=== PATIENT | male | born 1950 | race Caucasian/White ===

== ENCOUNTER 2016-03-03 00:51 | Inpatient (IN) | payer OTHER ==
[2016-03-03] VITALS (8 sets, daily range): BP systolic 95–115; BP diastolic 56–69; PULSE 67–103; TEMP 37.4–38.3; O2SAT 90–100; Ht 188 cm; Wt 87.5 kg
[~2016-03-03] VITALS: Ht 188 cm; Wt 87.5 kg
[~2016-03-03 00:51] MED LIST: ASCO1CAP3 PO; ASPI-435 PO; CALC200T PO; CYCL10TA6 PO; CYCL25CA2 PO; INSPMPNVLG; ISOS-11 PO; LPT/40 PO; LYR/50 PO; METO50TA16 PO; PRED-301 PO; WARF2.5T8 PO; WARF5TAB7 PO
[2016-03-03] MEDS ORDERED: SODIUM CHLORIDE 0.9% 1000ML 1,000 ML IV STA (01:07)
[2016-03-03] MEDS ORDERED: ONDANSETRON INJ 2 MG/ML 2 ML VIAL IV STA ×2 (01:07→02:06)
--- NOTE | 2016-03-03 01:12 | EMERGENCY ROOM VISIT NOTE ---
History Report prepared by Atif: Angel Ricardo Under the Supervision of: Dr. Axel Zaldivar M.D. First contact with patient: 01:01 Chief Complaint: VOMITING Stated Complaint: COUGH,VOMITING,ACEVEDO (DIABETIC) History of Present Illness The patient is a 65 year old male who presents to the Emergency Room with complaints of persistent nausea and vomiting starting a few minutes ago. He also complains of diaphoresis, fevers, chills, and heart palpitations occurring since this morning. He denies chest pain, shortness of breath, or any other complaints. He was started on Keflex this morning for a diabetic foot ulcer on the right. His blood sugar was 188 at home. The patient's has cold-like symptoms. The patient is on Coumadin. Source of History: patient Onset: a few minutes ago Position: other (global) Quality: other (nausea and vomiting) Timing: other (persistent) Associated Symptoms: + chills, + diaphoresis, + fevers, No SOB, No chest pain Review of Systems See HPI for pertinent positives & negatives. A total of 10 systems reviewed and were otherwise negative. Past Medical & Surgical Medical Problems: (1) Atrial fibrillation (2) Coronary artery disease (3) Diabetic retinopathy (4) History of renal cell carcinoma (5) Pneumonia (6) Type 1 diabetes Surgical Problems: (1) History of renal transplant (2) Status post nephrectomy Family History FH: diabetes mellitus Social History Smoking Status: Never Smoker Alcohol Use: none Drug Use: none Marital Status: Housing Status: lives with family Current/Historical Medications Scheduled Ascorbic Acid (Vitamin C), 1 CAP PO QAM Aspirin (Aspirin 81), 81 MG PO QAM Atorvastatin (Lipitor), 40 MG PO QPM Azelastine Hcl-Fluticasone Pro (Dymista), 2 [place] BID Calcium Carbonate-Vitamin D (Oscal 500/200 D-3), 1 TAB PO BID Cephalexin Monohydrate (Keflex), 500 MG PO TID Cyclosporine (Cyclosporine), 50 MG PO BID Insulin Aspart (novoLOG INSULIN PUMP ), 1 EA N/A UD Isosorbide Mononitrate (Isosorbide Mononitrate ER), 30 MG PO QAM Metoprolol Tartrate (Lopressor) (Lopressor), 50 MG PO BID Multivitamin (Multivitamin), 1 TAB PO DAILY Prednisone (Prednisone), 5 MG PO QAM Pregabalin (Lyrica), 50 MG PO 5XD Warfarin Sod (Jantoven), 5 MG PO DIRECTED Warfarin Sod (Jantoven), 2.5 MG PO DIRECTED Scheduled PRN Cyclobenzaprine Hcl (Flexeril), 10 MG PO TID PRN for muscle spasm Allergies Uncoded Allergies: "MOST NARCOTICS" (Adverse Reaction, Intermediate, NAUSEA, 01/24/14) Physical Exam Vital Signs Date Time Temp Pulse Resp B/P Pulse Ox O2 Delivery O2 Flow Rate FiO2 03/03/16 02:49 100 20 181/122 94 Room Air 03/03/16 02:25 160 183/122 03/03/16 02:01 134 18 188/112 92 Room Air 03/03/16 01:42 193/118 03/03/16 01:38 155 207/146 03/03/16 01:31 124 20 207/146 92 Room Air 03/03/16 01:18 152 03/03/16 00:54 37.3 120 20 145/ 100 Room Air Physical Exam GENERAL: Patient is uncomfortable appearing and in moderate distress. HEENT: No acute trauma, normocephalic atraumatic, mucous membranes dry, no nasal congestion, no scleral icterus. NECK: No stridor, no adenopathy, no meningismus, trachea is midline. LUNGS: Hacking cough with junky breath sounds throughout No wheeze, no rhonchi. HEART: Tachycardic rate with an irregular heartbeat. No murmurs, rubs, gallops appreciated. ABDOMEN: Soft, nontender, bowel sounds positive, no masses appreciated, no peritonitis. BACK: No midline tenderness, no CVA tenderness EXTREMITIES: Normal motion all extremities, no cyanosis, no edema. Emaciated bilateral lower legs, left worse than right. 2 cm superficial ulcer to the right medial MTP joint with mild surrounding erythema. NEUROLOGIC: Alert and oriented, no acute motor or sensory deficits, no focal weakness, cranial nerves grossly intact. SKIN: No rash, no jaundice, no diaphoresis. Medical Decision & Procedures ER Provider Diagnostic Interpretation: X ray results are stated below per my interpretation: CHEST X-RAY New infiltrate, right perihilar/right middle lobe. Enlarged heart compared to previous x-ray. No clear effusion. No pneumothorax. Laboratory Results 03/03/16 01:15 Red Blood Count 4.62, Mean Corpuscular Volume 94.2, Mean Corpuscular Hemoglobin 32.3, Mean Corpuscular Hemoglobin Concent 34.3, Mean Platelet Volume 11.5, Neutrophils (%) (Auto) 80.0, Lymphocytes (%) (Auto) 11.4, Monocytes (%) (Auto) 7.0, Eosinophils (%) (Auto) 1.2, Basophils (%) (Auto) 0.2, Neutrophils # (Auto) 11.06, Lymphocytes # (Auto) 1.58, Monocytes # (Auto) 0.97, Eosinophils # (Auto) 0.16, Basophils # (Auto) 0.03 03/03/16 01:15 Test 03/03/16 00:00 03/03/16 01:15 Urine Color YELLOW Urine Appearance CLEAR (CLEAR) Urine pH 5.5 (4.5-7.5) Urine Specific [place] 1.012 (1.000-1.030) Urine Protein NEG (NEG) Urine Glucose (UA) 2+ (NEG) Urine Ketones NEG (NEG) Urine Occult Blood NEG (NEG) Urine Nitrite NEG (NEG) Urine Bilirubin NEG (NEG) Urine Urobilinogen NEG (NEG) Urine Leukocyte Esterase NEG (NEG) Urine WBC (Auto) /hpf (0-5) Urine RBC (Auto) /hpf (0-4) Urine Hyaline Casts (Auto) /lpf (0-5) Urine Epithelial Cells (Auto) /lpf (0-5) Urine Bacteria (Auto) (NEG) Urine RBC 0-4 /hpf (0-4) Urine WBC 0 /hpf (0-5) Urine Epithelial Cells 0-5 /lpf (0-5) Urine Bacteria NEG (NEG) Influenza Type A Antigen Neg for Influ A (NEG) Influenza Type B Antigen Neg for Influ B (NEG) White Blood Count 13.83 K/uL (4.8-10.8) Red Blood Count 4.62 M/uL (4.7-6.1) Hemoglobin 14.9 g/dL (14.0-18.0) Hematocrit 43.5 % (42-52) Mean Corpuscular Volume 94.2 fL (80-100) Mean Corpuscular Hemoglobin 32.3 pg (25-34) Mean Corpuscular Hemoglobin Concent 34.3 g/dl (32-36) Platelet Count 304 K/uL (130-400) Mean Platelet Volume 11.5 fL (7.4-10.4) Neutrophils (%) (Auto) 80.0 % Lymphocytes (%) (Auto) 11.4 % Monocytes (%) (Auto) 7.0 % Eosinophils (%) (Auto) 1.2 % Basophils (%) (Auto) 0.2 % Neutrophils # (Auto) 11.06 K/uL (1.4-6.5) Lymphocytes # (Auto) 1.58 K/uL (1.2-3.4) Monocytes # (Auto) 0.97 K/uL (0.11-0.59) Eosinophils # (Auto) 0.16 K/uL (0-0.5) Basophils # (Auto) 0.03 K/uL (0-0.2) RDW Standard Deviation 49.5 fL (36.4-46.3) RDW Coefficient of Variation 14.5 % (11.5-14.5) Immature Granulocyte % (Auto) 0.2 % Immature Granulocyte # (Auto) 0.03 K/uL (0.00-0.02) Prothrombin Time 37.3 SECONDS (9.0-12.0) Prothromb Time International Ratio 3.3 (0.9-1.1) Activated Partial Thromboplast Time 32.2 SECONDS (21.0-31.0) Partial Thromboplastin Ratio 1.2 Anion Gap 11.0 mmol/L (3-11) Est Creatinine Clear Calc Drug Dose 65.0 ml/min Estimated GFR () 65.4 Estimated GFR (Non- 56.5 BUN/Creatinine Ratio 22.3 (10-20) Calcium Level 9.0 mg/dl (8.5-10.1) Magnesium Level 1.8 mg/dl (1.8-2.4) Total Bilirubin 0.5 mg/dl (0.2-1) Direct Bilirubin 0.2 mg/dl (0-0.2) Aspartate Amino Transf (AST/SGOT) 24 U/L (15-37) Alanine Aminotransferase (ALT/SGPT) 36 U/L (12-78) Alkaline Phosphatase 107 U/L (45-117) Troponin I < 0.015 ng/ml (0-0.045) C-Reactive Protein 0.56 mg/dl (0-0.29) Total Protein 7.3 gm/dl (6.4-8.2) Albumin 4.0 gm/dl (3.4-5.0) Lipase 82 U/L (73-393) Laboratory results as reviewed by me. Medications Administered Medications (Trade) Dose Ordered Sig/Tay Route Start Time Stop Time Status Last Admin Dose Admin Sodium Chloride (Nss 1000ml) 1,000 ml @ 999 mls/hr Q1H1M STAT IV 03/03/16 01:07 03/03/16 02:07 DC 03/03/16 01:27 999 MLS/HR Ondansetron HCl (Zofran Inj) 4 mg NOW STAT IV 03/03/16 01:07 03/03/16 01:08 DC 03/03/16 01:27 4 MG Metoprolol Tartrate (Lopressor Iv) 5 mg NOW STAT IV 03/03/16 01:24 03/03/16 01:25 DC 03/03/16 01:38 5 MG Lorazepam (Ativan Inj) 0.5 mg NOW STAT IV 03/03/16 01:44 03/03/16 01:45 DC 03/03/16 01:53 0.5 MG Levofloxacin (Levaquin / D5W) 750 mg NOW ONCE IV 03/03/16 02:00 03/03/16 02:01 DC 03/03/16 02:46 750 MG Metoprolol Tartrate (Lopressor Iv) 5 mg NOW STAT IV 03/03/16 02:04 03/03/16 02:05 DC 03/03/16 02:25 5 MG Ondansetron HCl (Zofran Inj) 4 mg NOW STAT IV 03/03/16 02:06 03/03/16 02:07 DC 03/03/16 02:22 4 MG Hydrocodone Bit/ Homatropine Methylb 5 ml 5 ml NOW STAT PO 03/03/16 02:51 03/03/16 03:00 DC 03/03/16 03:09 5 ML Diltiazem HCl/ Dextrose (Cardizem Inj/D5 100ml) 125 ml @ 0 mls/hr Q0M PRN IV 03/03/16 03:00 04/02/16 02:59 03/03/16 03:20 5 MLS/HR Diltiazem HCl 20 mg 20 mg NOW STAT IV 03/03/16 02:56 03/03/16 02:57 DC 03/03/16 03:18 20 MG Promethazine HCl/ Sodium Chloride (Phenergan Inj/ Nss 50ml) 50.5 ml @ 204 mls/hr NOW STAT IV 03/03/16 02:54 03/03/16 03:08 DC 03/03/16 03:14 204 MLS/HR ECG Indication: nausea, palpitations, vomiting Rate (beats per minute): 120 Rhythm: atrial fibrillation (with RVR) Findings: no acute ischemic change, other (QTC is 469) Change: Similar to previous EKGs. ED Course 0101: The patient was evaluated in room B04B. A complete history and physical exam was performed. 0023: I reevaluated the patient who has not received his nausea medication yet. He did not take the metoprolol this morning. He continues to feel nauseated. 0107: Zofran Inj 4 mg IV, Sodium Chloride 1000 ml @ 999 mls/hr IV 0124: Metoprolol Tartrate 5 mg IV 0144: Ativan Inj 0.5 mg IV 0200: Levofloxacin 750 mg IV. Upon reevaluation, the patient is feeling better but still feels nauseous. Discussed results and treatment plan with the patient. He verbalized understanding and agreement with the treatment plan. The patient will be evaluated for further management. 0204: Lopressor IV 5 mg IV 0206: Zofran Inj 4 mg IV 0207: [facility] the [facility] Medical Decision Differential: Viral, Pharyngitis, Cellulitis, Pneumonia, Influenza, Meningitis, Sepsis, Bacteremia, UTI/Pyelonephritis, Endocrine, Toxicologic, amongst other pathologies entertained. 65 yr old male on immunosuppressants for renal tx arrives Afib RVR, with right sided pneumonia, intractable vomiting and generalized illness. Flu negative. Will treat with Levaquin given lung coverage as well as right foot coverage. Not hypotensive nor lactic acidosis, thus I will hold off on excessive hydration at this time. Given 2 rounds of lopressor with improvement in HR though remains RVR. Suspect early sepsis as WBC elevated along with worsening of Cr from baseline and mild hypoxia. He has IDDM with mild hypoglycemia though is not acidotic and not DKA at this time. Will bring in to medical service for further work-up and treatment. Was given small dose ativan for nausea control as zofran only mildly helpful. Consults Time Called: 202 Consulting Physician: Dr. Montana, from [facility] Service Returned Call: 020 I discussed the patient's case with Dr. Montana, from [facility]. Impression Primary Impression: Pneumonia Additional Impressions: Atrial fibrillation with RVR, Intractable vomiting Critical Care I have personally spent greater than 40 minutes of critical care time in the direct management of this patient. This was a life/limb threatening event. This includes time spent evaluating patient, direct bedside care, chart review, placing orders, interpretation of diagnostic studies, discussion with consultants, patient, and family members, as well as other required patient management activities. This 40 minutes is in excess of all separately billable procedures. Scribe Attestation The scribe's documentation has been prepared under my direction and personally reviewed by me in its entirety. I confirm that the note above accurately reflects all work, treatment, procedures, and medical decision making performed by me. Departure Information Dispostion Being Evaluated By Hospitalist Referrals Tristan Bedolla D.O. (PCP) Patient Instructions A Signature Page, My [facility]
[2016-03-03] MEDS ORDERED: METOPROLOL TARTRATE 1 MG/ML VIAL IV STA ×2 (01:24→02:04)
[2016-03-03 01:28] LABS: BASO % 0.2 %; BASO ABS # 0.03 K/uL (0-0.2); COMPLETE YES; EOS % 1.2 %; HEMATOCRIT 43.5 % (42-52); IG% 0.2 %; LYMPH % 11.4 %; LYMPH ABS # 1.58 K/uL (1.2-3.4); MEAN CELL VOLUME 94.2 fL (80-100); MEAN CORPUSCULAR HEMOGLOBIN 32.3 pg (25-34); MEAN CORPUSCULAR HGB CONC 34.3 g/dl (32-36); MEAN PLATELET VOLUME 11.5 fL (7.4-10.4); PLATELET COUNT 304 K/uL (130-400); RED BLOOD COUNT 4.62 M/uL (4.7-6.1); WHITE BLOOD COUNT 13.83 K/uL (4.8-10.8)
[2016-03-03 01:39] LABS: INR 3.3 (0.9-1.1); PARTIAL THROMBOPLASTIN RATIO 1.2; PROTHROMBIN TIME (PATIENT) 37.3 SECONDS (9.0-12.0)
[2016-03-03] MEDS ORDERED: LORAZEPAM 2 MG/ML 1 ML VIAL IV STA (01:44)
[2016-03-03 01:47] LABS: ALT/SGPT 36 U/L (12-78); AST/SGOT 24 U/L (15-37); BLOOD UREA NITROGEN 29 mg/dl (7-18); BUN/CREATININE RATIO 22.3 (10-20); CARBON DIOXIDE 28 mmol/L (21-32); CHLORIDE 101 mmol/L (98-107); GLUCOSE 227 mg/dl (70-99); MAGNESIUM 1.8 mg/dl (1.8-2.4); POTASSIUM 3.9 mmol/L (3.5-5.1); SODIUM 140 mmol/L (136-145)
[2016-03-03 01:50] LABS: ALKALINE PHOSPHATASE 107 U/L (45-117); C-REACTIVE PROTEIN 0.56 mg/dl (0-0.29)
[2016-03-03] MEDS ORDERED: AZEL30SP NAE (01:50)
[2016-03-03] MEDS ORDERED: SALI0.658 NAE (01:53)
[2016-03-03] MEDS ORDERED: MULT-506 PO (01:53)
[2016-03-03] MEDS ORDERED: CEPH500C2 PO (01:55)
[2016-03-03] MEDS ORDERED: LEVAQUIN 750MG / 150ML D5W IV ONE (02:00)
[2016-03-03 02:22] LABS: URINE APPEARANCE CLEAR (CLEAR); URINE BILIRUBIN NEG (NEG); URINE COLOR YELLOW; URINE NITRITE NEG (NEG); URINE PH 5.5 (4.5-7.5); URINE SPECIFIC GRAVITY 1.012 (1.000-1.030); UROBILINOGEN NEG (NEG); ZZUR CULT IF INDIC CLEAN CATCH NO
[2016-03-03 02:24] LABS: MANUAL MICROSCOPIC REQUIRED? YES; REVIEW REQ? NO
[2016-03-03] MEDS ORDERED: DILTIAZEM BOLUS / DRIP IV STA (02:32)
[2016-03-03] MEDS ORDERED: NovoLOG INSULIN PUMP SCH (02:45)
[2016-03-03] MEDS ORDERED: MAGNESIUM HYDROXIDE SUSP 30 ML UDC PO PRN (02:45)
[2016-03-03] MEDS ORDERED: ONDANSETRON INJ 2 MG/ML 2 ML VIAL IV PRN (02:45)
[2016-03-03] MEDS ORDERED: ALUMINUM/MAGNESIUM/SIMETH (MAALOX MAX) 30 ML UDC PO PRN (02:45)
[2016-03-03] MEDS ORDERED: POLYETHYLENE (MIRALAX) 17 GM PACK PO PRN (02:45)
[2016-03-03] MEDS ORDERED: NITROGLYCERIN 0.4 MG SL PER TAB CHARGE SL PRN (02:45)
[2016-03-03] MEDS ORDERED: LEVALBUTEROL 0.63MG/3 ML NEB INH PRN (02:45)
[2016-03-03] MEDS ORDERED: HYDROCODONE/HOMATROPINE SYRUP 5MG/1.5MG 5ML UDP PO STA (02:51)
[2016-03-03 02:52] LABS: URINE BACTERIA NEG (NEG); URINE RBC 0-4 /hpf (0-4); URINE WBC 0 /hpf (0-5)
[2016-03-03] MEDS ORDERED: PROMETHAZINE HCL INJ 12.5 MG in SODIUM CHLORIDE 0.9% 50ML 50 ML IV STA (02:54)
[2016-03-03] MEDS ORDERED: DILTIAZEM HCL 5 MG/ML 5 ML VIAL IV STA (02:56)
[2016-03-03] MEDS ORDERED: DILTIAZEM HCL INJ 125 MG in DEXTROSE 5% 100ML IV PRN (03:00)
[2016-03-03] MEDS ORDERED: HYDROCODONE/HOMATROPINE SYRUP 5MG/1.5MG 5ML UDP PO PRN (03:00)
--- NOTE | 2016-03-03 03:13 | History and Physical ---
History & Physical Date & Time of Service: Mar 03, 2016 at 02:40 Chief Complaint: Cough,Vomiting,Kothari (Diabetic) Primary Care Physician: Tristan Bedolla D.O. History of Present Illness Source: patient, family, clinic records, hospital records This is a 65 year old male with PMH of renal transplant on immunosuppressive therapy, type 1 DM on an insulin pump with complications including diabetic neuropathy, hx. of paroxysmal atrial fibrillation on anticoagulation, CAD s/p stents - he presents to the ER due to coughing, nausea/vomiting that began on 03/02/16 - the coughing has made it difficult to keep anything down and he developed vomiting secondary to this. He states that there are some sick family members at home, including their grandchildren. He was given keflex 1 day prior due to a foot ulcerations noted on the right big toe. Initially, he thought the vomiting was due to the antibiotic, but states that the vomiting started after coughing began. Upon presentation here, he had an CXR done, showing a R middle lobe pneumonia. HRs were in the 120s-130s as he could not keep down his Lopressor dose for the evening. Given IV lopressor in the ER with little improvement in the heart rate. During my exam, continues to have vomiting, coughing, and elevated HRs. Past Medical/Surgical History Medical Problems: (1) Atrial fibrillation Status: Chronic (2) Coronary artery disease Status: Chronic (3) Diabetic retinopathy Status: Chronic (4) History of renal cell carcinoma Status: Chronic (5) Type 1 diabetes Status: Chronic Surgical Problems: (1) History of renal transplant Status: Chronic (2) Status post nephrectomy Permanent Comment: for renal cell Ca Status: Chronic Family History FH: diabetes mellitus Social History Smoking Status: Never Smoker Drug Use: none Marital Status: Housing status: lives with family Immunizations History of Influenza Vaccine: Yes Influenza Vaccine Date: Nov 08, 2013 History of Tetanus Vaccine?: Yes Tetanus Immunization Date: May 03, 2006 History of Pneumococcal: Yes Pneumococcal Date: Jun 06, 2013 History of Hepatitis B Vaccine: Yes Hepatitis Immunization Date: Apr 19, 1992 Allergies Uncoded Allergies: "MOST NARCOTICS" (Adverse Reaction, Intermediate, NAUSEA, 01/24/14) Home Medications Scheduled Ascorbic Acid (Vitamin C), 1 CAP PO QAM Aspirin (Aspirin 81), 81 MG PO QAM Atorvastatin (Lipitor), 40 MG PO QPM Azelastine Hcl-Fluticasone Pro (Dymista), 2 [place] BID Calcium Carbonate-Vitamin D (Oscal 500/200 D-3), 1 TAB PO BID Cephalexin Monohydrate (Keflex), 500 MG PO TID Cyclosporine (Cyclosporine), 50 MG PO BID Insulin Aspart (novoLOG INSULIN PUMP ), 1 EA N/A UD Isosorbide Mononitrate (Isosorbide Mononitrate ER), 30 MG PO QAM Metoprolol Tartrate (Lopressor) (Lopressor), 50 MG PO BID Multivitamin (Multivitamin), 1 TAB PO DAILY Prednisone (Prednisone), 5 MG PO QAM Pregabalin (Lyrica), 50 MG PO 5XD Warfarin Sod (Jantoven), 5 MG PO DIRECTED Warfarin Sod (Jantoven), 2.5 MG PO DIRECTED Scheduled PRN Cyclobenzaprine Hcl (Flexeril), 10 MG PO TID PRN for muscle spasm Review of Systems Constitutional: + weakness, No chills, No fatigue, No fever Respiratory: + cough, + sputum, No dyspnea at rest, No dyspnea on exertion, No shortness of breath, No wheezing Cardiovascular: No chest pain, No edema, No palpitations Abdomen: + nausea, + vomiting, No GI bleeding, No constipation, No diarrhea, No pain Genitourinary - Male: No dysuria, No hematuria, No urinary frequency, No urinary urgency Neurologic: No memory loss Endocrine: No fatigue Hematologic / Lymphatic: No abnormal bleeding/bruising Integumentary: No rash Allergic / Immunologic: No environmental allergies, No seasonal allergies Physical Exam Vital Signs Date Time Temp Pulse Resp B/P Pulse Ox O2 Delivery O2 Flow Rate FiO2 03/03/16 02:25 160 183/122 03/03/16 02:01 134 18 188/112 92 Room Air 03/03/16 01:42 193/118 03/03/16 01:38 155 207/146 03/03/16 01:31 124 20 207/146 92 Room Air 03/03/16 01:18 152 03/03/16 00:54 37.3 120 20 145/ 100 Room Air General Appearance: + moderate distress (secondary to vomiting/cough) Head: normocephalic, atraumatic Eyes: normal inspection ENT: hearing grossly normal Neck: supple Respiratory/Chest: + respiratory distress, + decreased breath sounds, + crackles Cardiovascular: no edema, no murmur, + tachycardia Abdomen/GI: normal bowel sounds, non tender, soft Extremities/Musculoskelatal: no calf tenderness, normal capillary refill, no pedal edema Neurologic/Psych: no motor/sensory deficits, alert, normal mood/affect Skin: normal color Lymphatic: no adenopathy Diagnostics Laboratory Results Results Past 24 Hours Test 03/03/16 00:00 03/03/16 01:15 Range/Units Urine Color YELLOW Urine Appearance CLEAR CLEAR Urine pH 5.5 4.5-7.5 Urine Specific [place] 1.012 1.000-1.030 Urine Protein NEG NEG Urine Glucose (UA) 2+ NEG Urine Ketones NEG NEG Urine Occult Blood NEG NEG Urine Nitrite NEG NEG Urine Bilirubin NEG NEG Urine Urobilinogen NEG NEG Urine Leukocyte Esterase NEG NEG Urine WBC (Auto) 0-5 /hpf Urine RBC (Auto) 0-4 /hpf Urine Hyaline Casts (Auto) 0-5 /lpf Urine Epithelial Cells (Auto) 0-5 /lpf Urine Bacteria (Auto) NEG Influenza Type A Antigen Neg for Influ A NEG Influenza Type B Antigen Neg for Influ B NEG White Blood Count 13.83 4.8-10.8 K/uL Red Blood Count 4.62 4.7-6.1 M/uL Hemoglobin 14.9 14.0-18.0 g/dL Hematocrit 43.5 42-52 % Mean Corpuscular Volume 94.2 80-100 fL Mean Corpuscular Hemoglobin 32.3 25-34 pg Mean Corpuscular Hemoglobin Concent 34.3 32-36 g/dl Platelet Count 304 130-400 K/uL Mean Platelet Volume 11.5 7.4-10.4 fL Neutrophils (%) (Auto) 80.0 % Lymphocytes (%) (Auto) 11.4 % Monocytes (%) (Auto) 7.0 % Eosinophils (%) (Auto) 1.2 % Basophils (%) (Auto) 0.2 % Neutrophils # (Auto) 11.06 1.4-6.5 K/uL Lymphocytes # (Auto) 1.58 1.2-3.4 K/uL Monocytes # (Auto) 0.97 0.11-0.59 K/uL Eosinophils # (Auto) 0.16 0-0.5 K/uL Basophils # (Auto) 0.03 0-0.2 K/uL RDW Standard Deviation 49.5 36.4-46.3 fL RDW Coefficient of Variation 14.5 11.5-14.5 % Immature Granulocyte % (Auto) 0.2 % Immature Granulocyte # (Auto) 0.03 0.00-0.02 K/uL Prothrombin Time 37.3 9.0-12.0 SECONDS Prothromb Time International Ratio 3.3 0.9-1.1 Activated Partial Thromboplast Time 32.2 21.0-31.0 SECONDS Partial Thromboplastin Ratio 1.2 Sodium Level 140 136-145 mmol/L Potassium Level 3.9 3.5-5.1 mmol/L Chloride Level 101 98-107 mmol/L Carbon Dioxide Level 28 21-32 mmol/L Anion Gap 11.0 3-11 mmol/L Blood Urea Nitrogen 29 7-18 mg/dl Creatinine 1.30 0.60-1.40 mg/dl Est Creatinine Clear Calc Drug Dose 65.0 ml/min Estimated GFR () 65.4 Estimated GFR (Non- 56.5 BUN/Creatinine Ratio 22.3 10-20 Random Glucose 227 70-99 mg/dl Calcium Level 9.0 8.5-10.1 mg/dl Magnesium Level 1.8 1.8-2.4 mg/dl Total Bilirubin 0.5 0.2-1 mg/dl Direct Bilirubin 0.2 0-0.2 mg/dl Aspartate Amino Transf (AST/SGOT) 24 15-37 U/L Alanine Aminotransferase (ALT/SGPT) 36 12-78 U/L Alkaline Phosphatase 107 45-117 U/L Troponin I < 0.015 0-0.045 ng/ml C-Reactive Protein 0.56 0-0.29 mg/dl Total Protein 7.3 6.4-8.2 gm/dl Albumin 4.0 3.4-5.0 gm/dl Lipase 82 73-393 U/L Microbiology Results 03/03/16 Blood Culture, Jessica Batch Pending 03/03/16 Blood Culture, Jessica Batch Pending Impression Assessment and Plan This is a 65 year old male with PMH of renal transplant on immunosuppressive therapy, type 1 DM on an insulin pump with complications including diabetic neuropathy, hx. of paroxysmal atrial fibrillation on anticoagulation, CAD s/p stents Mild Sepsis Right Middle Lobe Pneumonia -->CXR suggest a right middle lobe consolidation -->patient's family member states he did not aspirate on food -->+tachycardia, +leukocytosis = meets sepsis criteria -->was given one dose of Levaquin in the ER -->will start Rocephin and Doxycycline in the AM -->cough persists, slightly hypoxic requiring 2L O2 via NC -->continue supplemental oxygen as needed -->add Hycodan cough syrup -->Xopenex nebulization as needed -->blood cultures/sputum culture pending Post-Tussive Emesis -->patient with lots of sputum production with cough -->+emesis, and nausea -->Zofran PRN -->added hycodan syrup for cough suppression -->Phenergan PRN added Atrial Fibrillation with RVR -->multifactorial: infection as well as missed b-oleg dose due to vomiting -->was given 10mg of IV Lopressor in the ER with no help -->Cardizem 20mg bolus and drip started at 5mg -->monitor in tele -->patient on Coumadin; INR is 3.3 -->hold Coumadin tonight and recheck on 03/04 Acute Kidney Injury -->secondary to nausea/vomiting + dehydration -->baseline creat = 1.0 -->here with a creat of 1.3 -->given boluses in the ER -->will start maintenance IVFs and recheck creat in AM Right Foot Ulceration -->was started on Keflex as outpatient -->will continue Rocephin + doxy as above for pneumonia; should cover the ulcer as well -->wound care nurse consult placed Type 1 Diabetes Mellitus -->patient with an insulin pump; may use his own -->monitor blood sugars with the nausea/vomiting -->may need to turn off insulin pump and use subq insulin if patient has difficulty with using the pump CAD s/p stents -->no acute problems noted -->continue cardiac medications, ASA, statin, Imdur, b-oleg Uncontrolled Blood Pressure -->again, likely related to +cough, +vomiting -->started on cardizem drip, monitor BP and adjust meds accordingly DVT ppx -->Coumadin, INR = 3.3 FULL CODE VTE Prophylaxis VTE Risk Assessment Done? Y/N: Yes Risk Level: High
[2016-03-03] MEDS ORDERED: GLUCOSE 10 TABS/TUBE PO PRN ×2 (03:15→05:15)
[2016-03-03] MEDS ORDERED: GLUCOSE 40% GEL 15 GM TUBE PO PRN ×2 (03:15→05:15)
[2016-03-03] MEDS ORDERED: DEXTROSE 50% 50 ML SYR IV PRN ×2 (03:15→05:15)
[2016-03-03] MEDS ORDERED: GLUCAGON FOR INJ 1 MG VIAL SQ PRN ×2 (03:15→05:15)
[2016-03-03] MEDS ORDERED: PHARMACY GLYCEMIC MGMT CONSULT PRN (03:50)
[2016-03-03] MEDS ORDERED: PHARMACY GLYCEMIC MGMT CONSULT STA (04:29)
[2016-03-03] MEDS: CEFTRIAXONE SOD INJ 1 GM in DEXTROSE 5% ADD-VANTAGE 50ML 50 ML IV SCH (05:12)
[2016-03-03] MEDS: SODIUM CHLORIDE 0.9% 1000ML 1,000 ML IV SCH ×2 (05:12→17:02)
[2016-03-03 06:04] LABS: HEMATOCRIT 39.9 % (42-52); MEAN CELL VOLUME 93.4 fL (80-100); MEAN CORPUSCULAR HEMOGLOBIN 32.6 pg (25-34); MEAN CORPUSCULAR HGB CONC 34.8 g/dl (32-36); MEAN PLATELET VOLUME 11.5 fL (7.4-10.4); PLATELET COUNT 208 K/uL (130-400); RED BLOOD COUNT 4.27 M/uL (4.7-6.1); WHITE BLOOD COUNT 8.57 K/uL (4.8-10.8)
[2016-03-03 06:31] LABS: BUN/CREATININE RATIO 22.3 (10-20); CALCIUM 8.5 mg/dl (8.5-10.1); CREATININE 1.2 mg/dl (0.60-1.40); MAGNESIUM 1.6 mg/dl (1.8-2.4); POTASSIUM 3.6 mmol/L (3.5-5.1)
--- NOTE | 2016-03-03 07:14 | DIAGNOSTIC IMAGING REPORT ---
SINGLE VIEW CHEST CLINICAL HISTORY: Vomiting. FINDINGS: An AP, portable, upright chest radiograph is compared to study dated 05/31/2015. The examination is significantly degraded by portable technique and patient rotation. The heart is mildly enlarged and there is atherosclerotic calcification of the thoracic aorta. The pulmonary vasculature is noncongested. Emphysema and chronic interstitial thickening is similar to previous. There are bibasilar airspace opacities, likely representing atelectasis. No large pleural effusion or pneumothorax is seen. The skeletal structures are osteopenic. The bony thorax is grossly intact. Fusion hardware is noted in the lower cervical spine. IMPRESSION: 1. Cardiomegaly and emphysema. 2. Bibasilar airspace opacities likely represent atelectasis. Correlate clinically for evidence of a superimposed infectious or inflammatory pneumonitis. Electronically signed by: Minesh Taveras M.D. 03/03/2016 7:12 AM Dictated Date/Time: 03/03/2016 7:11 AM
[2016-03-03] MEDS: DOXYCYCLINE IV 100 MG in DEXTROSE 5% 100ML 100 ML IV SCH ×2 (08:29→21:17)
[2016-03-03] MEDS: MULTIVITAMIN TAB PO SCH (08:31)
[2016-03-03] MEDS: ASPIRIN 81 MG ECTAB PO SCH (08:31)
[2016-03-03] MEDS: METOPROLOL TARTRATE 50 MG TAB PO SCH ×2 (08:31→21:19)
[2016-03-03] MEDS: ASCORBIC ACID 500 MG TAB PO SCH (08:31)
[2016-03-03] MEDS: ISOSORBIDE MONONITRATE 30 MG TABCR PO SCH (08:31)
[2016-03-03] MEDS: CALCIUM 600MG + VIT D 400 IU TAB PO SCH ×2 (08:31→21:18)
[2016-03-03] MEDS: CycloSPORINE (SANDIMMUNE) 25 MG CAP PO SCH ×2 (08:32→21:21)
[2016-03-03] MEDS: INSULIN ASPART 100 UNITS/ML 3 ML PEN SC SCH ×4 (08:38→21:24)
[2016-03-03] MEDS: INSULIN GLARGINE SOLOSTAR 100 UNITS/ML 3 ML PEN SC SCH ×2 (08:39→21:23)
[2016-03-03] MEDS ORDERED: PREGABALIN 50 MG CAP PO SCH (09:00)
[2016-03-03 09:04] LABS: ESTIMATED AVERAGE GLUCOSE 194 mg/dl; HA1C FLAG Normal (Normal)
--- NOTE | 2016-03-03 16:02 | Pharmacy Progress Note ---
Glycemic Control Intl Consult Date of Service Mar 03, 2016. Scope Glycemic Pharmacist consulted by Dr Montana on 03/03/16 for glycemic control and to write orders per [facility] inpatient glycemic control protocol Objective Weight (Kilograms): 87.900 Accuchecks BSG (last 24hrs): Test 03/03/16 01:15 03/03/16 04:17 03/03/16 05:08 03/03/16 05:10 Random Glucose 227 mg/dl (70-99) 202 mg/dl (70-99) Bedside Glucose 207 mg/dl (70-99) 198 mg/dl (70-99) Test 03/03/16 11:13 Bedside Glucose 198 mg/dl (70-99) Laboratory Data (last 24hrs) Test 03/03/16 01:15 03/03/16 05:08 Anion Gap 11.0 mmol/L 12.0 mmol/L BUN/Creatinine Ratio 22.3 22.3 Blood Urea Nitrogen 29 mg/dl 27 mg/dl Creatinine 1.30 mg/dl 1.20 mg/dl Potassium Level 3.9 mmol/L 3.6 mmol/L Sodium Level 140 mmol/L 142 mmol/L White Blood Count 13.83 K/uL 8.57 K/uL Red Blood Count 4.62 M/uL Hemoglobin 14.9 g/dL Hematocrit 43.5 % Mean Corpuscular Volume 94.2 fL Mean Corpuscular Hemoglobin 32.3 pg Mean Corpuscular Hemoglobin Concent 34.3 g/dl Platelet Count 304 K/uL Mean Platelet Volume 11.5 fL Neutrophils (%) (Auto) 80.0 % Lymphocytes (%) (Auto) 11.4 % Monocytes (%) (Auto) 7.0 % Eosinophils (%) (Auto) 1.2 % Basophils (%) (Auto) 0.2 % Neutrophils # (Auto) 11.06 K/uL Lymphocytes # (Auto) 1.58 K/uL Monocytes # (Auto) 0.97 K/uL Eosinophils # (Auto) 0.16 K/uL Basophils # (Auto) 0.03 K/uL Hemoglobin A1c 8.4 % HbA1c Test 03/03/16 05:08 Hemoglobin A1c 8.4 % (4.5-5.6) H Recent Pertinent Medications Outpatient Anti-diabetic Regimen: * Novolog pump, total 16.475 units basal/day, goal 118-130, CF 42, CR 15 * A1c = 8.4 % 03/03/16 The patient is currently receiving: * Basal insulin: Lantus 15 units every 12 hours * Correctional Insulin: Novolog Correction per scale ACHS Goal Range: Low 100 mg/dL - High 140 mg/dL Correction Factor: 25 mg/dL/unit * Prandial insulin: Per carb ratio of 1 unit per 9 grams CHO consumed Risk Factors for Insulin Resistance: * Steroids: Prednisone 5 mg daily (home dose) * Infection: pneumonia, on Rocephin and doxycycline IV * Pressors: no * IVF: NS @ 80 ml/hr, Cardizem drip mixed in d5w * Recent Surgery: no * Diet: type 1 diabetic renal * Mechanical Ventilation: no Assessment & Plan ASSESSMENT: * ADA & AACE recommend a goal blood sugar range 140-180 mg/dl for the majority of critically ill & non-critically ill patients. However, more stringent targets may be selected in individual cases. * 65 yo type 1 diabetic on Novolog pump at home, unable to manage pump on admission due to confusion. Started weight-based Lantus-Novolog, Lantus not yet steady-state. Pump settings reported by environmental educator. May need to decrease insulin doses- will reassess in am. PLAN FOR INPATIENT GLYCEMIC CONTROL: * Continuing Lantus 15] units SQ BID, give 1/2 dose (7 units) if BSG is less than 100 * Continuing correction factor 25 mg/dl/unit * Continuing carb ratio 1 unit per 9 grams CHO consumed * Continuing goal range Low 100 mg/dL - High 140 mg/dL * Please note that the plan above was derived based on current level of insulin resistance and hospital stress. These recommendations are appropriate for inpatient admission only. Plan of care upon discharge will need to be reassessed to avoid potential outpatient hypo/hyperglycemia. Thank you.
--- NOTE | 2016-03-03 19:27 | Progress Note ---
Medicine Progress Note Date & Time of Visit: Mar 03, 2016 at 19:27. Subjective Patient seen with his present at the bedside; reports feeling drowsy from the meds given this AM. Nausea and vomiting improved. Has a productive cough. Still having chills/fevers. Denies any SOB/CP/palpitations. No other complaints at this time. Patient and updated on progress. Objective Last 8 Hrs Date Time Temp Pulse Resp B/P Pulse Ox O2 Delivery O2 Flow Rate FiO2 03/03/16 16:00 Room Air 03/03/16 15:06 37.7 68 18 95/57 90 Room Air 03/03/16 12:07 38.3 78 14 115/69 94 Room Air 03/03/16 12:00 Nasal Cannula 2.0 Physical Exam: GENERAL: Patient is in no acute distress. HEENT: No acute trauma, normocephalic, mucous membranes moist, no nasal congestion, no scleral icterus. NECK: No stridor, trachea is midline LUNGS: Coarse rhonchi bilaterally, no wheeze, breath sounds equal. HEART: Without murmurs gallops or rubs, irregularly irregular ABDOMEN: Soft, nontender, bowel sounds positive EXTREMITIES: No cyanosis or edema NEUROLOGIC: Oriented, drowsy, no acute motor or sensory deficits, no focal weakness. SKIN: No rash, no jaundice, no diaphoresis. Laboratory Results: Last 24 Hours Test 03/03/16 00:00 03/03/16 01:15 03/03/16 01:18 03/03/16 04:17 Urine Color YELLOW Urine Appearance CLEAR Urine pH 5.5 Urine Specific [place] 1.012 Urine Protein NEG Urine Glucose (UA) 2+ Urine Ketones NEG Urine Occult Blood NEG Urine Nitrite NEG Urine Bilirubin NEG Urine Urobilinogen NEG Urine Leukocyte Esterase NEG Urine WBC (Auto) /hpf Urine RBC (Auto) /hpf Urine Hyaline Casts (Auto) /lpf Urine Epithelial Cells (Auto) /lpf Urine Bacteria (Auto) Urine RBC 0-4 /hpf Urine WBC 0 /hpf Urine Epithelial Cells 0-5 /lpf Urine Bacteria NEG Influenza Type A Antigen Neg for Influ A Influenza Type B Antigen Neg for Influ B White Blood Count 13.83 K/uL Red Blood Count 4.62 M/uL Hemoglobin 14.9 g/dL Hematocrit 43.5 % Mean Corpuscular Volume 94.2 fL Mean Corpuscular Hemoglobin 32.3 pg Mean Corpuscular Hemoglobin Concent 34.3 g/dl Platelet Count 304 K/uL Mean Platelet Volume 11.5 fL Neutrophils (%) (Auto) 80.0 % Lymphocytes (%) (Auto) 11.4 % Monocytes (%) (Auto) 7.0 % Eosinophils (%) (Auto) 1.2 % Basophils (%) (Auto) 0.2 % Neutrophils # (Auto) 11.06 K/uL Lymphocytes # (Auto) 1.58 K/uL Monocytes # (Auto) 0.97 K/uL Eosinophils # (Auto) 0.16 K/uL Basophils # (Auto) 0.03 K/uL RDW Standard Deviation 49.5 fL RDW Coefficient of Variation 14.5 % Immature Granulocyte % (Auto) 0.2 % Immature Granulocyte # (Auto) 0.03 K/uL Prothrombin Time 37.3 SECONDS Prothromb Time International Ratio 3.3 Activated Partial Thromboplast Time 32.2 SECONDS Partial Thromboplastin Ratio 1.2 Sodium Level 140 mmol/L Potassium Level 3.9 mmol/L Chloride Level 101 mmol/L Carbon Dioxide Level 28 mmol/L Anion Gap 11.0 mmol/L Blood Urea Nitrogen 29 mg/dl Creatinine 1.30 mg/dl Est Creatinine Clear Calc Drug Dose 65.0 ml/min Estimated GFR () 65.4 Estimated GFR (Non- 56.5 BUN/Creatinine Ratio 22.3 Random Glucose 227 mg/dl Calcium Level 9.0 mg/dl Magnesium Level 1.8 mg/dl Total Bilirubin 0.5 mg/dl Direct Bilirubin 0.2 mg/dl Aspartate Amino Transf (AST/SGOT) 24 U/L Alanine Aminotransferase (ALT/SGPT) 36 U/L Alkaline Phosphatase 107 U/L Troponin I < 0.015 ng/ml C-Reactive Protein 0.56 mg/dl Total Protein 7.3 gm/dl Albumin 4.0 gm/dl Lipase 82 U/L Bedside Lactic Acid Venous 1.40 mmol/L Bedside Glucose 207 mg/dl Test 03/03/16 05:08 03/03/16 05:10 03/03/16 11:13 03/03/16 16:30 White Blood Count 8.57 K/uL Red Blood Count 4.27 M/uL Hemoglobin 13.9 g/dL Hematocrit 39.9 % Mean Corpuscular Volume 93.4 fL Mean Corpuscular Hemoglobin 32.6 pg Mean Corpuscular Hemoglobin Concent 34.8 g/dl RDW Standard Deviation 49.4 fL RDW Coefficient of Variation 14.6 % Platelet Count 208 K/uL Mean Platelet Volume 11.5 fL Sodium Level 142 mmol/L Potassium Level 3.6 mmol/L Chloride Level 103 mmol/L Carbon Dioxide Level 27 mmol/L Anion Gap 12.0 mmol/L Blood Urea Nitrogen 27 mg/dl Creatinine 1.20 mg/dl Est Creatinine Clear Calc Drug Dose 69.5 ml/min Estimated GFR () 72.1 Estimated GFR (Non- 62.2 BUN/Creatinine Ratio 22.3 Random Glucose 202 mg/dl Estimated Average Glucose 194 mg/dl Hemoglobin A1c 8.4 % Calcium Level 8.5 mg/dl Magnesium Level 1.6 mg/dl Bedside Glucose 198 mg/dl 198 mg/dl 169 mg/dl Date/Time Source Procedure Growth Status 03/03/16 02:40 Blood Blood Culture Pending Received 03/03/16 02:35 Blood Blood Culture Pending Received Assessment & Plan See H&P from this AM for more details. Current Inpatient Medications: Current Inpatient Medications Medications (Trade) Dose Ordered Sig/Tay Route Start Time Stop Time Status Last Admin Dose Admin Sodium Chloride (Nss 1000ml) 1,000 ml @ 80 mls/hr [id number] IV 03/03/16 04:30 04/02/16 04:29 03/03/16 17:02 80 MLS/HR Acetaminophen (Tylenol Tab) 650 mg Q4H PRN PO 03/03/16 02:45 04/02/16 02:44 Al Hydrox/Mg Hydrox/Simethicone (Maalox Max Susp) 15 ml Q4H PRN PO 03/03/16 02:45 04/02/16 02:44 Magnesium Hydroxide (Milk Of Magnesia Susp) 30 ml Q12H PRN PO 03/03/16 02:45 04/02/16 02:44 Ondansetron HCl (Zofran Inj) 4 mg Q6H PRN IV 03/03/16 02:45 04/02/16 02:44 Nitroglycerin (Nitrostat Tab) 0.4 mg UD PRN SL 03/03/16 02:45 04/02/16 02:44 Polyethylene 17 gm 17 gm DAILY PRN PO 03/03/16 02:45 2/9/17 02:44 Ceftriaxone Sodium 1 gm/ Dextrose 50 ml @ 100 mls/hr DAILY@0500 IV 03/03/16 05:00 03/10/16 04:59 03/03/16 05:12 100 MLS/HR Doxycycline Hyclate/Dextrose (Vibramycin IV/ D5 100ml) 110 ml @ 50 mls/hr BID IV 03/03/16 09:00 03/10/16 08:59 03/03/16 08:29 50 MLS/HR Levalbuterol (Xopenex 0.63 Mg/ 3 Ml Neb) 0.63 mg Q6R PRN INH 03/03/16 02:45 04/02/16 02:44 Aspirin (Ecotrin Tab) 81 mg QAM PO 03/03/16 09:00 04/02/16 08:59 03/03/16 08:31 81 MG Atorvastatin Calcium (Lipitor Tab) 40 mg QPM PO 03/03/16 21:00 04/02/16 20:59 Cyclosporine (Sandimmune Cap) 50 mg BID PO 03/03/16 09:00 04/02/16 08:59 03/03/16 08:32 50 MG Insulin Aspart (novoLOG INSULIN PUMP) 1 ea UD N/A 03/03/16 02:45 04/02/16 02:44 Future Hold Isosorbide Mononitrate (Imdur Ext Rel Tab) 30 mg QAM PO 03/03/16 09:00 04/02/16 08:59 03/03/16 08:31 30 MG Metoprolol Tartrate (Lopressor Tab) 50 mg BID PO 03/03/16 09:00 04/02/16 08:59 03/03/16 08:31 50 MG Multivitamins (Multivitamin Tab) 1 tab DAILY PO 03/03/16 09:00 04/02/16 08:59 03/03/16 08:31 1 TAB Prednisone (PredniSONE TAB) 5 mg QAM PO 03/03/16 09:00 04/02/16 08:59 03/03/16 08:31 5 MG Pregabalin (Lyrica Cap) 50 mg DAILY PO 03/03/16 09:00 04/02/16 08:59 03/03/16 08:28 50 MG Ascorbic Acid (Vitamin C Tab) 500 mg DAILY PO 03/03/16 09:00 04/02/16 08:59 03/03/16 08:31 500 MG Calcium/Vitamin D (Caltrate Plus Tab) 1 tab BID PO 03/03/16 09:00 04/02/16 08:59 03/03/16 08:31 1 TAB Hydrocodone Bit/ Homatropine Methylb 5 ml 5 ml Q6 PRN PO 03/03/16 03:00 03/17/16 02:59 Diltiazem HCl/ Dextrose (Cardizem Inj/D5 100ml) 125 ml @ 0 mls/hr Q0M PRN IV 03/03/16 03:00 04/02/16 02:59 03/03/16 03:20 5 MLS/HR Miscellaneous Information (Consult Glycemic Management Pharmacy) 1 ea DAILY PRN N/A 03/03/16 03:50 04/02/16 03:49 Insulin Aspart (novoLOG ASPART) SLIDING SCALE ACHS SC 03/03/16 07:00 04/02/16 06:59 03/03/16 17:02 2 UNITS Glucose (Glucose 40% Gel) 15-30 GRAMS 15 GRAMS... UD PRN PO 03/03/16 05:15 04/02/16 05:14 Glucose (Glucose Chew Tab) 4-8 Tablets 4 Tabl... UD PRN PO 03/03/16 05:15 04/02/16 05:14 Dextrose (Dextrose 50% 50ML Syringe) 25-50ML OF 50% DW IV FOR... UD PRN IV 03/03/16 05:15 04/02/16 05:14 Glucagon (Glucagon Inj) 1 mg UD PRN SQ 03/03/16 05:15 04/02/16 05:14 Insulin Glargine (Lantus Solostar Pen) 15 unit BID SC 03/03/16 09:00 04/02/16 08:59 03/03/16 08:39 15 UNIT
[2016-03-03] MEDS: ATORVASTATIN 20 MG TAB PO SCH (21:17)
[2016-03-03] MEDS ORDERED: NURSING VERBAL MED ORDER ONE (23:30)
[2016-03-04] VITALS (9 sets, daily range): BP systolic 102–126; BP diastolic 53–70; PULSE 70–89; TEMP 36.4–37.7; O2SAT 90–98
[2016-03-04] MEDS: SODIUM CHLORIDE 0.9% 1000ML 1,000 ML IV SCH ×2 (04:41→18:05)
[2016-03-04] MEDS: CEFTRIAXONE SOD INJ 1 GM in DEXTROSE 5% ADD-VANTAGE 50ML 50 ML IV SCH (04:41)
[2016-03-04] MEDS: PREGABALIN 50 MG CAP PO SCH ×5 (06:35→21:30)
[2016-03-04] MEDS: ASPIRIN 81 MG ECTAB PO SCH (08:08)
[2016-03-04] MEDS: DOXYCYCLINE IV 100 MG in DEXTROSE 5% 100ML 100 ML IV SCH ×2 (08:08→21:30)
[2016-03-04] MEDS: CycloSPORINE (SANDIMMUNE) 25 MG CAP PO SCH ×2 (08:08→21:30)
[2016-03-04] MEDS: ASCORBIC ACID 500 MG TAB PO SCH (08:08)
[2016-03-04] MEDS: CALCIUM 600MG + VIT D 400 IU TAB PO SCH ×2 (08:09→21:29)
[2016-03-04] MEDS: METOPROLOL TARTRATE 50 MG TAB PO SCH ×2 (08:09→21:30)
[2016-03-04] MEDS: MULTIVITAMIN TAB PO SCH (08:09)
[2016-03-04] MEDS: ISOSORBIDE MONONITRATE 30 MG TABCR PO SCH (08:09)
[2016-03-04] MEDS: INSULIN ASPART 100 UNITS/ML 3 ML PEN SC SCH ×4 (08:11→21:31)
[2016-03-04] MEDS: INSULIN GLARGINE SOLOSTAR 100 UNITS/ML 3 ML PEN SC SCH ×3 (08:12→21:32)
[2016-03-04 11:27] LABS: HEMATOCRIT 35.9 % (42-52); MEAN CELL VOLUME 93.5 fL (80-100); MEAN CORPUSCULAR HEMOGLOBIN 33.1 pg (25-34); MEAN CORPUSCULAR HGB CONC 35.4 g/dl (32-36); MEAN PLATELET VOLUME 11.5 fL (7.4-10.4); PLATELET COUNT 169 K/uL (130-400); RED BLOOD COUNT 3.84 M/uL (4.7-6.1); WHITE BLOOD COUNT 16.44 K/uL (4.8-10.8)
[2016-03-04 11:42] LABS: PROTHROMBIN TIME (PATIENT) 58.6 SECONDS (9.0-12.0)
[2016-03-04 11:45] LABS: INR 5.1 (0.9-1.1)
[2016-03-04 11:58] LABS: BUN/CREATININE RATIO 19.3 (10-20); CALCIUM 8.5 mg/dl (8.5-10.1); POTASSIUM 3.8 mmol/L (3.5-5.1)
[2016-03-04 12:41] LABS: CREATININE 2.1 mg/dl (0.60-1.40)
[2016-03-04] MEDS ORDERED: SODIUM CHLORIDE 0.65% NA SOLN 45 ML (OCEAN) PRN (15:30)
--- NOTE | 2016-03-04 16:27 | Pharmacy Progress Note ---
Glycemic: Assessment & Plan Date of Service Mar 04, 2016. Assessment & Plan The patient received 43 units of insulin on 03/03. BSGs ranging 169-211 mg/dl over the past 24hrs. Cardizem drip (mixed in D5W) dc'd. PO intake much better. FBS high, so will increase Lantus, and reassess in am. * Basal insulin: Lantus 18 units every 12 hours * Correctional Insulin: Novolog Correction per scale ACHS Goal Range: Low 100 mg/dL - High 140 mg/dL Correction Factor: 25 mg/dL/unit * Prandial insulin: Per carb ratio of 1 unit per 9 grams CHO consumed BSGs continue to improve, no other changes needed to inpatient regimen at this time. Pharmacy will continue to monitor patient daily and write orders per [facility] inpatient glycemic control protocol. Thanks. * Please note that the plan above was derived based on current level of insulin resistance and hospital stress. These recommendations are appropriate for inpatient admission only. Plan of care upon discharge will need to be reassessed to avoid potential outpatient hypo/hyperglycemia.
[2016-03-04] MEDS: BOOST BREEZE NUTRITION DRINK 1 BOX PO SCH (17:05)
--- NOTE | 2016-03-04 19:03 | Progress Note ---
Medicine Progress Note Date & Time of Visit: Mar 04, 2016 at 19:03. Subjective Patient reports feeling weak but otherwise better overall. No overnight events noted. Appetite improving. Less coughing. No N/V. Denies any new symptoms. Objective Last 8 Hrs Date Time Temp Pulse Resp B/P Pulse Ox O2 Delivery O2 Flow Rate FiO2 03/04/16 16:00 89 03/04/16 16:00 Nasal Cannula 2.0 03/04/16 14:59 37.7 88 18 102/53 91 Room Air 03/04/16 12:00 Nasal Cannula 2.0 03/04/16 11:47 36.4 86 16 116/56 94 Physical Exam: GENERAL: Patient is in no acute distress. HEENT: No acute trauma, normocephalic, mucous membranes moist, no nasal congestion, no scleral icterus. NECK: No stridor, trachea is midline LUNGS: Coarse rhonchi bilaterally, no wheeze, breath sounds equal. HEART: Without murmurs gallops or rubs, irregularly irregular ABDOMEN: Soft, nontender, bowel sounds positive EXTREMITIES: No cyanosis or edema NEUROLOGIC: Oriented, drowsy, no acute motor or sensory deficits, no focal weakness. SKIN: No rash, no jaundice, no diaphoresis. Laboratory Results: Last 24 Hours Test 03/03/16 21:15 03/04/16 06:32 03/04/16 11:05 03/04/16 11:15 Bedside Glucose 211 mg/dl 186 mg/dl 177 mg/dl White Blood Count 16.44 K/uL Red Blood Count 3.84 M/uL Hemoglobin 12.7 g/dL Hematocrit 35.9 % Mean Corpuscular Volume 93.5 fL Mean Corpuscular Hemoglobin 33.1 pg Mean Corpuscular Hemoglobin Concent 35.4 g/dl RDW Standard Deviation 52.1 fL RDW Coefficient of Variation 15.2 % Platelet Count 169 K/uL Mean Platelet Volume 11.5 fL Prothrombin Time 58.6 SECONDS Prothromb Time International Ratio 5.1 Sodium Level 138 mmol/L Potassium Level 3.8 mmol/L Chloride Level 103 mmol/L Carbon Dioxide Level 25 mmol/L Anion Gap 10.0 mmol/L Blood Urea Nitrogen 40 mg/dl Creatinine 2.10 mg/dl Est Creatinine Clear Calc Drug Dose 39.7 ml/min Estimated GFR () 36.6 Estimated GFR (Non- 31.6 BUN/Creatinine Ratio 19.3 Random Glucose 195 mg/dl Calcium Level 8.5 mg/dl Test 03/04/16 16:18 Bedside Glucose 157 mg/dl Date/Time Source Procedure Growth Status 03/04/16 10:35 Sputum Expectorated Sputum Gram Stain - Final Complete 03/04/16 10:35 Sputum Expectorated Sputum Sputum Culture - Final Complete Assessment & Plan PROBABLE SEPSIS: from RML pneumonia -CXR suggestive of possible right middle lobe consolidation -no aspiration events noted prior to admission -presented with tachycardia, leukocytosis, and fever -was given one dose of Levaquin in the ER -continue Rocephin and Doxycycline for CAP -has productive cough -was also slightly hypoxic and initially required 2L O2 via NC -supplemental oxygen as needed -PRN Hycodan cough syrup, PRN tessalon perles -nebs as needed -blood and sputum cultures pending POST-TUSSIVE EMESIS: resolved -had severe cough. sputum; now improving -antiemetics PRN -hycodan PRN ATRIAL FIB with RVR: -multifactorial: infection as well as missed b-oleg dose due to vomiting -was given 10mg of IV Lopressor in ER without any change -was on Cardizem drip; stopped today -remains in A fib but rates controlled -Coumadin held for supratherapeutic INR -continue home metoprolol DE: -likely secondary to nausea/vomiting + dehydration -baseline creat = 1.0 -Cr of 1.3 increased to 2.1 -on maintenance IV fluids; -monitor -avoid nephrotoxins Right Foot Ulceration: -was started on Keflex as outpatient -on Rocephin + doxy as above for pneumonia; should cover the ulcer as well -wound care nurse consult placed Diabetes Mellitus Type I: -patient with insulin pump; held for now due to acute illness -monitor blood sugars with the nausea/vomiting -Glycemic pharmacy consult CAD: s/p stents -no related symptoms -continue cardiac medications, ASA, statin, Imdur, b-oleg HTN: with elevated BP initially -likely related to +cough, +vomiting; now improved -continue on home meds Current Inpatient Medications: Current Inpatient Medications Medications (Trade) Dose Ordered Sig/Tay Route Start Time Stop Time Status Last Admin Dose Admin Sodium Chloride (Nss 1000ml) 1,000 ml @ 80 mls/hr [id number] IV 03/03/16 04:30 04/02/16 04:29 03/04/16 18:05 80 MLS/HR Acetaminophen (Tylenol Tab) 650 mg Q4H PRN PO 03/03/16 02:45 04/02/16 02:44 Al Hydrox/Mg Hydrox/Simethicone (Maalox Max Susp) 15 ml Q4H PRN PO 03/03/16 02:45 04/02/16 02:44 Magnesium Hydroxide (Milk Of Magnesia Susp) 30 ml Q12H PRN PO 03/03/16 02:45 04/02/16 02:44 Ondansetron HCl (Zofran Inj) 4 mg Q6H PRN IV 03/03/16 02:45 04/02/16 02:44 Nitroglycerin (Nitrostat Tab) 0.4 mg UD PRN SL 03/03/16 02:45 04/02/16 02:44 Polyethylene 17 gm 17 gm DAILY PRN PO 03/03/16 02:45 04/02/16 02:44 Ceftriaxone Sodium 1 gm/ Dextrose 50 ml @ 100 mls/hr DAILY@0500 IV 03/03/16 05:00 03/10/16 04:59 03/04/16 04:41 100 MLS/HR Doxycycline Hyclate/Dextrose (Vibramycin IV/ D5 100ml) 110 ml @ 50 mls/hr BID IV 03/03/16 09:00 03/10/16 08:59 03/04/16 08:08 50 MLS/HR Levalbuterol (Xopenex 0.63 Mg/ 3 Ml Neb) 0.63 mg Q6R PRN INH 03/03/16 02:45 04/02/16 02:44 Aspirin (Ecotrin Tab) 81 mg QAM PO 03/03/16 09:00 04/02/16 08:59 03/04/16 08:08 81 MG Atorvastatin Calcium (Lipitor Tab) 40 mg QPM PO 03/03/16 21:00 04/02/16 20:59 03/03/16 21:17 40 MG Cyclosporine (Sandimmune Cap) 50 mg BID PO 03/03/16 09:00 04/02/16 08:59 03/04/16 08:08 50 MG Insulin Aspart (novoLOG INSULIN PUMP) 1 ea UD N/A 03/03/16 02:45 04/02/16 02:44 Future Hold Isosorbide Mononitrate (Imdur Ext Rel Tab) 30 mg QAM PO 03/03/16 09:00 04/02/16 08:59 03/04/16 08:09 30 MG Metoprolol Tartrate (Lopressor Tab) 50 mg BID PO 03/03/16 09:00 04/02/16 08:59 03/04/16 08:09 50 MG Multivitamins (Multivitamin Tab) 1 tab DAILY PO 03/03/16 09:00 04/02/16 08:59 03/04/16 08:09 1 TAB Prednisone (PredniSONE TAB) 5 mg QAM PO 03/03/16 09:00 04/02/16 08:59 03/04/16 08:09 5 MG Ascorbic Acid (Vitamin C Tab) 500 mg DAILY PO 03/03/16 09:00 04/02/16 08:59 03/04/16 08:08 500 MG Calcium/Vitamin D (Caltrate Plus Tab) 1 tab BID PO 03/03/16 09:00 04/02/16 08:59 03/04/16 08:09 1 TAB Hydrocodone Bit/ Homatropine Methylb (Hycodan Syrup) 5 ml Q6 PRN PO 03/03/16 03:00 03/17/16 02:59 Miscellaneous Information (Consult Glycemic Management Pharmacy) 1 ea DAILY PRN N/A 03/03/16 03:50 04/02/16 03:49 Insulin Aspart (novoLOG ASPART) SLIDING SCALE ACHS SC 03/03/16 07:00 04/02/16 06:59 03/04/16 17:05 7 UNITS Glucose (Glucose 40% Gel) 15-30 GRAMS 15 GRAMS... UD PRN PO 03/03/16 05:15 04/02/16 05:14 Glucose (Glucose Chew Tab) 4-8 Tablets 4 Tabl... UD PRN PO 03/03/16 05:15 04/02/16 05:14 Dextrose (Dextrose 50% 50ML Syringe) 25-50ML OF 50% DW IV FOR... UD PRN IV 03/03/16 05:15 04/02/16 05:14 Glucagon (Glucagon Inj) 1 mg UD PRN SQ 03/03/16 05:15 04/02/16 05:14 Pregabalin (Lyrica Cap) 50 mg [id number] PO 03/04/16 07:00 04/03/16 06:59 03/04/16 16:11 50 MG Insulin Glargine (Lantus Solostar Pen) 18 unit BID SC 03/04/16 09:00 04/03/16 08:59 03/04/16 09:02 18 UNIT Enteral Nutritional Formula (Boost Breeze Nutritional Drink) 1 box BIDM PO 03/04/16 16:45 04/03/16 16:44 03/04/16 17:05 1 BOX Benzonatate (Tessalon Perles Cap) 100 mg TID PO 03/04/16 21:00 04/03/16 20:59 Sodium Chloride (Deal Nasal [place]) 2 sprays Q4 PRN NA 03/04/16 15:30 04/03/16 15:29 Insulin Aspart (novoLOG ASPART) SLIDING SCALE 0000,0400 SC 03/05/16 00:00 04/04/16 00:00
[2016-03-04] MEDS: ATORVASTATIN 20 MG TAB PO SCH (21:29)
[2016-03-04] MEDS: BENZONATATE 100MG CAP PO SCH (21:30)
[2016-03-05] VITALS (10 sets, daily range): BP systolic 126–172; BP diastolic 74–105; PULSE 74–100; TEMP 37.1–38.4; O2SAT 92–96
[2016-03-05] MEDS: ACETAMINOPHEN 325 MG TAB PO PRN ×2 (02:59→22:22)
[2016-03-05] MEDS: INSULIN ASPART 100 UNITS/ML 3 ML PEN SC SCH ×6 (04:00→19:57)
[2016-03-05] MEDS: SODIUM CHLORIDE 0.9% 1000ML 1,000 ML IV SCH ×2 (05:25→20:22)
[2016-03-05] MEDS: CEFTRIAXONE SOD INJ 1 GM in DEXTROSE 5% ADD-VANTAGE 50ML 50 ML IV SCH (05:25)
[2016-03-05 05:49] LABS: HEMATOCRIT 35.4 % (42-52); MEAN CELL VOLUME 93.4 fL (80-100); MEAN CORPUSCULAR HEMOGLOBIN 32.7 pg (25-34); PLATELET COUNT 181 K/uL (130-400); RED BLOOD COUNT 3.79 M/uL (4.7-6.1); WHITE BLOOD COUNT 15.39 K/uL (4.8-10.8)
[2016-03-05 06:05] LABS: INR 3.3 (0.9-1.1); PROTHROMBIN TIME (PATIENT) 37.5 SECONDS (9.0-12.0)
[2016-03-05 06:27] LABS: CALCIUM 8.6 mg/dl (8.5-10.1); CREATININE 1.4 mg/dl (0.60-1.40); POTASSIUM 3.7 mmol/L (3.5-5.1)
[2016-03-05] MEDS: PREGABALIN 50 MG CAP PO SCH ×5 (06:32→19:15)
[2016-03-05] MEDS: INSULIN GLARGINE SOLOSTAR 100 UNITS/ML 3 ML PEN SC SCH ×2 (08:08→19:58)
[2016-03-05] MEDS: DOXYCYCLINE IV 100 MG in DEXTROSE 5% 100ML 100 ML IV SCH ×2 (08:09→19:53)
[2016-03-05] MEDS: BOOST BREEZE NUTRITION DRINK 1 BOX PO SCH ×2 (08:09→16:55)
[2016-03-05] MEDS: ASCORBIC ACID 500 MG TAB PO SCH (08:10)
[2016-03-05] MEDS: CycloSPORINE (SANDIMMUNE) 25 MG CAP PO SCH ×2 (08:10→19:17)
[2016-03-05] MEDS: ASPIRIN 81 MG ECTAB PO SCH (08:11)
[2016-03-05] MEDS: METOPROLOL TARTRATE 50 MG TAB PO SCH ×2 (08:11→19:17)
[2016-03-05] MEDS: MULTIVITAMIN TAB PO SCH (08:11)
[2016-03-05] MEDS: CALCIUM 600MG + VIT D 400 IU TAB PO SCH ×2 (09:06→19:16)
[2016-03-05] MEDS: BENZONATATE 100MG CAP PO SCH ×3 (09:06→19:10)
[2016-03-05] MEDS: ISOSORBIDE MONONITRATE 30 MG TABCR PO SCH (09:06)
[2016-03-05] MEDS: ATORVASTATIN 20 MG TAB PO SCH (19:16)
--- NOTE | 2016-03-05 19:47 | Progress Note ---
Medicine Progress Note Date & Time of Visit: Mar 05, 2016 at 19:47. Subjective Patient reports feeling improvement overall, does still have a significant productive cough. No overnight events noted. Tolerating PO. Denies any SOB. Denies any other complaints at this time. Objective Last 8 Hrs Date Time Temp Pulse Resp B/P Pulse Ox O2 Delivery O2 Flow Rate FiO2 03/05/16 18:49 37.8 93 18 172/105 94 Room Air 03/05/16 16:00 Nasal Cannula 2.0 03/05/16 15:02 37.5 84 18 163/93 95 Room Air 03/05/16 12:03 37.1 74 20 157/87 96 Room Air 03/05/16 12:00 Nasal Cannula 2.0 Physical Exam: GENERAL: Patient is in no acute distress. HEENT: No acute trauma, normocephalic, mucous membranes moist, no nasal congestion, no scleral icterus. NECK: No stridor, trachea is midline LUNGS: Coarse rhonchi bilaterally, no wheeze, breath sounds equal. HEART: Without murmurs gallops or rubs, irregularly irregular ABDOMEN: Soft, nontender, bowel sounds positive EXTREMITIES: No cyanosis or edema NEUROLOGIC: Oriented, no acute motor or sensory deficits, no focal weakness. SKIN: No rash, no jaundice, no diaphoresis. Laboratory Results: Last 24 Hours Test 03/04/16 19:49 03/05/16 00:09 03/05/16 04:46 03/05/16 05:15 Bedside Glucose 187 mg/dl 164 mg/dl 120 mg/dl White Blood Count 15.39 K/uL Red Blood Count 3.79 M/uL Hemoglobin 12.4 g/dL Hematocrit 35.4 % Mean Corpuscular Volume 93.4 fL Mean Corpuscular Hemoglobin 32.7 pg Mean Corpuscular Hemoglobin Concent 35.0 g/dl RDW Standard Deviation 51.1 fL RDW Coefficient of Variation 15.0 % Platelet Count 181 K/uL Mean Platelet Volume 12.0 fL Prothrombin Time 37.5 SECONDS Prothromb Time International Ratio 3.3 Sodium Level 140 mmol/L Potassium Level 3.7 mmol/L Chloride Level 106 mmol/L Carbon Dioxide Level 24 mmol/L Anion Gap 10.0 mmol/L Blood Urea Nitrogen 36 mg/dl Creatinine 1.40 mg/dl Est Creatinine Clear Calc Drug Dose 59.5 ml/min Estimated GFR () 59.8 Estimated GFR (Non- 51.6 BUN/Creatinine Ratio 26.0 Random Glucose 113 mg/dl Calcium Level 8.6 mg/dl Test 03/05/16 06:29 03/05/16 10:55 03/05/16 16:00 Bedside Glucose 111 mg/dl 287 mg/dl 170 mg/dl Date/Time Source Procedure Growth Status 03/05/16 00:00 Sputum Expectorated Sputum Gram Stain - Final Resulted 03/05/16 00:00 Sputum Expectorated Sputum Sputum Culture Pending Resulted Assessment & Plan PROBABLE SEPSIS: from RML pneumonia -CXR suggestive of possible right middle lobe consolidation -no aspiration events noted prior to admission -presented with tachycardia, leukocytosis, and fever -was given one dose of Levaquin in the ER -continue Rocephin and Doxycycline for CAP -has productive cough -was also slightly hypoxic and initially required 2L O2 via NC -supplemental oxygen as needed -PRN Hycodan cough syrup, PRN tessalon perles -nebs as needed -blood and sputum cultures pending, no growth thus far -repeat CXR in AM -still with low grade fever and leukocytosis POST-TUSSIVE EMESIS: resolved -had severe cough. sputum; now improving -antiemetics PRN -hycodan PRN CHRONIC ATRIAL FIB with acute episode of A fib with RVR: -multifactorial: from infection/hypoxia, as well as missed b-oleg dose due to vomiting -was given 10mg of IV Lopressor in ER without any change -was on Cardizem drip; stopped as HR better controlled -remains in A fib but rates controlled -Coumadin held for supratherapeutic INR -continue home metoprolol DE: -likely secondary to nausea/vomiting + dehydration -baseline creat = 1.0 -Cr of 1.3 increased to 2.1, today 1.4 -on maintenance IV fluids, will decrease -monitor -avoid nephrotoxins Right Foot Ulceration: -was recently started on Keflex as outpatient -on Rocephin + doxy as above for pneumonia; should cover the ulcer as well -wound care nurse consult placed Diabetes Mellitus Type I: -patient with insulin pump; held for now due to acute illness -monitor blood sugars with the nausea/vomiting -Glycemic pharmacy consult CAD: s/p stents -no related symptoms -continue cardiac medications, ASA, statin, Imdur, b-oleg HTN: with elevated BP initially -likely related to cough/vomiting; now improved -continue on home meds Current Inpatient Medications: Current Inpatient Medications Medications (Trade) Dose Ordered Sig/Tay Route Start Time Stop Time Status Last Admin Dose Admin Sodium Chloride (Nss 1000ml) 1,000 ml @ 50 mls/hr Q20H IV 03/03/16 04:30 04/02/16 04:29 03/05/16 05:25 80 MLS/HR Acetaminophen (Tylenol Tab) 650 mg Q4H PRN PO 03/03/16 02:45 04/02/16 02:44 03/05/16 02:59 650 MG Al Hydrox/Mg Hydrox/Simethicone (Maalox Max Susp) 15 ml Q4H PRN PO 03/03/16 02:45 04/02/16 02:44 Magnesium Hydroxide (Milk Of Magnesia Susp) 30 ml Q12H PRN PO 03/03/16 02:45 04/02/16 02:44 Ondansetron HCl (Zofran Inj) 4 mg Q6H PRN IV 03/03/16 02:45 04/02/16 02:44 Nitroglycerin (Nitrostat Tab) 0.4 mg UD PRN SL 03/03/16 02:45 04/02/16 02:44 Polyethylene 17 gm 17 gm DAILY PRN PO 03/03/16 02:45 04/02/16 02:44 Ceftriaxone Sodium 1 gm/ Dextrose 50 ml @ 100 mls/hr DAILY@0500 IV 03/03/16 05:00 03/10/16 04:59 03/05/16 05:25 100 MLS/HR Doxycycline Hyclate/Dextrose (Vibramycin IV/ D5 100ml) 110 ml @ 50 mls/hr BID IV 03/03/16 09:00 03/10/16 08:59 03/05/16 08:09 50 MLS/HR Levalbuterol (Xopenex 0.63 Mg/ 3 Ml Neb) 0.63 mg Q6R PRN INH 03/03/16 02:45 04/02/16 02:44 Aspirin (Ecotrin Tab) 81 mg QAM PO 03/03/16 09:00 04/02/16 08:59 03/05/16 08:11 81 MG Atorvastatin Calcium (Lipitor Tab) 40 mg QPM PO 03/03/16 21:00 04/02/16 20:59 03/05/16 19:16 40 MG Cyclosporine (Sandimmune Cap) 50 mg BID PO 03/03/16 09:00 04/02/16 08:59 03/05/16 19:17 50 MG Insulin Aspart (novoLOG INSULIN PUMP) 1 ea UD N/A 03/03/16 02:45 04/02/16 02:44 Future Hold Isosorbide Mononitrate (Imdur Ext Rel Tab) 30 mg QAM PO 03/03/16 09:00 04/02/16 08:59 03/05/16 09:06 30 MG Metoprolol Tartrate (Lopressor Tab) 50 mg BID PO 03/03/16 09:00 04/02/16 08:59 03/05/16 19:17 50 MG Multivitamins (Multivitamin Tab) 1 tab DAILY PO 03/03/16 09:00 04/02/16 08:59 03/05/16 08:11 1 TAB Prednisone (PredniSONE TAB) 5 mg QAM PO 03/03/16 09:00 04/02/16 08:59 03/05/16 08:11 5 MG Ascorbic Acid (Vitamin C Tab) 500 mg DAILY PO 03/03/16 09:00 04/02/16 08:59 03/05/16 08:10 500 MG Calcium/Vitamin D (Caltrate Plus Tab) 1 tab BID PO 03/03/16 09:00 04/02/16 08:59 03/05/16 19:16 1 TAB Hydrocodone Bit/ Homatropine Methylb (Hycodan Syrup) 5 ml Q6 PRN PO 03/03/16 03:00 03/17/16 02:59 Miscellaneous Information (Consult Glycemic Management Pharmacy) 1 ea DAILY PRN N/A 03/03/16 03:50 04/02/16 03:49 Insulin Aspart (novoLOG ASPART) SLIDING SCALE ACHS SC 03/03/16 07:00 04/02/16 06:59 03/05/16 16:54 8 UNITS Glucose (Glucose 40% Gel) 15-30 GRAMS 15 GRAMS... UD PRN PO 03/03/16 05:15 04/02/16 05:14 Glucose (Glucose Chew Tab) 4-8 Tablets 4 Tabl... UD PRN PO 03/03/16 05:15 04/02/16 05:14 Dextrose (Dextrose 50% 50ML Syringe) 25-50ML OF 50% DW IV FOR... UD PRN IV 03/03/16 05:15 04/02/16 05:14 Glucagon (Glucagon Inj) 1 mg UD PRN SQ 03/03/16 05:15 04/02/16 05:14 Pregabalin (Lyrica Cap) 50 mg 5XDQ3H PO 03/04/16 07:00 04/03/16 06:59 03/05/16 19:15 50 MG Insulin Glargine (Lantus Solostar Pen) 18 unit BID SC 03/04/16 09:00 04/03/16 08:59 03/05/16 08:08 18 UNIT Enteral Nutritional Formula (Boost Breeze Nutritional Drink) 1 box BIDM PO 03/04/16 16:45 04/03/16 16:44 03/05/16 16:55 1 BOX Benzonatate (Tessalon Perles Cap) 100 mg TID PO 03/04/16 21:00 04/03/16 20:59 03/05/16 13:29 100 MG Sodium Chloride ([place] Nasal [place]) 2 sprays Q4 PRN NA 03/04/16 15:30 04/03/16 15:29
[2016-03-06] VITALS (10 sets, daily range): BP systolic 108–179; BP diastolic 72–98; PULSE 78–93; TEMP 36.8–37.7; O2SAT 92–96
[2016-03-06] MEDS: CEFTRIAXONE SOD INJ 1 GM in DEXTROSE 5% ADD-VANTAGE 50ML 50 ML IV SCH (05:11)
[2016-03-06 05:44] LABS: INR 2.5 (0.9-1.1); PROTHROMBIN TIME (PATIENT) 28.3 SECONDS (9.0-12.0)
[2016-03-06] MEDS: INSULIN ASPART 100 UNITS/ML 3 ML PEN SC SCH ×4 (07:00→20:17)
[2016-03-06] MEDS: BOOST BREEZE NUTRITION DRINK 1 BOX PO SCH ×2 (07:30→16:23)
[2016-03-06] MEDS: PREGABALIN 50 MG CAP PO SCH ×5 (08:08→19:08)
[2016-03-06] MEDS: ASPIRIN 81 MG ECTAB PO SCH (08:15)
[2016-03-06] MEDS: CycloSPORINE (SANDIMMUNE) 25 MG CAP PO SCH ×2 (08:16→20:30)
[2016-03-06] MEDS: BENZONATATE 100MG CAP PO SCH (08:16)
[2016-03-06] MEDS: MULTIVITAMIN TAB PO SCH (08:16)
[2016-03-06] MEDS: ASCORBIC ACID 500 MG TAB PO SCH (08:16)
[2016-03-06] MEDS: ISOSORBIDE MONONITRATE 30 MG TABCR PO SCH (08:17)
[2016-03-06] MEDS: CALCIUM 600MG + VIT D 400 IU TAB PO SCH ×2 (08:17→20:12)
[2016-03-06] MEDS: METOPROLOL TARTRATE 50 MG TAB PO SCH (08:17)
[2016-03-06] MEDS: INSULIN GLARGINE SOLOSTAR 100 UNITS/ML 3 ML PEN SC SCH (08:20)
[2016-03-06] MEDS: DOXYCYCLINE IV 100 MG in DEXTROSE 5% 100ML 100 ML IV SCH ×2 (08:33→20:11)
[2016-03-06] MEDS ORDERED: AMLODIPINE BESYLATE 5 MG TAB PO SCH (09:00)
[2016-03-06 09:20] LABS: HEMATOCRIT 37.2 % (42-52); MEAN CELL VOLUME 93.7 fL (80-100); MEAN CORPUSCULAR HGB CONC 35.2 g/dl (32-36); PLATELET COUNT 201 K/uL (130-400); RED BLOOD COUNT 3.97 M/uL (4.7-6.1); WHITE BLOOD COUNT 11.58 K/uL (4.8-10.8)
[2016-03-06 09:39] LABS: BUN/CREATININE RATIO 19.8 (10-20); CALCIUM 8.9 mg/dl (8.5-10.1); CREATININE 0.93 mg/dl (0.60-1.40); POTASSIUM 3.7 mmol/L (3.5-5.1)
--- NOTE | 2016-03-06 09:53 | DIAGNOSTIC IMAGING REPORT ---
CHEST 2 VIEWS ROUTINE CLINICAL HISTORY: Follow-up pneumonia. COMPARISON STUDY: Chest radiograph March 03, 2016. FINDINGS: Lung volumes are normal. Cervical spine fusion is partially imaged. There is no pneumothorax. Left basilar opacity has increased. There is mild right basilar opacity. There is a suspected small left pleural effusion. There may be a trace right pleural effusion. There is no evidence of pulmonary edema. IMPRESSION: 1. Increase in left basilar opacity. The appearance favors pneumonia. Radiographic follow up to ensure resolution is recommended. 2. Suspected small left and trace right pleural effusions. Electronically signed by: Gaetano Daley M.D. 03/06/2016 9:51 AM Dictated Date/Time: 03/06/2016 9:50 AM
[2016-03-06] MEDS: ACETAMINOPHEN 325 MG TAB PO PRN (11:02)
[2016-03-06] MEDS ORDERED: GUAIFENESIN SUGAR FREE 200 MG/10 ML UDC PO PRN (11:30)
[2016-03-06] MEDS ORDERED: PIPERACILL/TAZOBAC IV 3.375 GM in DEXTROSE 5% 100ML 100 ML IV ONE (12:00)
[2016-03-06] MEDS ORDERED: PIPERACILL/TAZOBAC CONSULT ACTIVE PRN (12:00)
[2016-03-06] MEDS ORDERED: PIPERACILL/TAZOBAC IV 3.375 GM in DEXTROSE 5% 100ML 100 ML IV SCH (14:00)
[2016-03-06] MEDS: LEVALBUTEROL 1.25MG/0.5ML NEB INH SCH ×2 (14:22→19:08)
[2016-03-06] MEDS: IPRATROPIUM BROMIDE NEB SOLN 0.02% 2.5 ML VIAL INH SCH ×2 (14:22→19:08)
[2016-03-06] MEDS: GUAIFENESIN 200 MG TAB PO PRN ×2 (14:26→21:09)
[2016-03-06] MEDS ORDERED: LEVALBUTEROL/IPRATROPIUM NEB INH SCH (15:00)
--- NOTE | 2016-03-06 15:13 | Pharmacy Progress Note ---
Glycemic: Assessment & Plan Date of Service Mar 06, 2016. Assessment & Plan The patient received 63 units of insulin on 03/04, 65 units on 03/05. BSGs ranging 68 -170 mg/dl over the past 24hrs. Rocephin dc'd and Zosyn (mixed in D5W ) started. BSG's have been trending down, and patient has refused some Novolog doses. Will decrease Lantus, with dose parameters, raise goal range, and reassess in am. * Basal insulin: Lantus 16 units every 12 hours, give 8 units if BSG is less than 100 * Correctional Insulin: Novolog Correction per scale ACHS Goal Range: Low 110 mg/dL - High 140 mg/dL Correction Factor: 25 mg/dL/unit * Prandial insulin: Per carb ratio of 1 unit per 8 grams CHO consumed BSGs continue to improve, no other changes needed to inpatient regimen at this time. Pharmacy will continue to monitor patient daily and write orders per [facility] inpatient glycemic control protocol. Thanks. * Please note that the plan above was derived based on current level of insulin resistance and hospital stress. These recommendations are appropriate for inpatient admission only. Plan of care upon discharge will need to be reassessed to avoid potential outpatient hypo/hyperglycemia.
[2016-03-06] MEDS: WARFARIN SOD 5 MG TAB PO SCH (16:22)
[2016-03-06] MEDS: PIPERACILL/TAZOBAC IV 3.375 GM in DEXTROSE 5% 100ML IV SCH (17:15)
[2016-03-06] MEDS: SODIUM CHLORIDE 0.9% 1000ML 1,000 ML IV SCH (18:04)
--- NOTE | 2016-03-06 19:25 | Progress Note ---
Medicine Progress Note Date & Time of Visit: Mar 06, 2016 at 19:24. Subjective Patient reports not feeling any better today; states the coughing and sputum production has not changed, no overnight events noted. Appetite remains poor. at the bedside and was updated. Patient reports not able to take any cough syrups/cough drops as they make him nauseated. Objective Last 8 Hrs Date Time Temp Pulse Resp B/P Pulse Ox O2 Delivery O2 Flow Rate FiO2 03/06/16 19:08 79 20 94 Room Air 03/06/16 16:00 37.2 80 16 108/73 94 Room Air 03/06/16 16:00 Room Air 03/06/16 14:22 86 20 94 Room Air 03/06/16 12:06 Room Air 03/06/16 11:55 37.7 90 20 174/97 92 Room Air Physical Exam: GENERAL: Patient is in no acute distress. HEENT: No acute trauma, normocephalic, mucous membranes moist, no nasal congestion, no scleral icterus. NECK: No stridor, trachea is midline LUNGS: Coarse rhonchi bilaterally, no wheeze, breath sounds equal. HEART: Without murmurs gallops or rubs, irregularly irregular ABDOMEN: Soft, nontender, bowel sounds positive EXTREMITIES: No cyanosis or edema NEUROLOGIC: Oriented, no acute motor or sensory deficits, no focal weakness. SKIN: No rash, no jaundice, no diaphoresis. Laboratory Results: Last 24 Hours Test 03/05/16 19:54 03/06/16 01:19 03/06/16 01:49 03/06/16 02:38 Bedside Glucose 167 mg/dl 68 mg/dl 92 mg/dl 104 mg/dl Test 03/06/16 05:00 03/06/16 07:08 03/06/16 11:04 03/06/16 16:27 White Blood Count 11.58 K/uL Red Blood Count 3.97 M/uL Hemoglobin 13.1 g/dL Hematocrit 37.2 % Mean Corpuscular Volume 93.7 fL Mean Corpuscular Hemoglobin 33.0 pg Mean Corpuscular Hemoglobin Concent 35.2 g/dl RDW Standard Deviation 49.7 fL RDW Coefficient of Variation 14.5 % Platelet Count 201 K/uL Mean Platelet Volume 12.0 fL Prothrombin Time 28.3 SECONDS Prothromb Time International Ratio 2.5 Sodium Level 142 mmol/L Potassium Level 3.7 mmol/L Chloride Level 107 mmol/L Carbon Dioxide Level 26 mmol/L Anion Gap 9.0 mmol/L Blood Urea Nitrogen 18 mg/dl Creatinine 0.93 mg/dl Est Creatinine Clear Calc Drug Dose 89.6 ml/min Estimated GFR () 98.1 Estimated GFR (Non- 84.6 BUN/Creatinine Ratio 19.8 Random Glucose 98 mg/dl Calcium Level 8.9 mg/dl Bedside Glucose 102 mg/dl 169 mg/dl 240 mg/dl Date/Time Source Procedure Growth Status 03/06/16 00:00 Nasal MRSA DNA Surveillance Screen - Final Specimen Negative for MRSA by DNA Probe Complete Assessment & Plan PROBABLE SEPSIS: from RML pneumonia -CXR suggestive of possible right middle lobe consolidation -no aspiration events noted prior to admission -presented with tachycardia, leukocytosis, and fever -was given one dose of Levaquin in the ER -continue Rocephin and Doxycycline for CAP; expanded coverage by adding zosyn and stopping ceftriaxone due to immunosuppression/transplant patient -has productive cough -was also slightly hypoxic and initially required 2L O2 via NC but has since been on room air -supplemental oxygen as needed -PRN Hycodan cough syrup, PRN tessalon perles; patient refused these and thus will discontinue -nebs scheduled -blood and sputum cultures pending, no growth thus far -repeat CXR shows worsening left base opacity, and a mild right base opacity -still with low grade fevers and leukocytosis trending down POST-TUSSIVE EMESIS: resolved -had severe cough. sputum; now improving -antiemetics PRN CHRONIC ATRIAL FIB with acute episode of A fib with RVR: -multifactorial: from infection/hypoxia, as well as missed b-oleg dose due to vomiting -was given 10mg of IV Lopressor in ER without any change -was on Cardizem drip; stopped as HR better controlled -remains in A fib but rates controlled -Coumadin held for supratherapeutic INR, now resumed -continue home metoprolol DE: -likely secondary to nausea/vomiting + dehydration -baseline creat = 1.0 -Cr of 1.3 increased to 2.1, today down to 0.9 -on maintenance IV fluids, will decrease but not discontinue as patient not taking much PO -monitor -avoid nephrotoxins Right Foot Ulceration: -was recently started on Keflex as outpatient -on Rocephin + doxy as above for pneumonia; should cover the ulcer as well -wound care nurse consult placed Diabetes Mellitus Type I: -patient with insulin pump; held for now due to acute illness -monitor blood sugars with the nausea/vomiting -Glycemic pharmacy consult CAD: s/p stents -no related symptoms -continue cardiac medications, ASA, statin, Imdur, b-oleg HTN: with elevated BP initially -likely related to cough/vomiting; now improved -continue on home meds Current Inpatient Medications: Current Inpatient Medications Medications (Trade) Dose Ordered Sig/Tay Route Start Time Stop Time Status Last Admin Dose Admin Sodium Chloride (Nss 1000ml) 1,000 ml @ 50 mls/hr Q20H IV 03/03/16 04:30 04/02/16 04:29 03/05/16 20:22 50 MLS/HR Acetaminophen (Tylenol Tab) 650 mg Q4H PRN PO 03/03/16 02:45 04/02/16 02:44 03/06/16 11:02 650 MG Al Hydrox/Mg Hydrox/Simethicone (Maalox Max Susp) 15 ml Q4H PRN PO 03/03/16 02:45 04/02/16 02:44 Magnesium Hydroxide (Milk Of Magnesia Susp) 30 ml Q12H PRN PO 03/03/16 02:45 04/02/16 02:44 Ondansetron HCl (Zofran Inj) 4 mg Q6H PRN IV 03/03/16 02:45 04/02/16 02:44 Nitroglycerin (Nitrostat Tab) 0.4 mg UD PRN SL 03/03/16 02:45 04/02/16 02:44 Polyethylene 17 gm 17 gm DAILY PRN PO 03/03/16 02:45 04/02/16 02:44 Doxycycline Hyclate/Dextrose (Vibramycin IV/ D5 100ml) 110 ml @ 50 mls/hr BID IV 03/03/16 09:00 03/10/16 08:59 03/06/16 08:33 50 MLS/HR Aspirin (Ecotrin Tab) 81 mg QAM PO 03/03/16 09:00 04/02/16 08:59 03/06/16 08:15 81 MG Atorvastatin Calcium (Lipitor Tab) 40 mg QPM PO 03/03/16 21:00 04/02/16 20:59 03/05/16 19:16 40 MG Cyclosporine (Sandimmune Cap) 50 mg BID PO 03/03/16 09:00 04/02/16 08:59 03/06/16 08:16 50 MG Insulin Aspart (novoLOG INSULIN PUMP) 1 ea UD N/A 03/03/16 02:45 04/02/16 02:44 Future Hold Isosorbide Mononitrate (Imdur Ext Rel Tab) 30 mg QAM PO 03/03/16 09:00 04/02/16 08:59 03/06/16 08:17 30 MG Multivitamins (Multivitamin Tab) 1 tab DAILY PO 03/03/16 09:00 04/02/16 08:59 03/06/16 08:16 1 TAB Prednisone (PredniSONE TAB) 5 mg QAM PO 03/03/16 09:00 04/02/16 08:59 03/06/16 08:17 5 MG Ascorbic Acid (Vitamin C Tab) 500 mg DAILY PO 03/03/16 09:00 04/02/16 08:59 03/06/16 08:16 500 MG Calcium/Vitamin D (Caltrate Plus Tab) 1 tab BID PO 03/03/16 09:00 04/02/16 08:59 03/06/16 08:17 1 TAB Miscellaneous Information (Consult Glycemic Management Pharmacy) 1 ea DAILY PRN N/A 03/03/16 03:50 04/02/16 03:49 Insulin Aspart (novoLOG ASPART) SLIDING SCALE ACHS SC 03/03/16 07:00 04/02/16 06:59 03/06/16 16:15 7 UNITS Glucose (Glucose 40% Gel) 15-30 GRAMS 15 GRAMS... UD PRN PO 03/03/16 05:15 04/02/16 05:14 Glucose (Glucose Chew Tab) 4-8 Tablets 4 Tabl... UD PRN PO 03/03/16 05:15 04/02/16 05:14 Dextrose (Dextrose 50% 50ML Syringe) 25-50ML OF 50% DW IV FOR... UD PRN IV 03/03/16 05:15 04/02/16 05:14 Glucagon (Glucagon Inj) 1 mg UD PRN SQ 03/03/16 05:15 04/02/16 05:14 Pregabalin (Lyrica Cap) 50 mg 5XDQ3H PO 03/04/16 07:00 04/03/16 06:59 03/06/16 19:08 50 MG Enteral Nutritional Formula (Boost Breeze Nutritional Drink) 1 box BIDM PO 03/04/16 16:45 04/03/16 16:44 03/05/16 16:55 1 BOX Sodium Chloride ([place] Nasal [place]) 2 sprays Q4 PRN NA 03/04/16 15:30 04/03/16 15:29 Amlodipine Besylate (Norvasc Tab) 5 mg QAM PO 03/06/16 09:00 04/05/16 08:59 03/06/16 10:28 5 MG Insulin Glargine (Lantus Solostar Pen) BID SC 03/06/16 21:00 04/05/16 20:59 Warfarin Sodium (Coumadin Tab) 2.5 mg TuSa@1600 PO 03/07/16 16:00 04/06/16 15:59 Warfarin Sodium (Coumadin Tab) 5 mg SuMoWeThFr@1600 PO 03/06/16 16:00 04/05/16 15:59 03/06/16 16:22 5 MG Piperacillin Sod/ Tazobactam Sod (Consult) 1 ea UD PRN N/A 03/06/16 12:00 04/05/16 11:59 Ipratropium [place] (Atrovent 0.02% 0.5MG/2.5ML Neb) 0.5 mg Q6R INH 03/06/16 15:00 04/05/16 14:59 03/06/16 19:08 0.5 MG Levalbuterol 1.25 mg 1.25 mg Q6R INH 03/06/16 15:00 04/05/16 14:59 03/06/16 19:08 1.25 MG Piperacillin Sod/ Tazobactam Sod/ Dextrose (Zosyn Iv/D5 100ml) 115 ml @ 28.75 mls/ hr Q8H IV 03/06/16 18:00 03/13/16 17:59 03/06/16 17:15 28.75 MLS/HR Guaifenesin (Organidin Nr Tab) 200 mg Q4H PRN PO 03/06/16 12:45 04/05/16 12:44 03/06/16 14:26 200 MG Metoprolol Tartrate (Lopressor Tab) 75 mg BID PO 03/06/16 21:00 04/05/16 20:59
[2016-03-06] MEDS: METOPROLOL TARTRATE 25 MG TAB PO SCH (20:13)
[2016-03-06] MEDS: ATORVASTATIN 20 MG TAB PO SCH (20:14)
[2016-03-06] MEDS ORDERED: INSULIN GLARGINE SOLOSTAR 100 UNITS/ML 3 ML PEN SC SCH (21:00)
[2016-03-06] MEDS ORDERED: COUGH DROP (SUGAR FREE) LOZ 24 LOZ/1 BOX ONE (23:34)
[2016-03-06] MEDS ORDERED: NURSING DECISION MEDICATION ORDER SCH (23:45)
[2016-03-06] MEDS ORDERED: COUGH DROP (SUGAR FREE) LOZ 24 LOZ/1 BOX PO PRN (23:45)
[2016-03-07] VITALS (10 sets, daily range): BP systolic 135–166; BP diastolic 80–88; PULSE 77–107; TEMP 37.1–37.8; O2SAT 92–97
[2016-03-07] MEDS: PIPERACILL/TAZOBAC IV 3.375 GM in DEXTROSE 5% 100ML IV SCH ×3 (02:10→17:25)
[2016-03-07] MEDS: LEVALBUTEROL 1.25MG/0.5ML NEB INH SCH ×4 (02:22→20:02)
[2016-03-07] MEDS: IPRATROPIUM BROMIDE NEB SOLN 0.02% 2.5 ML VIAL INH SCH ×4 (02:22→20:02)
[2016-03-07] MEDS: ACETAMINOPHEN 325 MG TAB PO PRN ×2 (03:17→22:33)
[2016-03-07 06:43] LABS: INR 2.6 (0.9-1.1); PROTHROMBIN TIME (PATIENT) 29.1 SECONDS (9.0-12.0)
[2016-03-07] MEDS: BOOST BREEZE NUTRITION DRINK 1 BOX PO SCH ×2 (07:30→16:45)
[2016-03-07] MEDS: PREGABALIN 50 MG CAP PO SCH ×4 (07:59→21:16)
[2016-03-07] MEDS: ASPIRIN 81 MG ECTAB PO SCH (08:00)
[2016-03-07] MEDS: CALCIUM 600MG + VIT D 400 IU TAB PO SCH ×2 (08:00→21:12)
[2016-03-07] MEDS: ISOSORBIDE MONONITRATE 30 MG TABCR PO SCH (08:01)
[2016-03-07] MEDS: METOPROLOL TARTRATE 25 MG TAB PO SCH ×2 (08:01→21:11)
[2016-03-07] MEDS: MULTIVITAMIN TAB PO SCH (08:01)
[2016-03-07] MEDS: ASCORBIC ACID 500 MG TAB PO SCH (08:02)
[2016-03-07] MEDS: CycloSPORINE (SANDIMMUNE) 25 MG CAP PO SCH ×2 (08:02→21:20)
[2016-03-07] MEDS: INSULIN ASPART 100 UNITS/ML 3 ML PEN SC SCH ×4 (08:08→20:44)
[2016-03-07] MEDS: INSULIN GLARGINE SOLOSTAR 100 UNITS/ML 3 ML PEN SC SCH ×3 (08:09→20:44)
[2016-03-07] MEDS: DOXYCYCLINE IV 100 MG in DEXTROSE 5% 100ML 100 ML IV SCH ×2 (08:10→22:24)
--- NOTE | 2016-03-07 10:54 | Pharmacy Progress Note ---
Glycemic Control: Progress Nt Date of Service Mar 07, 2016. Scope Glycemic Pharmacist consulted by Dr Montana on 03/03/16 for glycemic control and to write orders per [facility] inpatient glycemic control protocol. Objective Accuchecks BSG (last 24hrs): Test 03/06/16 11:04 03/06/16 16:27 03/06/16 19:55 03/07/16 06:30 Bedside Glucose 169 mg/dl (70-99) 240 mg/dl (70-99) 228 mg/dl (70-99) 85 mg/dl (70-99) HbA1c: Test 03/03/16 05:08 Hemoglobin A1c 8.4 %(4.5-5.6) H Recent Pertinent Medications Outpatient Anti-diabetic Regimen: * NovoLog pump * 16.475 units basal/day * goal range 118-130mg/dL * Correction factor: 42mg/dL/unit * Carb ratio: 1 unit per 15g of CHO consumed * A1c = 8.4 % 03/03/16 The patient is currently receiving: * Basal insulin: Lantus 16 units every 12 hours * Correctional Insulin: NovoLog Correction per scale AC/HS Goal Range: Low 110 mg/dL - High 140 mg/dL Correction Factor: 25 mg/dL/unit * Prandial insulin: Per carb ratio of 1 unit per 8 grams CHO consumed Risk Factors for Insulin Resistance: * Steroids: Prednisone 5 mg daily (home dose) * Infection: pneumonia, on piperacillin/tazobactam and doxycycline IV * IVF: NS @ 80 ml/hr * Diet: type 1 diabetic/renal Assessment & Plan ASSESSMENT: * ADA & AACE recommend a goal blood sugar range 140-180 mg/dl for the majority of critically ill & non-critically ill patients. However, more stringent targets may be selected in individual cases. 03/03/16 * 65 yo type 1 diabetic on NovoLog pump at home, unable to manage pump on admission due to confusion. * Started weight-based Lantus-NovoLog, Lantus not yet steady-state. * Pump settings reported by para educator. * May need to decrease insulin doses- will reassess in am. 03/07/16 * Currently, the patient has been receiving much higher basal doses compared to home insulin pump basal rate. * this is concerning as type 1 diabetics usually do not vary to this degree with their insulin needs. * Fasting BSG below goal this AM at 85mg/dL * Reduce daily dose and given partial Lantus doses this morning (5 units with breakfast, 5 units with lunch, and then 12 units SQ BID) * NovoLog parameters adequate at this time * BSGs are trending upwards throughout the day (secondary to prednisone kinetics?) - may benefit from a slightly tighter carb ratio * Ceftriaxone change to piperacillin/tazobactam (increased IV dextrose daily) * follow BSG trends PLAN FOR INPATIENT GLYCEMIC CONTROL: * Continuing Lantus, but at a reduced dose * Lantus 5 units SQ today with breakfast and 5 units SQ today with lunch, then 12 units SQ BID * Continue NovoLog AC and HS * Correction factor: 25 mg/dl/unit * Carb ratio: 1 unit per 8 grams CHO consumed * Goal range: Low 110 mg/dL - High 140 mg/dL * A1c 8.4* is current and will be added to discharge instructions RECOMMENDATIONS FOR DISCHARGE: * This will be dependant on the patient's ability to manage NovoLog pump at discharge * Please note that the plan above was derived based on current level of insulin resistance and hospital stress. These recommendations are appropriate for inpatient admission only. Plan of care upon discharge will need to be reassessed to avoid potential outpatient hypo/hyperglycemia. Thank you.
[2016-03-07 13:02] LABS: HEMATOCRIT 39.1 % (42-52); MEAN CELL VOLUME 91.6 fL (80-100); MEAN CORPUSCULAR HEMOGLOBIN 31.9 pg (25-34); MEAN CORPUSCULAR HGB CONC 34.8 g/dl (32-36); MEAN PLATELET VOLUME 11.5 fL (7.4-10.4); PLATELET COUNT 220 K/uL (130-400); RED BLOOD COUNT 4.27 M/uL (4.7-6.1); WHITE BLOOD COUNT 11.43 K/uL (4.8-10.8)
[2016-03-07 13:26] LABS: BUN/CREATININE RATIO 14.3 (10-20); CALCIUM 8.6 mg/dl (8.5-10.1); POTASSIUM 3.9 mmol/L (3.5-5.1)
[2016-03-07] MEDS ORDERED: WARFARIN SOD 2.5 MG TAB PO SCH (16:00)
--- NOTE | 2016-03-07 19:18 | Progress Note ---
Medicine Progress Note Date & Time of Visit: Mar 07, 2016 at 19:17. Subjective Patient reports he does not notice much improvement in his cough and chest congestion. No overnight events noted but patient does report that he did not sleep well due to persistent productive cough. He otherwise has no complaints. Tolerating PO better. No N/V. Had a BM. Objective Last 8 Hrs Date Time Temp Pulse Resp B/P Pulse Ox O2 Delivery O2 Flow Rate FiO2 03/07/16 16:16 37.4 92 16 135/87 94 Room Air 03/07/16 16:00 Room Air 03/07/16 14:48 88 18 97 Room Air 03/07/16 12:40 37.1 77 18 142/82 94 Room Air 03/07/16 12:00 Room Air Physical Exam: GENERAL: Patient is in no acute distress. HEENT: No acute trauma, normocephalic, mucous membranes moist, no nasal congestion, no scleral icterus. NECK: No stridor, trachea is midline LUNGS: Coarse rhonchi bilaterally, no wheeze, breath sounds equal. HEART: Without murmurs gallops or rubs, irregularly irregular ABDOMEN: Soft, nontender, bowel sounds positive EXTREMITIES: No cyanosis or edema NEUROLOGIC: Oriented, no acute motor or sensory deficits, no focal weakness. SKIN: No rash, no jaundice, no diaphoresis. Laboratory Results: Last 24 Hours Test 03/06/16 19:55 03/07/16 05:54 03/07/16 06:30 03/07/16 11:00 Bedside Glucose 228 mg/dl 85 mg/dl Prothrombin Time 29.1 SECONDS Prothromb Time International Ratio 2.6 Test 03/07/16 11:53 03/07/16 12:33 03/07/16 16:03 Bedside Glucose 169 mg/dl 180 mg/dl White Blood Count 11.43 K/uL Red Blood Count 4.27 M/uL Hemoglobin 13.6 g/dL Hematocrit 39.1 % Mean Corpuscular Volume 91.6 fL Mean Corpuscular Hemoglobin 31.9 pg Mean Corpuscular Hemoglobin Concent 34.8 g/dl RDW Standard Deviation 48.0 fL RDW Coefficient of Variation 14.3 % Platelet Count 220 K/uL Mean Platelet Volume 11.5 fL Sodium Level 139 mmol/L Potassium Level 3.9 mmol/L Chloride Level 102 mmol/L Carbon Dioxide Level 28 mmol/L Anion Gap 9.0 mmol/L Blood Urea Nitrogen 14 mg/dl Creatinine 1.00 mg/dl Est Creatinine Clear Calc Drug Dose 83.3 ml/min Estimated GFR () 89.9 Estimated GFR (Non- 77.5 BUN/Creatinine Ratio 14.3 Random Glucose 174 mg/dl Calcium Level 8.6 mg/dl Assessment & Plan PROBABLE SEPSIS: from pneumonia -no aspiration events noted prior to admission -presented with tachycardia, leukocytosis, and fever -was given one dose of Levaquin in the ER -continue Rocephin and Doxycycline for CAP; expanded coverage by adding zosyn and stopping ceftriaxone due to immunosuppression/transplant patient -has productive cough -was also slightly hypoxic and initially required 2L O2 via NC but has since been on room air -supplemental oxygen as needed -PRN Hycodan cough syrup, PRN tessalon perles; patient refused these and thus will discontinue -nebs scheduled -blood and sputum cultures pending, no growth thus far -repeat CXR shows worsening left base opacity, and a mild right base opacity -still with low grade fevers and leukocytosis trending down -Pulmonary consult as patient reporting no improvement in symptoms and per request POST-TUSSIVE EMESIS: resolved -had severe cough. sputum; now improving -antiemetics PRN CHRONIC ATRIAL FIB with acute episode of A fib with RVR: -multifactorial: from infection/hypoxia, as well as missed b-oleg dose due to vomiting -was given 10mg of IV Lopressor in ER without any change -was on Cardizem drip; stopped as HR better controlled -remains in A fib but rates controlled -Coumadin held for supratherapeutic INR, now resumed -continue home metoprolol DE: -likely secondary to nausea/vomiting + dehydration -baseline creat = 1.0 -Cr of 1.3 increased to 2.1, today down to 1.0 -now off IV fluids -monitor -avoid nephrotoxins Right Foot Ulceration: -was recently started on Keflex as outpatient -on Rocephin + doxy as above for pneumonia; should cover the ulcer as well -wound care nurse consult placed Diabetes Mellitus Type I: -patient with insulin pump; held for now due to acute illness -monitor blood sugars with the nausea/vomiting -Glycemic pharmacy consult CAD: s/p stents -no related symptoms -continue cardiac medications, ASA, statin, Imdur, b-oleg HTN: with elevated BP initially -likely related to cough/vomiting; now improved -continue on home meds -increased BB dose as HR and BP elevated Current Inpatient Medications: Current Inpatient Medications Medications (Trade) Dose Ordered Sig/Tay Route Start Time Stop Time Status Last Admin Dose Admin Acetaminophen (Tylenol Tab) 650 mg Q4H PRN PO 03/03/16 02:45 04/02/16 02:44 03/07/16 03:17 650 MG Al Hydrox/Mg Hydrox/Simethicone (Maalox Max Susp) 15 ml Q4H PRN PO 03/03/16 02:45 04/02/16 02:44 Magnesium Hydroxide (Milk Of Magnesia Susp) 30 ml Q12H PRN PO 03/03/16 02:45 04/02/16 02:44 Ondansetron HCl (Zofran Inj) 4 mg Q6H PRN IV 03/03/16 02:45 04/02/16 02:44 Nitroglycerin (Nitrostat Tab) 0.4 mg UD PRN SL 03/03/16 02:45 04/02/16 02:44 Polyethylene 17 gm 17 gm DAILY PRN PO 03/03/16 02:45 04/02/16 02:44 03/06/16 20:11 17 GM Doxycycline Hyclate/Dextrose (Vibramycin IV/ D5 100ml) 110 ml @ 50 mls/hr BID IV 03/03/16 09:00 03/10/16 08:59 03/07/16 08:10 50 MLS/HR Aspirin (Ecotrin Tab) 81 mg QAM PO 03/03/16 09:00 04/02/16 08:59 03/07/16 08:00 81 MG Atorvastatin Calcium (Lipitor Tab) 40 mg QPM PO 03/03/16 21:00 04/02/16 20:59 03/06/16 20:14 40 MG Cyclosporine (Sandimmune Cap) 50 mg BID PO 03/03/16 09:00 04/02/16 08:59 03/07/16 08:02 50 MG Insulin Aspart (novoLOG INSULIN PUMP) 1 ea UD N/A 03/03/16 02:45 04/02/16 02:44 Future Hold Isosorbide Mononitrate (Imdur Ext Rel Tab) 30 mg QAM PO 03/03/16 09:00 04/02/16 08:59 03/07/16 08:01 30 MG Multivitamins (Multivitamin Tab) 1 tab DAILY PO 03/03/16 09:00 04/02/16 08:59 03/07/16 08:01 1 TAB Prednisone (PredniSONE TAB) 5 mg QAM PO 03/03/16 09:00 04/02/16 08:59 03/07/16 08:02 5 MG Ascorbic Acid (Vitamin C Tab) 500 mg DAILY PO 03/03/16 09:00 04/02/16 08:59 03/07/16 08:02 500 MG Calcium/Vitamin D (Caltrate Plus Tab) 1 tab BID PO 03/03/16 09:00 04/02/16 08:59 03/07/16 08:00 1 TAB Miscellaneous Information (Consult Glycemic Management Pharmacy) 1 ea DAILY PRN N/A 03/03/16 03:50 04/02/16 03:49 Insulin Aspart (novoLOG ASPART) SLIDING SCALE ACHS SC 03/03/16 07:00 04/02/16 06:59 03/07/16 17:24 5 UNITS Glucose (Glucose 40% Gel) 15-30 GRAMS 15 GRAMS... UD PRN PO 03/03/16 05:15 04/02/16 05:14 Glucose (Glucose Chew Tab) 4-8 Tablets 4 Tabl... UD PRN PO 03/03/16 05:15 04/02/16 05:14 Dextrose (Dextrose 50% 50ML Syringe) 25-50ML OF 50% DW IV FOR... UD PRN IV 03/03/16 05:15 04/02/16 05:14 Glucagon (Glucagon Inj) 1 mg UD PRN SQ 03/03/16 05:15 04/02/16 05:14 Enteral Nutritional Formula (Boost Breeze Nutritional Drink) 1 box BIDM PO 03/04/16 16:45 04/03/16 16:44 03/05/16 16:55 1 BOX Sodium Chloride ([place] Nasal [place]) 2 sprays Q4 PRN NA 03/04/16 15:30 04/03/16 15:29 Warfarin Sodium (Coumadin Tab) 2.5 mg TuSa@1600 PO 03/07/16 16:00 04/06/16 15:59 03/07/16 17:20 2.5 MG Warfarin Sodium (Coumadin Tab) 5 mg SuMoWeThFr@1600 PO 03/06/16 16:00 04/05/16 15:59 03/06/16 16:22 5 MG Piperacillin Sod/ Tazobactam Sod (Consult) 1 ea UD PRN N/A 03/06/16 12:00 04/05/16 11:59 Ipratropium [place] (Atrovent 0.02% 0.5MG/2.5ML Neb) 0.5 mg Q6R INH 03/06/16 15:00 04/05/16 14:59 03/07/16 14:47 0.5 MG Levalbuterol 1.25 mg 1.25 mg Q6R INH 03/06/16 15:00 04/05/16 14:59 03/07/16 14:47 1.25 MG Piperacillin Sod/ Tazobactam Sod/ Dextrose (Zosyn Iv/D5 100ml) 115 ml @ 28.75 mls/ hr Q8H IV 03/06/16 18:00 03/13/16 17:59 03/07/16 17:25 28.75 MLS/HR Guaifenesin (Organidin Nr Tab) 200 mg Q4H PRN PO 03/06/16 12:45 04/05/16 12:44 03/06/16 21:09 200 MG Metoprolol Tartrate (Lopressor Tab) 75 mg BID PO 03/06/16 21:00 04/05/16 20:59 03/07/16 08:01 75 MG Menthol (Nice Shellie) 1 shellie PRN PRN PO 03/06/16 23:45 04/05/16 23:44 Insulin Glargine (Lantus Solostar Pen) 12 unit BID SC 03/07/16 21:00 04/06/16 20:59 Pregabalin (Lyrica Cap) 50 mg 0000,0900,1300,1700,2100 PO 03/07/16 13:00 04/06/16 12:59 03/07/16 17:19 50 MG Miscellaneous Information (Pending Order) 1 ea TODAY@2000 ONCE N/A 03/07/16 20:00 03/07/16 20:01
--- NOTE | 2016-03-07 20:25 | Pulmonary Consultation ---
History General Date of Service: Mar 07, 2016. Stated Complaint: Hx Of Renal Transplant, Pneumonia HPI The patient is a 65 year old male who presents to with complaints of Hx Of Renal Transplant, Pneumonia. The patient's primary care provider is Tristan Bedolla D.O.. 65y/o male presented to [facility] with intractable rapid onset of sever weakness with progressive coughing and minimal mucus production. . Patient has a PMH: renal transplant on immunosuppressive therapy (since ) , type 1 DM on an insulin pump with complications including diabetic neuropathy, paroxysmal atrial fibrillation on anticoagulation, CAD s/p stents. His symptoms presented on 03/02/16 and during that time he noted sever fatigue with minimally productive cough. He did note multiple members of his home are sick contacts. In the emergency room the patient was noted to be tachycardic up to 160, tachypnea with stable SaO2 at 92-100% on room air. The patient notes feeling well the day of his admission but his signs and symptoms progressed rapidly during the national [employer] game until early the next morning 0100 he asked his to bring him to the ED. Since his admission he notes increased strength but now episodes of coughing. Over this time his serum studies have trended in the right directions but his CXRs have progressed to show a LLL with diffuse infiltrates. Workup: #1: WBCs 03/03/16: 9000 --03/05/16 15,000,--- 03/07/16 11,000 #2: INR 2.6 03/07/16 #3: UA within normal limits #4: B1/creatinine: 03/07/16 stable 14/1.0 #5: Influenza A and B: Negative #6: MRSA nasal swab: Negative Treatment since admission: #1: Zosyn 3.375 g/every 8 hours #2: Xopenex nebulized #3: Guaifenesin #4: Doxycycline 100 mg IV twice a day #5: Cyclosporine 50 mg twice a day #6: Prednisone 5 mg daily Microbiology history: #1 right lower arm wound culture (01/24/14) MSSA Radiology: #1: Chest x-ray: (03/06/16) Left lower lobe hemithorax opacification with increased opacification in the lingula/appears subsegment left lower lobe mild bronchiectatic changes and posterior subsegment right lower lobe possibly #2: Chest x-ray (03/03/16) mild blunting of the costophrenic angle but patient is shifted to the left mild hilar fullness with parabronchial cuffing #3 chest x-ray (05/31/2015) hyperinflation otherwise no acute signs of cardiopulmonary dysfunction/disease Historian: patient, EMS Review of Systems Constitutional: reports: malaise, weakness Eyes: reports: no symptoms ENT: reports: other (anila-aricular pain), sore throat Cardiovascular: reports: no symptoms Respiratory: reports: cough Gastrointestinal: reports: no symptoms Genitourinary - Male: reports: no symptoms Musculoskeletal: reports: no symptoms Integumentary: reports: no symptoms Neurologic: reports: no symptoms Psychiatric: reports: no symptoms Endocrine: no symptoms Hematologic / Lymphatic: no symptoms Allergic / Immunologic: no symptoms Past Medical History Past Medical History: (1) Atrial fibrillation (2) Coronary artery disease (3) Diabetic retinopathy (4) Renal cell carcinoma (5) Type 1 diabetes Past Surgical History: (1) History of renal transplant 1992 (2) Status post nephrectomy (3) multiple back surgeries (4) multiple neck surgeries (5) bilateral foot surgeries / arch-manipulations (6) 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 Family History FH: diabetes mellitus Social History Hx Tobacco Use In Past Year?: No Smoking Status: Never Smoker Marital status: Housing status: lives with family Immunizations History of Influenza Vaccine: Yes Influenza Vaccine Date: Nov 08, 2013 History of Tetanus Vaccine?: Yes Tetanus Immunization Date: May 03, 2006 History of Pneumococcal: Yes Pneumococcal Date: Jun 06, 2013 History of Hepatitis B Vaccine: Yes Hepatitis Immunization Date: Apr 19, 1992 Allergies Uncoded Allergies: "MOST NARCOTICS" (Adverse Reaction, Intermediate, NAUSEA, 01/24/14) Current Medications Reported Home Medications Medications Dose Route/Sig Max Daily Dose Days Date Category Dose Instructions Keflex (Cephalexin Monohydrate) 500 Mg Cap 500 Mg PO TID 03/03/16 Reported states just picked up script yesterday Multivitamin (Multivitamins) Tab 1 Tab PO DAILY 03/03/16 Reported Dymista (Azelastine Hcl-Fluticasone Pro) 1 Spr Spr 2 [place] JOHN BID 30 03/03/16 Reported Lopressor (Metoprolol Tartrate) 50 Mg Tab 50 Mg PO BID 07/24/15 Reported Jantoven (Warfarin Sodium) 2.5 Mg Tab 2.5 Mg PO DIRECTED 05/31/15 Reported TAKE 2.5 MG WEDNESDAY AND WEDNESDAY Jantoven (Warfarin Sodium) 5 Mg Tab 5 Mg PO DIRECTED 05/31/15 Reported TAKE 5 MG EVERYDAY EXCEPT WEDNESDAY AND WEDNESDAY. Cyclosporine 25 Mg Cap 50 Mg PO BID 01/24/14 Reported Oscal 500/200 D-3 (Calcium Carbonate-Vitamin D) 1 Tab Tab 1 Tab PO BID 01/24/14 Reported Aspirin 81 (Aspirin) 81 Mg Tab 81 Mg PO QAM 01/24/14 Reported Vitamin C (Ascorbic Acid) 500 Mg Cap 1 Cap PO QAM 01/24/14 Reported Lyrica (Pregabalin) 50 Mg Cap 50 Mg PO 5XD 01/24/14 Reported Isosorbide Mononitrate ER (Isosorbide Mononitrate) 30 Mg Tabcr 30 Mg PO QAM 01/24/14 Reported Lipitor (Atorvastatin) 40 Mg Tab 40 Mg PO QPM 01/24/14 Reported novoLOG INSULIN PUMP (Insulin Aspart) 1 Ea Inj 1 Ea N/A UD 01/24/14 Reported Prednisone 5 Mg Tab 5 Mg PO QAM 01/24/14 Reported Flexeril (Cyclobenzaprine Hcl) 10 Mg Tab 10 Mg PO TID PRN 01/24/14 Reported Physical Physical Exam Vital Signs: Date Time Temp Pulse Resp B/P Pulse Ox O2 Delivery O2 Flow Rate FiO2 03/07/16 18:50 37.2 101 18 137/84 93 Room Air 03/07/16 16:16 37.4 92 16 135/87 94 Room Air 03/07/16 16:00 Room Air 03/07/16 14:48 88 18 97 Room Air 03/07/16 12:40 37.1 77 18 142/82 94 Room Air 03/07/16 12:00 Room Air 03/07/16 08:00 Room Air 03/07/16 07:19 37.2 89 18 151/80 92 Room Air 03/07/16 07:12 80 18 93 Room Air 03/07/16 04:02 Room Air 03/07/16 03:16 37.8 99 19 162/88 92 Room Air 03/07/16 00:02 Room Air 03/06/16 23:28 37.3 93 18 142/80 93 Room Air General Appearance: WELL-APPEARING, NO APPARENT DISTRESS Head: NORMOCEPHALIC, ATRAUMATIC Eyes: PERRLA, NO DISCHARGE, EOMI, SCLERAE NORMAL ENT: NORMAL NASAL EXAM, NORMAL MOUTH EXAM, NORMAL THROAT EXAM, NORMAL DENTAL EXAM, other (right anila-aricular lympnode palpated) Neck: NORMAL RANGE OF MOTION, NO TENDERNESS Respiratory: rhonchi, wheezing Cardiovasular: NORMAL S1S2, NO M/G/R, NO MURMUR, NO GALLOP, irregular rate Abdomen: NON TENDER, NORMAL BOWEL SOUNDS, NO REBOUND, NO MASSES, NO GUARDING, NO ORGANOMEGALY Genitourinary - Male: EXTERNAL GENITALIA NORMAL Back: NORMAL INSPECTION, NO MIDLINE TENDERNESS, NO CVA TENDERNESS Upper Extremities: NO EDEMA Lower Extremities: NO EDEMA, other (medial right foot with healed skin graft) Pulses: carotid (R) (2+), carotid (L) (2+), dorsalis pedis (R) (1+), dorsalis pedis (L) (1+) Neuro: ALERT, ORIENTED x 3 Reflexes: biceps (R) (2+), bicpes (L) (2+) Babinski Testing: right (downgoing), left (downgoing) Psychiatric: NORMAL AFFECT, NO SUICIDAL IDEATION Diagnostics Labs Results Past 24 Hours Test 03/07/16 05:54 03/07/16 06:30 03/07/16 11:00 03/07/16 11:53 Range/Units Prothrombin Time 29.1 9.0-12.0 SECONDS Prothromb Time International Ratio 2.6 0.9-1.1 Bedside Glucose 85 169 70-99 mg/dl Test 03/07/16 12:33 03/07/16 16:03 Range/Units White Blood Count 11.43 4.8-10.8 K/uL Red Blood Count 4.27 4.7-6.1 M/uL Hemoglobin 13.6 14.0-18.0 g/dL Hematocrit 39.1 42-52 % Mean Corpuscular Volume 91.6 80-100 fL Mean Corpuscular Hemoglobin 31.9 25-34 pg Mean Corpuscular Hemoglobin Concent 34.8 32-36 g/dl RDW Standard Deviation 48.0 36.4-46.3 fL RDW Coefficient of Variation 14.3 11.5-14.5 % Platelet Count 220 130-400 K/uL Mean Platelet Volume 11.5 7.4-10.4 fL Sodium Level 139 136-145 mmol/L Potassium Level 3.9 3.5-5.1 mmol/L Chloride Level 102 98-107 mmol/L Carbon Dioxide Level 28 21-32 mmol/L Anion Gap 9.0 3-11 mmol/L Blood Urea Nitrogen 14 7-18 mg/dl Creatinine 1.00 0.60-1.40 mg/dl Est Creatinine Clear Calc Drug Dose 83.3 ml/min Estimated GFR () 89.9 Estimated GFR (Non- 77.5 BUN/Creatinine Ratio 14.3 10-20 Random Glucose 174 70-99 mg/dl Calcium Level 8.6 8.5-10.1 mg/dl Bedside Glucose 180 70-99 mg/dl Diagnostic Radiology #1: Chest x-ray: (03/06/16) Left lower lobe hemithorax opacification with increased opacification in the lingula/appears subsegment left lower lobe mild bronchiectatic changes and posterior subsegment right lower lobe possibly #2: Chest x-ray (03/03/16) mild blunting of the costophrenic angle but patient is shifted to the left mild hilar fullness with parabronchial cuffing #3 chest x-ray (05/31/2015) hyperinflation otherwise no acute signs of cardiopulmonary dysfunction/disease EKG rate 90 with A-flutter Impression Assessment and Plan 65y/o immunosuppressed male admitted with progressive lethargy and now with LLL pneumonia: 1) PNA: Patient currently treated with Zosyn and Doxycycline for broad spectrum coverage including atypical. I agree with this regimen as well as not starting vancomycin as the patient MRSA nasal swab was negative and he did not require ICU admission. His current PSI and CURB score are 77 and 1 which predicate a <3% mortality rate during this admission but I don't like the increased LLL opacification (which could just be a delayed response to the patient's pneumonia. I will order a non-contrast CT of the thorax for further evaluation tomorrow. We will also start Dornase and IS while continuing his flutter valve. If our patient continues to clinically improve we will continue to monitor him and he can be f/u as an outpatient with a repeat CXR in 6 weeks. If he deteriorates I suggest we perform bronchoscopy for further evaluation.
[2016-03-07] MEDS: ATORVASTATIN 20 MG TAB PO SCH (21:11)
[2016-03-08] VITALS (10 sets, daily range): BP systolic 112–164; BP diastolic 65–96; PULSE 71–100; TEMP 37–37.5; O2SAT 90–95
[2016-03-08] MEDS: PREGABALIN 50 MG CAP PO SCH ×5 (00:30→20:29)
[2016-03-08] MEDS: IPRATROPIUM BROMIDE NEB SOLN 0.02% 2.5 ML VIAL INH SCH ×3 (01:52→19:10)
[2016-03-08] MEDS: LEVALBUTEROL 1.25MG/0.5ML NEB INH SCH ×3 (01:52→19:10)
[2016-03-08] MEDS: PIPERACILL/TAZOBAC IV 3.375 GM in DEXTROSE 5% 100ML IV SCH ×3 (02:14→17:54)
[2016-03-08] MEDS: DORNASE ALFA (2500U) 2.5MG/2.5ML INH SCH ×2 (07:13→19:10)
[2016-03-08 07:21] LABS: INR 3.3 (0.9-1.1); PROTHROMBIN TIME (PATIENT) 37.3 SECONDS (9.0-12.0)
[2016-03-08] MEDS: BOOST BREEZE NUTRITION DRINK 1 BOX PO SCH (08:33)
[2016-03-08] MEDS: METOPROLOL TARTRATE 25 MG TAB PO SCH ×2 (08:34→20:30)
[2016-03-08] MEDS: MULTIVITAMIN TAB PO SCH (08:34)
[2016-03-08] MEDS: ASCORBIC ACID 500 MG TAB PO SCH (08:34)
[2016-03-08] MEDS: CALCIUM 600MG + VIT D 400 IU TAB PO SCH ×2 (08:34→20:31)
[2016-03-08] MEDS: CycloSPORINE (SANDIMMUNE) 25 MG CAP PO SCH ×2 (08:35→20:32)
[2016-03-08] MEDS: ISOSORBIDE MONONITRATE 30 MG TABCR PO SCH (08:36)
[2016-03-08] MEDS: INSULIN GLARGINE SOLOSTAR 100 UNITS/ML 3 ML PEN SC SCH ×2 (08:41→20:38)
[2016-03-08] MEDS: INSULIN ASPART 100 UNITS/ML 3 ML PEN SC SCH ×4 (08:41→20:37)
[2016-03-08] MEDS: DOXYCYCLINE IV 100 MG in DEXTROSE 5% 100ML 100 ML IV SCH ×2 (08:53→22:22)
--- NOTE | 2016-03-08 10:31 | DIAGNOSTIC IMAGING REPORT ---
CT SCAN OF THE CHEST WITHOUT IV CONTRAST CLINICAL HISTORY: Left lower lobe pneumonia. COMPARISON STUDY: Chest radiograph dated 03/06/2016. TECHNIQUE: CT scan of the thorax was performed from the thoracic inlet to the upper abdomen. Images are reviewed in the axial, sagittal, and coronal planes. IV contrast was not administered for this examination as per the front clinician. CT DOSE: 345.09 mGy.cm FINDINGS: Thyroid: Imaged portions of the thyroid gland are normal in size and attenuation. Thoracic aorta: There is atherosclerotic calcification of the thoracic aorta, which is normal in caliber and demonstrates standard 3-vessel arch anatomy. Heart: The heart is enlarged and there is a trace pericardial effusion. The coronary arteries are densely calcified. The pulmonary trunk is normal in caliber. Lungs and pleural spaces: There are small pleural effusions, left larger than right with associated bibasilar consolidation. Patchy airspace consolidation is seen throughout the left upper and left lower lobes. This is most confluent at the left lung base There is elevation of the left hemidiaphragm with left basilar atelectasis. The trachea and central airways are clear.. There are scattered calcified granulomas. Mediastinum: There are scattered subcentimeter mediastinal lymph nodes. These are not pathologically enlarged by size criteria. Pao: Not well assessed without IV contrast. Axillae: There is no axillary lymphadenopathy. Upper abdomen: There is a tiny hiatal hernia. The partially imaged left kidney is markedly atrophic. The right kidney appears surgically absent the renal arteries are densely calcified. Skeletal structures: The skeletal structures are osteopenic. No lytic or blastic bony lesions are seen. Fusion hardware is noted in the lower cervical spine. Postoperative changes from spinal fusion with hardware removal is noted in the upper lumbar spine. Degenerative change and mild scoliosis is seen in the thoracic spine. Arthritic change is noted in the shoulders. IMPRESSION: 1. There is patchy airspace consolidation seen throughout the left lung, most confluent at the left lung base. The appearance is most consistent with pneumonia. Radiographic follow-up to resolution is recommended. 2. There are small pleural effusions, left larger than right with dependent airspace consolidation. 3. Cardiomegaly. 4. Additional findings as above. Electronically signed by: Minesh Taveras M.D. 03/08/2016 10:29 AM Dictated Date/Time: 03/08/2016 10:22 AM
[2016-03-08] MEDS: ASPIRIN 81 MG ECTAB PO SCH (10:51)
[2016-03-08 10:59] LABS: HEMATOCRIT 35.8 % (42-52); MEAN CELL VOLUME 93.7 fL (80-100); MEAN CORPUSCULAR HGB CONC 35.2 g/dl (32-36); MEAN PLATELET VOLUME 11.1 fL (7.4-10.4); PLATELET COUNT 209 K/uL (130-400); RED BLOOD COUNT 3.82 M/uL (4.7-6.1)
[2016-03-08 11:36] LABS: BUN/CREATININE RATIO 12.7 (10-20); CALCIUM 8.2 mg/dl (8.5-10.1); CREATININE 1.1 mg/dl (0.60-1.40); POTASSIUM 3.3 mmol/L (3.5-5.1)
--- NOTE | 2016-03-08 11:53 | Pulmonology Progress Note ---
Pulmonary Progress Note Date of Service Mar 08, 2016. Attending Marvel Bee M.D. Subjective Patient feels subjectively improved but continues severe weakness with dyspnea on exertion. Patient does note increasing mucous production with green sputum over the last 24 hours. Objective Patient lying in bed with flat affect showing no signs of increased work of breathing during our conversation Vital signs MAXIMUM TEMPERATURE 37.1 SaO2: 90-94% on room air Respiratory: Minimal rhonchi with dullness to percussion left-sided Cardiac: S1-S2 regular rate and rhythm no murmurs rubs or gallops Noncontrast chest CAT scan Diffuse patchy infiltrative disease of the left upper/lingula/left lower lobe with notable consolidation of the left lower lobe with associated small pleural effusion Medications #1 dornase #2 warfarin #3 Zosyn #4 Atrovent nebulizer #5 Xopenex nebulizer #6 guaifenesin #7 doxycycline Assessment & Plan 65-year-old immunocompetent patient with multilobar pneumonia: #1: Pneumonia: Patient is a multilobar pneumonia with consolidation versus atelectasis of the left lower lobe. He is currently being treated with Zosyn and doxycycline for broad spectrum coverage. Noncontrast CT demonstrates multilobar pneumonia with right lower lobe consolidation/pleural effusion (I personally reviewed the images). I suggest we continue with chest physiotherapy adding vest therapy and continuing flutter valve and incentive spirometry as well as up to chair and ambulation as patient tolerates. The patient does note deterioration on current antibiotics suggest bronchoscopy at that time. #2: Abnormal CAT scan: Patient will require follow-up in [address] to demonstrate resolution. #3: Signoff: As this patient's severe weakness and multilobar pneumonia have been defined I do not believe the pulmonary team can add any benefit. Please reconsult if necessary. Dr. Mccullough will be in the hospital as of Wednesday. Data Medications: Current Inpatient Medications Medications (Trade) Dose Ordered Sig/Tay Route Start Time Stop Time Status Last Admin Dose Admin Acetaminophen (Tylenol Tab) 650 mg Q4H PRN PO 03/03/16 02:45 04/02/16 02:44 03/07/16 22:33 650 MG Al Hydrox/Mg Hydrox/Simethicone (Maalox Max Susp) 15 ml Q4H PRN PO 03/03/16 02:45 04/02/16 02:44 Magnesium Hydroxide (Milk Of Magnesia Susp) 30 ml Q12H PRN PO 03/03/16 02:45 04/02/16 02:44 Ondansetron HCl (Zofran Inj) 4 mg Q6H PRN IV 03/03/16 02:45 04/02/16 02:44 Nitroglycerin (Nitrostat Tab) 0.4 mg UD PRN SL 03/03/16 02:45 04/02/16 02:44 Polyethylene 17 gm 17 gm DAILY PRN PO 03/03/16 02:45 04/02/16 02:44 03/06/16 20:11 17 GM Doxycycline Hyclate/Dextrose (Vibramycin IV/ D5 100ml) 110 ml @ 50 mls/hr BID IV 03/03/16 09:00 03/10/16 08:59 03/08/16 08:53 50 MLS/HR Aspirin (Ecotrin Tab) 81 mg QAM PO 03/03/16 09:00 04/02/16 08:59 03/08/16 10:51 81 MG Atorvastatin Calcium (Lipitor Tab) 40 mg QPM PO 03/03/16 21:00 04/02/16 20:59 03/07/16 21:11 40 MG Cyclosporine (Sandimmune Cap) 50 mg BID PO 03/03/16 09:00 04/02/16 08:59 03/08/16 08:35 50 MG Insulin Aspart (novoLOG INSULIN PUMP) 1 ea UD N/A 03/03/16 02:45 04/02/16 02:44 Future Hold Isosorbide Mononitrate (Imdur Ext Rel Tab) 30 mg QAM PO 03/03/16 09:00 04/02/16 08:59 03/08/16 08:36 30 MG Multivitamins (Multivitamin Tab) 1 tab DAILY PO 03/03/16 09:00 04/02/16 08:59 03/08/16 08:34 1 TAB Prednisone (PredniSONE TAB) 5 mg QAM PO 03/03/16 09:00 04/02/16 08:59 03/08/16 08:35 5 MG Ascorbic Acid (Vitamin C Tab) 500 mg DAILY PO 03/03/16 09:00 04/02/16 08:59 03/08/16 08:34 500 MG Calcium/Vitamin D (Caltrate Plus Tab) 1 tab BID PO 03/03/16 09:00 04/02/16 08:59 03/08/16 08:34 1 TAB Miscellaneous Information (Consult Glycemic Management Pharmacy) 1 ea DAILY PRN N/A 03/03/16 03:50 04/02/16 03:49 Insulin Aspart (novoLOG ASPART) SLIDING SCALE ACHS SC 03/03/16 07:00 04/02/16 06:59 03/08/16 08:41 14 UNITS Glucose (Glucose 40% Gel) 15-30 GRAMS 15 GRAMS... UD PRN PO 03/03/16 05:15 04/02/16 05:14 Glucose (Glucose Chew Tab) 4-8 Tablets 4 Tabl... UD PRN PO 03/03/16 05:15 04/02/16 05:14 Dextrose (Dextrose 50% 50ML Syringe) 25-50ML OF 50% DW IV FOR... UD PRN IV 03/03/16 05:15 04/02/16 05:14 Glucagon (Glucagon Inj) 1 mg UD PRN SQ 03/03/16 05:15 04/02/16 05:14 Enteral Nutritional Formula (Boost Breeze Nutritional Drink) 1 box BIDM PO 03/04/16 16:45 04/03/16 16:44 03/08/16 08:33 1 BOX Sodium Chloride ([place] Nasal [place]) 2 sprays Q4 PRN NA 03/04/16 15:30 04/03/16 15:29 Warfarin Sodium (Coumadin Tab) 2.5 mg TuSa@1600 PO 03/07/16 16:00 04/06/16 15:59 03/07/16 17:20 2.5 MG Warfarin Sodium (Coumadin Tab) 5 mg SuMoWeThFr@1600 PO 03/06/16 16:00 04/05/16 15:59 03/06/16 16:22 5 MG Piperacillin Sod/ Tazobactam Sod (Consult) 1 ea UD PRN N/A 03/06/16 12:00 04/05/16 11:59 Ipratropium [place] (Atrovent 0.02% 0.5MG/2.5ML Neb) 0.5 mg Q6R INH 03/06/16 15:00 04/05/16 14:59 03/07/16 20:02 0.5 MG Levalbuterol 1.25 mg 1.25 mg Q6R INH 03/06/16 15:00 04/05/16 14:59 03/07/16 20:02 1.25 MG Piperacillin Sod/ Tazobactam Sod/ Dextrose (Zosyn Iv/D5 100ml) 115 ml @ 28.75 mls/ hr Q8H IV 03/06/16 18:00 03/13/16 17:59 03/08/16 10:50 28.75 MLS/HR Guaifenesin (Organidin Nr Tab) 200 mg Q4H PRN PO 03/06/16 12:45 04/05/16 12:44 03/06/16 21:09 200 MG Metoprolol Tartrate (Lopressor Tab) 75 mg BID PO 03/06/16 21:00 04/05/16 20:59 03/08/16 08:34 75 MG Menthol (Nice Shellie) 1 shellie PRN PRN PO 03/06/16 23:45 04/05/16 23:44 Insulin Glargine (Lantus Solostar Pen) 12 unit BID SC 03/07/16 21:00 04/06/16 20:59 03/08/16 08:41 12 UNIT Pregabalin (Lyrica Cap) 50 mg 0000,0900,1300,1700,2100 PO 03/07/16 13:00 04/06/16 12:59 03/08/16 08:51 50 MG Dornase Tho (Pulmozyme Inhalation Soln 2.5ml Amp) 2.5 ml BID INH 03/07/16 21:00 03/09/16 20:00 I & O: 24-Hour Column 03/08/16 07:59 Intake Total 1652 ml Output Total 3800 ml Balance -2148 ml Vital Signs: Date Time Temp Pulse Resp B/P Pulse Ox O2 Delivery O2 Flow Rate FiO2 03/08/16 09:59 97 20 112/65 91 03/08/16 09:27 Room Air 03/08/16 08:04 37.0 96 20 162/95 92 03/08/16 05:13 37.0 100 20 164/89 90 Room Air 03/08/16 00:38 94 Room Air 03/08/16 00:31 37.1 03/07/16 22:47 37.7 107 18 166/88 94 Room Air 03/07/16 20:15 94 Room Air 03/07/16 20:06 95 18 94 Room Air 03/07/16 18:50 37.2 101 18 137/84 93 Room Air 03/07/16 16:16 37.4 92 16 135/87 94 Room Air 03/07/16 16:00 Room Air 03/07/16 14:48 88 18 97 Room Air 03/07/16 12:40 37.1 77 18 142/82 94 Room Air 03/07/16 12:00 Room Air Laboratory Results: Last 24 Hours Test 03/07/16 11:53 03/07/16 12:33 03/07/16 16:03 03/07/16 20:07 Bedside Glucose 169 mg/dl 180 mg/dl 178 mg/dl White Blood Count 11.43 K/uL Red Blood Count 4.27 M/uL Hemoglobin 13.6 g/dL Hematocrit 39.1 % Mean Corpuscular Volume 91.6 fL Mean Corpuscular Hemoglobin 31.9 pg Mean Corpuscular Hemoglobin Concent 34.8 g/dl RDW Standard Deviation 48.0 fL RDW Coefficient of Variation 14.3 % Platelet Count 220 K/uL Mean Platelet Volume 11.5 fL Sodium Level 139 mmol/L Potassium Level 3.9 mmol/L Chloride Level 102 mmol/L Carbon Dioxide Level 28 mmol/L Anion Gap 9.0 mmol/L Blood Urea Nitrogen 14 mg/dl Creatinine 1.00 mg/dl Est Creatinine Clear Calc Drug Dose 83.3 ml/min Estimated GFR () 89.9 Estimated GFR (Non- 77.5 BUN/Creatinine Ratio 14.3 Random Glucose 174 mg/dl Calcium Level 8.6 mg/dl Test 03/07/16 20:08 03/08/16 07:03 03/08/16 08:11 03/08/16 10:42 Prothrombin Time 37.3 SECONDS Prothromb Time International Ratio 3.3 Bedside Glucose 218 mg/dl White Blood Count 9.60 K/uL Red Blood Count 3.82 M/uL Hemoglobin 12.6 g/dL Hematocrit 35.8 % Mean Corpuscular Volume 93.7 fL Mean Corpuscular Hemoglobin 33.0 pg Mean Corpuscular Hemoglobin Concent 35.2 g/dl RDW Standard Deviation 49.0 fL RDW Coefficient of Variation 14.4 % Platelet Count 209 K/uL Mean Platelet Volume 11.1 fL Sodium Level 140 mmol/L Potassium Level 3.3 mmol/L Chloride Level 101 mmol/L Carbon Dioxide Level 30 mmol/L Anion Gap 9.0 mmol/L Blood Urea Nitrogen 14 mg/dl Creatinine 1.10 mg/dl Est Creatinine Clear Calc Drug Dose 75.8 ml/min Estimated GFR () 80.1 Estimated GFR (Non- 69.1 BUN/Creatinine Ratio 12.7 Random Glucose 204 mg/dl Calcium Level 8.2 mg/dl
--- NOTE | 2016-03-08 12:36 | Pharmacy Progress Note ---
Glycemic Control: Progress Nt Date of Service Mar 08, 2016. Scope Glycemic Pharmacist consulted by Dr Montana on 03/03/16 for glycemic control and to write orders per [facility] inpatient glycemic control protocol. Objective Accuchecks BSG (last 24hrs): Test 03/07/16 12:33 03/07/16 16:03 03/07/16 20:07 03/08/16 08:11 Random Glucose 174 mg/dl (70-99) Bedside Glucose 180 mg/dl (70-99) 178 mg/dl (70-99) 218 mg/dl (70-99) Test 03/08/16 10:42 03/08/16 11:56 Random Glucose 204 mg/dl (70-99) Bedside Glucose 166 mg/dl (70-99) Laboratory Data (last 24hrs) Test 03/07/16 12:33 03/08/16 10:42 Anion Gap 9.0 mmol/L 9.0 mmol/L BUN/Creatinine Ratio 14.3 12.7 Blood Urea Nitrogen 14 mg/dl 14 mg/dl Creatinine 1.00 mg/dl 1.10 mg/dl Potassium Level 3.9 mmol/L 3.3 mmol/L Sodium Level 139 mmol/L 140 mmol/L White Blood Count 11.43 K/uL 9.60 K/uL HbA1c: Test 03/03/16 05:08 Hemoglobin A1c 8.4 %(4.5-5.6) H Recent Pertinent Medications Outpatient Anti-diabetic Regimen: * NovoLog pump * 16.475 units basal/day * goal range 118-130mg/dL * Correction factor: 42mg/dL/unit * Carb ratio: 1 unit per 15g of CHO consumed * A1c = 8.4 % 03/03/16 The patient is currently receiving: * Basal insulin: Lantus 12 units every 12 hours * Correctional Insulin: NovoLog Correction per scale AC/HS Goal Range: Low 110 mg/dL - High 140 mg/dL Correction Factor: 25 mg/dL/unit * Prandial insulin: Per carb ratio of 1 unit per 8 grams CHO consumed Risk Factors for Insulin Resistance: * Steroids: Prednisone 5 mg daily (home dose) * Infection: pneumonia, on piperacillin/tazobactam and doxycycline IV * Diet: type 1 diabetic/renal Assessment & Plan ASSESSMENT: 03/03/16 * 65 yo type 1 diabetic on NovoLog pump at home, unable to manage pump on admission due to confusion. * Started weight-based Lantus-NovoLog, Lantus not yet steady-state. * Pump settings reported by special educator. * May need to decrease insulin doses- will reassess in am. 03/07/16 * Currently, the patient has been receiving much higher basal doses compared to home insulin pump basal rate. * this is concerning as type 1 diabetics usually do not vary to this degree with their insulin needs. * Fasting BSG below goal this AM at 85mg/dL * Reduce daily dose and given partial Lantus doses this morning (5 units with breakfast, 5 units with lunch, and then 12 units SQ BID) * NovoLog parameters adequate at this time * BSGs are trending upwards throughout the day (secondary to prednisone kinetics?) - may benefit from a slightly tighter carb ratio * Ceftriaxone change to piperacillin/tazobactam (increased IV dextrose daily) * follow BSG trends 03/08/16 * Mr Henderson has received 42 units of insulin over the past 24 hours with BSGs ranging from 85-180mg/dL * likely the lower BSGs in the AM of 03/07 were secondary to larger Lantus doses on 03/05. * Today, fasting BSG is elevated, but can likely be explained by the lower doses of Lantus given in the morning of 03/07 * Now, Lantus is back to a steady dose of 12 units BID - continue same until steady state is reached. * Hopeful for transition back to NovoLog pump tomorrow morning * may consider holding AM Lantus unit this is discussed with the patient to determine his mental acuity. Will call to ensure that his pump supplies are available. * BSGs did rise throughout the day yesterday - will slightly tighten carb ratio this AM to help combat this. PLAN FOR INPATIENT GLYCEMIC CONTROL: * Continuing Lantus 12 units SQ BID * Continue NovoLog AC and HS * Correction factor: 25 mg/dl/unit * Carb ratio: 1 unit per 7 grams CHO consumed * Goal range: Low 110 mg/dL - High 140 mg/dL * A1c 8.4% is current and will be added to discharge instructions RECOMMENDATIONS FOR DISCHARGE: * Likely the patient will be transitioned back to his NovoLog pump * Please note that the plan above was derived based on current level of insulin resistance and hospital stress. These recommendations are appropriate for inpatient admission only. Plan of care upon discharge will need to be reassessed to avoid potential outpatient hypo/hyperglycemia. Thank you.
[2016-03-08] MEDS ORDERED: POTASSIUM CHLORIDE 10 MEQ TABCR PO ONE (15:00)
[2016-03-08] MEDS ORDERED: NURSING VERBAL MED ORDER ONE (16:30)
[2016-03-08] MEDS: WARFARIN SOD 5 MG TAB PO SCH (16:39)
[2016-03-08] MEDS: BOOST GLUCOSE CONTROL PO SCH (17:54)
--- NOTE | 2016-03-08 19:08 | Progress Note ---
Medicine Progress Note Date & Time of Visit: Mar 08, 2016 at 19:07. Subjective Patient reports no improvement in his cough or mucus production; states he has not been given the vest treatment yet. No overnight events noted. Was updated on the results of the CT. Tolerating PO but appetite remains below baseline. Objective Last 8 Hrs Date Time Temp Pulse Resp B/P Pulse Ox O2 Delivery O2 Flow Rate FiO2 03/08/16 16:00 92 Room Air 03/08/16 15:05 37.2 86 18 137/77 92 Room Air Physical Exam: GENERAL: Patient is in no acute distress. HEENT: No acute trauma, normocephalic, mucous membranes moist, no nasal congestion, no scleral icterus. NECK: No stridor, trachea is midline LUNGS: Coarse rhonchi bilaterally, no wheeze, breath sounds equal. HEART: Without murmurs gallops or rubs, irregularly irregular ABDOMEN: Soft, nontender, bowel sounds positive EXTREMITIES: No cyanosis or edema NEUROLOGIC: Oriented, no acute motor or sensory deficits, no focal weakness. SKIN: No rash, no jaundice, no diaphoresis. Laboratory Results: Last 24 Hours Test 03/07/16 20:07 03/07/16 20:08 03/08/16 07:03 03/08/16 08:11 Bedside Glucose 178 mg/dl 218 mg/dl Prothrombin Time 37.3 SECONDS Prothromb Time International Ratio 3.3 Test 03/08/16 10:42 03/08/16 11:56 03/08/16 16:44 White Blood Count 9.60 K/uL Red Blood Count 3.82 M/uL Hemoglobin 12.6 g/dL Hematocrit 35.8 % Mean Corpuscular Volume 93.7 fL Mean Corpuscular Hemoglobin 33.0 pg Mean Corpuscular Hemoglobin Concent 35.2 g/dl RDW Standard Deviation 49.0 fL RDW Coefficient of Variation 14.4 % Platelet Count 209 K/uL Mean Platelet Volume 11.1 fL Sodium Level 140 mmol/L Potassium Level 3.3 mmol/L Chloride Level 101 mmol/L Carbon Dioxide Level 30 mmol/L Anion Gap 9.0 mmol/L Blood Urea Nitrogen 14 mg/dl Creatinine 1.10 mg/dl Est Creatinine Clear Calc Drug Dose 75.8 ml/min Estimated GFR () 80.1 Estimated GFR (Non- 69.1 BUN/Creatinine Ratio 12.7 Random Glucose 204 mg/dl Calcium Level 8.2 mg/dl Bedside Glucose 166 mg/dl 174 mg/dl Assessment & Plan PROBABLE SEPSIS: from pneumonia -no aspiration events noted prior to admission -presented with tachycardia, leukocytosis, and fever -was given one dose of Levaquin in the ER -continue Rocephin and Doxycycline for CAP; expanded coverage by adding zosyn and stopping ceftriaxone due to immunosuppression/transplant patient -has productive cough -was also slightly hypoxic and initially required 2L O2 via NC but has since been on room air -supplemental oxygen as needed -PRN Hycodan cough syrup, PRN tessalon perles; patient refused these and thus will discontinue -nebs scheduled -blood and sputum cultures pending, no growth thus far -repeat CXR shows worsening left base opacity, and a mild right base opacity -still with low grade fevers and leukocytosis trending down -Pulmonary consulted, appreciate recs, patient started on dornase and vibration vest and CT chest ordered -CT chest report: "1. There is patchy airspace consolidation seen throughout the left lung, most confluent at the left lung base. The appearance is most consistent with pneumonia. Radiographic follow-up to resolution is recommended. 2. There are small pleural effusions, left larger than right with dependent airspace consolidation." POST-TUSSIVE EMESIS: resolved -with harsh productive cough -antiemetics PRN CHRONIC ATRIAL FIB with acute episode of A fib with RVR: -multifactorial: from infection/hypoxia, as well as missed b-oleg dose due to vomiting -was given 10mg of IV Lopressor in ER without any change -was on Cardizem drip; stopped as HR better controlled -remains in A fib but rates controlled -Coumadin held for supratherapeutic INR, now resumed -continue home metoprolol DE: -likely secondary to nausea/vomiting + dehydration -baseline creat = 1.0 -Cr of 1.3 increased to 2.1 this admission, now at baseline -off IV fluids now -monitor -avoid nephrotoxins Right Foot Ulceration: -was recently started on Keflex as outpatient -on Rocephin + doxy as above for pneumonia; should cover the ulcer as well -wound care nurse consult placed Diabetes Mellitus Type I: -patient with insulin pump; held for now due to acute illness -monitor blood sugars with the nausea/vomiting -Glycemic pharmacy consult CAD: s/p stents -no related symptoms -continue cardiac medications, ASA, statin, Imdur, b-oleg -obtain TTE as patient with mention of cardiomegaly on CT scan and reports a past history of pericardial effusion HTN: with elevated BP initially -likely related to cough/vomiting; now improved -continue on home meds -increased BB dose as HR and BP elevated Current Inpatient Medications: Current Inpatient Medications Medications (Trade) Dose Ordered Sig/Tay Route Start Time Stop Time Status Last Admin Dose Admin Acetaminophen (Tylenol Tab) 650 mg Q4H PRN PO 03/03/16 02:45 04/02/16 02:44 03/07/16 22:33 650 MG Al Hydrox/Mg Hydrox/Simethicone (Maalox Max Susp) 15 ml Q4H PRN PO 03/03/16 02:45 04/02/16 02:44 Magnesium Hydroxide (Milk Of Magnesia Susp) 30 ml Q12H PRN PO 03/03/16 02:45 04/02/16 02:44 Ondansetron HCl (Zofran Inj) 4 mg Q6H PRN IV 03/03/16 02:45 04/02/16 02:44 Nitroglycerin (Nitrostat Tab) 0.4 mg UD PRN SL 03/03/16 02:45 04/02/16 02:44 Polyethylene 17 gm 17 gm DAILY PRN PO 03/03/16 02:45 04/02/16 02:44 03/06/16 20:11 17 GM Doxycycline Hyclate/Dextrose (Vibramycin IV/ D5 100ml) 110 ml @ 50 mls/hr BID IV 03/03/16 09:00 03/10/16 08:59 03/08/16 08:53 50 MLS/HR Aspirin (Ecotrin Tab) 81 mg QAM PO 03/03/16 09:00 04/02/16 08:59 03/08/16 10:51 81 MG Atorvastatin Calcium (Lipitor Tab) 40 mg QPM PO 03/03/16 21:00 04/02/16 20:59 03/07/16 21:11 40 MG Cyclosporine (Sandimmune Cap) 50 mg BID PO 03/03/16 09:00 04/02/16 08:59 03/08/16 08:35 50 MG Insulin Aspart (novoLOG INSULIN PUMP) 1 ea UD N/A 03/03/16 02:45 04/02/16 02:44 Future Hold Isosorbide Mononitrate (Imdur Ext Rel Tab) 30 mg QAM PO 03/03/16 09:00 04/02/16 08:59 03/08/16 08:36 30 MG Multivitamins (Multivitamin Tab) 1 tab DAILY PO 03/03/16 09:00 04/02/16 08:59 03/08/16 08:34 1 TAB Prednisone (PredniSONE TAB) 5 mg QAM PO 03/03/16 09:00 04/02/16 08:59 03/08/16 08:35 5 MG Ascorbic Acid (Vitamin C Tab) 500 mg DAILY PO 03/03/16 09:00 04/02/16 08:59 03/08/16 08:34 500 MG Calcium/Vitamin D (Caltrate Plus Tab) 1 tab BID PO 03/03/16 09:00 04/02/16 08:59 03/08/16 08:34 1 TAB Miscellaneous Information (Consult Glycemic Management Pharmacy) 1 ea DAILY PRN N/A 03/03/16 03:50 04/02/16 03:49 Insulin Aspart (novoLOG ASPART) SLIDING SCALE ACHS SC 03/03/16 07:00 04/02/16 06:59 03/08/16 17:54 8 UNITS Glucose (Glucose 40% Gel) 15-30 GRAMS 15 GRAMS... UD PRN PO 03/03/16 05:15 04/02/16 05:14 Glucose (Glucose Chew Tab) 4-8 Tablets 4 Tabl... UD PRN PO 03/03/16 05:15 04/02/16 05:14 Dextrose (Dextrose 50% 50ML Syringe) 25-50ML OF 50% DW IV FOR... UD PRN IV 03/03/16 05:15 04/02/16 05:14 Glucagon (Glucagon Inj) 1 mg UD PRN SQ 03/03/16 05:15 04/02/16 05:14 Sodium Chloride ([place] Nasal [place]) 2 sprays Q4 PRN NA 03/04/16 15:30 04/03/16 15:29 Warfarin Sodium (Coumadin Tab) 2.5 mg TuSa@1600 PO 03/07/16 16:00 04/06/16 15:59 03/07/16 17:20 2.5 MG Warfarin Sodium (Coumadin Tab) 5 mg SuMoWeThFr@1600 PO 03/06/16 16:00 04/05/16 15:59 03/08/16 16:39 5 MG Piperacillin Sod/ Tazobactam Sod (Consult) 1 ea UD PRN N/A 03/06/16 12:00 04/05/16 11:59 Ipratropium [place] (Atrovent 0.02% 0.5MG/2.5ML Neb) 0.5 mg Q6R INH 03/06/16 15:00 04/05/16 14:59 03/07/16 20:02 0.5 MG Levalbuterol 1.25 mg 1.25 mg Q6R INH 03/06/16 15:00 04/05/16 14:59 03/07/16 20:02 1.25 MG Piperacillin Sod/ Tazobactam Sod/ Dextrose (Zosyn Iv/D5 100ml) 115 ml @ 28.75 mls/ hr Q8H IV 03/06/16 18:00 03/13/16 17:59 03/08/16 17:54 28.75 MLS/HR Guaifenesin (Organidin Nr Tab) 200 mg Q4H PRN PO 03/06/16 12:45 04/05/16 12:44 03/06/16 21:09 200 MG Metoprolol Tartrate (Lopressor Tab) 75 mg BID PO 03/06/16 21:00 04/05/16 20:59 03/08/16 08:34 75 MG Menthol (Nice Shellie) 1 shellie PRN PRN PO 03/06/16 23:45 04/05/16 23:44 Insulin Glargine (Lantus Solostar Pen) 12 unit BID SC 03/07/16 21:00 04/06/16 20:59 03/08/16 08:41 12 UNIT Pregabalin (Lyrica Cap) 50 mg 0000,0900,1300,1700,2100 PO 03/07/16 13:00 04/06/16 12:59 03/08/16 16:39 50 MG Dornase Tho (Pulmozyme Inhalation Soln 2.5ml Amp) 2.5 ml BID INH 03/07/16 21:00 03/09/16 20:00 Enteral Nutritional Formula (Boost Glucose Control) 1 can BIDM PO 03/08/16 17:00 04/07/16 16:59 03/08/16 17:54 1 CAN
[2016-03-08] MEDS: ATORVASTATIN 20 MG TAB PO SCH (20:31)
[2016-03-08] MEDS: ACETAMINOPHEN 325 MG TAB PO PRN (20:38)
[2016-03-09] VITALS (7 sets, daily range): BP systolic 125–175; BP diastolic 82–93; PULSE 81–102; TEMP 36.4–37; O2SAT 91–95
[2016-03-09] MEDS: PREGABALIN 50 MG CAP PO SCH ×5 (00:01→20:56)
[2016-03-09] MEDS: PIPERACILL/TAZOBAC IV 3.375 GM in DEXTROSE 5% 100ML IV SCH ×3 (01:44→18:41)
[2016-03-09] MEDS: LEVALBUTEROL 1.25MG/0.5ML NEB INH SCH ×4 (02:39→20:00)
[2016-03-09] MEDS: IPRATROPIUM BROMIDE NEB SOLN 0.02% 2.5 ML VIAL INH SCH ×4 (02:39→20:00)
[2016-03-09 06:47] LABS: HEMATOCRIT 34.9 % (42-52); MEAN CELL VOLUME 90.9 fL (80-100); MEAN CORPUSCULAR HEMOGLOBIN 31.8 pg (25-34); MEAN PLATELET VOLUME 11.2 fL (7.4-10.4); PLATELET COUNT 229 K/uL (130-400); RED BLOOD COUNT 3.84 M/uL (4.7-6.1)
[2016-03-09 06:59] LABS: PROTHROMBIN TIME (PATIENT) 47.8 SECONDS (9.0-12.0)
[2016-03-09 07:04] LABS: INR 4.2 (0.9-1.1)
[2016-03-09 07:13] LABS: BUN/CREATININE RATIO 13.8 (10-20); CALCIUM 8.4 mg/dl (8.5-10.1); POTASSIUM 3.5 mmol/L (3.5-5.1)
[2016-03-09] MEDS: DORNASE ALFA (2500U) 2.5MG/2.5ML INH SCH ×2 (07:35→20:00)
[2016-03-09] MEDS: BOOST GLUCOSE CONTROL PO SCH ×2 (09:01→17:00)
[2016-03-09] MEDS: ASPIRIN 81 MG ECTAB PO SCH (09:01)
[2016-03-09] MEDS: CALCIUM 600MG + VIT D 400 IU TAB PO SCH ×2 (09:02→20:47)
[2016-03-09] MEDS: MULTIVITAMIN TAB PO SCH (09:02)
[2016-03-09] MEDS: ASCORBIC ACID 500 MG TAB PO SCH (09:02)
[2016-03-09] MEDS: METOPROLOL TARTRATE 25 MG TAB PO SCH ×2 (09:03→20:51)
[2016-03-09] MEDS: ISOSORBIDE MONONITRATE 30 MG TABCR PO SCH (09:03)
[2016-03-09] MEDS: CycloSPORINE (SANDIMMUNE) 25 MG CAP PO SCH ×2 (09:04→20:47)
[2016-03-09] MEDS: INSULIN ASPART 100 UNITS/ML 3 ML PEN SC SCH ×4 (09:12→20:32)
[2016-03-09] MEDS: INSULIN GLARGINE SOLOSTAR 100 UNITS/ML 3 ML PEN SC SCH ×2 (09:13→20:56)
[2016-03-09] MEDS: DOXYCYCLINE IV 100 MG in DEXTROSE 5% 100ML 100 ML IV SCH ×2 (09:18→22:59)
--- NOTE | 2016-03-09 10:46 | Progress Note ---
Medicine Progress Note Date & Time of Visit: Mar 09, 2016 at 10:45. Subjective Patient reports respiratory has not yet put the vibration vest on him. He states he is still coughing and the sputum has been thicker and harder to bring up. No overnight events other than not sleeping well. No other complaints at this time. Appetite is fair. Objective Last 8 Hrs Date Time Temp Pulse Resp B/P Pulse Ox O2 Delivery O2 Flow Rate FiO2 03/09/16 08:00 Room Air 03/09/16 07:35 88 18 93 Room Air 03/09/16 07:33 36.4 102 20 147/82 91 Physical Exam: GENERAL: Patient is in no acute distress. HEENT: No acute trauma, normocephalic, mucous membranes moist, no nasal congestion, no scleral icterus. NECK: No stridor, trachea is midline LUNGS: Coarse rhonchi bilaterally, no wheeze, breath sounds equal. + coughing with deep breathing HEART: Without murmurs gallops or rubs, irregularly irregular ABDOMEN: Soft, nontender, bowel sounds positive EXTREMITIES: No cyanosis or edema NEUROLOGIC: Oriented, no acute motor or sensory deficits, no focal weakness. SKIN: No rash, no jaundice, no diaphoresis. Laboratory Results: Last 24 Hours Test 03/08/16 11:56 03/08/16 16:44 03/08/16 20:01 03/09/16 06:29 Bedside Glucose 166 mg/dl 174 mg/dl 226 mg/dl White Blood Count 7.50 K/uL Red Blood Count 3.84 M/uL Hemoglobin 12.2 g/dL Hematocrit 34.9 % Mean Corpuscular Volume 90.9 fL Mean Corpuscular Hemoglobin 31.8 pg Mean Corpuscular Hemoglobin Concent 35.0 g/dl RDW Standard Deviation 46.8 fL RDW Coefficient of Variation 14.2 % Platelet Count 229 K/uL Mean Platelet Volume 11.2 fL Prothrombin Time 47.8 SECONDS Prothromb Time International Ratio 4.2 Sodium Level 140 mmol/L Potassium Level 3.5 mmol/L Chloride Level 102 mmol/L Carbon Dioxide Level 29 mmol/L Anion Gap 9.0 mmol/L Blood Urea Nitrogen 14 mg/dl Creatinine 1.00 mg/dl Est Creatinine Clear Calc Drug Dose 83.3 ml/min Estimated GFR () 89.9 Estimated GFR (Non- 77.5 BUN/Creatinine Ratio 13.8 Random Glucose 208 mg/dl Calcium Level 8.4 mg/dl Test 03/09/16 07:16 Bedside Glucose 218 mg/dl Assessment & Plan PROBABLE SEPSIS: from pneumonia -no aspiration events noted prior to admission -presented with tachycardia, leukocytosis, and fever -was given one dose of Levaquin in the ER -continue Rocephin and Doxycycline for CAP; expanded coverage by adding zosyn and stopping ceftriaxone due to immunosuppression/transplant patient -continues to have productive cough -was also slightly hypoxic and initially required 2L O2 via NC but has since been on room air -supplemental oxygen as needed -PRN Hycodan cough syrup, PRN tessalon perles; patient refused these and thus will discontinue -nebs scheduled -blood and sputum cultures pending, no growth thus far -repeat CXR shows worsening left base opacity, and a mild right base opacity -still with low grade fevers and leukocytosis trending down -Pulmonary consulted, appreciate recs, patient started on dornase and vibration vest and CT chest ordered -CT chest report: "1. There is patchy airspace consolidation seen throughout the left lung, most confluent at the left lung base. The appearance is most consistent with pneumonia. Radiographic follow-up to resolution is recommended. 2. There are small pleural effusions, left larger than right with dependent airspace consolidation." POST-TUSSIVE EMESIS: resolved -with harsh productive cough -antiemetics PRN CHRONIC ATRIAL FIB: with acute episode of A fib with RVR: -multifactorial: from infection/hypoxia, as well as missed b-oleg dose due to vomiting -was given 10mg of IV Lopressor in ER without any change -was on Cardizem drip; stopped as HR better controlled -remains in A fib but rates controlled -Coumadin held for supratherapeutic INR, now resumed -continue home metoprolol DE: -likely secondary to nausea/vomiting + dehydration -baseline creat = 1.0 -Cr of 1.3 increased to 2.1 this admission, now at baseline -off IV fluids now -monitor -avoid nephrotoxins Right Foot Ulceration: -was recently started on Keflex as outpatient -on Rocephin + doxy as above for pneumonia; should cover the ulcer as well -wound care nurse consult placed Diabetes Mellitus Type I: -patient with insulin pump; held for now due to acute illness -monitor blood sugars with the nausea/vomiting -Glycemic pharmacy consult CAD: s/p stents -no related symptoms -continue cardiac medications, ASA, statin, Imdur, b-oleg -obtain TTE as patient with mention of cardiomegaly on CT scan and reports a past history of pericardial effusion -TTE Report: * -- Conclusions -- * There is moderate concentric left ventricular hypertrophy. * The left ventricular wall motion is normal. * The LV Ejection Fraction = 65-70%. * The left atrium is mildly dilated. * Aortic valve sclerosis moderate, without significant aortic valvular stenosis. * There is mild mitral regurgitation. * There is mild tricuspid regurgitation. * Doppler findings do not suggest pulmonary hypertension. * There is trace circumferential pericardial effusion. * There are no echocardiographic indications of cardiac tamponade. HTN: with elevated BP initially -likely related to cough/vomiting; now improved -continue on home meds -increased BB dose as HR and BP elevated Current Inpatient Medications: Current Inpatient Medications Medications (Trade) Dose Ordered Sig/Tay Route Start Time Stop Time Status Last Admin Dose Admin Acetaminophen (Tylenol Tab) 650 mg Q4H PRN PO 03/03/16 02:45 04/02/16 02:44 03/08/16 20:38 650 MG Al Hydrox/Mg Hydrox/Simethicone (Maalox Max Susp) 15 ml Q4H PRN PO 03/03/16 02:45 04/02/16 02:44 Magnesium Hydroxide (Milk Of Magnesia Susp) 30 ml Q12H PRN PO 03/03/16 02:45 04/02/16 02:44 Ondansetron HCl (Zofran Inj) 4 mg Q6H PRN IV 03/03/16 02:45 04/02/16 02:44 Nitroglycerin (Nitrostat Tab) 0.4 mg UD PRN SL 03/03/16 02:45 04/02/16 02:44 Polyethylene 17 gm 17 gm DAILY PRN PO 03/03/16 02:45 04/02/16 02:44 03/06/16 20:11 17 GM Doxycycline Hyclate/Dextrose (Vibramycin IV/ D5 100ml) 110 ml @ 50 mls/hr BID IV 03/03/16 09:00 03/10/16 08:59 03/09/16 09:18 50 MLS/HR Aspirin (Ecotrin Tab) 81 mg QAM PO 03/03/16 09:00 04/02/16 08:59 03/09/16 09:01 81 MG Atorvastatin Calcium (Lipitor Tab) 40 mg QPM PO 03/03/16 21:00 04/02/16 20:59 03/08/16 20:31 40 MG Cyclosporine (Sandimmune Cap) 50 mg BID PO 03/03/16 09:00 04/02/16 08:59 03/09/16 09:04 50 MG Insulin Aspart (novoLOG INSULIN PUMP) 1 ea UD N/A 03/03/16 02:45 04/02/16 02:44 Future Hold Isosorbide Mononitrate (Imdur Ext Rel Tab) 30 mg QAM PO 03/03/16 09:00 04/02/16 08:59 03/09/16 09:03 30 MG Multivitamins (Multivitamin Tab) 1 tab DAILY PO 03/03/16 09:00 04/02/16 08:59 03/09/16 09:02 1 TAB Prednisone (PredniSONE TAB) 5 mg QAM PO 03/03/16 09:00 04/02/16 08:59 03/09/16 09:04 5 MG Ascorbic Acid (Vitamin C Tab) 500 mg DAILY PO 03/03/16 09:00 04/02/16 08:59 03/09/16 09:02 500 MG Calcium/Vitamin D (Caltrate Plus Tab) 1 tab BID PO 03/03/16 09:00 04/02/16 08:59 03/09/16 09:02 1 TAB Miscellaneous Information (Consult Glycemic Management Pharmacy) 1 ea DAILY PRN N/A 03/03/16 03:50 04/02/16 03:49 Insulin Aspart (novoLOG ASPART) SLIDING SCALE ACHS SC 03/03/16 07:00 04/02/16 06:59 03/09/16 09:12 8 UNITS Glucose (Glucose 40% Gel) 15-30 GRAMS 15 GRAMS... UD PRN PO 03/03/16 05:15 04/02/16 05:14 Glucose (Glucose Chew Tab) 4-8 Tablets 4 Tabl... UD PRN PO 03/03/16 05:15 04/02/16 05:14 Dextrose (Dextrose 50% 50ML Syringe) 25-50ML OF 50% DW IV FOR... UD PRN IV 03/03/16 05:15 04/02/16 05:14 Glucagon (Glucagon Inj) 1 mg UD PRN SQ 03/03/16 05:15 04/02/16 05:14 Sodium Chloride ([place] Nasal [place]) 2 sprays Q4 PRN NA 03/04/16 15:30 04/03/16 15:29 Warfarin Sodium (Coumadin Tab) 2.5 mg TuSa@1600 PO 03/07/16 16:00 04/06/16 15:59 03/07/16 17:20 2.5 MG Warfarin Sodium (Coumadin Tab) 5 mg SuMoWeThFr@1600 PO 03/06/16 16:00 04/05/16 15:59 03/08/16 16:39 5 MG Piperacillin Sod/ Tazobactam Sod (Consult) 1 ea UD PRN N/A 03/06/16 12:00 04/05/16 11:59 Ipratropium [place] (Atrovent 0.02% 0.5MG/2.5ML Neb) 0.5 mg Q6R INH 03/06/16 15:00 04/05/16 14:59 03/09/16 07:35 0.5 MG Levalbuterol 1.25 mg 1.25 mg Q6R INH 03/06/16 15:00 04/05/16 14:59 03/09/16 07:35 1.25 MG Piperacillin Sod/ Tazobactam Sod/ Dextrose (Zosyn Iv/D5 100ml) 115 ml @ 28.75 mls/ hr Q8H IV 03/06/16 18:00 03/13/16 17:59 03/09/16 01:44 28.75 MLS/HR Guaifenesin (Organidin Nr Tab) 200 mg Q4H PRN PO 03/06/16 12:45 04/05/16 12:44 03/06/16 21:09 200 MG Metoprolol Tartrate (Lopressor Tab) 75 mg BID PO 03/06/16 21:00 04/05/16 20:59 03/09/16 09:03 75 MG Menthol (Nice Shellie) 1 shellie PRN PRN PO 03/06/16 23:45 04/05/16 23:44 Insulin Glargine (Lantus Solostar Pen) 12 unit BID SC 03/07/16 21:00 04/06/16 20:59 03/09/16 09:13 12 UNIT Pregabalin (Lyrica Cap) 50 mg 0000,0900,1300,1700,2100 PO 03/07/16 13:00 04/06/16 12:59 03/09/16 09:08 50 MG Dornase Tho (Pulmozyme Inhalation Soln 2.5ml Amp) 2.5 ml BID INH 03/07/16 21:00 03/09/16 20:00 03/09/16 07:35 2.5 ML Enteral Nutritional Formula (Boost Glucose Control) 1 can BIDM PO 03/08/16 17:00 04/07/16 16:59 03/08/16 17:54 1 CAN
[2016-03-09] MEDS ORDERED: INSULIN REGULAR 5 UNITS in SYRINGE 4.95 ML IV SCH (12:00)
--- NOTE | 2016-03-09 12:03 | Pharmacy Progress Note ---
Glycemic Control: Progress Nt Date of Service Mar 09, 2016. Scope Glycemic Pharmacist consulted by Dr Montana on 03/03/16 for glycemic control and to write orders per [facility] inpatient glycemic control protocol. Objective Accuchecks BSG (last 24hrs): Test 03/08/16 11:56 03/08/16 16:44 03/08/16 20:01 03/09/16 06:29 Bedside Glucose 166 mg/dl (70-99) 174 mg/dl (70-99) 226 mg/dl (70-99) Random Glucose 208 mg/dl (70-99) Test 03/09/16 07:16 03/09/16 11:32 Bedside Glucose 218 mg/dl (70-99) 284 mg/dl (70-99) Laboratory Data (last 24hrs) Test 03/09/16 06:29 Anion Gap 9.0 mmol/L BUN/Creatinine Ratio 13.8 Blood Urea Nitrogen 14 mg/dl Creatinine 1.00 mg/dl Potassium Level 3.5 mmol/L Sodium Level 140 mmol/L White Blood Count 7.50 K/uL HbA1c: Test 03/03/16 05:08 Hemoglobin A1c 8.4 % (4.5-5.6) H Recent Pertinent Medications Outpatient Anti-diabetic Regimen: * NovoLog pump * 16.475 units basal/day * goal range 118-130mg/dL * Correction factor: 42mg/dL/unit * Carb ratio: 1 unit per 15g of CHO consumed * A1c = 8.4 % 03/03/16 The patient is currently receiving: * Basal insulin: Lantus 12 units every 12 hours * Correctional Insulin: NovoLog Correction per scale AC/HS Goal Range: Low 110 mg/dL - High 140 mg/dL Correction Factor: 25 mg/dL/unit * Prandial insulin: Per carb ratio of 1 unit per 7 grams CHO consumed Risk Factors for Insulin Resistance: * Steroids: Prednisone 5 mg daily (home dose) * Infection: pneumonia, on piperacillin/tazobactam and doxycycline IV * Diet: type 1 diabetic/renal + Boost Assessment & Plan ASSESSMENT: 03/03/16 * 65 yo type 1 diabetic on NovoLog pump at home, unable to manage pump on admission due to confusion. * Started weight-based Lantus-NovoLog, Lantus not yet steady-state. * Pump settings reported by [employer]. * May need to decrease insulin doses- will reassess in am. 03/07/16 * Currently, the patient has been receiving much higher basal doses compared to home insulin pump basal rate. * this is concerning as type 1 diabetics usually do not vary to this degree with their insulin needs. * Fasting BSG below goal this AM at 85mg/dL * Reduce daily dose and given partial Lantus doses this morning (5 units with breakfast, 5 units with lunch, and then 12 units SQ BID) * NovoLog parameters adequate at this time * BSGs are trending upwards throughout the day (secondary to prednisone kinetics?) - may benefit from a slightly tighter carb ratio * Ceftriaxone change to piperacillin/tazobactam (increased IV dextrose daily) * follow BSG trends 03/08/16 * Mr Henderson has received 42 units of insulin over the past 24 hours with BSGs ranging from 85-180mg/dL * likely the lower BSGs in the AM of 03/07 were secondary to larger Lantus doses on 03/05. * Today, fasting BSG is elevated, but can likely be explained by the lower doses of Lantus given in the morning of 03/07 * Now, Lantus is back to a steady dose of 12 units BID - continue same until steady state is reached. * Hopeful for transition back to NovoLog pump tomorrow morning * may consider holding AM Lantus unit this is discussed with the patient to determine his mental acuity. Will call to ensure that his pump supplies are available. * BSGs did rise throughout the day yesterday - will slightly tighten carb ratio this AM to help combat this. 03/09/16 * Total of 57 units of insulin on 03/08 with BSGs 166-226mg/dL (higher than prior day) * Fasting BSG again elevated today * increase basal insulin by ~20% * Again, BSGs earl throughout the day on 03/08 and are trending that way today * Further tighten correction factor * Acute hyperglycemia pre-lunch * one time dose of IV insulin to augment NovoLog SQ PLAN FOR INPATIENT GLYCEMIC CONTROL: * Continuing Lantus 14 units SQ BID * Continue NovoLog AC and HS * Correction factor: 20 mg/dl/unit * Carb ratio: 1 unit per 7 grams CHO consumed * Goal range: Low 110 mg/dL - High 140 mg/dL * Regular insulin 5 units IV with NovoLog at lunchtime * A1c 8.4% is current and will be added to discharge instructions RECOMMENDATIONS FOR DISCHARGE: * Likely the patient will be transitioned back to his NovoLog pump at discharge * will be mindful of previous Lantus dose as to not cause hypoglycemia at discharge * Please note that the plan above was derived based on current level of insulin resistance and hospital stress. These recommendations are appropriate for inpatient admission only. Plan of care upon discharge will need to be reassessed to avoid potential outpatient hypo/hyperglycemia. Thank you.
--- NOTE | 2016-03-09 13:36 | ECHOCARDIOGRAM REPORT ---
*NOTICE TO RECEIVING [employer]PUBL[employer] AG[employer]Y This information is strictly Confidential and protected under [place] law. [place] law prohibits you from making any further disclosure of this information unless further disclosure is expressly permitted by the written consent of the person to whom it pertains or is authorized by law. A general authorization for the release of medical or other information is not sufficient for this purpose. Hospital accepts no responsibility if the information is made available to any other person, INCLUDING THE PATIENT. Interpretation Summary * Name: ROSALVA CHAUDHARI Study Date: 03/09/2016 07:39 AM BP: 147/82 mmHg * Patient Location: [facility]\S\N275\S\2 HR: 88 * : 1950 (M/d/yyyy) Gender: Male Height: 74 in * Age: 65 yrs Ethnicity: [place] Weight: 197 lb * Ordering Physician: Vandana Gottlieb * Performed By: Lara Ocasio * * Reason For Study: PERICARDIAL DISEASE * BSA: 2.2 m2 * -- Conclusions -- * There is moderate concentric left ventricular hypertrophy. * The left ventricular wall motion is normal. * The LV Ejection Fraction = 65-70%. * The left atrium is mildly dilated. * Aortic valve sclerosis moderate, without significant aortic valvular stenosis. * There is mild mitral regurgitation. * There is mild tricuspid regurgitation. * Doppler findings do not suggest pulmonary hypertension. * There is trace circumferential pericardial effusion. * There are no echocardiographic indications of cardiac tamponade. Procedure Details * A complete two-dimensional transthoracic echocardiogram was performed (2D, M-mode, Doppler and color flow Doppler). Left Ventricle * The left ventricle is normal in size. * There is moderate concentric left ventricular hypertrophy. * Left ventricular systolic function is normal. * Ejection Fraction = 65-70%. * The left ventricular wall motion is normal. Right Ventricle * The right ventricle is normal size. * The right ventricular systolic function is normal as assessed by tricuspid annular plane systolic excursion (TAPSE) (normal >1.5 cm). Atria * The left atrium is mildly dilated. * Right atrial size is normal. * There is no evidence of atrial septal defect, but resolution does not allow assessment for a patent foramen ovale. Mitral Valve * There is mild mitral annular calcification. * There is no mitral valve stenosis. * There is mild mitral regurgitation. Tricuspid Valve * The tricuspid valve is normal. * There is no tricuspid stenosis. * There is mild tricuspid regurgitation. * Doppler findings do not suggest pulmonary hypertension. Aortic Valve * The aortic valve is trileaflet. * Aortic valve sclerosis moderate, without significant aortic valvular stenosis. * Aortic stenosis is absent. * There is no significant aortic regurgitation. Pulmonic Valve * The pulmonary valve is not well seen, but the Doppler examination is normal without significant regurgitation or stenosis. Great Vessels * The aortic root and proximal ascending aorta are normal sized. Pericardium/Pleural * There is trace circumferential pericardial effusion. * There are no echocardiographic indications of cardiac tamponade. Great Vessels * Normal inferior vena cava diameter and respiratory variation suggests normal central venous pressure. Left Ventricular Diastolic Function * Left ventricualar diastolic dysfunction is present based on left atrial enlargement and LVH, however, it is not graded due to the presence of underlying atrail fibrillation. MMode 2D Measurements and Calculations IVSd 1.3 cm IVSs 1.6 cm LVIDd 4.2 cm LVIDs 2.9 cm LVPWd 1.7 cm LVPWs 2.1 cm IVS/LVPW 0.77 FS 32.6 % EDV(Teich) 80.2 ml ESV(Teich) 31.1 ml EF(Teich) 61.3 % EDV(cubed) 76.1 ml ESV(cubed) 23.3 ml EF(cubed) 69.3 % % IVS thick 24.1 % % LVPW thick 19.2 % LV mass(C)d 259.0 grams LV mass(C)dI 120.0 grams/m\S\2 LV mass(C)s 215.7 grams LV mass(C)sI 99.9 grams/m\S\2 CO(Teich) 3.8 l/min CI(Teich) 1.8 l/min/m\S\2 SV(Teich) 49.2 ml SI(Teich) 22.8 ml/m\S\2 CO(cubed) 4.1 l/min CI(cubed) 1.9 l/min/m\S\2 SV(cubed) 52.8 ml SI(cubed) 24.4 ml/m\S\2 ACS 1.7 cm LA dimension 4.8 cm asc Aorta Diam 3.5 cm LVOT diam 2.0 cm LVOT area 3.1 cm\S\2 LVAd ap4 20.7 cm\S\2 LVLd ap4 6.5 cm EDV(MOD-sp4) 54.0 ml LVAs ap4 11.5 cm\S\2 LVLs ap4 5.2 cm ESV(MOD-sp4) 23.0 ml EF(MOD-sp4) 57.4 % LVAd ap2 20.1 cm\S\2 LVLd ap2 6.3 cm EDV(MOD-sp2) 55.0 ml LVAs ap2 12.2 cm\S\2 LVLs ap2 5.4 cm ESV(MOD-sp2) 23.0 ml EF(MOD-sp2) 58.2 % CO(MOD-sp4) 2.4 l/min CI(MOD-sp4) 1.1 l/min/m\S\2 SV(MOD-sp4) 31.0 ml SI(MOD-sp4) 14.4 ml/m\S\2 CO(MOD-sp2) 2.5 l/min CI(MOD-sp2) 1.2 l/min/m\S\2 SV(MOD-sp2) 32.0 ml SI(MOD-sp2) 14.8 ml/m\S\2 Doppler Measurements and Calculations MV E max darryl 102.2 cm/sec MV dec time 0.24 sec Ao V2 max 154.2 cm/sec Ao max PG 9.5 mmHg Ao max PG (full) 6.5 mmHg DES(V,A) 1.8 cm\S\2 DES(V,D) 1.8 cm\S\2 AI max darryl 366.8 cm/sec AI max PG 53.8 mmHg AI dec slope 187.5 cm/sec\S\2 AI P1/2t 573.0 msec LV V1 max PG 3.0 mmHg LV V1 mean PG 1.5 mmHg LV V1 max 87.1 cm/sec LV V1 mean 55.6 cm/sec LV V1 VTI 16.8 cm MR max darryl 406.8 cm/sec MR max PG 66.4 mmHg SV(LVOT) 52.4 ml SI(LVOT) 24.3 ml/m\S\2 PA V2 max 59.6 cm/sec PA max PG 1.4 mmHg PI end-d darryl 74.7 cm/sec TR max darryl 239.9 cm/sec
[2016-03-09] MEDS: ATORVASTATIN 20 MG TAB PO SCH (20:47)
[2016-03-10] VITALS (7 sets, daily range): BP systolic 119–156; BP diastolic 77–88; PULSE 74–106; TEMP 36.3–37.1; O2SAT 91–96
[2016-03-10] MEDS: PIPERACILL/TAZOBAC IV 3.375 GM in DEXTROSE 5% 100ML IV SCH ×3 (01:27→17:32)
[2016-03-10] MEDS: IPRATROPIUM BROMIDE NEB SOLN 0.02% 2.5 ML VIAL INH SCH ×4 (01:57→19:39)
[2016-03-10] MEDS: LEVALBUTEROL 1.25MG/0.5ML NEB INH SCH ×4 (01:57→19:39)
[2016-03-10] MEDS ORDERED: INSULIN ASPART 100 UNITS/ML 3 ML PEN SC SCH ×2 (02:00→16:30)
[2016-03-10 06:34] LABS: HEMATOCRIT 36.7 % (42-52); MEAN CORPUSCULAR HEMOGLOBIN 32.1 pg (25-34); MEAN CORPUSCULAR HGB CONC 34.9 g/dl (32-36); PLATELET COUNT 255 K/uL (130-400); RED BLOOD COUNT 3.99 M/uL (4.7-6.1); WHITE BLOOD COUNT 6.74 K/uL (4.8-10.8)
[2016-03-10 07:09] LABS: BUN/CREATININE RATIO 12.2 (10-20); CALCIUM 8.6 mg/dl (8.5-10.1); CREATININE 1.1 mg/dl (0.60-1.40); POTASSIUM 3.8 mmol/L (3.5-5.1)
[2016-03-10] MEDS: BOOST GLUCOSE CONTROL PO SCH ×2 (08:00→17:28)
[2016-03-10] MEDS: PREGABALIN 50 MG CAP PO SCH ×6 (08:08→23:57)
[2016-03-10] MEDS: CycloSPORINE (SANDIMMUNE) 25 MG CAP PO SCH ×2 (08:08→20:37)
[2016-03-10] MEDS: CALCIUM 600MG + VIT D 400 IU TAB PO SCH ×2 (08:08→20:36)
[2016-03-10] MEDS: ASPIRIN 81 MG ECTAB PO SCH (08:09)
[2016-03-10] MEDS: MULTIVITAMIN TAB PO SCH (08:09)
[2016-03-10] MEDS: ISOSORBIDE MONONITRATE 30 MG TABCR PO SCH (08:10)
[2016-03-10] MEDS: ASCORBIC ACID 500 MG TAB PO SCH (08:10)
[2016-03-10] MEDS: METOPROLOL TARTRATE 25 MG TAB PO SCH ×2 (08:10→20:36)
[2016-03-10] MEDS: INSULIN ASPART 100 UNITS/ML 3 ML PEN SC SCH ×4 (08:16→21:09)
[2016-03-10] MEDS: INSULIN GLARGINE SOLOSTAR 100 UNITS/ML 3 ML PEN SC SCH (08:17)
[2016-03-10] MEDS ORDERED: INSULIN GLARGINE SOLOSTAR 100 UNITS/ML 3 ML PEN SC SCH ×2 (09:00→21:00)
[2016-03-10] MEDS ORDERED: INSULIN HUMAN REGULAR PER UNIT 4 UNITS in SYRINGE 3.96 ML IV ONE (14:30)
--- NOTE | 2016-03-10 14:37 | Pharmacy Progress Note ---
Glycemic: Assessment & Plan Date of Service Mar 10, 2016. Assessment & Plan * The patient is currently receiving 50-60 units of insulin per day. BSGs ranging 84 - 359 mg/dl over the past 24hrs. * BSG control diminishes during the day d/t Prednisone administration in the AM. Will tighten Novolog CF/CR AC and loosen parameters qHS. * Start new Novolog parameters tomorrow to avoid stacking with IV regular insulin bolus. * Will preserve larger Lantus dose in the AM to counter the spike in BSG during the daytime d/t steroids. Will reduce Lantus dose at bedtime to prevent overcorrecting of BSGs overnight when Prednisone effect on BSGs has diminished. * Will order an IV bolus of regular insulin this afternoon per persistent BSG > 300 mg/dl x 2. * No overnight check necessary since steroid effect absent at this time. * Pt is a type 1 diabetic so small change in insulin dosing will significantly influence BSG control. Can likely loosen Novolog AC parameters when prednisone stopped. PLAN FOR INPATIENT GLYCEMIC CONTROL: * Basal insulin: Lantus 14 units qAM, 10 units qHS; give 1/2 dose for BSG below 110 mg/dl * Correctional Insulin: Novolog Correction per scale ACHS Goal Range: Low 110 mg/dL - High 140 mg/dL AC: Correction Factor: 18 mg/dL/unit; HS: Correction Factor: 20 mg/dL/unit * Prandial insulin: AC: Per carb ratio of 1 unit per 6 grams CHO consumed; HS: Per carb ratio of 1 unit per 8 grams CHO consumed Pharmacy will continue to monitor patient daily and write orders per [facility] inpatient glycemic control protocol. Thanks. * Please note that the plan above was derived based on current level of insulin resistance and hospital stress. These recommendations are appropriate for inpatient admission only. Plan of care upon discharge will need to be reassessed to avoid potential outpatient hypo/hyperglycemia.
--- NOTE | 2016-03-10 16:44 | Progress Note ---
Medicine Progress Note Date & Time of Visit: Mar 10, 2016 at 16:32. Subjective patient seen resting in bed, comfortable states he had walked 3 laps in the halls today, tolerated well, no dyspnea still has productive cough, greenish sputum, no hemoptysis weakness improving gradually denies chest pain no abdominal pain, nausea/vomiting denies other symptoms Objective Last 8 Hrs Date Time Temp Pulse Resp B/P Pulse Ox O2 Delivery O2 Flow Rate FiO2 03/10/16 15:34 Room Air 03/10/16 15:30 36.3 106 16 119/77 94 Room Air 03/10/16 14:39 74 18 94 Room Air Physical Exam: General- oriented x 3, not in distress, speaks in sentences with no effort Eyes- EOMI, anicteric Neck- supple, no JVD Lungs-(+) rales on the bilateral bases, left>right Heart- normal rate, irregular rhythm; no murmurs Abdomen- normal bowel sounds, soft, nontender Extremities- no pretibial edema, no calf tenderness Neuro- alert, oriented x 3; no gross focal deficits Skin- warm & dry Laboratory Results: Last 24 Hours Test 03/09/16 20:17 03/10/16 01:31 03/10/16 05:51 03/10/16 07:34 Bedside Glucose 92 mg/dl 130 mg/dl 147 mg/dl White Blood Count 6.74 K/uL Red Blood Count 3.99 M/uL Hemoglobin 12.8 g/dL Hematocrit 36.7 % Mean Corpuscular Volume 92.0 fL Mean Corpuscular Hemoglobin 32.1 pg Mean Corpuscular Hemoglobin Concent 34.9 g/dl RDW Standard Deviation 48.8 fL RDW Coefficient of Variation 14.4 % Platelet Count 255 K/uL Mean Platelet Volume 11.0 fL Sodium Level 141 mmol/L Potassium Level 3.8 mmol/L Chloride Level 103 mmol/L Carbon Dioxide Level 29 mmol/L Anion Gap 9.0 mmol/L Blood Urea Nitrogen 13 mg/dl Creatinine 1.10 mg/dl Est Creatinine Clear Calc Drug Dose 75.8 ml/min Estimated GFR () 80.1 Estimated GFR (Non- 69.1 BUN/Creatinine Ratio 12.2 Random Glucose 150 mg/dl Calcium Level 8.6 mg/dl Test 03/10/16 11:35 1/17/17 14:07 Bedside Glucose 301 mg/dl 359 mg/dl Assessment & Plan POSSIBLE SEPSIS SECONDARY TO LEFT MULTILOBAR PNEUMONIA IMMUNOSUPPRESSED STATE - Renal Transplant patient, on chronic Prednisone and Cyclosporine -blood and sputum cultures no growth thus far repeat CXR shows worsening left base opacity, and a mild right base opacity -CT chest report: "1. There is patchy airspace consolidation seen throughout the left lung, most confluent at the left lung base. The appearance is most consistent with pneumonia. Radiographic follow-up to resolution is recommended. 2. There are small pleural effusions, left larger than right with dependent airspace consolidation." -Pulmonary consulted, patient started on dornase and vibration vest -- currently on Zosyn and Doxy IV clinically improved gradually, afebrile, no leukocytosis still has productive cough -- will re-consult Pulmonary also place consult for ID re: antibiotic recommendations -- continue Zosyn, Doxy IV Nebs POST-TUSSIVE EMESIS: resolved -with harsh productive cough -antiemetics PRN CHRONIC ATRIAL FIBRILLATION -multifactorial: from infection/hypoxia, as well as missed b-oleg dose due to vomiting -was placed on Cardizem drip for AVR - continue Metoprolol coumadin on hold repeat INR today DE: -likely secondary to nausea/vomiting + dehydration -Cr of 1.3 increased to 2.1 this admission, now at baseline - given fluids Right Foot Ulceration: -on Zosyn and Doxycycline -wound care nurse consult placed Diabetes Mellitus Type I: -patient with insulin pump; held for now due to acute illness -Glycemic pharmacy consult CAD: s/p stents -continue cardiac medications, ASA, statin, Imdur, b-oleg -obtain TTE as patient with mention of cardiomegaly on CT scan and reports a past history of pericardial effusion -TTE Report: * -- Conclusions -- * There is moderate concentric left ventricular hypertrophy. * The left ventricular wall motion is normal. * The LV Ejection Fraction = 65-70%. * The left atrium is mildly dilated. * Aortic valve sclerosis moderate, without significant aortic valvular stenosis. * There is mild mitral regurgitation. * There is mild tricuspid regurgitation. * Doppler findings do not suggest pulmonary hypertension. * There is trace circumferential pericardial effusion. * There are no echocardiographic indications of cardiac tamponade. HTN -likely related to cough/vomiting; now improved -continue on home meds - Metoprolol increased DVT prophylaxis INR supratherapeutic Disposition pending anticipate d/c home when cleared by Pulmonary, ID Current Inpatient Medications: Current Inpatient Medications Medications (Trade) Dose Ordered Sig/Tay Route Start Time Stop Time Status Last Admin Dose Admin Acetaminophen (Tylenol Tab) 650 mg Q4H PRN PO 03/03/16 02:45 04/02/16 02:44 03/10/16 00:00 650 MG Al Hydrox/Mg Hydrox/Simethicone (Maalox Max Susp) 15 ml Q4H PRN PO 03/03/16 02:45 04/02/16 02:44 Magnesium Hydroxide (Milk Of Magnesia Susp) 30 ml Q12H PRN PO 03/03/16 02:45 04/02/16 02:44 Ondansetron HCl (Zofran Inj) 4 mg Q6H PRN IV 03/03/16 02:45 04/02/16 02:44 Nitroglycerin (Nitrostat Tab) 0.4 mg UD PRN SL 03/03/16 02:45 04/02/16 02:44 Polyethylene (Miralax Powder Packet) 17 gm DAILY PRN PO 03/03/16 02:45 04/02/16 02:44 03/06/16 20:11 17 GM Aspirin (Ecotrin Tab) 81 mg QAM PO 03/03/16 09:00 04/02/16 08:59 03/10/16 08:09 81 MG Atorvastatin Calcium (Lipitor Tab) 40 mg QPM PO 03/03/16 21:00 04/02/16 20:59 03/09/16 20:47 40 MG Cyclosporine (Sandimmune Cap) 50 mg BID PO 03/03/16 09:00 04/02/16 08:59 03/10/16 08:08 50 MG Insulin Aspart (novoLOG INSULIN PUMP) 1 ea UD N/A 03/03/16 02:45 04/02/16 02:44 Future Hold Isosorbide Mononitrate (Imdur Ext Rel Tab) 30 mg QAM PO 03/03/16 09:00 04/02/16 08:59 03/10/16 08:10 30 MG Multivitamins (Multivitamin Tab) 1 tab DAILY PO 03/03/16 09:00 04/02/16 08:59 03/10/16 08:09 1 TAB Prednisone (PredniSONE TAB) 5 mg QAM PO 03/03/16 09:00 04/02/16 08:59 03/10/16 08:09 5 MG Ascorbic Acid (Vitamin C Tab) 500 mg DAILY PO 03/03/16 09:00 04/02/16 08:59 03/10/16 08:10 500 MG Calcium/Vitamin D (Caltrate Plus Tab) 1 tab BID PO 03/03/16 09:00 04/02/16 08:59 03/10/16 08:08 1 TAB Miscellaneous Information (Consult Glycemic Management Pharmacy) 1 ea DAILY PRN N/A 03/03/16 03:50 04/02/16 03:49 Insulin Aspart (novoLOG ASPART) SLIDING SCALE ACHS SC 03/03/16 07:00 03/10/16 23:59 03/10/16 12:42 14 UNITS Glucose (Glucose 40% Gel) 15-30 GRAMS 15 GRAMS... UD PRN PO 03/03/16 05:15 04/02/16 05:14 Glucose (Glucose Chew Tab) 4-8 Tablets 4 Tabl... UD PRN PO 03/03/16 05:15 04/02/16 05:14 Dextrose (Dextrose 50% 50ML Syringe) 25-50ML OF 50% DW IV FOR... UD PRN IV 03/03/16 05:15 04/02/16 05:14 Glucagon (Glucagon Inj) 1 mg UD PRN SQ 03/03/16 05:15 04/02/16 05:14 Sodium Chloride ([place] Nasal Viking) 2 sprays Q4 PRN NA 03/04/16 15:30 04/03/16 15:29 Warfarin Sodium (Coumadin Tab) 2.5 mg TuSa@1600 PO 03/07/16 16:00 04/06/16 15:59 Future Hold 03/07/16 17:20 2.5 MG Warfarin Sodium (Coumadin Tab) 5 mg SuMoWeThFr@1600 PO 03/06/16 16:00 04/05/16 15:59 Future Hold 03/08/16 16:39 5 MG Piperacillin Sod/ Tazobactam Sod (Consult) 1 ea UD PRN N/A 03/06/16 12:00 04/05/16 11:59 Ipratropium [place] (Atrovent 0.02% 0.5MG/2.5ML Neb) 0.5 mg Q6R INH 03/06/16 15:00 04/05/16 14:59 03/10/16 14:39 0.5 MG Levalbuterol 1.25 mg 1.25 mg Q6R INH 03/06/16 15:00 04/05/16 14:59 03/10/16 14:39 1.25 MG Piperacillin Sod/ Tazobactam Sod/ Dextrose (Zosyn Iv/D5 100ml) 115 ml @ 28.75 mls/ hr Q8H IV 03/06/16 18:00 03/13/16 17:59 03/10/16 10:03 28.75 MLS/HR Guaifenesin (Organidin Nr Tab) 200 mg Q4H PRN PO 03/06/16 12:45 04/05/16 12:44 03/06/16 21:09 200 MG Metoprolol Tartrate (Lopressor Tab) 75 mg BID PO 03/06/16 21:00 04/05/16 20:59 03/10/16 08:10 75 MG Menthol (Nice Shellie) 1 shellie PRN PRN PO 03/06/16 23:45 04/05/16 23:44 Pregabalin (Lyrica Cap) 50 mg 0000,0900,1300,1700,2100 PO 03/07/16 13:00 04/06/16 12:59 03/10/16 12:39 50 MG Insulin Glargine (Lantus Solostar Pen) 14 unit QAM SC 03/11/16 09:00 04/10/16 08:59 Insulin Glargine (Lantus Solostar Pen) 10 unit HS SC 03/10/16 21:00 04/09/16 20:59 Insulin Aspart (novoLOG ASPART) SLIDING SCALE AC SC 03/11/16 06:30 04/10/16 06:29 Insulin Aspart (novoLOG ASPART) SLIDING SCALE HS SC 03/11/16 21:00 04/10/16 20:59 Enteral Nutritional Formula (Boost Glucose Control) 1 can BIDM PO 03/10/16 17:00 04/09/16 16:59
[2016-03-10 17:33] LABS: INR 3.9 (0.9-1.1)
[2016-03-10] MEDS: DOXYCYCLINE IV 100 MG in DEXTROSE 5% 100ML 100 ML IV SCH (19:15)
[2016-03-10] MEDS: ATORVASTATIN 20 MG TAB PO SCH (20:35)
[2016-03-10] MEDS ORDERED: INSULIN GLARGINE SOLOSTAR 100 UNITS/ML 3 ML PEN SC ONE (21:00)
[2016-03-10] MEDS: ACETAMINOPHEN 325 MG TAB PO PRN ×2 (23:58)
[2016-03-11 00:06] VITALS: BP 143/86; PULSE 91; TEMP 37.3; O2SAT 92
[2016-03-11] MEDS: PIPERACILL/TAZOBAC IV 3.375 GM in DEXTROSE 5% 100ML IV SCH ×2 (01:51→10:15)
[2016-03-11 02:57] VITALS: PULSE 74; O2SAT 94
[2016-03-11] MEDS: LEVALBUTEROL 1.25MG/0.5ML NEB INH SCH ×3 (02:57→14:11)
[2016-03-11] MEDS: IPRATROPIUM BROMIDE NEB SOLN 0.02% 2.5 ML VIAL INH SCH ×3 (02:57→14:10)
[2016-03-11] MEDS: DOXYCYCLINE IV 100 MG in DEXTROSE 5% 100ML 100 ML IV SCH (06:04)
[2016-03-11 07:23] VITALS: PULSE 72; O2SAT 94
[2016-03-11 07:30] VITALS: BP_SYST 151; BP_SYST 153; BP_DIAS 91; BP_DIAS 99; PULSE 75; TEMP 36.6; O2SAT 93
[2016-03-11 07:34] LABS: BASO % 0.7 %; BASO ABS # 0.04 K/uL (0-0.2); COMPLETE YES; HEMATOCRIT 36.1 % (42-52); IG% 0.7 %; LYMPH % 31.5 %; LYMPH ABS # 1.84 K/uL (1.2-3.4); MEAN CELL VOLUME 92.6 fL (80-100); MEAN CORPUSCULAR HEMOGLOBIN 32.3 pg (25-34); MEAN CORPUSCULAR HGB CONC 34.9 g/dl (32-36); MEAN PLATELET VOLUME 10.9 fL (7.4-10.4); MONO % 12.3 %; NEUT % 49.8 %; PLATELET COUNT 281 K/uL (130-400); WHITE BLOOD COUNT 5.84 K/uL (4.8-10.8)
[2016-03-11 07:41] LABS: INR 2.8 (0.9-1.1); PROTHROMBIN TIME (PATIENT) 31.2 SECONDS (9.0-12.0)
[2016-03-11] MEDS: ISOSORBIDE MONONITRATE 30 MG TABCR PO SCH (08:10)
[2016-03-11] MEDS: ASCORBIC ACID 500 MG TAB PO SCH (08:11)
[2016-03-11] MEDS: METOPROLOL TARTRATE 25 MG TAB PO SCH (08:11)
[2016-03-11] MEDS: ASPIRIN 81 MG ECTAB PO SCH (08:11)
[2016-03-11] MEDS: CycloSPORINE (SANDIMMUNE) 25 MG CAP PO SCH (08:12)
[2016-03-11] MEDS: MULTIVITAMIN TAB PO SCH (08:12)
[2016-03-11 08:13] LABS: BUN/CREATININE RATIO 12.6 (10-20); CALCIUM 8.7 mg/dl (8.5-10.1); CREATININE 1.1 mg/dl (0.60-1.40); POTASSIUM 3.6 mmol/L (3.5-5.1)
[2016-03-11] MEDS: PREGABALIN 50 MG CAP PO SCH ×2 (08:14→12:29)
[2016-03-11] MEDS: BOOST GLUCOSE CONTROL PO SCH (08:16)
[2016-03-11] MEDS: CALCIUM 600MG + VIT D 400 IU TAB PO SCH (08:16)
[2016-03-11] MEDS: INSULIN ASPART 100 UNITS/ML 3 ML PEN SC SCH ×2 (08:20→12:26)
--- NOTE | 2016-03-11 08:38 | PULMONARY CONSULTATION ---
DATE OF CONSULTATION: 03/11/2016 DATE OF CONSULTATION: 03/11/2016. HISTORY OF PRESENT ILLNESS: The patient had been evaluated by Dr. Bee, has left upper and left lower lobe pneumonia. I was asked to evaluate the patient once again from a pulmonary standpoint to comment on his antimicrobial agents. He has renal transplant was done at [facility] in 1997 and that has been stable. He has never been a tobacco user. 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 He has no pets at home, has not had any industrial exposures. During this hospitalization, he was evaluated by Dr. Bee on the and had an echocardiogram done, read by Dr. Sp Huffman that actually looks fairly good with left atrial enlargement, left ventricular hypertrophy with normal right-sided structures, normal inferior vena cava. He is in atrial fibrillation chronically. He denies aspiration. He has renal transplant with renal failure secondary to diabetes mellitus with an insulin pump. He has diabetic neuropathy as well as coronary artery disease. Presently he states he is doing fairly well. He actually states he probably could go home today. He has been ambulating in the hallway. He denies cough or chest pain and has been afebrile. He has not had any night sweats or weight loss. CT scan done on the is reviewed shows fairly extensive left lower lobe consolidation and small pleural effusions, left mid lung field and upper lobe infiltrates as well. No significant mediastinal adenopathy was noted. MEDICATIONS: Are noted. From an antimicrobials standpoint, he is on doxycycline intravenously and Zosyn and tolerating those medications well without any diarrhea. He is on 5 mg of prednisone as well. PHYSICAL EXAMINATION: VITAL SIGNS: Stable and he is afebrile. Blood pressure 143/86, pulse is 80-90 and irregular, respiratory rate 16, oxygen saturation 94% on room air. He did have a fever up to 38.3 on the 03 of March and since then really has been afebrile, temperature 37.7 on the . HEAD, EYES, EARS, NOSE, AND THROAT: Unremarkable. No tenderness noted over the sinuses. No thrush is noted. No adenopathy is noted anywhere. Expansion of the thorax is good with deep inspiration. HEART: Irregular rhythm. No murmurs or gallops are auscultated. LUNGS: Reveal very minimal crackles right at the end of inspiration. The left mid lung field posterior and inferior. Right lung is clear. Remainder of his left lung is clear, especially anterior. No wheezing is noted. No fremitus or dullness to percussion is noted. ABDOMEN: Soft, nontender. EXTREMITIES: He has no cyanosis, clubbing or edema. LABORATORY DATA: White count is improved from 16.4 on the down to 6.7 yesterday with a hemoglobin of 12.8. Sugars have been in the 194-359 range. PRP looked good with a CO2 of 29. Urinalysis revealed +2 glucose with a few red blood cells. Influenza A and B antigens were negative. Sputum Gram stain on the showed squamous cells and was a contamination specimen. Repeat on the showed many inflammatory cells, rare gram positive coccus. MRSA DNA surveillance screen negative. Blood cultures are negative from the . IMPRESSION: 1. Left-sided pneumonia. This in the left upper lobe, lingula and left lower lobe with dense consolidation. It is associated with small pleural effusions as well. 2. Chronic kidney disease status post transplant in [place] 1997. 3. Small pleural effusions, right greater than left. 4. Chronic atrial fibrillation. 5. Diabetes mellitus with diabetic neuropathy. RECOMMENDATIONS: At this point, I would continue the patient on his present medications. I believe at the time of discharge he can be placed on doxycycline 100 mg b.i.d. and Augmentin 500 mg t.i.d. The Augmentin could be finished on the 16 of March which would give him 10 days. Doxycycline I believe appears to have been started yesterday and that should run for 7-10 days as well. Infectious disease evaluation is pending. They may have other recommendations. The patient is followed by Dr. Tristan Bedolla and could be followed up with him in [facility]. He should have a chest x-ray done in about 6 weeks to ensure the infiltrates have resolved and the pleural effusions have resolved.
[2016-03-11] MEDS ORDERED: INSULIN GLARGINE SOLOSTAR 100 UNITS/ML 3 ML PEN SC SCH ×2 (09:00)
--- NOTE | 2016-03-11 10:50 | Progress Note ---
Progress Note ID Consult Dictated #[id number] A/P: 1. CAP 2. Fever - resolved -Agree with pulm, can be transitioned to po abx as pulm recs to complete course -No contraindication to d/c from ID standpoint, thank you
--- NOTE | 2016-03-11 12:07 | INFECT. DISEASE CONSULTATION ---
DATE OF CONSULTATION: 03/11/2016 REQUESTING PHYSICIAN: Dr. Wilcox. HISTORY OF PRESENT ILLNESS: This is a 65-year-old gentleman who was admitted on 03 of March after he had coughing and nausea and vomiting that started 1 day prior. He did have x-ray findings consistent with pneumonia and was placed on antibiotics. He did receive a 1 time dose of Levaquin on the . He was then transitioned to ceftriaxone. He received this from the until the . He then was switched to doxycycline, Zosyn and prednisone. He has been on doxycycline since the and Zosyn since the . He is tolerating antibiotics well. He has been afebrile since the . Prior to that he did have intermittent fevers with a T-max of 38.4 degrees on the . He states overall he is feeling significantly better. He most recently had a CAT scan of the chest on the 08 of March. This did show infiltration in the left upper and left lower lobes. He has been tolerating antibiotics well. His flu swab was negative. He does not have a leukocytosis. He is pending discharge today following infectious diseases as well as pulmonary evaluation. He was seen by pulmonary this morning and was cleared for discharge to complete a 10-day course of antibiotics. Recommendations were given to transition to oral antibiotics. Since admission to the hospital, the patient states he is feeling significantly better. He did have loss of appetite upon admission; however, he feels his appetite is returning. He has had no additional nausea and vomiting. He denies any shortness of breath or dyspnea on exertion. He is ambulating frequently in the hallway with no difficulty. He continues to have cough, but states overall this is improving. He denies any fevers or chills. He denies any chest pain. He has no abdominal pain. He has no urinary complaints. He is asking to go home and states he feels back to his baseline. All remaining review of systems are reviewed and are negative except for as noted above. PAST MEDICAL HISTORY: AFib, coronary artery disease, type 2 diabetes with associated retinopathy, history of renal cell carcinoma and recent pneumonia. PAST SURGICAL HISTORY: Significant for renal transplant in 1997 and history of nephrectomy for renal cell carcinoma. FAMILY HISTORY: Noncontributory. SOCIAL HISTORY: Negative for tobacco use, alcohol use or drug use. He lives with his family. He denies any sick contacts. ALLERGIES: HE IS ALLERGIC TO NARCOTICS. CURRENT MEDICATIONS: Include insulin, Lantus, doxycycline IV, Boost, Lyrica, Lopressor, Zosyn, Atrovent, Xopenex, penicillin, Lipitor, Ecotrin, cyclosporine, Imdur, multivitamins, prednisone, vitamin C, calcium, vitamin D, Glucagon, Tylenol, Maalox, milk of magnesia, Zofran, Nitrostat, MiraLax. PHYSICAL EXAMINATION: VITAL SIGNS: He is currently afebrile. Pulse 75, respiratory rate is 16, blood pressure is 153/99, oxygen saturation is 93%-94% on room air. GENERAL: He is awake, alert and oriented x3. He is in no acute distress. HEENT: Mucous membranes are moist. Extraocular muscles are intact. HEART: Regular. LUNGS: Clear to auscultation bilaterally. ABDOMEN: Soft and nontender, nondistended. There is no edema. SKIN: Without rash. LABORATORY STUDIES: CBC today reveals a white blood cell count of 5.8, hemoglobin 12.6, hematocrit 36.1, platelets are 281. Chemistry panel reveals a sodium of 141, potassium 3.6, chloride 105, bicarbonate 27, BUN 14, creatinine 1.1, glucose is 129. Urinalysis in the ER was unremarkable. Flu swab in the ER was negative. Blood cultures from the are no growth and final sputum culture from the and are growing normal justyna only. Imaging is reviewed previously. ASSESSMENT AND PLAN: 1. Community-acquired pneumonia. I agree with pulmonary recommendations that he can be transitioned to complete a 10-day course of oral doxycycline. It was also recommended by pulmonary that he be placed on Augmentin and transitioned from IV Zosyn to Augmentin to complete his course. I have no contraindication to his change to oral antibiotics to complete his 10-day course. He is cleared for discharge from an infectious disease standpoint. Thank you for this consultation.
--- NOTE | 2016-03-11 12:52 | Progress Note ---
Medicine Progress Note Date & Time of Visit: Mar 11, 2016 at 12:40. Subjective patient seen sitting up in bed, eating lunch in good spirits states he feels good overall no dyspnea, less cough no other symptoms states he is ready and would like to be discharged today Objective Last 8 Hrs Date Time Temp Pulse Resp B/P Pulse Ox O2 Delivery O2 Flow Rate FiO2 03/11/16 07:30 36.6 75 16 153/99 93 Room Air 151/91 03/11/16 07:23 72 16 94 Room Air 03/11/16 07:02 Room Air Physical Exam: General- oriented x 3, not in distress, speaks in sentences with no effort Eyes- anicteric Neck- no JVD Lungs- clear breath sounds bilaterally Heart- normal rate, irregular rhythm; no murmurs Abdomen- normal bowel sounds, soft, nontender Extremities- no pretibial edema, no calf tenderness Neuro- alert, oriented x 3; no gross focal deficits Skin- warm & dry Laboratory Results: Last 24 Hours Test 03/10/16 14:07 03/10/16 16:30 03/10/16 16:58 03/10/16 21:05 Bedside Glucose 359 mg/dl 212 mg/dl 194 mg/dl Prothrombin Time 44.0 SECONDS Prothromb Time International Ratio 3.9 Test 03/11/16 07:00 03/11/16 07:27 03/11/16 11:44 White Blood Count 5.84 K/uL Red Blood Count 3.90 M/uL Hemoglobin 12.6 g/dL Hematocrit 36.1 % Mean Corpuscular Volume 92.6 fL Mean Corpuscular Hemoglobin 32.3 pg Mean Corpuscular Hemoglobin Concent 34.9 g/dl Platelet Count 281 K/uL Mean Platelet Volume 10.9 fL Neutrophils (%) (Auto) 49.8 % Lymphocytes (%) (Auto) 31.5 % Monocytes (%) (Auto) 12.3 % Eosinophils (%) (Auto) 5.0 % Basophils (%) (Auto) 0.7 % Neutrophils # (Auto) 2.91 K/uL Lymphocytes # (Auto) 1.84 K/uL Monocytes # (Auto) 0.72 K/uL Eosinophils # (Auto) 0.29 K/uL Basophils # (Auto) 0.04 K/uL RDW Standard Deviation 48.8 fL RDW Coefficient of Variation 14.5 % Immature Granulocyte % (Auto) 0.7 % Immature Granulocyte # (Auto) 0.04 K/uL Prothrombin Time 31.2 SECONDS Prothromb Time International Ratio 2.8 Sodium Level 141 mmol/L Potassium Level 3.6 mmol/L Chloride Level 105 mmol/L Carbon Dioxide Level 27 mmol/L Anion Gap 9.0 mmol/L Blood Urea Nitrogen 14 mg/dl Creatinine 1.10 mg/dl Est Creatinine Clear Calc Drug Dose 75.8 ml/min Estimated GFR () 80.1 Estimated GFR (Non- 69.1 BUN/Creatinine Ratio 12.6 Random Glucose 121 mg/dl Calcium Level 8.7 mg/dl Bedside Glucose 129 mg/dl 191 mg/dl Assessment & Plan POSSIBLE SEPSIS SECONDARY TO LEFT MULTILOBAR PNEUMONIA IMMUNOSUPPRESSED STATE - Renal Transplant patient, on chronic Prednisone and Cyclosporine -blood and sputum cultures no growth thus far repeat CXR shows worsening left base opacity, and a mild right base opacity -CT chest report: "1. There is patchy airspace consolidation seen throughout the left lung, most confluent at the left lung base. The appearance is most consistent with pneumonia. Radiographic follow-up to resolution is recommended. 2. There are small pleural effusions, left larger than right with dependent airspace consolidation." - Pulmonary consulted, patient started on dornase and vibration vest -- currently on Zosyn and Doxy IV clinically improved overall -- Pulm re-evaluated patient and cleared for discharged on PO antibiotics ID consulted as well -- discharge plan: Augmentin 500mg BID x 5 more days (to complete 10 days of therapy, already received Zosyn inpatient ~5 days) Doxycycline 100mg BID x 2 more days (to complete 10 days of therapy) repeat CXR in ~6 weeks CHRONIC ATRIAL FIBRILLATION -was placed on Cardizem drip for A fib with RVR -multifactorial: from infection/hypoxia, as well as missed b-oleg dose due to vomiting - Metoprolol increased to 75mg BID coumadin held for INR 4.2 - INR 2.8 resume coumadin, but decrease dose to 2.5mg po daily re-check INR in 1-2 days, will contact coumadin clinic ACUTE KIDNEY INJURY, RESOLVED -likely secondary to nausea/vomiting + dehydration -Cr of 1.3 increased to 2.1 given IV fluids now at baseline - monitor HISTORY OF RENAL TRANSPLANT - Cyclosporine level 50 but drawn at 1999 - will need to draw 2 hours after intake of Cyclosporine monitor as outpatient - continue usual dose of Cyclosporine and Prednisone Right Foot Ulceration: -was on Zosyn and Doxycycline -wound care nurse consult placed - improved Diabetes Mellitus Type I: -patient with insulin pump; held while inpatient -Glycemic pharmacy consulted - advised to check blood glucose upon returning home if BSG >110, resume half dose of basal rate re-check BSGs in 2-4 hours, if persistently above 110, resume usual rate patient comfortable titrating his insulin pump CAD: s/p stents -continue cardiac medications, ASA, statin, Imdur, b-oleg -mention of cardiomegaly on CT scan and reports a past history of pericardial effusion: echo report noted below, trace pericardial effusion -TTE Report: * -- Conclusions -- * There is moderate concentric left ventricular hypertrophy. * The left ventricular wall motion is normal. * The LV Ejection Fraction = 65-70%. * The left atrium is mildly dilated. * Aortic valve sclerosis moderate, without significant aortic valvular stenosis. * There is mild mitral regurgitation. * There is mild tricuspid regurgitation. * Doppler findings do not suggest pulmonary hypertension. * There is trace circumferential pericardial effusion. * There are no echocardiographic indications of cardiac tamponade. HYPERTENSION - Metoprolol increased improving monitor as outpatient Disposition d/c home today ff up with coumadin clinic in 1-2 days ff up with PCP in 3-5 days Current Inpatient Medications: Current Inpatient Medications Medications (Trade) Dose Ordered Sig/Tay Route Start Time Stop Time Status Last Admin Dose Admin Acetaminophen (Tylenol Tab) 650 mg Q4H PRN PO 03/03/16 02:45 04/02/16 02:44 03/10/16 23:58 650 MG Al Hydrox/Mg Hydrox/Simethicone (Maalox Max Susp) 15 ml Q4H PRN PO 03/03/16 02:45 04/02/16 02:44 Magnesium Hydroxide (Milk Of Magnesia Susp) 30 ml Q12H PRN PO 03/03/16 02:45 04/02/16 02:44 Ondansetron HCl (Zofran Inj) 4 mg Q6H PRN IV 03/03/16 02:45 04/02/16 02:44 Nitroglycerin (Nitrostat Tab) 0.4 mg UD PRN SL 03/03/16 02:45 04/02/16 02:44 Polyethylene (Miralax Powder Packet) 17 gm DAILY PRN PO 03/03/16 02:45 04/02/16 02:44 03/06/16 20:11 17 GM Aspirin (Ecotrin Tab) 81 mg QAM PO 03/03/16 09:00 04/02/16 08:59 03/11/16 08:11 81 MG Atorvastatin Calcium (Lipitor Tab) 40 mg QPM PO 03/03/16 21:00 04/02/16 20:59 03/10/16 20:35 40 MG Cyclosporine (Sandimmune Cap) 50 mg BID PO 03/03/16 09:00 04/02/16 08:59 03/11/16 08:12 50 MG Insulin Aspart (novoLOG INSULIN PUMP) 1 ea UD N/A 03/03/16 02:45 04/02/16 02:44 Future Hold Isosorbide Mononitrate (Imdur Ext Rel Tab) 30 mg QAM PO 03/03/16 09:00 04/02/16 08:59 03/11/16 08:10 30 MG Multivitamins (Multivitamin Tab) 1 tab DAILY PO 03/03/16 09:00 04/02/16 08:59 03/11/16 08:12 1 TAB Prednisone (PredniSONE TAB) 5 mg QAM PO 03/03/16 09:00 04/02/16 08:59 03/11/16 08:10 5 MG Ascorbic Acid (Vitamin C Tab) 500 mg DAILY PO 03/03/16 09:00 04/02/16 08:59 03/11/16 08:11 500 MG Calcium/Vitamin D (Caltrate Plus Tab) 1 tab BID PO 03/03/16 09:00 04/02/16 08:59 03/11/16 08:16 1 TAB Miscellaneous Information (Consult Glycemic Management Pharmacy) 1 ea DAILY PRN N/A 03/03/16 03:50 04/02/16 03:49 Glucose (Glucose 40% Gel) 15-30 GRAMS 15 GRAMS... UD PRN PO 03/03/16 05:15 04/02/16 05:14 Glucose (Glucose Chew Tab) 4-8 Tablets 4 Tabl... UD PRN PO 03/03/16 05:15 04/02/16 05:14 Dextrose (Dextrose 50% 50ML Syringe) 25-50ML OF 50% DW IV FOR... UD PRN IV 03/03/16 05:15 04/02/16 05:14 Glucagon (Glucagon Inj) 1 mg UD PRN SQ 03/03/16 05:15 04/02/16 05:14 Sodium Chloride ([place] Nasal [place]) 2 sprays Q4 PRN NA 03/04/16 15:30 04/03/16 15:29 Warfarin Sodium (Coumadin Tab) 2.5 mg TuSa@1600 PO 03/07/16 16:00 04/06/16 15:59 Future Hold 03/07/16 17:20 2.5 MG Warfarin Sodium (Coumadin Tab) 5 mg SuMoWeThFr@1600 PO 03/06/16 16:00 04/05/16 15:59 Future Hold 03/08/16 16:39 5 MG Piperacillin Sod/ Tazobactam Sod (Consult) 1 ea UD PRN N/A 03/06/16 12:00 04/05/16 11:59 Ipratropium [place] (Atrovent 0.02% 0.5MG/2.5ML Neb) 0.5 mg Q6R INH 03/06/16 15:00 04/05/16 14:59 03/11/16 07:22 0.5 MG Levalbuterol 1.25 mg 1.25 mg Q6R INH 03/06/16 15:00 04/05/16 14:59 03/11/16 07:23 1.25 MG Piperacillin Sod/ Tazobactam Sod/ Dextrose (Zosyn Iv/D5 100ml) 115 ml @ 28.75 mls/ hr Q8H IV 03/06/16 18:00 03/13/16 17:59 03/11/16 10:15 28.75 MLS/HR Guaifenesin (Organidin Nr Tab) 200 mg Q4H PRN PO 03/06/16 12:45 04/05/16 12:44 03/06/16 21:09 200 MG Metoprolol Tartrate (Lopressor Tab) 75 mg BID PO 03/06/16 21:00 04/05/16 20:59 03/11/16 08:11 75 MG Menthol (Nice Ck) 1 ck PRN PRN PO 03/06/16 23:45 04/05/16 23:44 Pregabalin (Lyrica Cap) 50 mg 0000,0900,1300,1700,2100 PO 03/07/16 13:00 04/06/16 12:59 03/11/16 12:29 50 MG Insulin Glargine (Lantus Solostar Pen) 14 unit QAM SC 03/11/16 09:00 04/10/16 08:59 03/11/16 08:20 14 UNIT Insulin Glargine (Lantus Solostar Pen) 10 unit HS SC 03/10/16 21:00 04/09/16 20:59 03/10/16 21:08 10 UNIT Insulin Aspart (novoLOG ASPART) SLIDING SCALE AC SC 03/11/16 06:30 04/10/16 06:29 03/11/16 12:26 12 UNITS Insulin Aspart (novoLOG ASPART) SLIDING SCALE HS SC 03/11/16 21:00 04/10/16 20:59 Enteral Nutritional Formula 1 can 1 can BIDM PO 03/10/16 17:00 04/09/16 16:59 03/11/16 08:16 1 CAN Doxycycline Hyclate/Dextrose (Vibramycin IV/ D5 100ml) 110 ml @ 50 mls/hr Q12H IV 03/10/16 18:00 03/17/16 17:59 03/11/16 06:04 50 MLS/HR
[2016-03-11] MEDS ORDERED: DXY100 PO (12:58)
[2016-03-11] MEDS ORDERED: AMOX500T PO (12:58)
[2016-03-11] MEDS ORDERED: LPR25 PO (12:58)
[2016-03-11] MEDS ORDERED: WARF2.5T8 PO (12:58)
--- NOTE | 2016-03-11 13:06 | Discharge Instructions ---
Discharge Instructions Admission Reason for Admission: Hx Of Renal Transplant, Pneumonia Discharge Discharge Diagnosis / Problem: PNEUMONIA Discharge Goals Goal(s): Diagnostic testing, Therapeutic intervention Activity Recommendations Activity Limitations: as noted below (no heavy exertion until re-evaluated by Primary Care Physician) . Instructions / Follow-Up Instructions / Follow-Up PLEASE REVIEW YOUR NEW MEDICATION LIST AND FOLLOW INSTRUCTIONS CAREFULLY. CALL PRIMARY CARE PHYSICIAN OR RETURN TO ER IMMEDIATELY IF WITH RECURRENCE OF SYMPTOMS, SHORTNESS OF BREATH, FEVER/CHILLS, INCREASED COUGH, WEAKNESS. FOLLOW UP WITH DR. SULTANA ON MARCH 16, 2016Wednesday, AT 9:10AM. FOLLOW UP WITH [facility] IN 1-2 DAYS FOR INR CHECK AND FURTHER COUMADIN DOSING (CLINIC TO CALL PATIENT WITH APPOINTMENT). Current Hospital Diet Patient's current hospital diet: Diabetes Type 1 Diet Discharge Diet Recommended Diet: AHA Diet (Heart Healthy), Diabetes Type 1 Diet Pending Studies Studies pending at discharge: yes List of pending studies: repeat chest xray in 6 weeks Laboratory Results Hemoglobin A1c Test 03/03/16 05:08 Range/Units Estimated Average Glucose 194 mg/dl Hemoglobin A1c 8.4 H 4.5-5.6 % Medical Emergencies . Who to Call and When: Medical Emergencies: If at any time you feel your situation is an emergency, please call 911 immediately. . Non-Emergent Contact Non-Emergency issues call your: Primary Care Provider Call Non-Emergent contact if: you have a fever, wound has increased drainage, wound has increased redness, wound has increased pain, you have any medication questions . Past History Medical & Surgical History: (1) Atrial fibrillation with RVR (2) Type 1 diabetes (3) Diabetic retinopathy (4) Cellulitis (5) Coronary artery disease (6) Atrial fibrillation (7) History of renal cell carcinoma (8) History of renal transplant (9) Status post nephrectomy . "Provider Documentation" section prepared by Adrián Wilcox. VTE Core Measure Inpt VTE Proph given/why not?: Warfarin (Coumadin)
--- NOTE | 2016-03-11 13:29 | Discharge Summary ---
Discharge Summary Admission Date: Mar 03, 2016 at 02:38 Discharge Date: Mar 11, 2016 Discharge Disposition: Home Principal Diagnosis: POSSIBLE SEPSIS SECONDARY TO LEFT MULTILOBAR PNEUMONIA IMMUNOSUPPRESSED STATE Secondary Diagnoses/Problems: Please refer to hospital course below. Consultations: Pulmonary Dr. Bee/Dr. Mccullough, ID Dr. Treviño Pending Studies/Follow-Up: Please monitor BP and HR (re: Metoprolol increased); Repeat Cyclosporine level; Repeat CXR in 6 weeks; Please refer to hospital course below for further details. Medication Reconciliation New Medications: Amoxicillin & Pot Clavulanate (Augmentin 500MG) 1 Tab Tab 1 TAB PO TID for 5 Days, #15 TAB 0 Refills Doxycycline Hyclate (Doxycycline Hyclate) 100 Mg Cap 1 CAP PO BID for 2 Days, #4 CAP 0 Refills Metoprolol Tartrate (Lopressor) 25 Mg Tab 75 MG PO BID, #180 TAB 2 Refills Changed Medications: Warfarin Sod (Jantoven) 2.5 Mg Tab 2.5 MG PO DIRECTED for 10 Days, TAB (Changed from: TAKE 2.5 MG WEDNESDAY AND WEDNESDAY) take daily until further instructions from [facility] Continued Medications: Ascorbic Acid (Vitamin C) 500 Mg Cap 1 CAP PO QAM Aspirin (Aspirin 81) 81 Mg Tab 81 MG PO QAM Atorvastatin (Lipitor) 40 Mg Tab 40 MG PO QPM, TAB Azelastine Hcl-Fluticasone Pro (Dymista) 1 Spr Spr 2 [place] BID for 30 Days, #23 GM 3 Refills Calcium Carbonate-Vitamin D (Oscal 500/200 D-3) 1 Tab Tab 1 TAB PO BID Cyclobenzaprine Hcl (Flexeril) 10 Mg Tab 10 MG PO TID PRN for muscle spasm, #21 TAB Cyclosporine (Cyclosporine) 25 Mg Cap 50 MG PO BID Insulin Aspart (novoLOG INSULIN PUMP ) 1 Ea Inj 1 EA N/A UD, EA Isosorbide Mononitrate (Isosorbide Mononitrate ER) 30 Mg Tabcr 30 MG PO QAM Multivitamin (Multivitamin) Tab 1 TAB PO DAILY, TAB Prednisone (Prednisone) 5 Mg Tab 5 MG PO QAM, TAB Pregabalin (Lyrica) 50 Mg Cap 50 MG PO 5XD, CAP Discontinued Medications: Cephalexin Monohydrate (Keflex) 500 Mg Cap 500 MG PO TID, #15 CAP states just picked up script yesterday Metoprolol Tartrate (Lopressor) (Lopressor) 50 Mg Tab 50 MG PO BID, TAB Warfarin Sod (Jantoven) 5 Mg Tab 5 MG PO DIRECTED, TAB TAKE 5 MG EVERYDAY EXCEPT WEDNESDAY AND WEDNESDAY. Admission Information HPI (per Admitting provider): This is a 65 year old male with PMH of renal transplant on immunosuppressive therapy, type 1 DM on an insulin pump with complications including diabetic neuropathy, hx. of paroxysmal atrial fibrillation on anticoagulation, CAD s/p stents - he presents to the ER due to coughing, nausea/vomiting that began on 03/02/16 - the coughing has made it difficult to keep anything down and he developed vomiting secondary to this. He states that there are some sick family members at home, including their grandchildren. He was given keflex 1 day prior due to a foot ulcerations noted on the right big toe. Initially, he thought the vomiting was due to the antibiotic, but states that the vomiting started after coughing began. Upon presentation here, he had an CXR done, showing a R middle lobe pneumonia. HRs were in the 120s-130s as he could not keep down his Lopressor dose for the evening. Given IV lopressor in the ER with little improvement in the heart rate. During my exam, continues to have vomiting, coughing, and elevated HRs. Physical Exam (per Admitting): General Appearance: + moderate distress (secondary to vomiting/cough) Head: normocephalic, atraumatic Eyes: normal inspection ENT: hearing grossly normal Neck: supple Respiratory/Chest: + respiratory distress, + decreased breath sounds, + crackles Cardiovascular: no edema, no murmur, + tachycardia Abdomen/GI: normal bowel sounds, non tender, soft Extremities/Musculoskelatal: no calf tenderness, normal capillary refill, no pedal edema Neurologic/Psych: no motor/sensory deficits, alert, normal mood/affect Skin: normal color Lymphatic: no adenopathy Hospital Course POSSIBLE SEPSIS SECONDARY TO LEFT MULTILOBAR PNEUMONIA IMMUNOSUPPRESSED STATE - Renal Transplant patient, on chronic Prednisone and Cyclosporine -blood and sputum cultures no growth thus far repeat CXR shows worsening left base opacity, and a mild right base opacity -CT chest report: "1. There is patchy airspace consolidation seen throughout the left lung, most confluent at the left lung base. The appearance is most consistent with pneumonia. Radiographic follow-up to resolution is recommended. 2. There are small pleural effusions, left larger than right with dependent airspace consolidation." - Pulmonary consulted, patient started on dornase and vibration vest -- currently on Zosyn and Doxy IV clinically improved overall -- Pulm re-evaluated patient and cleared for discharged on PO antibiotics ID consulted as well -- discharge plan: Augmentin 500mg BID x 5 more days (to complete 10 days of therapy, already received Zosyn inpatient ~5 days) Doxycycline 100mg BID x 2 more days (to complete 10 days of therapy) repeat CXR in ~6 weeks CHRONIC ATRIAL FIBRILLATION -was placed on Cardizem drip for A fib with RVR -multifactorial: from infection/hypoxia, as well as missed b-oleg dose due to vomiting - Metoprolol increased to 75mg BID coumadin held for INR 4.2 - INR 2.8 resume coumadin, but decrease dose to 2.5mg po daily re-check INR in 1-2 days, will contact coumadin clinic\\ - monitor BP and HR ACUTE KIDNEY INJURY, RESOLVED -likely secondary to nausea/vomiting + dehydration -Cr of 1.3 increased to 2.1 given IV fluids now at baseline - monitor HISTORY OF RENAL TRANSPLANT - Cyclosporine level 50 but drawn at 2000 - will need to draw 2 hours after intake of Cyclosporine monitor as outpatient - continue usual dose of Cyclosporine and Prednisone Right Foot Ulceration -was on Zosyn and Doxycycline -wound care nurse consult placed - improving - patient advised daily wound care, ff up with [employer] Diabetes Mellitus Type I: -patient with insulin pump; held while inpatient -Glycemic pharmacy consulted - advised to check blood glucose upon returning home if BSG >110, resume half dose of basal rate re-check BSGs in 2-4 hours, if consistently above 110, resume usual rate and monitor BSGs closely therafter patient comfortable titrating his insulin pump CAD: s/p stents -continue cardiac medications, ASA, statin, Imdur, b-oleg -mention of cardiomegaly on CT scan and reports a past history of pericardial effusion: echo report noted below -TTE Report: * -- Conclusions -- * There is moderate concentric left ventricular hypertrophy. * The left ventricular wall motion is normal. * The LV Ejection Fraction = 65-70%. * The left atrium is mildly dilated. * Aortic valve sclerosis moderate, without significant aortic valvular stenosis. * There is mild mitral regurgitation. * There is mild tricuspid regurgitation. * Doppler findings do not suggest pulmonary hypertension. * There is trace circumferential pericardial effusion. * There are no echocardiographic indications of cardiac tamponade. HYPERTENSION - Metoprolol increased improving monitor as outpatient Disposition d/c home ff up with coumadin clinic in 1-2 days ff up with PCP in 3-5 days Total time spent on discharge = 50 minutes This includes examination of the patient, discharge planning, medication reconciliation, and communication with other providers. Discharge Instructions Discharge Instructions Admission Reason for Admission: Hx Of Renal Transplant, Pneumonia Discharge Discharge Diagnosis / Problem: PNEUMONIA Discharge Goals Goal(s): Diagnostic testing, Therapeutic intervention Activity Recommendations Activity Limitations: as noted below (no heavy exertion until re-evaluated by Primary Care Physician) . Instructions / Follow-Up Instructions / Follow-Up PLEASE REVIEW YOUR NEW MEDICATION LIST AND FOLLOW INSTRUCTIONS CAREFULLY. CALL PRIMARY CARE PHYSICIAN OR RETURN TO ER IMMEDIATELY IF WITH RECURRENCE OF SYMPTOMS, SHORTNESS OF BREATH, FEVER/CHILLS, INCREASED COUGH, WEAKNESS. FOLLOW UP WITH DR. SULTANA ON MARCH 16, 2016Wednesday, AT 9:10AM. FOLLOW UP WITH [facility] IN 1-2 DAYS FOR INR CHECK AND FURTHER COUMADIN DOSING (CLINIC TO CALL PATIENT WITH APPOINTMENT). Current Hospital Diet Patient's current hospital diet: Diabetes Type 1 Diet Discharge Diet Recommended Diet: AHA Diet (Heart Healthy), Diabetes Type 1 Diet Pending Studies Studies pending at discharge: yes List of pending studies: repeat chest xray in 6 weeks Laboratory Results Hemoglobin A1c Test 03/03/16 05:08 Range/Units Estimated Average Glucose 194 mg/dl Hemoglobin A1c 8.4 H 4.5-5.6 % Medical Emergencies . Who to Call and When: Medical Emergencies: If at any time you feel your situation is an emergency, please call 911 immediately. . Non-Emergent Contact Non-Emergency issues call your: Primary Care Provider Call Non-Emergent contact if: you have a fever, wound has increased drainage, wound has increased redness, wound has increased pain, you have any medication questions . Past History Medical & Surgical History: (1) Atrial fibrillation with RVR (2) Type 1 diabetes (3) Diabetic retinopathy (4) Cellulitis (5) Coronary artery disease (6) Atrial fibrillation (7) History of renal cell carcinoma (8) History of renal transplant (9) Status post nephrectomy . "Provider Documentation" section prepared by Adrián Wilcox. VTE Core Measure Inpt VTE Proph given/why not?: Warfarin (Coumadin)
[2016-03-11 13:30] VITALS: BP 153/99; PULSE 75; TEMP 36.6; O2SAT 93
[2016-03-11] MEDS ORDERED: INSULIN ASPART 100 UNITS/ML 3 ML PEN SC SCH (21:00)
[2016-08-18] MEDS ORDERED: METO50TA16 PO (10:33)
== END 2016-03-11 14:25 | disposition home or self-care (01) | DRG 871 ==
LOC: ENRESERVDT → ENRESERVTM → CANRESERV → C.EDB 00:52 → C.2T 02:38 → C.MED 03-07 15:55
PROVIDERS: ADMIT Family Medicine; ATTEND Internal Medicine
DX: A41.9 Sepsis, unspecified organism (principal); J18.9 Pneumonia, unspecified organism; Z94.0 Kidney transplant status; N17.9 Acute kidney failure, unspecified; J90 Pleural effusion, not elsewhere classified; R11.2 Nausea with vomiting, unspecified; I48.2 Chronic atrial fibrillation; I48.0 Paroxysmal atrial fibrillation; E86.0 Dehydration; L97.519 Non-pressure chronic ulcer of other part of right foot with unspecified severity; E10.40 Type 1 diabetes mellitus with diabetic neuropathy, unspecified; I25.10 Atherosclerotic heart disease of native coronary artery without angina pectoris; I10 Essential (primary) hypertension; R53.1 Weakness; Z79.01 Long term (current) use of anticoagulants; Z79.52 Long term (current) use of systemic steroids; Z79.82 Long term (current) use of aspirin; Z79.899 Other long term (current) drug therapy; Z88.5 Allergy status to narcotic agent; Z95.5 Presence of coronary angioplasty implant and graft; Z85.528 Personal history of other malignant neoplasm of kidney; Z83.3 Family history of diabetes mellitus

== ENCOUNTER 2017-04-18 10:49 | Emergency (ER) | payer OTHER ==
[~2017-04-18] VITALS: Ht 188 cm; Wt 87.0 kg
[~2017-04-18 10:49] MED LIST changes: +AZEL30SP NAE; +MULT-506 PO; -WARF5TAB7 PO
[2017-04-18 11:04] VITALS: BP 124/80; TEMP 36.8; Ht 188 cm; Wt 87.0 kg
[2017-04-18] MEDS ORDERED: WARF5TAB7 PO ×2 (11:50)
[2017-04-18] MEDS ORDERED: PREG100C PO (11:50)
[2017-04-18] MEDS ORDERED: METO25TA56 PO ×2 (11:50)
[2017-04-18] MEDS ORDERED: CEPHALEXIN MONOHYDRATE 250 MG CAP PO ONE (12:00)
--- NOTE | 2017-04-18 12:05 | EMERGENCY ROOM VISIT NOTE ---
History Report prepared by Atif: Jesse Chun Under the Supervision of: Dr. Omar Vargas D.O. First contact with patient: 11:30 Chief Complaint: FOOT PAIN Stated Complaint: RT FOOT BLOOD POCKET- DIABETES History of Present Illness The patient is a 66 year old male with a history of diabetes who presents to the Emergency Room with complaints of persistent "blood blister" on the right foot that was noted upon waking this morning. He states that the blister is on the right side of his right foot, and is concerned that it is infected or may burst. The patient says that he has chronically "bad feet", but has not seen something quite like this before. The patient notes that he can't feel his feet due chronic diabetic neuropathy. He states that he does see a mailing machine operator regularly. He notes no history of foot infections. Source of History: patient Onset: Upon waking this morning Position: foot (right) Symptom Intensity: has not had something quite like this before Quality: other ("blood blister") Timing: other (persistent) Note: Associated symptoms: Concerned blister may be infected or burst. No other associated symptoms noted. Review of Systems See HPI for pertinent positives & negatives. A total of 10 systems reviewed and were otherwise negative. Past Medical & Surgical Medical Problems: (1) Atrial fibrillation (2) Coronary artery disease (3) Diabetic retinopathy (4) History of renal cell carcinoma (5) Pneumonia (6) Type 1 diabetes Surgical Problems: (1) History of renal transplant (2) Status post nephrectomy Family History FH: diabetes mellitus Social History Smoking Status: Never Smoker Alcohol Use: none Drug Use: none Marital Status: Housing Status: lives with family Current/Historical Medications Scheduled Ascorbic Acid (Vitamin C), 1 CAP PO QAM Aspirin (Aspirin 81), 81 MG PO QAM Atorvastatin (Lipitor), 40 MG PO QPM Azelastine Hcl-Fluticasone Pro (Dymista), 2 [place] BID Calcium Carbonate-Vitamin D (Oscal 500/200 D-3), 1 TAB PO BID Cyclosporine (Cyclosporine), 50 MG PO BID Insulin Aspart (novoLOG INSULIN PUMP ), 1 EA N/A UD Isosorbide Mononitrate (Isosorbide Mononitrate ER), 30 MG PO QAM Metoprolol Tartrate (Lopressor) (Lopressor), 75 MG PO QAM Metoprolol Tartrate (Lopressor) (Lopressor), 50 MG PO QPM Multivitamin (Multivitamin), 1 TAB PO DAILY Prednisone (Prednisone), 5 MG PO QAM Pregabalin (Lyrica), 100 MG PO BID Warfarin Sod (Jantoven), 5 MG PO MWF Warfarin Sod (Jantoven), 2.5 MG PO 4XWK Scheduled PRN Cyclobenzaprine Hcl (Flexeril), 10 MG PO TID PRN for muscle spasm Allergies Coded Allergies: Uncoded Nonscreenable Allergen (Verified Adverse Reaction, Unknown, MOST NARCOTICS CAUSE NAUSEA, 04/18/17) Physical Exam Vital Signs Date Time Temp Pulse Resp B/P (MAP) Pulse Ox O2 Delivery O2 Flow Rate FiO2 04/18/17 11:04 36.8 72 20 124/80 96 Room Air Physical Exam CONSTITUTIONAL/VITAL SIGNS: Reviewed / noted above. GENERAL: Non-toxic in appearance. INTEGUMENTARY: Right foot there is a bleb on the right lateral foot that was filled with straw-colored serous fluid with some mild surrounding erythema. The size of the lesion is approximately the size of a quarter. HEAD: Normocephalic. EYES: without scleral icterus or trauma. ENT/OROPHARYNX: clear and moist. LYMPHADENOPATHY/NECK: Is supple without lymphadenopathy or meningismus. RESPIRATORY: Lungs clear and equal. CARDIOVASCULAR: Regular rate and rhythm. GI/ABDOMEN: Soft and nontender. No organomegaly or pulsatile mass. No rebound or guarding. Normal bowel sounds. EXTREMITIES: Warm and well perfused. BACK: No CVA tenderness. NEUROLOGICAL: Intact without focal deficits. PSYCHIATRIC: normal affect. MUSCULOSKELETAL: Normally developed with good muscle tone. Medical Decision & Procedures Medications Administered Medications (Trade) Dose Ordered Sig/Tay Route Start Time Stop Time Status Last Admin Dose Admin Cephalexin Monohydrate (Keflex Cap) 500 mg NOW ONCE PO 04/18/17 12:00 04/18/17 12:01 DC 04/18/17 11:52 500 MG ED Course 1131: Previous medical records were reviewed. The patient was evaluated in room C11B. A complete history and physical examination was performed. I discussed the results and findings with the patient. He verbalized agreement of the treatment plan. He was discharged home. Ordered Keflex 500 mg PO. Medical Decision Differential diagnosis: Etiologies such as cellulitis, abscess, MRSA infection, DVT, necrotizing fasciitis, dermatitis, drug eruption, as well as others were entertained.. This is a 66-year-old male who presents to the ED with a chief complaint of foot pain. The patient reports a water bolus of the right lateral foot. Physical exam as noted above. The patient has a history of diabetic neuropathy. Exam reveals a fluid-filled bulla. This was filled with straw- colored fluid. It was drained and a culture has been taken. There is some mild surrounding erythema. The patient was started on Keflex. He was discharged to follow-up with his mailing machine operator later this week. Medication Reconcilliation Current Medication List: was personally reviewed by me Blood Pressure Screening Patient's blood pressure: Normal blood pressure Impression Primary Impression: Cellulitis of foot, left Scribe Attestation The scribe's documentation has been prepared under my direction and personally reviewed by me in its entirety. I confirm that the note above accurately reflects all work, treatment, procedures, and medical decision making performed by me. Departure Information Dispostion Home / Self-Care Referrals Tristan Bedolla D.O. (PCP) Patient Instructions My [facility] Additional Instructions Keflex as prescribed. See your certified technician specialist this week for recheck. Culture has been sent.
[2017-04-18] MEDS ORDERED: CEPH500C PO (12:27)
[2017-04-18 12:37] VITALS: PULSE 84; O2SAT 93
--- NOTE | 2017-04-21 09:41 | EDITING REQUIRED CODING QUERY ---
CODING QUERY To promote full compliance with coding requirements relating to patient care, provider participation is requested in all cases of orthopedic coder uncertainty. Please assist us with the question(s) below: Coding Question(s): Note states that patient had a straw-colored, fluid-filled bulla that was drained and a culture taken. There is no procedure note for this. Please specify what type of procedure was done to drain and culture. Physician's Response(s): The fluid-filled bulla was drained using an 18-gauge needle and some massage of the area. Thank you Ashley Collins Principal Diagnosis: "_that condition established after study, to be chiefly responsible for occasioning the admission of the patient to the hospital for care." Co-Existing Principal Diagnosis: "_when two or more diagnoses equally meet the criteria for principal diagnosis as determined by the circumstances of admission, diagnostic work up, and/or therapy provided, and the Alphabetic Index, Tabular List, or another coding guideline does not provide sequencing direction, any one of the diagnoses may be sequenced first." "When the physician has documented what appears to be a current diagnosis in the body of the record, but has not included the diagnosis in the final diagnostic statement, the physician should be asked whether the diagnosis should be added." (Source Coding [facility] 2 QTR90. p3-4)
== END 2017-04-18 12:38 | disposition home or self-care (01) ==
LOC: C.EDB 10:50 → C.EDC 12:38
DX: L03.116 Cellulitis of left lower limb (principal); E10.40 Type 1 diabetes mellitus with diabetic neuropathy, unspecified; E10.319 Type 1 diabetes mellitus with unspecified diabetic retinopathy without macular edema; I48.91 Unspecified atrial fibrillation; I25.10 Atherosclerotic heart disease of native coronary artery without angina pectoris; Z85.528 Personal history of other malignant neoplasm of kidney; Z90.5 Acquired absence of kidney; Z94.0 Kidney transplant status; Z79.82 Long term (current) use of aspirin; Z79.01 Long term (current) use of anticoagulants; Z79.4 Long term (current) use of insulin; Z83.3 Family history of diabetes mellitus

== ENCOUNTER 2018-08-01 20:25 | Inpatient (IN) ==
--- OUTSIDE RECORDS SUMMARY | 2018-08-01 20:28 | External Medical Summary | Continuity of Care Document ---
:1950 Author Name Jen Gama, Provider Address Unavailable Unavailable , Care Team Providers Name Role Phone Dima Gama, [email or web address] BRITNEY Gil Unavailable Unavailable Unavailable Unavailable Unavailable Problems Hypertension (401.9) (I10) Diabetes mellitus (250.00) (E11.9) Abscess of right forearm (682.3) (L02.413) Allergies and Adverse Reactions Oxycodone-Acetaminophen CAPS (Allergy) R eaction: Nausea, Headache Medications predniSONE 5 MG Oral Tablet; TAKE 1 TABLET DIRECTED. Start: 06-Feb-2014 Refills: 0 Lyrica 50 MG Oral Capsule; TAKE 2 CAPSULES TWICE DAILY. Start: 06-Feb-2014 Refills: 0 Sotalol HCl - 80 MG Oral Tablet; TAKE 1 TABLET TWICE DAILY. Start: 06-Feb-2014 Refills: 0 Isosorbide Dinitrate 30 MG Oral Tablet; TAKE 1 TABLET EVERY 8 HOURS DAILY. Start: 06-Feb-2014 Refills: 0 NovoLOG 100 UNIT/ML Subcutaneous Solution; INJECT SUBCUTANEO USLY DIRECTED. Start: 06-Feb-2014 Refills: 0 cycloSPORINE 25 MG Oral Capsule; TAKE DIRECTED. Start: 06-Feb-2014 Refills: 0 Cyclobenzaprine HCl - 10 MG Oral Tablet; TAKE 1 TABLET 3 TIMES DAILY NEEDED. Start: 06-Feb-2014 Quantity: 30 Refills: 0 Oscal 500/200 D-3 500-200 MG-UNIT Oral Tablet; TAKE 1 TABLET DAILY DIRECTED. Start: 06-Feb-2014 Refills: 0 Atorvastatin Calcium 40 MG Oral Tablet; TAKE 1 TABLET DAILY. Start: 06-Feb-2014 Refills: 0 Aspirin 81 MG TABS; TAKE 1 TABLET DAILY. Start: 06-Feb-2014 Refills: 0 Ascorbic Acid 500 MG Oral Tablet; TAKE 1 TABLET DAILY. Start: 06-Feb-2014 Refills: 0 Fosamax 70 MG Oral Tablet; TAKE 1 TABLET ONCE WEEKLY. Start: 06-Feb-2014 Refills: 0 Warfarin Sodium 5 MG Oral Tablet; TAKE 1 TABLET DAILY DIR ECTED. Start: 06-Feb-2014 Refills: 0 Procedures History of Neck Surgery Status: Complete d History of Back Surgery Status: Complete d History of Foot Surgery Status: Complete d Immunizations Immunizations not documented Family History Mother Family history of diabetes mellitus (V18.0) (Z83.3) Status: Active Family history of cerebrovascular accident (V17.1) (Z82.3) S tatus: Active Father Family history of malignant neoplasm (V16.9) (Z80.9) Status: Active Family history of hypertension (V17.49) (Z82.49) Status: Act deo Social History - Smoking Status Never smoker Plan of Treatment Planned Observations Planned Goals not documented Results No Known Results Results not documented Encounters Appointment; Vascular, Studies SC1 31-Jul-2016 14:15 Encounter Diagnosis: Problem not documented
[2018-08-01] MEDS ORDERED: fentaNYL citrate 100 MCG/2 ML VIAL IV STA (20:45)
[2018-08-01] MEDS ORDERED: SODIUM CHLORIDE 0.9% 1000ML 1,000 ML IV SCH (20:45)
[2018-08-01] MEDS ORDERED: ONDANSETRON INJ 2 MG/ML 2 ML VIAL IV STA ×2 (20:45→21:45)
[2018-08-01] MEDS ORDERED: PIPERACILLIN/TAZOBACTAM 4.5 GM/120 ML BAG IV ONE (21:03)
[2018-08-01] MEDS ORDERED: PIPERACILL/TAZOBAC CONSULT ACTIVE PRN (21:03)
--- NOTE | 2018-08-01 21:04 | XRay Report ---
XR foot RT min 3V routine CLINICAL HISTORY: Right foot wound. COMPARISON STUDY: None. FINDINGS: No acute fracture or dislocation within the right foot. Prior calcaneal osteotomy with 2 ca nnulated screws. There is also a single screw fusing the first tarsometatarsal joint. The hardware ap pears intact. There is dorsal soft tissue swelling within the foot. Vascular calcifications are noted . No cortical erosion to suggest osteomyelitis. IMPRESSION: 1. Dorsal soft tissue swelling. 2. No evidence for osteomyelitis. 3. Postoperative changes as described above. Electronically signed by: Raul Caballero M.D. 08/01/2018 9:02 PM
--- NOTE | 2018-08-01 21:05 | XRay Report ---
XR chest 1V portable HISTORY: Weakness. COMPARISON: Chest 02/20/2018. FINDINGS: Cervical spinal fusion hardware is noted. No pneumothorax. No pleural effusions. The heart remains mildly enlarged. No local lung consolidations to suggest pneumonia. No evidence for pulmonary edema. IMPRESSION: Stable cardiomegaly. No acute process within the chest. Electronically signed by: Raul Caballero M.D. 08/01/2018 9:03 PM
[2018-08-01 21:13] LABS: Basophils # (auto) 0.02 K/uL (0-0.2); Basophils % (auto) 0.2 %; Eosinophils # (auto) 0.15 K/uL (0-0.5); Eosinophils % (auto) 1.4 %; Hematocrit (blood only) 36.8 % (42-52); Hemoglobin 13.2 g/dL (14.0-18.0); Immature Granulocytes # (auto) 0.03 K/uL (0.00-0.02); Immature Granulocytes % (auto) 0.3 %; Lymphocytes # (auto) 1.32 K/uL (1.2-3.4); Lymphocytes % (auto) 12.6 %; Mean Corpuscular Hgb Conc 35.9 g/dL (32-36); Mean Corpuscular Volume 98.1 fL (80-100); Mean Platelet Volume 12.8 fL (7.4-10.4); Monocytes # (auto) 1.22 K/uL (0.11-0.59); Monocytes % (auto) 11.7 %; Neutrophils # (auto) 7.72 K/uL (1.4-6.5); Neutrophils % (auto) 73.8 %; Platelet Count 279 K/uL (130-400); RDW Coefficient of Variation 15.4 % (11.5-14.5); RDW Standard Deviation 55.9 fL (36.4-46.3); Red Blood Count 3.75 M/uL (4.7-6.1); White Blood Count 10.46 K/uL (4.8-10.8)
[2018-08-01 21:26] LABS: INR 3.4 (0.9-1.1); Prothrombin Time 31.7 Seconds (9.0-12.0)
[2018-08-01 21:31] LABS: Alanine Aminotransferase 24 U/L (12-78); Albumin Level 3.5 gm/dl (3.4-5.0); Aspartate Aminotransferase 19 U/L (15-37); BUN Creatinine Ratio 18.8 (10-20); Blood Urea Nitrogen 20 mg/dl (7-18); C Reactive Protein 5.24 mg/dl (0-0.29); Carbon Dioxide 31 mmol/L (21-32); Chloride 102 mmol/L (98-107); Creatinine Clr Calc Pharmacy 75.4 ml/min; Est GFR (Non-African American) 70.8; Glucose 136 mg/dl (70-99); Magnesium 1.9 mg/dl (1.8-2.4); Potassium 4.1 mmol/L (3.5-5.1); Sodium 139 mmol/L (136-145)
[2018-08-01 21:40] LABS: Albumin Globulin Ratio 0.9 (0.9-2); Alkaline Phosphatase 80 U/L (45-117); Bilirubin,Total 0.7 mg/dl (0.2-1); Globulin 3.8 gm/dl (2.5-4.0); Total Protein 7.3 gm/dl (6.4-8.2); Troponin I < 0.015 ng/ml (0-0.045)
[2018-08-01] MEDS ORDERED: MoRPHine SULFATE 4 MG/ML 1 ML CARP\\VIAL IV STA (21:45)
--- NOTE | 2018-08-01 22:23 | CT Scan Report ---
HEAD CT NONCONTRAST CT DOSE: 537.48 mGy.cm HISTORY: Confusion. Headache. TECHNIQUE: Multiaxial CT images of the head were performed without the use of intravenous contrast. A utomated exposure control was utilized for this study. A dose lowering technique was utilized adheri ng to the principles of ALARA. Comparison: Head CT 02/20/2018. Findings: The paranasal sinuses and mastoid air cells are clear. The calvarium and skull base are int act. There is no mass, hematoma, midline shift, acute infarct. White matter hypodensity is nonspecifi c but suggestive of microvascular ischemic change. The ventricles and sulci demonstrate mild age-rela renetta involutional changes. Impression: No significant change compared to the prior study. No acute intracranial abnormality. Electronically signed by: Raul Caballero M.D. 08/01/2018 10:21 PM
--- NOTE | 2018-08-01 22:32 | CT Scan Report ---
ABDOMEN AND PELVIS CT WITHOUT CONTRAST CT DOSE: 416.95 mGy.cm HISTORY: upper pain, nausea, renal txplt TECHNIQUE: Multiaxial CT images of the abdomen and pelvis were performed without contrast. A dose lo wering technique was utilized adhering to the principles of ALARA. COMPARISON STUDY: None. FINDINGS: Bibasilar densities favor mild dependent change. Mild elevation of the left hemidiaphragm. The heart is mildly enlarged. No pneumoperitoneum. No pneumatosis. A penile prosthesis is noted. Post erior decompression and fusion within the lumbar spine. There are laminectomies from L1 through L5 wi th pedicle screws and rods at L4-L5. Mild superior endplate compression deformity at L1 is likely old . The unenhanced liver, gallbladder, adrenal glands, spleen, and pancreas are unremarkable. No retrop eritoneal lymphadenopathy. Calcified plaque within the normal caliber abdominal aorta. The [place] lef t kidney is atrophic. The right kidney is not identified and likely surgically absent. There is a rig ht lower quadrant renal transplant. No hydronephrosis. The bladder appears unremarkable. A 1.5 cm hyp odense lesion within the lower pole of the transplant kidney. This is incompletely characterize on th is noncontrast study but favors a cyst. Suboptimal evaluation for bowel pathology due to the lack of intravenous and oral contrast. However, there is no definite bowel wall thickening or obstruction. Th e appendix is not identified and reportedly surgically absent. IMPRESSION: 1. No definite bowel wall thickening or obstruction. 2. Right lower quadrant transplant kidney. No hydronephrosis. 3. Atrophic [place] left kidney. The right kidney appears surgically absent. 4. Additional findings as described above. Electronically signed by: Raul Caballero M.D. 08/01/2018 10:31 PM
--- NOTE | 2018-08-01 22:35 | Emergency Department Note ---
Entered by Brisa Thomas acting as a scribe for Shelton Gonzalez M.D. History of Present Illness General Chief complaint: Shortness of Breath/Dyspnea Stated complaint: SOB,NAUSEA Source: patient Mode of arrival: wheelchair History of Present Illness Onset (ago): unknown (this evening) Location: left and right (generalized) Pain Consistency: + constant Maximum Pain Intensity: 4 Quality: + other (chills) Associated symptoms: + confusion, + chest pain, + nausea/vomiting (+ nausea, - vomiting ) and + shortness of breath The patient is a 68 year old male who presents to the Emergency Room with complaints of constant weakness and chills since this evening. The patient also complains of shortness of breath, chest pain, and nausea. He rates his discomfort a 4/10 in severity. He notes he recently started a new medication for a wound on his right foot. He states he took the first dose today at 1600. The notes he has been newly confused for the past hour starting this evening. The patient also reports a history of a-fib and diabetes. Home Medications Home Medications Medication Instructions Recorded Confirmed Type Lyrica 100 mg PO TID 02/20/18 08/01/18 History Novolog U-100 Insulin aspart 0 unit SUBCUT CONTINOUS 02/20/18 08/01/18 History ascorbic acid (vitamin C) [Vitamin 1,000 mg PO QAM 02/20/18 02/20/18 History C] aspirin [Aspir-81] 81 mg PO QAM 02/20/18 02/20/18 History atorvastatin 40 mg PO PM 02/20/18 08/01/18 History azelastine-fluticasone 2 spray INTRANASAL BID 02/20/18 08/01/18 History calcium carbonate-vitamin D3 1 tab PO BID 02/20/18 02/20/18 History cyclobenzaprine 10 mg PO HS PRN 02/20/18 08/01/18 History cyclosporine modified 2 tab PO BID 02/20/18 08/01/18 History isosorbide mononitrate 30 mg PO QAM 02/20/18 08/01/18 History metoprolol tartrate 50 mg PO QPM 02/20/18 08/01/18 History metoprolol tartrate 75 mg PO QAM 02/20/18 08/01/18 History multivitamin 1 tab PO QAM 02/20/18 02/20/18 History prednisone 5 mg PO QAM 02/20/18 08/01/18 History warfarin [Coumadin] 2.5 mg PO SUTUTHSA 02/20/18 08/01/18 History warfarin [Coumadin] 5 mg PO MOWEFR 02/20/18 08/01/18 History benzonatate 100 mg PO TID PRN 08/01/18 08/01/18 History cephalexin [Keflex] 500 mg PO TID 08/01/18 08/01/18 History silver sulfadiazine 1 applic TOPICAL DAILY 08/01/18 08/01/18 History Allergies Allergy/AdvReac Type Severity Reaction Status Date / Time Uncoded Nonscreenable AdvReac Unknown MOST Uncoded 02/20/18 15:32 Allergen NARCOTICS CAUSE NAUSEA Past Med/Surg History Medical History Osteoporosis (Chronic) HTN (hypertension) (Chronic) HLD (hyperlipidemia) (Chronic) Diabetic neuropathy (Chronic) Anticoagulated on Coumadin (Acute) Type 1 diabetes (Chronic) Diabetic retinopathy (Chronic) Coronary artery disease (Chronic) Atrial fibrillation (Chronic) History of renal cell carcinoma (Chronic) on Natural R kidney, s/p nephrectomy in 2006 Abscess of forearm, right (Resolved) Cellulitis (Resolved 01/24/14) Pneumonia (Resolved) Surgical History History of cardioversion History of cataract extraction History of arthrodesis to great toe H/O heart artery stent 03/09/01 RCA 2008 BMS x 2 to Cx 2010 UMM to mid-distal RCA History of lumbar surgery x 8 History of cervical spinal surgery x 3 History of renal transplant (Chronic) "hx of ESRD due to diabetic nephropathy s/p living related donor from sister in [address] [place] [address] Menon. Developed rejection in the first month and required high dose immunosuppression. Performed biopsy of the kidney. No further rejections since then. Currently on neoral 50mg po bid and 5mg of prednisone." per Dr. Cecilia Ribeiro records Status post nephrectomy (Chronic) "for renal cell Ca" Family History Mother Stroke T1DM (type 1 diabetes mellitus) Father Melanoma Myocardial infarction Social History Preferred Language: Bhutanese Communication Ability: Effective Visual Impairment: No Limitations Hearing Ability: Normal Beliefs That Will Affect Care: None marital status: Current Living Situation: Spouse Feels Safe at Home: Yes Smoking Status: Never smoker Hx Alcohol Use: Yes Alcohol type: beer Hx Substance Use: No Review of Systems See HPI for pertinent positives & negatives. and A total of 10 systems reviewed and were otherwise negative Physical Exam Vital Signs Vital Signs - 24 hr 08/01/18 20:27 08/01/18 20:42 08/01/18 21:09 Temperature 37.2 C Temperature Source Oral Sepsis Recent Fever Within 48 Hours No Sepsis New/Unexplained Change in Mental Status No Sepsis Action Taken by Nursing No Action Required Pulse Rate 58 L 86 Pulse Rate from SpO2 Sensor 88 Pulse Rhythm Regular Pulse Strength Normal Respiratory Rate 20 21 Respiratory Effort / Characteristics Non-Labored Spontaneous Respiratory Depth Normal Respiratory Pattern Regular Blood Pressure 191/137 H 177/102 H Blood Pressure Mean 155 127 Blood Pressure Position Sitting Pulse Oximetry 95 93 Oxygen Delivery Method Room Air Room Air Room Air 08/01/18 21:31 08/01/18 22:01 08/01/18 22:31 Temperature Temperature Source Sepsis Recent Fever Within 48 Hours Sepsis New/Unexplained Change in Mental Status Sepsis Action Taken by Nursing Pulse Rate 87 90 94 H Pulse Rate from SpO2 Sensor 86 85 90 Pulse Rhythm Pulse Strength Respiratory Rate 19 20 19 Respiratory Effort / Characteristics Respiratory Depth Respiratory Pattern Blood Pressure 171/84 H 130/66 181/103 H Blood Pressure Mean 113 87 129 Blood Pressure Position Pulse Oximetry 93 93 93 Oxygen Delivery Method Room Air Room Air Nasal Cannula 08/01/18 23:01 Temperature Temperature Source Sepsis Recent Fever Within 48 Hours Sepsis New/Unexplained Change in Mental Status Sepsis Action Taken by Nursing Pulse Rate 105 H Pulse Rate from SpO2 Sensor 105 H Pulse Rhythm Pulse Strength Respiratory Rate 13 Respiratory Effort / Characteristics Respiratory Depth Respiratory Pattern Blood Pressure 168/102 H Blood Pressure Mean 124 Blood Pressure Position Pulse Oximetry 93 Oxygen Delivery Method Nasal Cannula GENERAL: Awake, alert, weak and fatigued appearing, in no distress HENT: Normocephalic, atraumatic. EYES: Normal conjunctiva. Sclera non-icteric. NECK: Supple. No nuchal rigidity. RESPIRATORY: Clear to auscultation. No wheezes. Normal respiratory effort. CARDIAC: Tachycardic, irregular rhythm. Extremities warm and well perfused. GI: Soft, non-distended. No tenderness to palpation. No rebound or guarding. RECTAL: Deferred. MUSCULOSKELETAL: Atraumatic. Chest examination reveals no tenderness. LOWER EXTREMITIES: Calves are equal size bilaterally and non-tender. No edema. Right lower extremity erythema extending to mid-calf. 2cm right lateral foot wound without expressible purulence. NEURO: No motor deficits noted. No facial droop. Decreased sensation of LEs. SKIN: Warm and dry. No rash or jaundice noted. Course 2033: The patient was evaluated in room B4B. A complete history and physical exam was performed. 2234: [facility] agrees to evaluate the patient for further management and care. Consultations Consultation #1: I [facility] the [facility] He agrees to evaluate the patient for further management and care. Time: 22:35 Administered Medications Doxycycline Hyclate 100 mg/ (Dextrose) 110 mls @ 50 mls/hr IV NOW STA Stop: 08/02/18 01:01 Last Admin: 08/01/18 23:00 Dose: 50 mls/hr Documented by: [id number] Discontinued Medications Fentanyl Citrate (Fentanyl Citrate) 25 mcg IV NOW STA Stop: 08/01/18 20:46 Last Admin: 08/01/18 21:02 Dose: 25 mcg Documented by: [id number] Sodium Chloride (Nss 1000ml) 1,000 mls @ 999 mls/hr IV .Q1H1M SARIAH Stop: 08/01/18 21:45 Last Infusion: 08/01/18 22:51 Dose: 0 mls/hr Documented by: [id number] Admin: 08/01/18 21:02 Dose: 999 mls/hr Documented by: [id number] Piperacillin Sod/Tazobactam Sod (Zosyn) 4.5 gm in 120 mls @ 240 mls/hr IV NOW ONE Stop: 08/01/18 21:32 Last Infusion: 08/01/18 21:50 Dose: 0 mls/hr Documented by: [id number] Admin: 08/01/18 21:11 Dose: 240 mls/hr Documented by: [id number] Morphine Sulfate (Morphine Sulfate) 4 mg IV NOW STA Stop: 08/01/18 21:46 Last Admin: 08/01/18 21:51 Dose: 4 mg Documented by: [id number] Ondansetron HCl (Zofran) 4 mg IV NOW STA Stop: 08/01/18 20:46 Last Admin: 08/01/18 21:02 Dose: 4 mg Documented by: [id number] Ondansetron HCl (Zofran) 4 mg IV NOW STA Stop: 08/01/18 21:46 Last Admin: 08/01/18 21:51 Dose: 4 mg Documented by: [id number] Medical Decision Making Differential Diagnosis Etiologies such as metabolic, infection, hypo/hyperglycemia, electrolyte abnormalities, cardiac sources, intracerebral event, toxicologic, neurologic, as well as others were entertained. Medical Records Attestation: I reviewed the patient's medical records. Home Medications Current Medication List: was personally reviewed by me Laboratory Data Attestation: I reviewed the patient's lab results. Result diagrams: 08/01/18 20:44 08/01/18 20:44 Lab Results 08/01/18 08/01/18 08/01/18 Range/Units 20:44 20:44 20:44 WBC 10.46 (4.8-10.8) K/uL RBC 3.75 L (4.7-6.1) M/uL Hgb 13.2 L (14.0-18.0) g/dL Hct 36.8 L (42-52) % MCV 98.1 (80-100) fL MCH 35.2 H (25-34) pg MCHC 35.9 (32-36) g/dL RDW Std Deviation 55.9 H (36.4-46.3) fL RDW Coeff of Carlos 15.4 H (11.5-14.5) % Plt Count 279 (130-400) K/uL MPV 12.8 H (7.4-10.4) fL Immature Gran % (Auto) 0.3 % Neut % (Auto) 73.8 % Lymph % (Auto) 12.6 % [place] % (Auto) 11.7 % Eos % (Auto) 1.4 % Baso % (Auto) 0.2 % Immature Gran # (Auto) 0.03 H (0.00-0.02) K/uL Neut # (Auto) 7.72 H (1.4-6.5) K/uL Lymph # (Auto) 1.32 (1.2-3.4) K/uL [place] # (Auto) 1.22 H (0.11-0.59) K/uL Eos # (Auto) 0.15 (0-0.5) K/uL Baso # (Auto) 0.02 (0-0.2) K/uL ESR (0-14) mm/hr PT 31.7 H (9.0-12.0) Seconds INR 3.4 H (0.9-1.1) Sodium 139 (136-145) mmol/L Potassium 4.1 (3.5-5.1) mmol/L Chloride 102 (98-107) mmol/L Carbon Dioxide 31 (21-32) mmol/L Anion Gap 6.0 (3-11) BUN 20 H (7-18) mg/dl Creatinine 1.06 (0.6-1.4) mg/dl Est Cr Clr Drug Dosing 75.4 ml/min Est GFR ( Amer) 82.0 Est GFR (Non-Af Amer) 70.8 BUN/Creatinine Ratio 18.8 (10-20) Glucose 136 H (70-99) mg/dl POC Glucose (70-99) Lactate (0.4-2.0) mmol/L Calcium 9.0 (8.5-10.1) mg/dl Magnesium 1.9 (1.8-2.4) mg/dl Total Bilirubin 0.7 (0.2-1) mg/dl AST 19 (15-37) U/L ALT 24 (12-78) U/L Alkaline Phosphatase 80 (45-117) U/L Troponin I < 0.015 (0-0.045) ng/ml C-Reactive Protein 5.24 H (0-0.29) mg/dl Total Protein 7.3 (6.4-8.2) gm/dl Albumin 3.5 (3.4-5.0) gm/dl Globulin 3.8 (2.5-4.0) gm/dl Albumin/Globulin Ratio 0.9 (0.9-2) Lipase 55 L (73-393) U/L TSH 1.640 (0.300-4.500) uIu/ml 08/01/18 08/01/18 08/01/18 Range/Units 20:44 20:44 20:44 WBC (4.8-10.8) K/uL RBC (4.7-6.1) M/uL Hgb (14.0-18.0) g/dL Hct (42-52) % MCV (80-100) fL MCH (25-34) pg MCHC (32-36) g/dL RDW Std Deviation (36.4-46.3) fL RDW Coeff of Carlos (11.5-14.5) % Plt Count (130-400) K/uL MPV (7.4-10.4) fL Immature Gran % (Auto) % Neut % (Auto) % Lymph % (Auto) % [place] % (Auto) % Eos % (Auto) % Baso % (Auto) % Immature Gran # (Auto) (0.00-0.02) K/uL Neut # (Auto) (1.4-6.5) K/uL Lymph # (Auto) (1.2-3.4) K/uL [place] # (Auto) (0.11-0.59) K/uL Eos # (Auto) (0-0.5) K/uL Baso # (Auto) (0-0.2) K/uL ESR 26 H (0-14) mm/hr PT (9.0-12.0) Seconds INR (0.9-1.1) Sodium (136-145) mmol/L Potassium (3.5-5.1) mmol/L Chloride (98-107) mmol/L Carbon Dioxide (21-32) mmol/L Anion Gap (3-11) BUN (7-18) mg/dl Creatinine (0.6-1.4) mg/dl Est Cr Clr Drug Dosing ml/min Est GFR ( Amer) Est GFR (Non-Af Amer) BUN/Creatinine Ratio (10-20) Glucose (70-99) mg/dl POC Glucose (70-99) Lactate 1.1 (0.4-2.0) mmol/L Calcium (8.5-10.1) mg/dl Magnesium Cancelled (1.8-2.4) mg/dl Total Bilirubin (0.2-1) mg/dl AST (15-37) U/L ALT (12-78) U/L Alkaline Phosphatase (45-117) U/L Troponin I (0-0.045) ng/ml C-Reactive Protein Cancelled (0-0.29) mg/dl Total Protein (6.4-8.2) gm/dl Albumin (3.4-5.0) gm/dl Globulin (2.5-4.0) gm/dl Albumin/Globulin Ratio (0.9-2) Lipase (73-393) U/L TSH (0.300-4.500) uIu/ml 08/01/18 Range/Units 20:57 WBC (4.8-10.8) K/uL RBC (4.7-6.1) M/uL Hgb (14.0-18.0) g/dL Hct (42-52) % MCV (80-100) fL MCH (25-34) pg MCHC (32-36) g/dL RDW Std Deviation (36.4-46.3) fL RDW Coeff of Carlos (11.5-14.5) % Plt Count (130-400) K/uL MPV (7.4-10.4) fL Immature Gran % (Auto) % Neut % (Auto) % Lymph % (Auto) % [place] % (Auto) % Eos % (Auto) % Baso % (Auto) % Immature Gran # (Auto) (0.00-0.02) K/uL Neut # (Auto) (1.4-6.5) K/uL Lymph # (Auto) (1.2-3.4) K/uL [place] # (Auto) (0.11-0.59) K/uL Eos # (Auto) (0-0.5) K/uL Baso # (Auto) (0-0.2) K/uL ESR (0-14) mm/hr PT (9.0-12.0) Seconds INR (0.9-1.1) Sodium (136-145) mmol/L Potassium (3.5-5.1) mmol/L Chloride (98-107) mmol/L Carbon Dioxide (21-32) mmol/L Anion Gap (3-11) BUN (7-18) mg/dl Creatinine (0.6-1.4) mg/dl Est Cr Clr Drug Dosing ml/min Est GFR ( Amer) Est GFR (Non-Af Amer) BUN/Creatinine Ratio (10-20) Glucose (70-99) mg/dl POC Glucose 137 H (70-99) Lactate (0.4-2.0) mmol/L Calcium (8.5-10.1) mg/dl Magnesium (1.8-2.4) mg/dl Total Bilirubin (0.2-1) mg/dl AST (15-37) U/L ALT (12-78) U/L Alkaline Phosphatase (45-117) U/L Troponin I (0-0.045) ng/ml C-Reactive Protein (0-0.29) mg/dl Total Protein (6.4-8.2) gm/dl Albumin (3.4-5.0) gm/dl Globulin (2.5-4.0) gm/dl Albumin/Globulin Ratio (0.9-2) Lipase (73-393) U/L TSH (0.300-4.500) uIu/ml Imaging Data Radiologist's Impression: Radiology results as stated below per my review and the radiologist's interpretation: XR foot RT min 3V routine CLINICAL HISTORY: Right foot wound. COMPARISON STUDY: None. FINDINGS: No acute fracture or dislocation within the right foot. Prior ca lcaneal osteotomy with 2 cannulated screws. There is also a single screw fusing the first tarsometatarsal joint. The hardware appears intact. There is dorsal soft tissue swelling within the foot. Vascular calcifications are noted. No cortical erosion to suggest osteomyelitis. IMPRESSION: 1. Dorsal soft tissue swelling. 2. No evidence for osteomyelitis. 3. Postoperative changes as described above. Electronically signed by: Raul Caballero M.D. 08/01/2018 9:02 PM. XR chest 1V portable HISTORY: Weakness. COMPARISON: Chest 02/20/2018. FINDINGS: Cervical spinal fusion hardware is noted. No pneumothorax. No pleural effusions. The heart remains mildly enlarged. No local lung consolidations to suggest pneumonia. No evidence for pulmonary edema. IMPRESSION: Stable cardiomegaly. No acute process within the chest. Electronically signed by: Raul Caballero M.D. 08/01/2018 9:[address] CT DOSE: 537.48 mGy.cm HISTORY: Confusion. Headache. TECHNIQUE: Multiaxial CT images of the head were performed without the use of intravenous contrast. Automated exposure control was utilized for this study. A dose lowering technique was utilized adhering to the principles of ALARA. Comparison: Head CT 02/20/2018. Findings: The paranasal sinuses and mastoid air cells are clear. The calvarium and skull base are intact. There is no mass, hematoma, midline shift, acute infarct. White matter hypodensity is nonspecific but suggestive of microvascular ischemic change. The ventricles and sulci demonstrate mild age-related involutional changes. Impression: No significant change compared to the prior study. No acute intracranial abnormality. Electronically signed by: Raul Caballero M.D. 08/01/2018 10:[address] WITHOUT CONTRAST CT DOSE: 416.95 mGy.cm HISTORY: upper pain, nausea, renal txplt TECHNIQUE: Multiaxial CT images of the abdomen and pelvis were performed without contrast. A dose lowering technique was utilized adhering to the principles of ALARA. COMPARISON STUDY: None. FINDINGS: Bibasilar densities favor mild dependent change. Mild elevation of the left hemidiaphragm. The heart is mildly enlarged. No pneumoperitoneum. No pneumatosis. A penile prosthesis is noted. Posterior decompression and fusion within the lumbar spine. There are laminectomies from L1 through L5 with pedicle screws and rods at L4-L5. Mild superior endplate compression deformity at L1 is likely old. The unenhanced liver, gallbladder, adrenal glands, spleen, and pancreas are unremarkable. No retroperitoneal lymphadenopathy. Calcified plaque within the normal caliber abdominal aorta. The hus[place] left kidney is atrophic. The right kidney is not identified and likely surgically absent. There is a right lower quadrant renal transplant. No hydronephrosis. The bladder appears unremarkable. A 1.5 cm hypodense lesion within the lower pole of the transplant kidney. This is incompletely characterize on this noncontrast study but favors a cyst. Suboptimal evaluation for bowel pathology due to the lack of intravenous and oral contrast. However, there is no definite bowel wall thickening or obstruction. The appendix is not identified and reportedly surgically absent. IMPRESSION: 1. No definite bowel wall thickening or obstruction. 2. Right lower quadrant transplant kidney. No hydronephrosis. 3. Atrophic hus[place] left kidney. The right kidney appears surgically absent. 4. Additional findings as described above. Electronically signed by: Raul Caballero M.D. 08/01/2018 10:31 PM ECG Data Attestation: I personally reviewed and interpreted this ECG as follows: Indication: weakness Rate (beats per minute): 105 Rhythm: atrial fibrillation Findings: + left axis deviation; no ST elevation Comparison ECG Date: from (02/21/18) Change: no significant change Blood Pressure Blood Pressure Findings: Elevated blood pressure Blood Pressure Disposition: further management by hospitalist VERONICA Narrative Patient is a 68-year-old gentleman with past medical history of chronic atrial fibrillation on warfarin, cardiac disease with stents, hypertension, hyperlipidemia, type 1 diabetes with diabetic retinopathy and neuropathy and right lower leg wound. Noted over the last day or so worsening redness spreading from the right leg wound on his foot up to his calf and went to the [employer] today and started on Keflex. An hour or so prior to arrival began to feel diffusely generally ill and unwell. Planes of some nausea little bit of shortness of breath also endorses some chills but no fever. No significant abdominal tenderness. Does endorse a little bit of confusion at this time as well. No focal neurological deficit at the CVA or stroke. EKG is complete as well as troponin. Basic labs, lactate, blood cultures, x-ray of the foot, inflammatory markers, and [id number] blood sugar were obtained. Chest x-rays obtained as well. Chest x-ray is unremarkable. No evidence of osteo-myelitis or gas on the foot x-ray. Broad metabolic and infectious work-up was initiated. Empiric Zosyn was ordered given my significant concerns for spreading cellulitis from his right lower extremity wound. Lactate is normal and is not been hypotensive. Inflammatory markers are significantly elevated indicative of an infection. On reevaluation the patient complains of some upper abdominal pain and nausea on pressed questioning a bit of headache. He is anticoagulated and thus a CT the head is completed and a Noncon CT of the abdomen pelvis given his complaints. Do not believe represents meningitis at this time. Imaging results reviewed without significant intracranial findings or intra-abdominal findings. Did discuss with the hospitalist for admission for continued observation and treatment. Impression & Plan Cellulitis of right lower leg, Weakness, Abdominal pain, Nausea Discharge Plan Visit Data Chief Complaint: Shortness of Breath/Dyspnea Stated Complaint: SOB,NAUSEA ED Provider: Shelton Gonzalez Discharge Problem: Cellulitis of right lower leg, Weakness, Abdominal pain, Nausea Patient Disposition: Being Evaluated by Hospitalist Forms Stand Alone Forms: My [facility] Prescriptions Prescriptions: No Action multivitamin Tablet 1 tab PO QAM RF: 0 cyclobenzaprine 10 mg Tablet 10 mg PO HS PRN (Reason: Muscle Spasm) RF: 0 atorvastatin 40 mg Tablet 40 mg PO PM RF: 0 ascorbic acid (vitamin C) [Vitamin C] 1,000 mg Tablet 1,000 mg PO QAM RF: 0 isosorbide mononitrate 30 mg Tablet Extended Release 24 Hr 30 mg PO QAM RF: 0 prednisone 5 mg Tablet 5 mg PO QAM RF: 0 aspirin [Aspir-81] 81 mg Tablet,Delayed Release (Dr/Ec) 81 mg PO QAM RF: 0 Novolog U-100 Insulin aspart 100 unit/mL Solution SUBCUT CONTINOUS RF: 0 warfarin [Coumadin] 5 mg Tablet 2.5 mg PO SUTUTHSA RF: 0 warfarin [Coumadin] 5 mg Tablet 5 mg PO MOWEFR RF: 0 metoprolol tartrate 50 mg Tablet 50 mg PO QPM RF: 0 metoprolol tartrate 50 mg Tablet 75 mg PO QAM RF: 0 calcium carbonate-vitamin D3 500 mg(1,250mg) -200 unit Tablet 1 tab PO BID RF: 0 Lyrica 100 mg Capsule 100 mg PO TID RF: 0 azelastine-fluticasone 137-50 mcg/spray Opal,Non-Aerosol 2 spray INTRANASAL BID RF: 0 cyclosporine modified 25 mg capsule 2 tab PO BID RF: 0 cephalexin [Keflex] 500 mg Capsule 500 mg PO TID RF: 0 silver sulfadiazine 1 % Cream 1 applic TOPICAL DAILY RF: 0 benzonatate 100 mg Capsule 100 mg PO TID PRN (Reason: Cough) RF: 0 Referrals Referrals: Tristan Bedolla DO [Primary Care Provider] - Discharge Problem: Abdominal pain Qualifiers: Abdominal location: unspecified location Qualified Code(s): R10.9 - Unspecified abdominal pain The scribe's documentation has been prepared under my direction and personally reviewed by me in its entirety. I confirm that the note above accurately reflects all work, treatment, procedures, and medical decision making performed by me.
[2018-08-01] MEDS ORDERED: DOXYCYCLINE HYCLATE 100 MG in DEXTROSE 5% 100 ML IV STA (22:50)
--- NOTE | 2018-08-02 00:40 | History & Physical Report ---
Date of Service August 02, 2018 Assessment & Plan (1) Diabetic foot infection: New purulent drainage from chronic right foot wound as per patient account Rule out osteomyelitis Immunocompromised patient (History kidney transplant on chronic immunosuppression regimen No sepsis Chest pain, S OB, headache dizziness symptoms likely secondary to hypertensive urgency, rapid A. 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 Coumadin INR between 2 and 3 if no surgical intervention Full code History of Present Illness Tumor Chief Complaint: Chest pain, shortness of breath, nausea, right foot infection. Primary Care Provider: Tristan Bedolla DO History obtained from patient and records. Medical history significant for DM1 on insulin pump, CAD status post stent , A. fib on Coumadin, hypertension, chronic anemia baseline hemoglobin 13, hx kidney transplant on chronic immunosuppression regimen , history right kidney tumor status post nephrectomy (2007), history of skin cancer as per records. Recent confinement February 2018 for gastroenteritis. As per records, patient has had an open wound on the right foot since 2018. Three days ago, patient noted purulent drainage from chronic wound on the right foot associated with right foot pain and swelling. Seen at [facility] [place] outpatient today. Open wound on the cellulitic right foot noted as per note. Debridement done in the office. No drainage as per records. Keflex prescription initiated. Patient noted pleuritic chest pain, shortness of breath, headache, nausea symptoms. Distress worse after first dose of Keflex medication as per patient. He felt confused. At the ER, patient received Zosyn for the infected wound on his foot. Patient currently feeling better. Patient chest pain, S OB, headache symptoms currently resolved. 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 Allergies Allergy/AdvReac Type Severity Reaction Status Date / Time Uncoded Nonscreenable AdvReac Unknown MOST Uncoded 02/20/18 15:32 Allergen NARCOTICS CAUSE NAUSEA Home Medications Home Medications Medication Instructions Recorded Confirmed Type Lyrica 100 mg PO TID 02/20/18 08/01/18 History Novolog U-100 Insulin aspart 0 unit SUBCUT CONTINOUS 02/20/18 08/01/18 History aspirin [Aspir-81] 81 mg PO QAM 02/20/18 08/01/18 History atorvastatin 40 mg PO PM 02/20/18 08/01/18 History azelastine-fluticasone 2 spray INTRANASAL BID 02/20/18 08/01/18 History cyclobenzaprine 10 mg PO HS PRN 02/20/18 08/01/18 History cyclosporine modified 2 tab PO BID 02/20/18 08/01/18 History isosorbide mononitrate 30 mg PO QAM 02/20/18 08/01/18 History metoprolol tartrate 50 mg PO QPM 02/20/18 08/01/18 History metoprolol tartrate 75 mg PO QAM 02/20/18 08/01/18 History multivitamin 1 tab PO QAM 02/20/18 08/01/18 History prednisone 5 mg PO QAM 02/20/18 08/01/18 History warfarin [Coumadin] 2.5 mg PO SUTUTHSA 02/20/18 08/01/18 History warfarin [Coumadin] 5 mg PO MOWEFR 02/20/18 08/01/18 History Oscal 1 tab PO BID 08/01/18 08/01/18 History acetaminophen [Tylenol] 325 mg PO DIRECTED PRN 08/01/18 08/01/18 History ascorbic acid (vitamin C) [Vitamin 500 mg PO DAILY 08/01/18 08/01/18 History C] benzonatate 100 mg PO TID PRN 08/01/18 08/01/18 History cephalexin [Keflex] 500 mg PO TID 08/01/18 08/01/18 History docusate sodium [Stool Softener] 100 mg PO DAILY PRN 08/01/18 08/01/18 History sennosides [senna] 8.6 mg PO DIRECTED PRN 08/01/18 08/01/18 History silver sulfadiazine 1 applic TOPICAL DAILY 08/01/18 08/01/18 History sodium chloride [Saline Nasal] 1 spray INTRANASAL BID PRN 08/01/18 08/01/18 History Past Med/Surg History Medical History Osteoporosis (Chronic) HTN (hypertension) (Chronic) HLD (hyperlipidemia) (Chronic) Diabetic neuropathy (Chronic) Anticoagulated on Coumadin (Acute) Type 1 diabetes (Chronic) Diabetic retinopathy (Chronic) Coronary artery disease (Chronic) Atrial fibrillation (Chronic) History of renal cell carcinoma (Chronic) on Natural R kidney, s/p nephrectomy in 2006 Abscess of forearm, right (Resolved) Cellulitis (Resolved 01/24/14) Pneumonia (Resolved) Surgical History History of cardioversion History of cataract extraction History of arthrodesis to great toe H/O heart artery stent 03/09/01 RCA 2008 BMS x 2 to Cx 2010 UMM to mid-distal RCA History of lumbar surgery x 8 History of cervical spinal surgery x 3 History of renal transplant (Chronic) "hx of ESRD due to diabetic nephropathy s/p living related donor from sister in [address] [place] [address] Menon. Developed rejection in the first month and required high dose immunosuppression. Performed biopsy of the kidney. No further rejections since then. Currently on neoral 50mg po bid and 5mg of prednisone." per Dr. 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: No Beliefs That Will Affect Care: None marital status: Current Living Situation: Spouse Other Information That Helps Us Care for You: No Feels Safe at Home: Yes Safety Concerns: Feels Safe At This Time Smoking Status: Never smoker Do You Dip or Chew Tobacco: No Second Hand Exposure: No Tobacco Cessation Education Requested by Patient: No Hx Alcohol Use: Yes Alcohol type: beer Hx Substance Use: No Review of Systems Review of Systems: As per HPI, all 10 systems reviewed, all other ROS negative Physical Exam Physical Exam: GENERAL: Comfortable, lying on the left lateral decubitus position, no respiratory distress SKIN: Pallor, warm HEENT: Alopecia, pale palpebral conjunctivae, no ptosis, dry buccal mucosa NECK : Supple, no tenderness CHEST : CTA, no tenderness HEART : Irregular, no obvious murmurs ABDOMEN: Some distention, nontender EXTREMITIES : 1.5 x 1.5 cm2 ulcerated wound over lateral aspect of right foot cancer noted to have scants serosanguineous drainage, swollen right foot, minimal tenderness; sock noted over left foot NEUROLOGIC : Coherent, no facial asymmetry, gait and stance not assessed Results & Data Vital Signs (Past 12 Hours) Vital Signs Temp Pulse Resp BP Pulse Ox 08/02/18 00:01 102 H 18 168/91 H 92 08/01/18 23:31 99 H 17 153/95 H 94 08/01/18 23:01 105 H 13 168/102 H 93 08/01/18 22:31 94 H 19 181/103 H 93 08/01/18 22:01 90 20 130/66 93 08/01/18 21:31 87 19 171/84 H 93 08/01/18 21:09 86 21 177/102 H 93 08/01/18 20:27 37.2 C 58 L 20 191/137 H 95 Laboratory Results Laboratory Results WBC 10.46 K/uL (4.8-10.8) 08/01/18 20:44 RBC 3.75 M/uL (4.7-6.1) L 08/01/18 20:44 Hgb 13.2 g/dL (14.0-18.0) L 08/01/18 20:44 Hct 36.8 % (42-52) L 08/01/18 20:44 MCV 98.1 fL (80-100) 08/01/18 20:44 MCH 35.2 pg (25-34) H 08/01/18 20:44 MCHC 35.9 g/dL (32-36) 08/01/18 20:44 RDW Std Deviation 55.9 fL (36.4-46.3) H 08/01/18 20:44 RDW Coeff of Carlos 15.4 % (11.5-14.5) H 08/01/18 20:44 Plt Count 279 K/uL (130-400) 08/01/18 20:44 MPV 12.8 fL (7.4-10.4) H 08/01/18 20:44 Immature Gran % (Auto) 0.3 % 08/01/18 20:44 Neut % (Auto) 73.8 % 08/01/18 20:44 Lymph % (Auto) 12.6 % 08/01/18 20:44 Jewell % (Auto) 11.7 % 08/01/18 20:44 Eos % (Auto) 1.4 % 08/01/18 20:44 Baso % (Auto) 0.2 % 08/01/18 20:44 Immature Gran # (Auto) 0.03 K/uL (0.00-0.02) H 08/01/18 20:44 Neut # (Auto) 7.72 K/uL (1.4-6.5) H 08/01/18 20:44 Lymph # (Auto) 1.32 K/uL (1.2-3.4) 08/01/18 20:44 Jewell # (Auto) 1.22 K/uL (0.11-0.59) H 08/01/18 20:44 Eos # (Auto) 0.15 K/uL (0-0.5) 08/01/18 20:44 Baso # (Auto) 0.02 K/uL (0-0.2) 08/01/18 20:44 ESR 26 mm/hr (0-14) H 08/01/18 20:44 PT 31.7 Seconds (9.0-12.0) H 08/01/18 20:44 INR 3.4 (0.9-1.1) H 08/01/18 20:44 Sodium 139 mmol/L (136-145) 08/01/18 20:44 Potassium 4.1 mmol/L (3.5-5.1) 08/01/18 20:44 Chloride 102 mmol/L (98-107) 08/01/18 20:44 Carbon Dioxide 31 mmol/L (21-32) 08/01/18 20:44 Anion Gap 6.0 (3-11) 08/01/18 20:44 BUN 20 mg/dl (7-18) H 08/01/18 20:44 Creatinine 1.06 mg/dl (0.6-1.4) 08/01/18 20:44 Est Cr Clr Drug Dosing 75.4 ml/min 08/01/18 20:44 Est GFR ( Amer) 82.0 08/01/18 20:44 Est GFR (Non-Af Amer) 70.8 08/01/18 20:44 BUN/Creatinine Ratio 18.8 (10-20) 08/01/18 20:44 Glucose 136 mg/dl (70-99) H 08/01/18 20:44 POC Glucose 137 (70-99) H 08/01/18 20:57 Lactate 1.1 mmol/L (0.4-2.0) 08/01/18 20:44 Calcium 9.0 mg/dl (8.5-10.1) 08/01/18 20:44 Magnesium 1.9 mg/dl (1.8-2.4) 08/01/18 20:44 Magnesium Cancelled 08/01/18 20:44 Total Bilirubin 0.7 mg/dl (0.2-1) 08/01/18 20:44 AST 19 U/L (15-37) 08/01/18 20:44 ALT 24 U/L (12-78) 08/01/18 20:44 Alkaline Phosphatase 80 U/L (45-117) 08/01/18 20:44 Troponin I < 0.015 ng/ml (0-0.045) 08/01/18 20:44 C-Reactive Protein 5.24 mg/dl (0-0.29) H 08/01/18 20:44 C-Reactive Protein Cancelled 08/01/18 20:44 Total Protein 7.3 gm/dl (6.4-8.2) 08/01/18 20:44 Albumin 3.5 gm/dl (3.4-5.0) 08/01/18 20:44 Globulin 3.8 gm/dl (2.5-4.0) 08/01/18 20:44 Albumin/Globulin Ratio 0.9 (0.9-2) 08/01/18 20:44 Lipase 55 U/L (73-393) L 08/01/18 20:44 TSH 1.640 uIu/ml (0.300-4.500) 08/01/18 20:44 Diagnostic Findings Chest x-ray showed Stable cardiomegaly. No acute process within the chest. EKG as per my interpretation : Rate 105, A. fib, LAD, LAFB, T wave inversion septal leads CT head: No acute intracranial abnormality CT abdomen pelvis: 1. No definite bowel wall thickening or obstruction. 2. Right lower quadrant transplant kidney. No hydronephrosis. 3. Atrophic platinum left kidney. The right kidney appears surgically absent. 4. Additional findings as described above. Right foot x-ray: 1. Dorsal soft tissue swelling. 2. No evidence for osteomyelitis. 3. Postoperative changes as described above.
[2018-08-02] MEDS ORDERED: METOPROLOL TARTRATE 50 MG TAB PO SCH ×2 (00:45→09:00)
[2018-08-02] MEDS ORDERED: PHARMACY GLYCEMIC MGMT CONSULT PRN (00:46)
[2018-08-02] MEDS ORDERED: MAGNESIUM SULFATE / D5W 1 GM/100 ML BAG IV ONE (00:51)
[2018-08-02] MEDS ORDERED: PROMETHAZINE HCL 12.5 MG in SODIUM CHLORIDE 0.9% 50 ML IV PRN (01:44)
[2018-08-02] MEDS ORDERED: SENNA 8.6 MG TAB PO PRN (01:44)
[2018-08-02] MEDS ORDERED: MoRPHine SULFATE 4 MG/ML 1 ML CARP\\VIAL IV PRN (01:44)
[2018-08-02] MEDS ORDERED: DOCUSATE SODIUM 100 MG CAP PO PRN (01:44)
[2018-08-02] MEDS ORDERED: CYCLOBENZAPRINE HCL 10 MG TAB PO PRN (01:44)
[2018-08-02] MEDS ORDERED: INSULIN GLARGINE SOLOSTAR 100 UNITS/ML 3 ML PEN SC ONE (02:30)
[2018-08-02] MEDS ORDERED: GLUCAGON FOR INJ 1 MG VIAL SQ PRN (02:45)
[2018-08-02] MEDS ORDERED: GLUCOSE 10 TABS/TUBE PO PRN (02:45)
[2018-08-02] MEDS ORDERED: DEXTROSE 50% 50 ML SYRINGE IV PRN (02:45)
[2018-08-02] MEDS ORDERED: GLUCOSE 40% GEL 15 GM TUBE PO PRN (02:45)
[2018-08-02] MEDS ORDERED: CARBOHYDRATES FOR HYPOGLYCEMIA PO PRN (02:45)
[2018-08-02] MEDS: PIPERACILLIN/TAZOBACTAM 3.375 GM in DEXTROSE 5% 100 ML IV SCH ×3 (02:57→19:18)
[2018-08-02] MEDS: INSULIN ASPART 100 UNITS/ML 3 ML PEN SC SCH ×5 (03:00→20:57)
[2018-08-02 06:29] LABS: Appearance Urine Clear (Clear); Bilirubin Urine Negative (Negative); Blood Urine Negative (Negative); Color Urine Yellow; Glucose Urine UA 1+ (Negative); Ketones Urine 1+ (Negative); Leukocyte Esterase Urine Negative (Negative); Nitrite Urine Negative (Negative); Protein Urine Negative (Negative); Specific Gravity Urine 1.022 (1.000-1.030); Urobilinogen Urine Negative (Negative); pH Urine 5.5 (4.5-7.5)
[2018-08-02 06:52] LABS: Basophils # (auto) 0.03 K/uL (0-0.2); Basophils % (auto) 0.3 %; Eosinophils # (auto) 0.07 K/uL (0-0.5); Eosinophils % (auto) 0.7 %; Hematocrit (blood only) 35.9 % (42-52); Hemoglobin 12.8 g/dL (14.0-18.0); Immature Granulocytes # (auto) 0.05 K/uL (0.00-0.02); Immature Granulocytes % (auto) 0.5 %; Lymphocytes # (auto) 1.27 K/uL (1.2-3.4); Lymphocytes % (auto) 12.1 %; Mean Corpuscular Hgb Conc 35.7 g/dL (32-36); Mean Corpuscular Volume 98.6 fL (80-100); Mean Platelet Volume 12.9 fL (7.4-10.4); Monocytes # (auto) 1.35 K/uL (0.11-0.59); Monocytes % (auto) 12.9 %; Neutrophils # (auto) 7.72 K/uL (1.4-6.5); Neutrophils % (auto) 73.5 %; Platelet Count 258 K/uL (130-400); RDW Coefficient of Variation 15.6 % (11.5-14.5); RDW Standard Deviation 56.3 fL (36.4-46.3); Red Blood Count 3.64 M/uL (4.7-6.1); White Blood Count 10.49 K/uL (4.8-10.8)
[2018-08-02 07:03] LABS: INR 2.9 (0.9-1.1); Prothrombin Time 27.5 Seconds (9.0-12.0)
[2018-08-02 07:25] LABS: BUN Creatinine Ratio 14.7 (10-20); Calcium 8.6 mg/dl (8.5-10.1); Creatinine Clr Calc Pharmacy 77.9 ml/min; Est GFR (African American) 83.9; Est GFR (Non-African American) 72.4
[2018-08-02 07:37] LABS: Estimated Average Glucose 180 mg/dl; Hemoglobin A1C 7.9 % (4.5-5.6)
[2018-08-02] MEDS: ASPIRIN 81 MG ECTAB PO SCH (08:03)
[2018-08-02] MEDS: cycloSPORINE 25 MG CAP PO SCH ×2 (08:04→20:55)
[2018-08-02] MEDS: MULTIVITAMIN TAB PO SCH (08:04)
[2018-08-02] MEDS: DOXYCYCLINE HYCLATE 100 MG CAP PO SCH ×2 (08:04→20:52)
[2018-08-02] MEDS: predniSONE 5 MG TAB PO SCH (08:04)
[2018-08-02] MEDS: PREGABALIN 100 MG CAP PO SCH ×3 (08:07→21:02)
[2018-08-02] MEDS: DYMISTA~ORDER AWAITING ACTION SCH ×3 (08:41→23:29)
[2018-08-02] MEDS ORDERED: INSULIN GLARGINE SOLOSTAR 100 UNITS/ML 3 ML PEN SC SCH ×2 (09:00→21:00)
[2018-08-02] MEDS ORDERED: ISOSORBIDE MONO EXTENDED REL 30 MG TABCR PO SCH (09:00)
[2018-08-02] MEDS: ONDANSETRON INJ 2 MG/ML 2 ML VIAL IV PRN ×2 (10:43→23:40)
[2018-08-02] MEDS ORDERED: LACTATED RINGER'S 1,000 ML IV SCH (13:30)
--- NOTE | 2018-08-02 13:31 | Hospitalist Progress Note ---
Date of Service August 02, 2018 Assessment & Plan (1) Diabetic foot infection: Chronic ongoing left foot diabetic nonhealing wound Follows at the wound clinic at [facility] agrees with Ordered for wound culture On empiric antibiotic with p.o. doxycycline/IV Zosyn- Wound care consulted, appreciate input Infectious disease consulted for antibiotic regimen (2) Weakness: Resented with generalized weakness, fatigue, secondary to dehydration, poor p.o. intake for past 1 week Due to left foot wound/cellulitis Ordered for IV fluid PT OT Increase activity as tolerated (3) Nausea: Possible secondary to dehydration, infection Symptom has resolved after correction of dehydration Abdominal pain or diarrhea Diet advanced tolerating (4) Chronic atrial fibrillation: Rate controlled, Medical management On chronic anticoagulation on Coumadin, INR therapeutic (5) DVT prophylaxis: INR 2.9 (6) Type 1 diabetes: On insulin pump, Pump discontinued, order for insulin sliding scale, basal Lantus, pharmacy consult for glycemic management Repeat hemoglobin A1c ordered Pharmacy consult for glycemic management (7) History of renal transplant: (8) Status post nephrectomy: (9) History of renal cell carcinoma: Subjective Had episode of nausea earlier today, symptom has resolved with IV Zofran, no vomiting Feels very tired, fatigued No dizzy spell or lightheadedness No fever or chills, no Rigor No pain or discomfort on left foot Willing to try for solid food, Physical Exam Constitutional: WD/WN, vitals as above no acute distress Eyes: PERRL, conjunctivae normal, anicteric sclerae + anicteric sclerae ENMT: external ear and nose normal, oropharynx normal Neck: trachea midline, no thyromegaly Respiratory: normal respiratory effort, lungs clear to auscultation Cardiovascular: RRR, no murmur, no edema Gastrointestinal (Abdomen): normal bowel sounds, soft, nontender, no hepatosplenomegaly Musculoskeletal: Left foot on the dorsal aspect, shallow ulcer, with serous drainage noted Area erythema/increased warmth, evidence of cellulitis noted from dorsum of left foot extended to left ankle Neurologic: PERRL, EOMI, accommodation nl, no face palsy, no dysarthria Psychiatric: A+Ox3, euthymic affect Results & Data Vital Signs (Past 12 Hours) Vital Signs Temp Pulse Resp BP Pulse Ox 08/02/18 10:25 83 154/77 H 93 08/02/18 08:14 37.1 C 92 H 16 189/111 H 92 08/02/18 01:44 37.4 C 111 H 18 167/87 H 94 08/02/18 01:35 37.4 C 111 H 18 167/87 H 94 (1) Type 1 diabetes Diabetes mellitus complication status: with kidney complications Diabetes mellitus complication detail: with chronic kidney disease Chronic kidney disease stage: stage 3 (moderate) Qualified Code(s): E10.22 - Type 1 diabetes mellitus with diabetic chronic kidney disease; N18.3 - Chronic kidney disease, stage 3 (moderate)
--- NOTE | 2018-08-02 14:12 | Infectious Disease Consult ---
Date of Consultation August 02, 2018 Assessment & Plan (1) Diabetic foot infection: continue emperic abx, follow cultures, needs wound culture if not already obtained. will follow. continue local wound care. History of Present Illness Attending Physician: Mandi Wolfe MD pt admitted after he noted increased pain on right lateral foot, long standoing wound, follows outpt for this. was recently started on Keflex qid, unsure how many doses taken. He states he noticted increased purulent drainage from foot, came to ER and was admitted. x ray negative for osteo. wound eval pending. no wound culture obtained in Er, blood cultures pending. ESR 26, wbc 10, creat 1. h/o kidney transplant 25 years ago, doing well. ct abd pelvis negative, cxr negative, ct head negative. placed on zosyn and po doxy, tolerating well. having some generalized fatigue but otherwise feeling well. no f/c. no abd pain, no n/v/d, eating well. no pain with ambulation, no cp, sob, cough. Allergies Allergy/AdvReac Type Severity Reaction Status Date / Time Uncoded Nonscreenable AdvReac Unknown MOST Uncoded 02/20/18 15:32 Allergen NARCOTICS CAUSE NAUSEA Home Medications Home Medications Medication Instructions Recorded Confirmed Type Lyrica 100 mg PO TID 02/20/18 08/01/18 History Novolog U-100 Insulin aspart 0 unit SUBCUT CONTINOUS 02/20/18 08/01/18 History aspirin [Aspir-81] 81 mg PO QAM 02/20/18 08/01/18 History atorvastatin 40 mg PO PM 02/20/18 08/01/18 History azelastine-fluticasone 2 spray INTRANASAL BID 02/20/18 08/01/18 History cyclobenzaprine 10 mg PO HS PRN 02/20/18 08/01/18 History cyclosporine modified 2 tab PO BID 02/20/18 08/01/18 History isosorbide mononitrate 30 mg PO QAM 02/20/18 08/01/18 History metoprolol tartrate 50 mg PO QPM 02/20/18 08/01/18 History metoprolol tartrate 75 mg PO QAM 02/20/18 08/01/18 History multivitamin 1 tab PO QAM 02/20/18 08/01/18 History prednisone 5 mg PO QAM 02/20/18 08/01/18 History warfarin [Coumadin] 2.5 mg PO SUTUTHSA 02/20/18 08/01/18 History warfarin [Coumadin] 5 mg PO MOWEFR 02/20/18 08/01/18 History Oscal 1 tab PO BID 08/01/18 08/01/18 History acetaminophen [Tylenol] 325 mg PO DIRECTED PRN 08/01/18 08/01/18 History ascorbic acid (vitamin C) [Vitamin 500 mg PO DAILY 08/01/18 08/01/18 History C] benzonatate 100 mg PO TID PRN 08/01/18 08/01/18 History cephalexin [Keflex] 500 mg PO TID 08/01/18 08/01/18 History docusate sodium [Stool Softener] 100 mg PO DAILY PRN 08/01/18 08/01/18 History sennosides [senna] 8.6 mg PO DIRECTED PRN 08/01/18 08/01/18 History silver sulfadiazine 1 applic TOPICAL DAILY 08/01/18 08/01/18 History sodium chloride [Saline Nasal] 1 spray INTRANASAL BID PRN 08/01/18 08/01/18 History Patient History Medical History Osteoporosis (Chronic) HTN (hypertension) (Chronic) HLD (hyperlipidemia) (Chronic) Diabetic neuropathy (Chronic) Anticoagulated on Coumadin (Acute) Type 1 diabetes (Chronic) Diabetic retinopathy (Chronic) Coronary artery disease (Chronic) Atrial fibrillation (Chronic) History of renal cell carcinoma (Chronic) on Natural R kidney, s/p nephrectomy in 2006 Abscess of forearm, right (Resolved) Cellulitis (Resolved 01/24/14) Pneumonia (Resolved) Surgical History History of cardioversion History of cataract extraction History of arthrodesis to great toe H/O heart artery stent 03/09/01 RCA 2008 BMS x 2 to Cx 2010 UMM to mid-distal RCA History of lumbar surgery x 8 History of cervical spinal surgery x 3 History of renal transplant (Chronic) "hx of ESRD due to diabetic nephropathy s/p living related donor from sister in [address] [place] [address] Menon. Developed rejection in the first month and required high dose immunosuppression. Performed biopsy of the kidney. No further rejections since then. Currently on neoral 50mg po bid and 5mg of prednisone." per Dr. 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 Beliefs That Will Affect Care: None marital status: Current Living Situation: Spouse Other Information That Helps Us Care for You: No Feels Safe at Home: Yes Safety Concerns: Feels Safe At This Time Smoking Status: Never smoker Do You Dip or Chew Tobacco: No Second Hand Exposure: No Tobacco Cessation Education Requested by Patient: No Hx Alcohol Use: Yes Alcohol type: beer Hx Substance Use: No Review of Systems 2 Review of Systems: All systems reviewed & are unremarkable except as noted in HPI & below Physical Exam Constitutional: WD/WN, vitals as above Eyes: PERRL, conjunctivae normal, anicteric sclerae ENMT: external ear and nose normal, oropharynx normal Neck: trachea midline, no thyromegaly Respiratory: normal respiratory effort, lungs clear to auscultation Cardiovascular: RRR, no murmur, no edema Gastrointestinal (Abdomen): normal bowel sounds, soft, nontender, no hepatosplenomegaly Musculoskeletal: no cyanosis or clubbing, extremities motor strength 5/5 Skin: no rashes, warm and dry right leg with min erythema and warmth, no edema non tender. superficial wound noted lateral foot, non tender, no purulent drainage noted. Psychiatric: A+Ox3, euthymic affect Results & Data Vital Signs (Past 12 Hours) Vital Signs Temp Pulse Resp BP Pulse Ox 08/02/18 10:25 83 154/77 H 93 08/02/18 08:14 37.1 C 92 H 16 189/111 H 92
--- NOTE | 2018-08-02 14:20 | Pharmacy Report ---
Glycemic Control Consultation - Date of Service August 02, 2018 - Scope Scope: Glycemic Pharmacist consulted by Dr Boone on 08/02/18 for glycemic control and to write orders per [facility] inpatient glycemic control protocol - Objective Weight: 91.4 kg Accuchecks BSG (last 24hrs): 08/01/18 08/01/18 08/02/18 20:44 20:57 02:26 Glucose 136 H POC Glucose 137 H 185 H 08/02/18 08/02/18 08/02/18 06:13 07:50 11:56 Glucose 207 H POC Glucose 216 H 199 H Laboratory Data (last 24hrs): 08/01/18 08/02/18 20:44 06:13 Potassium 4.1 4.0 Carbon Dioxide 31 27 Anion Gap 6.0 8.0 Creatinine 1.06 1.04 Est Cr Clr Drug Dosing 75.4 77.9 HbA1c: Hemoglobin A1c 7.9 % (4.5-5.6) H 08/02/18 06:13 - Recent Pertinent Medications Outpatient Anti-diabetic Regimen: * Novolog pump - CF ? CR = 1 unit per 15 grams of carbohydrates * Basal rates----- * 0731-3604: 0.575 units/hr * 2694-9525: 0.675 units/hr * 6191-4560: 0.825 units/hr * 9487-8111: 1.1 units/hr * 5503-2226: 0.7 units/hr * 3477-8670: 0.5 units/hr * 1722-1473: 0.35 units/hr The patient is currently receiving: * Basal insulin: Lantus 10 units x 1 at 0300 * Correctional Insulin: Novolog Correction per scale ACHS Goal Range: Low 110 mg/dL - High 140 mg/dL Correction Factor: 30 mg/dL/unit * Prandial insulin: Per carb ratio of 1 unit per 10 grams CHO consumed Risk Factors for Insulin Resistance: * Infection: foot infection on Zosyn * Diet: clear liquids just upgraded - Assessment & Plan Assessment & Plan: ASSESSMENT: * Mr Henderson is a 68 y/o M with a reasonable control of his Type 1 DM who presents with a foot infection. Patient has been on an insulin pump x 20 years managed by PCP at [facility]. Will start to work with the pharmacists up there shortly. Patient has numerous basal rates. Estimate he probably needs around 15-20 units of basal per day. * Patient provided with 10 units this morning. Gave additional 5 units this morning until could determine basal rates. Patient is still deficient by about 3-5 units. So will give 3 extra units tonight if blood sugar over 180 mg/dL. Overnight check added to ensure 24 hour coverage. * Utilized slightly tighter Novolog parameters off of pump. May need loosened as blood sugars stabilize. * Restart pump whenever patient's oral intake more reliable. PLAN FOR INPATIENT GLYCEMIC CONTROL: * Basal insulin * Lantus 10 units + Lantus 5 units this morning; 3 units if blood sugar over 180 mg/dL. * Bolus insulin * NovoLog per scale ACHS or Q6hrs while NPO * Goal Range: Low 110 mg/dL - High 140 mg/dL * Correction Factor: 25 mg/dL/unit * Nutritional / Prandial insulin per carb ratio of 1 unit per 8 grams CHO consumed * Please note that the plan above was derived based on current level of insulin resistance and hospital stress. These recommendations are appropriate for inpatient admission only. Plan of care upon discharge will need to be reassessed to avoid potential outpatient hypo/hyperglycemia. Thank you.
[2018-08-02] MEDS: ATORVASTATIN 40 MG TAB PO SCH (20:53)
[2018-08-02] MEDS: METOPROLOL TARTRATE 50 MG TAB PO SCH (20:54)
[2018-08-02] MEDS: ACETAMINOPHEN 325 MG TAB PO PRN (23:38)
[2018-08-03] MEDS ORDERED: VANCOMYCIN CONSULT ACTIVE PRN (01:19)
[2018-08-03] MEDS: LORazepam 0.25 MG/0.5 ML VIAL IV PRN (01:21)
--- NOTE | 2018-08-03 01:21 | Hospitalist Progress Note ---
Date of Service August 03, 2018 Subjective Patient noted to have fever spikes. Change Doxycycline to IV vancomycin, continue Zosyn for diabetic foot infection. CT right foot rule out abscess. Will relay to AM provider. Results & Data Vital Signs (Past 12 Hours) Vital Signs Temp Pulse Resp BP BP Pulse Ox 08/03/18 01:00 37.6 C H 08/02/18 23:42 38.0 C H 73 20 128/73 93 08/02/18 15:56 37.6 C H 82 18 144/79 H 95
[2018-08-03] MEDS ORDERED: VANCOMYCIN HCL 2,250 MG in SODIUM CHLORIDE 0.9% 500 ML IV SCH (01:30)
[2018-08-03] MEDS ORDERED: INSULIN ASPART 100 UNITS/ML 3 ML PEN SC SCH (02:00)
[2018-08-03] MEDS: TRAMADOL HCL 50 MG TABLET PO PRN ×2 (02:39→07:53)
[2018-08-03] MEDS: PIPERACILLIN/TAZOBACTAM 3.375 GM in DEXTROSE 5% 100 ML IV SCH ×3 (03:00→18:53)
--- NOTE | 2018-08-03 07:00 | CT Scan Report ---
CT OF THE RIGHT FOOT WITHOUT CONTRAST CLINICAL HISTORY: Right foot swelling, draining wound. COMPARISON STUDY: Right foot radiograph August 01, 2018. TECHNIQUE: Axial images of the right foot were obtained without IV contrast. Sagittal and coronal rec onstructions were viewed. Automated exposure control was utilized for the study. A dose lowering martina hnique was utilized adhering to the principles of ALARA. FINDINGS: Diffuse soft tissue swelling is noted with extensive vascular calcification. No soft tissue gas is noted. No fluid collection is identified on this unenhanced exam to suggest an abscess within the right foot. A calcaneal osteotomy is fixated with 2 cannulated screws. The hardware is intact. T here is also a screw which fuses the right first tarsometatarsal joint. Tarsometatarsal joints are in tact. There is an old screw tract within the cuboid. No suspicious osseous lesion is noted. Is no acu te fracture. 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 No bony erosions are identified to suggest os teomyelitis. IMPRESSION: 1. Status post calcaneal osteotomy and right first tarsometatarsal joint fusion. Hardware intact. 2. Diffuse right foot soft tissue swelling. No soft tissue gas. No abscess or CT evidence for osteomy elitis. 3. Extensive vascular calcifications. 4. Moderate mid foot osteoarthritis. Electronically signed by: Gaetano Daley M.D. 08/03/2018 6:58 AM
[2018-08-03] MEDS: DYMISTA~ORDER AWAITING ACTION SCH ×3 (07:40→23:53)
[2018-08-03] MEDS: PREGABALIN 100 MG CAP PO SCH ×3 (07:47→21:22)
[2018-08-03] MEDS: ISOSORBIDE MONO EXTENDED REL 30 MG TABCR PO SCH (07:48)
[2018-08-03] MEDS: MULTIVITAMIN TAB PO SCH (07:48)
[2018-08-03] MEDS: ASPIRIN 81 MG ECTAB PO SCH (07:49)
[2018-08-03] MEDS: predniSONE 5 MG TAB PO SCH (07:49)
[2018-08-03] MEDS: cycloSPORINE 25 MG CAP PO SCH ×2 (07:49→21:22)
[2018-08-03] MEDS: METOPROLOL TARTRATE 50 MG TAB PO SCH ×3 (07:49→21:27)
[2018-08-03] MEDS: INSULIN ASPART 100 UNITS/ML 3 ML PEN SC SCH ×4 (08:23→21:19)
--- NOTE | 2018-08-03 08:24 | Pharmacy Report ---
Pharm Abx/Gly Prg Nt - Date of Service August 03, 2018 - Scope Pharmacy has been consulted to manage vancomycin/Zosyn therapy and glycemic control for this patient as per the Pharmacy & Therapeutics Committee approved dosing protocols. - Objective Height: 6 ft 2 in Weight: 88.6 kg Vital Signs (Past 12hrs): Vital Signs Temp Pulse Resp BP Pulse Ox 08/03/18 01:27 37.3 C 08/03/18 01:00 37.6 C H 08/02/18 23:42 38.0 C H 73 20 128/73 93 Micro Results: 08/02/18 14:00 Gram Stain - Final Foot,Left Wound Culture - Pending Accuchecks BSG (last 24 hours):: 08/02/18 08/02/18 08/02/18 11:56 16:36 20:50 POC Glucose 199 H 264 H 206 H 08/03/18 08/03/18 01:37 07:45 POC Glucose 150 H 217 H HbA1C: Hemoglobin A1c 7.9 % (4.5-5.6) H 08/02/18 06:13 - Outpatient Anti-Diabetic Regimen Recent Pertinent Medications: Outpatient Anti-diabetic Regimen: * Novolog pump - see environmental educator note * A1c = 7.9 % 08/02/18 The patient is currently receiving: * Basal insulin: Lantus 10 units at 0300; 5 units at 0900; 3 units @2100 * Correctional Insulin: Novolog Correction per scale ACHS Goal Range: Low 110 mg/dL - High 140 mg/dL Correction Factor: 25 mg/dL/unit * Prandial insulin: Per carb ratio of 1 unit per 8 grams CHO consumed Risk Factors for Insulin Resistance: * Steroids: home dose of prednisone 5 mg daily * Infection: foot infection on Zosyn and now vancomycin * Diet: oral - Assessment & Plan Assessment: ID: * 68 year old M receiving vancomycin and Zosyn for treatment of diabetic foot infection - patient was spiking fevers last night so doxycycline switched to vancomycin. Glycemic: * 68 year old M with a PMH of moderately controlled Type 1 diabetes on insulin pump at home. did not bring supplies in today but will bring in tomorrow. Plan for pump transition tomorrow. * Blood sugars yesterday were [phone] and fasting this morning 217. This is reasonable control for a type 1. Lantus dosing was also sporadic yesterday. Give Lantus all in one dose today and expect better control. * Continue Novolog for now as post-prandial blood sugars appeared stable. Plan: ANTIMICROBIAL THERAPY Vancomycin * 68 year old M receiving vancomycin and Zosyn for treatment of diabetic foot infection * Day # 2 of antimicrobial therapy * vancomycin pharmacokinetics * loading dose of 2250 mg (25 mg/kg) given x 1 then start * vancomycin 1500 mg IV q12 hours (VD = 0.7 L/kg; Alejandro = 0.069 hr-1; half life = 10 hours) * trough (goal = 15-20 for foot infection) ordered prior to 1400 dose on Wednesday * Zosyn - continue dose of 3.375 gm IV q8 hours INPATIENT GLYCEMIC CONTROL Basal Insulin * Lantus 18 units SQ qAM Bolus Insulin * NovoLog per scale ACHS or Q6hrs while NPO * Goal Range: Low 110 mg/dL - High 140 mg/dL * Correction Factor: 25 mg/dL/unit * Nutritional / Prandial insulin per carb ratio of 1 unit per 8 grams CHO consumed * Please note that the plan above was derived based on current level of insulin resistance and hospital stress. These recommendations are appropriate for inpatient admission only. Plan of care upon discharge will need to be reassessed to avoid potential outpatient hypo/hyperglycemia. Glycemic Control Discharge Recommendations: follow-up with [facility] pharmacists for intensive diabetes support. Pharmacy will follow patient and adjust orders on a daily basis. Thank you for allowing us to participate in this patients care.
[2018-08-03 08:56] LABS: INR 2.4 (0.9-1.1); Prothrombin Time 23.5 Seconds (9.0-12.0)
[2018-08-03] MEDS ORDERED: INSULIN GLARGINE SOLOSTAR 100 UNITS/ML 3 ML PEN SC SCH (09:00)
--- NOTE | 2018-08-03 09:03 | Wound Consultation ---
Date of Consultation August 03, 2018 Assessment & Plan (1) Diabetic foot infection: Is a 68-year-old male with a history of diabetic neuropathy and kidney transplant presents with diabetic foot ulcer. At this time no debridement is required. Agree with empiric antibiotics. Will be dressed with alginate at this time. Patient reportedly cannot have MRI due to hardware. After discussion with patient and his , he states his penile implant is plastic and he has had over 10 MRIs at [facility]. I believe it is probably reasonable to go ahead and proceed with MRI to rule out osteomyelitis. Thank you for allowing me to participate in the care of this patient. Please not hesitate to call with any questions. History of Present Illness Attending Physician: Mandi Wolfe MD Patient seen laying in his bed with his at bedside. This is a 68-year-old male with a history of kidney transplant 25 years ago, diabetes, diabetic neuropathy, chronic atrial fibrillation on Coumadin, and history of renal cell carcinoma who presents with diabetic foot ulcer. Patient has been following with the health physics technician. There is a noticed increased pain and when he saw a health physics technician and the wound was unroofed there was purulent drainage. Allergies Allergy/AdvReac Type Severity Reaction Status Date / Time Uncoded Nonscreenable AdvReac Unknown MOST Uncoded 02/20/18 15:32 Allergen NARCOTICS CAUSE NAUSEA Home Medications Home Medications Medication Instructions Recorded Confirmed Type Lyrica 100 mg PO TID 02/20/18 08/01/18 History Novolog U-100 Insulin aspart 0 unit SUBCUT CONTINOUS 02/20/18 08/01/18 History aspirin [Aspir-81] 81 mg PO QAM 02/20/18 08/01/18 History atorvastatin 40 mg PO PM 02/20/18 08/01/18 History azelastine-fluticasone 2 spray INTRANASAL BID 02/20/18 08/01/18 History cyclobenzaprine 10 mg PO HS PRN 02/20/18 08/01/18 History cyclosporine modified 2 tab PO BID 02/20/18 08/01/18 History isosorbide mononitrate 30 mg PO QAM 02/20/18 08/01/18 History metoprolol tartrate 50 mg PO QPM 02/20/18 08/01/18 History metoprolol tartrate 75 mg PO QAM 02/20/18 08/01/18 History multivitamin 1 tab PO QAM 02/20/18 08/01/18 History prednisone 5 mg PO QAM 02/20/18 08/01/18 History warfarin [Coumadin] 2.5 mg PO SUTUTHSA 02/20/18 08/01/18 History warfarin [Coumadin] 5 mg PO MOWEFR 02/20/18 08/01/18 History Oscal 1 tab PO BID 08/01/18 08/01/18 History acetaminophen [Tylenol] 325 mg PO DIRECTED PRN 08/01/18 08/01/18 History ascorbic acid (vitamin C) [Vitamin 500 mg PO DAILY 08/01/18 08/01/18 History C] benzonatate 100 mg PO TID PRN 08/01/18 08/01/18 History cephalexin [Keflex] 500 mg PO TID 08/01/18 08/01/18 History docusate sodium [Stool Softener] 100 mg PO DAILY PRN 08/01/18 08/01/18 History sennosides [senna] 8.6 mg PO DIRECTED PRN 08/01/18 08/01/18 History silver sulfadiazine 1 applic TOPICAL DAILY 08/01/18 08/01/18 History sodium chloride [Saline Nasal] 1 spray INTRANASAL BID PRN 08/01/18 08/01/18 History Patient History Medical History Osteoporosis (Chronic) HTN (hypertension) (Chronic) HLD (hyperlipidemia) (Chronic) Diabetic neuropathy (Chronic) Anticoagulated on Coumadin (Acute) Type 1 diabetes (Chronic) Diabetic retinopathy (Chronic) Coronary artery disease (Chronic) Atrial fibrillation (Chronic) History of renal cell carcinoma (Chronic) on Natural R kidney, s/p nephrectomy in 2006 Abscess of forearm, right (Resolved) Cellulitis (Resolved 01/24/14) Pneumonia (Resolved) Surgical History History of cardioversion History of cataract extraction History of arthrodesis to great toe H/O heart artery stent 03/09/01 RCA 2008 BMS x 2 to Cx 2010 UMM to mid-distal RCA History of lumbar surgery x 8 History of cervical spinal surgery x 3 History of renal transplant (Chronic) "hx of ESRD due to diabetic nephropathy s/p living related donor from sister in [address] [place] [address] Menon. Developed rejection in the first month and required high dose immunosuppression. Performed biopsy of the kidney. No further rejections since then. Currently on neoral 50mg po bid and 5mg of prednisone." per Dr. Brooks Psychiatric records Status post nephrectomy (Chronic) "for renal cell Ca" Family History Mother Stroke T1DM (type 1 diabetes mellitus) Father Melanoma Myocardial infarction Social History Preferred Language: Palauan Communication Ability: Effective Visual Impairment: No Limitations Hearing Ability: Normal Advanced Manufacturing Consultant Required: No Beliefs That Will Affect Care: None marital status: Current Living Situation: Spouse Other Information That Helps Us Care for You: No Feels Safe at Home: Yes Safety Concerns: Feels Safe At This Time Smoking Status: Never smoker Do You Dip or Chew Tobacco: No Second Hand Exposure: No Tobacco Cessation Education Requested by Patient: No Hx Alcohol Use: Yes Alcohol type: beer Hx Substance Use: No Review of Systems Review of Systems: All systems reviewed & are unremarkable except as noted in HPI & below Physical Exam Constitutional: WD/WN, vitals as above Eyes: PERRL, conjunctivae normal, anicteric sclerae ENMT: Ears: no hearing impairment Respiratory: normal respiratory effort, lungs clear to auscultation Cardiovascular: RRR, no murmur, no edema Gastrointestinal (Abdomen): normal bowel sounds, soft, nontender, no hepatosplenomegaly Skin: Right lateral foot wound measuring 1.5 x 1 x 0.2 cm. This is a surface area 1.5 cm. Wound is covered with fibrin and slough. Periwound is intact with inflammation. There is mild drainage and no foul odors. Neurologic: awake; not confused Psychiatric: A+Ox3, euthymic affect Results & Data Vital Signs (Past 12 Hours) Vital Signs Temp Pulse Resp BP BP Pulse Ox 08/03/18 08:00 36.8 C 79 20 128/74 96 08/03/18 01:27 37.3 C 08/03/18 01:00 37.6 C H 08/02/18 23:42 38.0 C H 73 20 128/73 93
[2018-08-03] MEDS: INSULIN GLARGINE SOLOSTAR 100 UNITS/ML 3 ML PEN SC SCH (09:16)
--- NOTE | 2018-08-03 10:18 | Infectious Disease Progress Nt ---
Date of Service August 03, 2018 Assessment & Plan (1) Diabetic foot infection: continue emperic abx, follow cultures, wound is not located close to hardware, for mri, will likely require prolong course of abx, IV vs po will depend on culture data. Subjective wound culture growing staph species, remain on emperic abx, tolerating well. tmax 38 overnight, currently afebrile. ct done - negative for osteo, foot hardware intact. s/p wound care eval, for mri. blood cultures negative Results & Data Vital Signs (Past 12 Hours) Vital Signs Temp Pulse Resp BP BP Pulse Ox 08/03/18 08:00 36.8 C 79 20 128/74 96 08/03/18 01:27 37.3 C 08/03/18 01:00 37.6 C H 08/02/18 23:42 38.0 C H 73 20 128/73 93 Laboratory Results Microbiology 08/02/18 14:00 Foot,Left Gram Stain - Final 08/02/18 14:00 Foot,Left Wound Culture - Preliminary Staphylococcus species 08/01/18 21:09 Blood Aerobic Blood Culture - Preliminary No growth in Aerobic bottle after 24 hours. 08/01/18 21:09 Blood Anaerobic Blood Culture - Preliminary No growth in Anaerobic bottle after 24 hours. 08/01/18 20:44 Blood Aerobic Blood Culture - Preliminary No growth in Aerobic bottle after 24 hours. 08/01/18 20:44 Blood Anaerobic Blood Culture - Preliminary No growth in Anaerobic bottle after 24 hours.
[2018-08-03] MEDS: VANCOMYCIN HCL 1,500 MG in SODIUM CHLORIDE 0.9% 500 ML IV SCH (13:36)
[2018-08-03] MEDS: WARFARIN SOD 5 MG TAB PO SCH (15:53)
--- NOTE | 2018-08-03 17:49 | Hospitalist Progress Note ---
Date of Service August 03, 2018 Assessment & Plan (1) Diabetic foot infection: Chronic ongoing left foot diabetic nonhealing wound Follows at the wound clinic at [facility] Febrile episode overnight Culture growing Staphylococcus Antibiotic adjusted to IV vancomycin Wound care consulted, appreciate input Appreciate input from ID (2) Weakness: Resented with generalized weakness, fatigue, secondary to dehydration, poor p.o. intake for past 1 week Due to left foot wound/cellulitis PT OT consulted, recommend rehab Patient does not want to go to any rehab, Go home with home health home PT (3) Nausea: Interim has resolved, tolerating diet (4) Chronic atrial fibrillation: Rate controlled, Medical management Continue chronic anticoagulation Coumadin (5) DVT prophylaxis: On Coumadin (6) Type 1 diabetes: On insulin pump, Patient input from pharmacy for glycemic control (7) History of renal transplant: (8) Status post nephrectomy: (9) History of renal cell carcinoma: Subjective He mentions of feeling tired, Able to be out of bed, no fever or chills No pain at the left foot infection site wound culture growing staph species, Antibiotic changed to IV vancomycin, appreciate input from ID and wound care Physical Exam Constitutional: WD/WN, vitals as above no acute distress Eyes: PERRL, conjunctivae normal, anicteric sclerae + anicteric sclerae ENMT: external ear and nose normal, oropharynx normal Neck: trachea midline, no thyromegaly Respiratory: normal respiratory effort, lungs clear to auscultation Cardiovascular: RRR, no murmur, no edema Gastrointestinal (Abdomen): normal bowel sounds, soft, nontender, no hepatosplenomegaly Neurologic: PERRL, EOMI, accommodation nl, no face palsy, no dysarthria Psychiatric: A+Ox3, euthymic affect Results & Data Vital Signs (Past 12 Hours) Vital Signs Temp Pulse Resp BP Pulse Ox 08/03/18 16:31 37.2 C 76 20 171/80 H 97 08/03/18 08:00 36.8 C 79 20 128/74 96 (1) Type 1 diabetes Chronic kidney disease stage: stage 3 (moderate) Diabetes mellitus complication detail: with chronic kidney disease Diabetes mellitus complication status: with kidney complications Qualified Code(s): E10.22 - Type 1 diabetes mellitus with diabetic chronic kidney disease; N18.3 - Chronic kidney disease, stage 3 (moderate)
[2018-08-03] MEDS: ACETAMINOPHEN 325 MG TAB PO PRN (21:21)
[2018-08-03] MEDS: ATORVASTATIN 40 MG TAB PO SCH (21:23)
[2018-08-04] MEDS: LORazepam 0.25 MG/0.5 ML VIAL IV PRN ×2 (00:28→21:01)
[2018-08-04] MEDS: PIPERACILLIN/TAZOBACTAM 3.375 GM in DEXTROSE 5% 100 ML IV SCH ×2 (02:17→11:12)
[2018-08-04] MEDS: VANCOMYCIN HCL 1,500 MG in SODIUM CHLORIDE 0.9% 500 ML IV SCH ×2 (02:17→14:22)
[2018-08-04] MEDS: ACETAMINOPHEN 325 MG TAB PO PRN (02:21)
[2018-08-04] MEDS: METOPROLOL TARTRATE 50 MG TAB PO SCH ×2 (07:48→21:01)
[2018-08-04] MEDS: ASPIRIN 81 MG ECTAB PO SCH (07:49)
[2018-08-04] MEDS: ISOSORBIDE MONO EXTENDED REL 30 MG TABCR PO SCH (07:49)
[2018-08-04] MEDS: MULTIVITAMIN TAB PO SCH (07:49)
[2018-08-04] MEDS: predniSONE 5 MG TAB PO SCH (07:49)
[2018-08-04] MEDS: cycloSPORINE 25 MG CAP PO SCH ×2 (07:49→21:02)
[2018-08-04] MEDS: PREGABALIN 100 MG CAP PO SCH ×3 (07:52→21:05)
[2018-08-04] MEDS: INSULIN GLARGINE SOLOSTAR 100 UNITS/ML 3 ML PEN SC SCH (07:57)
[2018-08-04] MEDS: INSULIN ASPART 100 UNITS/ML 3 ML PEN SC SCH ×4 (08:25→21:03)
[2018-08-04 08:34] LABS: INR 2.5 (0.9-1.1)
[2018-08-04 08:58] LABS: Creatinine Clr Calc Pharmacy 82.4 ml/min; Est GFR (African American) 91.3; Est GFR (Non-African American) 78.8
--- NOTE | 2018-08-04 09:49 | Pharmacy Report ---
Pharm Abx/Gly Prg Nt - Date of Service August 04, 2018 - Scope Pharmacy has been consulted to manage IV vancomycin and zosyn and glycemic control for this patient as per the Pharmacy & Therapeutics Committee approved dosing protocols. - Objective Vital Signs (Past 12hrs): Vital Signs Temp Pulse Resp BP BP Pulse Ox 08/04/18 07:45 36.4 C L 88 18 177/108 H 96 08/03/18 23:00 37.1 C 71 18 168/65 H 96 Lab Results: Laboratory Tests (24 Hours) 08/04/18 08:04 Creatinine 0.97 Est Cr Clr Drug Dosing 82.4 Laboratory Tests 08/04/18 14:08 Vancomycin Trough 16.9 Micro Results: 08/02/18 14:00 Gram Stain - Final Foot,Left preliminary - staph aureus Accuchecks BSG (last 24 hours):: 08/03/18 08/03/18 08/03/18 11:31 16:41 20:45 POC Glucose 234 H 217 H 236 H 08/04/18 08:10 POC Glucose 193 H HbA1C: Hemoglobin A1c 7.9 % (4.5-5.6) H 08/02/18 06:13 - Outpatient Anti-Diabetic Regimen Recent Pertinent Medications: Outpatient Anti-diabetic Regimen: * Novolog via [employer] insulin pump. * Basal: 8997-9392 0.575 units/hr, 8095-9951 0.675 units/hr, 9079-1383 0.825 units/hr, 9234-0514 0.925 units/hr, 4369-2954 1.1 units/hr, 6559-3663 0.7 units/hr, 4933-0438 0.5 units/hr 2130- 2400 0.35 units/hr (17.175 units/24hrs) * Bolus: 1:15 plus SF:42 with BG goal of 110-130mg/dl. * Total Daily Dose = ~29-37 units/day. * A1c = 7.9 % 08/02/18 The patient is currently receiving: * Basal insulin: Lantus 18 units daily * Correctional Insulin: Novolog Correction per scale ACHS Goal Range: Low 110 mg/dL - High 140 mg/dL Correction Factor: 20 mg/dL/unit * Prandial insulin: Per carb ratio of 1 unit per 7 grams CHO consumed Risk Factors for Insulin Resistance: * Steroids: home dose of prednisone 5 mg daily * Infection: foot infection on Zosyn (DC'd today) and now vancomycin IV * Diet: oral - Assessment & Plan Assessment: ID: * 68 year old M receiving IV Vancomycin and Zosyn for treatment of staph growing in wound * Day # 2 Vancomycin, day #4 Zosyn * Zosyn DC'd today * Wound culture preliminary staph aureus, no growth in blood cultures * Pt treated with PO Doxycycline x 2 days but switched yesterday to IV Vancomycin for fevers * ID planning to discharge on 4 weeks of PO Doxycycline 100mg PO BID due to hardware in foot, if isolate is sensitive and blood cultures remain negative. Glycemic: * Patient's did bring in pump supplies, patient already had Lantus this morning, and he did not want to shut off basal on pump, so we will transition back to insulin pump tomorrow morning. * Blood sugars slightly above goal, tighten CF and CR at this time. Plan: ANTIMICROBIAL THERAPY Vancomycin * Trough level of 16.9 mcg/mL is therapeutic * Continue dose of 1500 mg IV every 12 hours * Goal trough level: 15 to 20 mcg/mL * Further levels will be ordered depending on length of stay, likely discharge on Wednesday INPATIENT GLYCEMIC CONTROL * Continue to hold outpatient insulin pump today - RESTART tomorrow morning Basal Insulin * Lantus 18 units this AM then DC Bolus Insulin * NovoLog per scale ACHS or Q6hrs while NPO * Goal Range: Low 110 mg/dL - High 140 mg/dL * tighten: Correction Factor: 15 mg/dL/unit * tighten: Nutritional / Prandial insulin per carb ratio of 1 unit per 5 grams CHO consumed * DISCONTINUE when pump restarted tomorrow morning * Please note that the plan above was derived based on current level of insulin resistance and hospital stress. These recommendations are appropriate for inpatient admission only. Plan of care upon discharge will need to be reassessed to avoid potential outpatient hypo/hyperglycemia. Pharmacy will follow patient and adjust orders on a daily basis. Thank you for allowing us to participate in this patients care.
--- NOTE | 2018-08-04 10:54 | Infectious Disease Progress Nt ---
Date of Service August 04, 2018 Assessment & Plan (1) Diabetic foot infection: will stop zosyn and continue vanco for now. await final sensitivies. planning to d/c on po doxy 100mg po bid to complete 4 weeks (due to hardware in foot ), if isolate is sensitive, blood cultures remain negative. continue wound care upon d/c Subjective pt seen in followup, at bedside, overall states he is feeling better. no f/c. fevers improving, blood cultures negative to date, wound culture with staph species, final pending. no pain in foot but has neuropathy. remains on vanco and zosyn, tolerating well. no abd pain, no n/v/d. no cp, sob, cough. no drainage from foot. rle cellulitis improving, ambulating without difficulty. ct negative for osteo. all remaining ros reviewed and are negative. Review of Systems Review of Systems: All systems reviewed & are unremarkable except as noted in HPI & below Physical Exam Constitutional: WD/WN, vitals as above Eyes: PERRL, conjunctivae normal, anicteric sclerae ENMT: external ear and nose normal, oropharynx normal Neck: trachea midline, no thyromegaly Respiratory: normal respiratory effort, lungs clear to auscultation Cardiovascular: RRR, no murmur, no edema Gastrointestinal (Abdomen): normal bowel sounds, soft, nontender, no hepatosplenomegaly Musculoskeletal: no cyanosis or clubbing, extremities motor strength 5/5 Skin: no rashes, warm and dry min erythema/warmth rle, improved. wound imp roving, no drainage, no surrounding erythema. Psychiatric: A+Ox3, euthymic affect Results & Data Vital Signs (Past 12 Hours) Vital Signs Temp Pulse Resp BP BP Pulse Ox 08/04/18 07:45 36.4 C L 88 18 177/108 H 96 08/03/18 23:00 37.1 C 71 18 168/65 H 96 Laboratory Results Microbiology 08/01/18 21:09 Blood Aerobic Blood Culture - Preliminary No growth in Aerobic bottle after 48 hours. 08/01/18 21:09 Blood Anaerobic Blood Culture - Preliminary No growth in Anaerobic bottle after 48 hours. 08/01/18 20:44 Blood Aerobic Blood Culture - Preliminary No growth in Aerobic bottle after 48 hours. 08/01/18 20:44 Blood Anaerobic Blood Culture - Preliminary No growth in Anaerobic bottle after 48 hours. 08/02/18 14:00 Foot,Left Gram Stain - Final 08/02/18 14:00 Foot,Left Wound Culture - Preliminary Staphylococcus species
[2018-08-04] MEDS: DYMISTA~ORDER AWAITING ACTION SCH ×2 (11:12→15:55)
[2018-08-04] MEDS ORDERED: VANCOMYCIN TROUGH ONE (13:30)
[2018-08-04] MEDS ORDERED: WARFARIN SOD 2.5 MG TAB PO SCH (16:00)
--- NOTE | 2018-08-04 19:11 | Hospitalist Progress Note ---
Date of Service August 04, 2018 Assessment & Plan (1) Diabetic foot infection: Chronic ongoing left foot diabetic nonhealing wound Follows at the wound clinic at [facility] CT OF foot : 1. Status post calcaneal osteotomy and right first tarsometatarsal joint fusion. Hardware intact. 2. Diffuse right foot soft tissue swelling. No soft tissue gas. No abscess or CT evidence for osteomyelitis. 3. Extensive vascular calcifications. 4. Moderate mid foot osteoarthritis. Wound culture growing staph aureus Antibiotic adjusted to IV vancomycin Wound care consulted, appreciate input Appreciate input from ID plan to cont on IV vancomycin only ( ZOsyn D/ayala ) plan to transition to PO Doxycycline prior to discharge -complete total 4 weeks of therapy ( presence of hardware in foot ) (2) Weakness: symptom much improved today able to be OOB walked with walker ( his baseline ) presented with generalized weakness, fatigue, secondary to dehydration, poor p.o. intake for past 1 week Due to left foot wound/cellulitis PT OT consulted, recommend rehab Patient does not want to go to any rehab, Go home with home health home PT (3) Nausea: no further symptom tolerating diet (4) Chronic atrial fibrillation: Rate controlled, Medical management Continue chronic anticoagulation Coumadin (5) DVT prophylaxis: On Coumadin (6) Type 1 diabetes: On insulin pump, Patient input from pharmacy for glycemic control DISPOSITION : plan to transition to PO Doxycycline tomorrow if not continues to do well clinically D/c home with home health on 08/05/18 (7) History of renal transplant: (8) Status post nephrectomy: (9) History of renal cell carcinoma: Subjective feels much better today energy improved no fever or chills no pain or discomfort on left foot Physical Exam Constitutional: WD/WN, vitals as above no acute distress Eyes: PERRL, conjunctivae normal, anicteric sclerae + anicteric sclerae ENMT: external ear and nose normal, oropharynx normal Neck: trachea midline, no thyromegaly Respiratory: normal respiratory effort, lungs clear to auscultation Cardiovascular: RRR, no murmur, no edema Gastrointestinal (Abdomen): normal bowel sounds, soft, nontender, no hepatosplenomegaly Neurologic: PERRL, EOMI, accommodation nl, no face palsy, no dysarthria Psychiatric: A+Ox3, euthymic affect Results & Data Vital Signs (Past 12 Hours) Vital Signs Temp Pulse Resp BP BP Pulse Ox 08/04/18 16:07 37.0 C 76 20 152/69 H 96 08/04/18 11:23 146/84 H 08/04/18 07:45 36.4 C L 88 18 177/108 H 96 (1) Type 1 diabetes Chronic kidney disease stage: stage 3 (moderate) Diabetes mellitus complication detail: with chronic kidney disease Diabetes mellitus complication status: with kidney complications Qualified Code(s): E10.22 - Type 1 diabetes mellitus with diabetic chronic kidney disease; N18.3 - Chronic kidney disease, stage 3 (moderate)
[2018-08-04] MEDS: ATORVASTATIN 40 MG TAB PO SCH (21:01)
[2018-08-05] MEDS: ACETAMINOPHEN 325 MG TAB PO PRN (00:01)
[2018-08-05] MEDS: DYMISTA~ORDER AWAITING ACTION SCH ×3 (00:02→15:53)
[2018-08-05] MEDS ORDERED: cloNIDine HCl 0.1 MG TAB PO PRN (00:26)
[2018-08-05] MEDS: VANCOMYCIN HCL 1,500 MG in SODIUM CHLORIDE 0.9% 500 ML IV SCH (02:01)
[2018-08-05 06:24] LABS: INR 2.9 (0.9-1.1); Prothrombin Time 27.6 Seconds (9.0-12.0)
[2018-08-05 06:46] LABS: Creatinine Clr Calc Pharmacy 95.1 ml/min; Est GFR (African American) 102.8; Est GFR (Non-African American) 88.7
[2018-08-05] MEDS ORDERED: INSULIN ASPART 100 UNITS/ML VIAL SC PRN (07:30)
[2018-08-05] MEDS: METOPROLOL TARTRATE 50 MG TAB PO SCH ×2 (08:52→21:16)
[2018-08-05] MEDS: ASPIRIN 81 MG ECTAB PO SCH (08:52)
[2018-08-05] MEDS: ISOSORBIDE MONO EXTENDED REL 30 MG TABCR PO SCH (08:52)
[2018-08-05] MEDS: cycloSPORINE 25 MG CAP PO SCH ×2 (08:53→21:20)
[2018-08-05] MEDS: MULTIVITAMIN TAB PO SCH (08:53)
[2018-08-05] MEDS: PREGABALIN 100 MG CAP PO SCH ×3 (08:53→21:19)
[2018-08-05] MEDS: predniSONE 5 MG TAB PO SCH (08:53)
[2018-08-05] MEDS ORDERED: INSULIN GLARGINE SOLOSTAR 100 UNITS/ML 3 ML PEN SC SCH (09:00)
[2018-08-05] MEDS ORDERED: INSULIN ASPART 100 UNITS/ML 3 ML PEN SC SCH (09:00)
[2018-08-05] MEDS: NovoLOG INSULIN PUMP SCH ×4 (09:05→22:39)
--- NOTE | 2018-08-05 10:13 | Hospitalist Progress Note ---
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 Status post calcaneal osteotomy and right first tarsometatarsal joint fusion. Hardware intact. 2. Diffuse right foot soft tissue swelling. No soft tissue gas. No abscess or CT evidence for osteomyelitis. 3. Extensive vascular calcifications. 4. Moderate mid foot osteoarthritis. Wound culture growing staph aureus Antibiotic was adjusted to IV vancomycin Wound care consulted, appreciate input Appreciate input from ID Changed antibiotic to PO Doxycycline today-complete total 4 weeks of therapy ( presence of hardware in foot ) (2) Weakness: Symptom has resolved, activity at baseline able to be OOB walked with walker ( his baseline ) presented with generalized weakness, fatigue, secondary to dehydration, poor p.o. intake for past 1 week Due to left foot wound/cellulitis Appreciate input from PT OT, Stable to be discharged home with home PT Patient declines home physical therapy, home health visiting nurse Follows with wound clinic podiatry at [facility] (3) Nausea: Symptom has completely resolved Tolerating diet (4) Chronic atrial fibrillation: Rate controlled, Medical management Continue chronic anticoagulation Coumadin (5) DVT prophylaxis: On Coumadin (6) Type 1 diabetes: On insulin pump, Patient input from pharmacy for glycemic control DISPOSITION : Antibiotic changed to to PO Doxycycline to day Patient continues to do well clinically Will be discharged home tomorrow 08/06/2018 (7) History of renal transplant: On immunosuppressant and prednisone Renal functional baseline (8) Status post nephrectomy: (9) History of renal cell carcinoma: Subjective Is an uneventful night, no fever chills, feels fine Appetite fair Functional status at baseline Able to walk to the bathroom with walker We will change antibiotic to p.o. doxycycline today Tomorrow if remains clinically stable Physical Exam Constitutional: WD/WN, vitals as above no acute distress Eyes: PERRL, conjunctivae normal, anicteric sclerae + anicteric sclerae ENMT: external ear and nose normal, oropharynx normal Neck: trachea midline, no thyromegaly Respiratory: normal respiratory effort, lungs clear to auscultation Cardiovascular: RRR, no murmur, no edema Gastrointestinal (Abdomen): normal bowel sounds, soft, nontender, no hepatosplenomegaly Musculoskeletal: Wound on left foot, and right toe, bandaged Neurologic: PERRL, EOMI, accommodation nl, no face palsy, no dysarthria Psychiatric: A+Ox3, euthymic affect Results & Data Vital Signs (Past 12 Hours) Vital Signs Temp Pulse Resp BP BP Pulse Ox 08/05/18 07:00 36.5 C 69 18 185/98 H 94 08/05/18 00:10 92 H 176/83 H 08/05/18 00:00 37.0 C 92 H 20 158/121 H 97 (1) Type 1 diabetes Diabetes mellitus complication status: with kidney complications Diabetes mellitus complication detail: with chronic kidney disease Chronic kidney disease stage: stage 3 (moderate) Qualified Code(s): E10.22 - Type 1 diabetes mellitus with diabetic chronic kidney disease; N18.3 - Chronic kidney disease, stage 3 (moderate)
[2018-08-05] MEDS: DOXYCYCLINE HYCLATE 100 MG CAP PO SCH ×2 (10:25→21:19)
[2018-08-05] MEDS: WARFARIN SOD 5 MG TAB PO SCH (16:30)
[2018-08-05] MEDS: ATORVASTATIN 40 MG TAB PO SCH (21:16)
[2018-08-05] MEDS: LORazepam 0.25 MG/0.5 ML VIAL IV PRN (22:46)
[2018-08-06] MEDS ORDERED: DOXYCYCLINE HYCLATE 100 MG CAP PO SCH
[2018-08-06] MEDS: DYMISTA~ORDER AWAITING ACTION SCH ×2 (00:34→08:16)
[2018-08-06] MEDS: ACETAMINOPHEN 325 MG TAB PO PRN (01:42)
[2018-08-06 06:38] LABS: INR 3.2 (0.9-1.1); Prothrombin Time 29.8 Seconds (9.0-12.0)
[2018-08-06 06:59] LABS: Est GFR (African American) 108.3; Est GFR (Non-African American) 93.5
[2018-08-06] MEDS: ASPIRIN 81 MG ECTAB PO SCH (08:09)
[2018-08-06] MEDS: ISOSORBIDE MONO EXTENDED REL 30 MG TABCR PO SCH (08:09)
[2018-08-06] MEDS: METOPROLOL TARTRATE 50 MG TAB PO SCH (08:10)
[2018-08-06] MEDS: MULTIVITAMIN TAB PO SCH (08:11)
[2018-08-06] MEDS: PREGABALIN 100 MG CAP PO SCH (08:11)
[2018-08-06] MEDS: cycloSPORINE 25 MG CAP PO SCH (08:12)
[2018-08-06] MEDS: predniSONE 5 MG TAB PO SCH (08:13)
[2018-08-06] MEDS: DOXYCYCLINE HYCLATE 100 MG CAP PO SCH (08:14)
[2018-08-06] MEDS: NovoLOG INSULIN PUMP SCH (08:21)
--- NOTE | 2018-08-06 14:15 | Hospitalist Progress Note ---
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 Status post calcaneal osteotomy and right first tarsometatarsal joint fusion. Hardware intact. 2. Diffuse right foot soft tissue swelling. No soft tissue gas. No abscess or CT evidence for osteomyelitis. 3. Extensive vascular calcifications. 4. Moderate mid foot osteoarthritis. Wound culture growing staph aureus Antibiotic was adjusted to IV vancomycin Wound care consulted, appreciate input Appreciate input from ID Changed antibiotic to PO Doxycycline -complete total 4 weeks of therapy ( presence of hardware in foot ) Follow-up with infectious disease Dr. Treviño in 4 to 6 weeks Stable to be discharged home today with oral antibiotics (2) Weakness: Symptom has resolved, activity at baseline able to be OOB walked with walker ( his baseline ) presented with generalized weakness, fatigue, secondary to dehydration, poor p.o. intake for past 1 week Due to left foot wound/cellulitis Appreciate input from PT OT, Stable to be discharged home with home PT Patient declines home physical therapy, home health visiting nurse Follows with wound clinic podiatry at [facility] Patient is activity back to baseline, stable to be discharged home (3) Nausea: Symptom has completely resolved Tolerating diet (4) Chronic atrial fibrillation: Rate controlled, Medical management Continue chronic anticoagulation Coumadin (5) DVT prophylaxis: On Coumadin (6) Type 1 diabetes: On insulin pump, Patient input from pharmacy for glycemic control DISPOSITION : Antibiotic changed to to PO Doxycycline Stable to be discharged home today (7) History of renal transplant: On immunosuppressant and prednisone Renal functional baseline (8) Status post nephrectomy: (9) History of renal cell carcinoma: Subjective Denies any discomfort no pain in left foot, no fever or chills Has been on oral doxycycline last 24 hours, Continues to improve Stable to be discharged home today Physical Exam Constitutional: WD/WN, vitals as above no acute distress Eyes: PERRL, conjunctivae normal, anicteric sclerae + anicteric sclerae ENMT: external ear and nose normal, oropharynx normal Neck: trachea midline, no thyromegaly Respiratory: normal respiratory effort, lungs clear to auscultation Cardiovascular: RRR, no murmur, no edema Gastrointestinal (Abdomen): normal bowel sounds, soft, nontender, no hepatosplenomegaly Neurologic: PERRL, EOMI, accommodation nl, no face palsy, no dysarthria Psychiatric: A+Ox3, euthymic affect Results & Data Vital Signs (Past 12 Hours) Vital Signs Temp Pulse Pulse Resp BP BP Pulse Ox 08/06/18 11:48 36.6 C 74 82 14 176/83 H 158/80 H 95 08/06/18 11:25 36.6 C 74 14 158/80 H 95 08/06/18 07:40 36.5 C 72 16 180/108 H 94 (1) Type 1 diabetes Chronic kidney disease stage: stage 3 (moderate) Diabetes mellitus complication detail: with chronic kidney disease Diabetes mellitus complication status: with kidney complications Qualified Code(s): E10.22 - Type 1 diabetes mellitus with diabetic chronic kidney disease; N18.3 - Chronic kidney disease, stage 3 (moderate)
--- NOTE | 2018-08-06 15:02 | Discharge Summary ---
Date of Service August 06, 2018 Admission HPI Per Admitting Provider History obtained from patient and records. Medical history significant for DM1 on insulin pump, CAD status post stent , A. fib on Coumadin, hypertension, chronic anemia baseline hemoglobin 13, hx kidney transplant on chronic immunosuppression regimen , history right kidney tumor status post nephrectomy (2007), history of skin cancer as per records. Recent confinement February 2018 for gastroenteritis. As per records, patient has had an open wound on the right foot since 2018. Three days ago, patient noted purulent drainage from chronic wound on the right foot associated with right foot pain and swelling. [place] [facility]. Open wound on the cellulitic right foot noted as per note. Debridement done in the office. No drainage as per records. Keflex prescription initiated. Patient noted pleuritic chest pain, shortness of breath, headache, nausea symptoms. Distress worse after first dose of Keflex medication as per patient. He felt confused. At the ER, patient received Zosyn for the infected wound on his foot. Patient currently feeling better. Patient chest pain, S OB, headache symptoms currently resolved. 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 Principal Diagnosis Diabetic foot wound Discharge Exam Constitutional WD/WN, vitals as above no acute distress Eyes PERRL, conjunctivae normal, anicteric sclerae + anicteric sclerae ENMT external ear and nose normal, oropharynx normal Neck trachea midline, no thyromegaly Respiratory normal respiratory effort, lungs clear to auscultation Cardiovascular RRR, no murmur, no edema Gastrointestinal (Abdomen) normal bowel sounds, soft, nontender, no hepatosplenomegaly Neurologic PERRL, EOMI, accommodation nl, no face palsy, no dysarthria Psychiatric A+Ox3, euthymic affect Discharge Data Allergies Allergy/AdvReac Type Severity Reaction Status Date / Time Uncoded Nonscreenable AdvReac Unknown MOST Uncoded 02/20/18 15:32 Allergen NARCOTICS CAUSE NAUSEA Consultations 08/01/18 22:34 ED Decision to Admit Stat 08/02/18 01:44 Consult Wound Care Provider Routine 08/02/18 09:02 Consult Case Management - Discharge Planning Routine 08/02/18 13:29 Consult Infectious Diseases Routine Ordered Studies 08/01/18 21:45 CT abd pelvis wo con Stat CT head/brain wo con Stat 08/03/18 01:23 CT foot RT wo con Urgent Hospital Course (1) Diabetic foot infection: 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 Status post calcaneal osteotomy and right first tarsometatarsal joint fusion. Hardware intact. 2. Diffuse right foot soft tissue swelling. No soft tissue gas. No abscess or CT evidence for osteomyelitis. 3. Extensive vascular calcifications. 4. Moderate mid foot osteoarthritis. Wound culture growing staph aureus Antibiotic was adjusted to IV vancomycin Wound care consulted, appreciate input Appreciate input from ID Changed antibiotic to PO Doxycycline -complete total 4 weeks of therapy ( presence of hardware in foot ) Follow-up with infectious disease Dr. Treviño in 4 to 6 weeks Stable to be discharged home today with oral antibiotics (2) Weakness: Symptom has resolved, activity at baseline able to be OOB walked with walker ( his baseline ) presented with generalized weakness, fatigue, secondary to dehydration, poor p.o. intake for past 1 week Due to left foot wound/cellulitis Appreciate input from PT OT, Stable to be discharged home with home PT Patient declines home physical therapy, home health visiting nurse Follows with wound clinic podiatry at [facility] Patient is activity back to baseline, stable to be discharged home (3) Nausea: Symptom has completely resolved Tolerating diet (4) Chronic atrial fibrillation: Rate controlled, Medical management Continue chronic anticoagulation Coumadin (5) DVT prophylaxis: On Coumadin (6) Type 1 diabetes: On insulin pump, Patient input from pharmacy for glycemic control DISPOSITION : Antibiotic changed to to PO Doxycycline Stable to be discharged home today (7) History of renal transplant: On immunosuppressant and prednisone Renal functional baseline (8) Status post nephrectomy: (9) History of renal cell carcinoma: Total Time Total Time Spent Total Time Spent (In Minutes): Approximately 45 minutes Total Time Includes: Examination of the Patient, Discharge Planning and Medication Reconciliation Discharge Plan Discharge Items Patient Disposition: Home - Home Health Services Reason For Visit: DM FOOT INFECTION Discharge Diagnosis: Diabetic foot infection Discharge Goals: Decrease discomfort and Therapeutic intervention Activity: As commented below Activity Comment: As tolerated/Offloading on left foot Weightbearing: Left non-weightbearing Non-emergency contact: Primary Care Provider Call non-emergency contact if: you have any medication questions Follow-up/Referrals: Clarita Treviño DO [Physician] - Diet: Carb Consistent or DM2 and Heart Healthy Addtl Provider Instructions: Hospital follow-up with Dr. Rebekah Baires on 08/10/2018 at 10 AM at [facility] Podiatry follow-up with Dr. Marly Kyle on 08/11/2018 at 10:45 AM at [facility] Follow-up with infectious disease Dr. Treviño in 4 to 6 weeks Wound care discharge instructions Left third toepaint with Betadine daily Right lateral footapply Kaltostat, cover with OptiForm, changed every other day and as needed for increased saturation Prescriptions: New doxycycline hyclate 100 mg Capsule 100 mg PO BID 28 Days Qty: 56 RF: 0 Continued multivitamin Tablet 1 tab PO QAM RF: 0 cyclobenzaprine 10 mg Tablet 10 mg PO HS PRN (Reason: Muscle Spasm) RF: 0 atorvastatin 40 mg Tablet 40 mg PO PM RF: 0 isosorbide mononitrate 30 mg Tablet Extended Release 24 Hr 30 mg PO QAM RF: 0 prednisone 5 mg Tablet 5 mg PO QAM RF: 0 aspirin [Aspir-81] 81 mg Tablet,Delayed Release (Dr/Ec) 81 mg PO QAM RF: 0 Novolog U-100 Insulin aspart 100 unit/mL Solution SUBCUT CONTINOUS RF: 0 warfarin [Coumadin] 5 mg Tablet 2.5 mg PO SUTUTHSA RF: 0 warfarin [Coumadin] 5 mg Tablet 5 mg PO MOWEFR RF: 0 metoprolol tartrate 50 mg Tablet 50 mg PO QPM RF: 0 metoprolol tartrate 50 mg Tablet 75 mg PO QAM RF: 0 Lyrica 100 mg Capsule 100 mg PO TID RF: 0 azelastine-fluticasone 137-50 mcg/spray [place],Non-Aerosol 2 spray INTRANASAL BID RF: 0 cyclosporine modified 25 mg capsule 2 tab PO BID RF: 0 silver sulfadiazine 1 % Cream 1 applic TOPICAL DAILY RF: 0 benzonatate 100 mg Capsule 100 mg PO TID PRN (Reason: Cough) RF: 0 sodium chloride [Saline Nasal] 0.65 % Aerosol,[place] 1 spray INTRANASAL BID PRN (Reason: nasal dryness/congestion) RF: 0 sennosides [senna] 8.6 mg Tablet 8.6 mg PO DIRECTED PRN (Reason: Constipation) RF: 0 docusate sodium [Stool Softener] 100 mg Capsule 100 mg PO DAILY PRN (Reason: Constipation) RF: 0 acetaminophen [Tylenol] 325 mg Tablet 325 mg PO DIRECTED PRN (Reason: pain/fever) RF: 0 ascorbic acid (vitamin C) [Vitamin C] 500 mg Tablet 500 mg PO DAILY RF: 0 Oscal 1 tab PO BID RF: 0 Discontinued cephalexin [Keflex] 500 mg Capsule 500 mg PO TID RF: 0 Stand-Alone Forms: [facility] Discharge Orders: Discharge Order (Routine); Ordered 08/06/18 Ordered By: Mandi Wolfe Admission Data Admit Date/Time: 08/02/18 00:44 Attending Provider: Mandi Wolfe Admit Provider: Vinayak Boone Primary Care Provider: Tristan Bedolla Other Providers: Vinayak Boone ; Rina Rich Evan T. Service: Medical Other Interventions: Discharge Summary Assessment (RN) Last Done: 08/06/18 11:48 DC Date/Time DO NOT enter until pt leaves facility: 08/06/18 13:20
== END 2018-08-06 13:20 | disposition home health service (06) | DRG 638 ==
LOC: ED 20:25 → 4E 08-02 00:44 → SUATTDRO 08-02 00:44 → 4E 08-02 01:22

== ENCOUNTER 2019-04-29 10:09 | Inpatient (IN) ==
[2019-04-29] MEDS ORDERED: SODIUM CHLORIDE 0.9% 500 ML IV SCH (11:00)
[2019-04-29 11:11] LABS: Basophils # (auto) 0.02 K/uL (0-0.2); Basophils % (auto) 0.3 %; Eosinophils # (auto) 0.11 K/uL (0-0.5); Eosinophils % (auto) 1.7 %; Hemoglobin 12.2 g/dL (14.0-18.0); Immature Granulocytes # (auto) 0.04 K/uL (0.00-0.02); Immature Granulocytes % (auto) 0.6 %; Lymphocytes # (auto) 0.94 K/uL (1.2-3.4); Lymphocytes % (auto) 14.4 %; Mean Corpuscular Hemoglobin 35.9 pg (25-34); Mean Corpuscular Hgb Conc 34.9 g/dL (32-36); Mean Corpuscular Volume 102.9 fL (80-100); Mean Platelet Volume 13.7 fL (7.4-10.4); Monocytes # (auto) 0.77 K/uL (0.11-0.59); Monocytes % (auto) 11.8 %; Neutrophils # (auto) 4.65 K/uL (1.4-6.5); Neutrophils % (auto) 71.2 %; Platelet Count 257 K/uL (130-400); RDW Coefficient of Variation 14.6 % (11.5-14.5); RDW Standard Deviation 55.1 fL (36.4-46.3); White Blood Count 6.53 K/uL (4.8-10.8)
[2019-04-29 11:22] LABS: INR 1.2 (0.9-1.1); Partial Thromboplastin Ratio 1.1; Partial Thromboplastin Time 29.4 Seconds (21.0-31.0); Prothrombin Time 12.8 Seconds (9.0-12.0)
--- NOTE | 2019-04-29 11:24 | XRay Report ---
XR chest 1V portable CLINICAL HISTORY: 69 years-old Male presenting with Chest Pain. TECHNIQUE: Portable upright AP view of the chest was obtained. COMPARISON: 08/01/2018. FINDINGS: Atherosclerosis of the aortic arch. Cardiac silhouette enlarged. Bibasilar opacities greater on the r ight. Small bilateral pleural effusions. No pneumothorax. Degenerative changes of the thoracic spine. Posterior cervical fusion hardware noted. Degenerative changes of the right AC joint. IMPRESSION: 1. Small bilateral layering pleural effusions with suspected extensive bibasilar passive atelectasis . Underlying consolidation not excluded. 2. Cardiomegaly. No significant volume overload or advanced congestive change. ACT 112: Negative or not required by law. Electronically signed by: Jose Gee M.D. 04/29/2019 11:23 AM
[2019-04-29 11:43] LABS: Albumin Globulin Ratio 0.8 (0.9-2); Albumin Level 2.8 gm/dl (3.4-5.0); Bilirubin,Total 0.9 mg/dl (0.2-1); Calcium 8.6 mg/dl (8.5-10.1); Creatinine Clr Calc Pharmacy 77.1 ml/min; Est GFR (Non-African American) 66.5; Globulin 3.4 gm/dl (2.5-4.0); Magnesium 1.7 mg/dl (1.8-2.4); Phosphorus 1.3 mg/dl (2.5-4.9); Potassium 4.1 mmol/L (3.5-5.1); Thyroid Stimulating Hormone 1.23 uIu/ml (0.300-4.500); Total Protein 6.2 gm/dl (6.4-8.2); Troponin I 0.075 ng/ml (0-0.045)
[2019-04-29 11:52] LABS: Beta-Hydroxybutyrate 15.48 mg/dl (0.2-2.81)
[2019-04-29] MEDS ORDERED: POTASSIUM PHOS 3 MMOL/1 ML INFUSION IV STA ×2 (12:02→14:35)
[2019-04-29] MEDS ORDERED: MAGNESIUM SULFATE / D5W 1 GM/100 ML BAG IV ONE (12:02)
[2019-04-29] MEDS ORDERED: INSULIN GLARGINE SOLOSTAR 100 UNITS/ML 3 ML PEN SC STA (12:25)
[2019-04-29] MEDS ORDERED: INSULIN ASPART PER UNIT SC STA (12:26)
[2019-04-29] MEDS ORDERED: POTASSIUM PHOSPHATE 9 MMOL in SODIUM CHLORIDE 0.9% 250 ML IV ONE (12:30)
--- NOTE | 2019-04-29 13:07 | History & Physical Report ---
Date of Service April 29, 2019 Assessment & Plan (1) Metabolic encephalopathy: Likely a combination of hyperglycemia, and electrolyte abnormalities in postoperative state. See below for plans. (2) Hyperglycemia due to type 1 diabetes mellitus: Secondary to insulin noncompliance after pump malfunction. Consulted glycemic pharmacist for assistance with management. Basal bolus insulin as they determine based on current insulin pump rates and current blood sugar. Glargine and NovoLog was administered already in the ER. We will continue blood sugar checks regularly. Continue type I diabetic diet while in hospital. (3) Hyperosmolar hyponatremia: Pseudohyponatremia with correction to 139 after taking into account hyperglycemia. (4) Elevated troponin: Likely a demand ischemia, however, the patient does have cardiac disease and recently underwent a surgery. He denies any chest pain at this time and denies shortness of breath. Will order echo to ensure no acute wall motion abnormalities and will trend troponins x2. (5) Acute urinary retention: Stack catheter placed after recent surgery for acute urinary retention. We will keep the Stack in place today while he is more somnolent and will plan on trial of void tomorrow. (6) Hypophosphatemia: Replace with an additional 15 mmol after arriving on the floor. 9 mmol were given in the ER. Repeat phosphorus level in a.m. It is noted the patient is a renal transplant patient, and they can be at risk for hypophosphatemia. (7) Hypomagnesemia: Given 1 g of magnesium IV in the ER. Will repeat in a.m. (8) Atrial fibrillation: Chronic long-term atrial fibrillation with normal heart rate. We will plan to continue metoprolol for rate control and Coumadin for stroke prophylaxis. (9) H/O heart artery stent: Continue medical management of known CAD with metoprolol, Imdur, atorvastatin 40 mg daily, aspirin 81 mg daily. (10) History of renal transplant: Continue daily prednisone and cyclosporine per home regimen. (11) History of renal cell carcinoma: History of renal cell cancer status post nephrectomy after renal transplant. Currently in remission. Plan per outpatient oncology (12) DVT prophylaxis: Coumadin Full code Disposition-to PCU Paula Canales DO [facility] Hospitalist History of Present Illness Chief Complaint: Fatigue, intermittent confusion Primary Care Provider: Tristan Bedolla DO The patient is a 69-year-old man who was recently admitted to [facility] for an elective lumbar spinal surgery. He was discharged on Wednesday, 04/24 to home. He is a type I diabetic who is on an insulin pump. During the transition of turning on his pump at time of discharge there was a malfunction in the pump settings. Therefore, the patient was using NovoLog bolus insulin to help his ever-increasing hyperglycemia, which was ineffective. He presented with a blood sugar in the 400s today and is considerably more weak, somnolent and per , there is some intermittent confusion. He is oriented and clear mentally during my interview today but is fatigued. The majority the interview was spent with his eyes closed. He is able to follow instructions. Work-up in the ER also revealed hypophosphatemia. The patient is a notable renal transplant patient. Magnesium was also found to be low. Some replacement for potassium, phosphorus, magnesium was given in the ER and basal and bolus insulin was also administered. The pharmacist is involved with management of insulin in the hospital. Review of systems was otherwise negative including no chest pain, shortness of breath, changes in bowels or other issues. The patient notably has a Stack catheter in place and he was discharged with this after acute urinary retention postoperatively. We discussed that for now we will leave this in place as he is somnolent and not moving around easily. However, tomorrow we will do a trial of void. Allergies Allergy/AdvReac Type Severity Reaction Status Date / Time Uncoded Nonscreenable AdvReac Unknown MOST Uncoded 02/20/18 15:32 Allergen NARCOTICS CAUSE NAUSEA Home Medications Home Medications Medication Instructions Recorded Confirmed Type aspirin [Aspir-81] 81 mg PO QAM 02/20/18 04/29/19 History atorvastatin 40 mg PO PM 02/20/18 04/29/19 History azelastine-fluticasone 2 spray INTRANASAL BID 02/20/18 04/29/19 History cyclobenzaprine 10 mg PO HS PRN 02/20/18 04/29/19 History cyclosporine modified 2 tab PO BID 02/20/18 04/29/19 History insulin aspart U-100 [Novolog 0 unit SUBCUT CONTINOUS 02/20/18 04/29/19 History U-100 Insulin aspart] isosorbide mononitrate 30 mg PO QAM 02/20/18 04/29/19 History metoprolol tartrate 50 mg PO QPM 02/20/18 04/29/19 History metoprolol tartrate 75 mg PO QAM 02/20/18 04/29/19 History multivitamin 1 tab PO QAM 02/20/18 04/29/19 History prednisone 5 mg PO QAM 02/20/18 04/29/19 History pregabalin [Lyrica] 100 mg PO TID 02/20/18 04/29/19 History warfarin [Coumadin] 2.5 mg PO SUTUTHSA 02/20/18 04/29/19 History warfarin [Coumadin] 5 mg PO MOWEFR 02/20/18 04/29/19 History Oscal 1 tab PO BID 08/01/18 04/29/19 History acetaminophen [Tylenol] 325 mg PO DIRECTED PRN 08/01/18 04/29/19 History ascorbic acid (vitamin C) [Vitamin 500 mg PO DAILY 08/01/18 04/29/19 History C] benzonatate 100 mg PO TID PRN 08/01/18 04/29/19 History docusate sodium [Stool Softener] 100 mg PO DAILY PRN 08/01/18 04/29/19 History sennosides [senna] 8.6 mg PO DIRECTED PRN 08/01/18 04/29/19 History silver sulfadiazine 1 applic TOPICAL DAILY 08/01/18 04/29/19 History sodium chloride [Saline Nasal] 1 spray INTRANASAL BID PRN 08/01/18 04/29/19 History Past Med/Surg History Medical History (Updated 04/29/19 @ 14:31 by Paula Canales DO) Abscess of forearm, right (Resolved) Anticoagulated on Coumadin (Acute) Atrial fibrillation (Chronic) Cellulitis (Resolved 01/24/14) Coronary artery disease (Chronic) Diabetic neuropathy (Chronic) Diabetic retinopathy (Chronic) History of renal cell carcinoma (Chronic) on Natural R kidney, s/p nephrectomy in 2006 HLD (hyperlipidemia) (Chronic) HTN (hypertension) (Chronic) Osteoporosis (Chronic) Pneumonia (Resolved) Type 1 diabetes (Chronic) Surgical History (Updated 04/29/19 @ 14:11 by Paula Canales DO) H/O heart artery stent 03/09/01 RCA 2008 BMS x 2 to Cx 2010 UMM to mid-distal RCA History of arthrodesis to great toe History of cardioversion History of cataract extraction History of cervical spinal surgery x 3 History of lumbar surgery x 8 History of renal transplant (Chronic) "hx of ESRD due to diabetic nephropathy s/p living related donor from sister in [address] [place] [address] Menon. Developed rejection in the first month and required high dose immunosuppression. Performed biopsy of the kidney. No further rejections since then. Currently on neoral 50mg po bid and 5mg of pr ednisone." per Dr. [facility] records Status post nephrectomy (Chronic) "for renal cell Ca" Family History Mother Stroke T1DM (type 1 diabetes mellitus) Father Melanoma Myocardial infarction Social History Preferred Language: Turkmen Communication Ability: lethargic Visual Impairment: No Limitations Hearing Ability: Normal Yard Operator Required: No Beliefs That Will Affect Care: None marital status: Current Living Situation: Spouse Other Information That Helps Us Care for You: No Feels Safe at Home: Yes Safety Concerns: Feels Safe At This Time Smoking Status: Never smoker Do You Dip or Chew Tobacco: No ; Second Hand Exposure: No ; Tobacco Cessation Education Requested by Patient: No Hx Alcohol Use: Yes Alcohol type: beer Hx Substance Use: No Review of Systems Review of Systems: All systems reviewed & are unremarkable except as noted in HPI & below Physical Exam Physical Exam: CONSTITUTIONAL: WNWD, vitals as above, generally well- appearing but somnolent EYES: EOMI bilaterally, PERRL, normal conjunctivae, no scleral icterus ENT: external ear and nose normal, oropharynx clear, MMM RESPIRATORY: clear to auscultation bilaterally, no crackles, rales or wheezes, normal respiratory effort CARDIOVASCULAR: regular rate and rhythm, S1 and 2 heard without murmurs, gallops or rubs, no JVD, no peripheral edema GASTROINTESTINAL: soft, nontender, nondistended MUSCULOSKELETAL: strength 5/5 throughout, head is normocephalic and atraumatic, lumbar spine incision is closed and appears to be healing well. No surrounding erythema is present. SKIN: warm and dry, wound as above. NEUROLOGIC: CN 2-12 grossly intact, no sensory deficit, somnolent, normal speech, finger to nose coordination testing is somewhat off today. PSYCHIATRIC: alert cooperative and oriented to person, place and time. Results & Data Vital Signs (Past 12 Hours) Vital Signs Temp Pulse Pulse Resp BP BP Pulse Ox 04/29/19 12:22 83 14 166/88 H 96 04/29/19 11:52 94 04/29/19 11:33 102 H 20 170/87 H 94 04/29/19 10:15 36.7 C 117 H 20 169/99 H 95 Laboratory Results Short CBC 04/29/19 Range/Units 10:15 WBC 6.53 (4.8-10.8) K/uL Hgb 12.2 L (14.0-18.0) g/dL Hct 35.0 L (42-52) % Plt Count 257 (130-400) K/uL BMP 04/29/19 10:15 Sodium 130 L Potassium 4.1 Chloride 96 L Carbon Dioxide 27 BUN 21 H Creatinine 1.11 Glucose 427 H* Calcium 8.6 Cardiac Enzymes 04/29/19 Range/Units 10:15 Troponin I 0.075 H* (0-0.045) ng/ml Liver Function 04/29/19 Range/Units 10:15 Total Bilirubin 0.9 (0.2-1) mg/dl AST 53 H (15-37) U/L ALT 35 (12-78) U/L Alkaline Phosphatase 89 (45-117) U/L Albumin 2.8 L (3.4-5.0) gm/dl Diagnostic Findings XR chest 1V portable CLINICAL HISTORY: 69 years-old Male presenting with Chest Pain. FINDINGS: Atherosclerosis of the aortic arch. Cardiac silhouette enlarged. Bibasilar opacities greater on the right. Small bilateral pleural effusions. No pneumothorax. Degenerative changes of the thoracic spine. Posterior cervical fusion hardware noted. Degenerative changes of the right AC joint. IMPRESSION: 1. Small bilateral layering pleural effusions with suspected extensive bibasilar passive atelectasis. Underlying consolidation not excluded. 2. Cardiomegaly. No significant volume overload or advanced congestive change. Medications Administered Insulin 5 units subcutaneous Insulin glargine 14 units subcutaneous Potassium phosphate 9 mmol Magnesium 1 g IV Sodium chloride 500 cc Code Status & VTE Plan Code Status full code Critical Care Time Critical Care Time: No (1) Atrial fibrillation Atrial fibrillation type: unspecified Qualified Code(s): I48.91 - Unspecified atrial fibrillation
[2019-04-29] MEDS ORDERED: ACETAMINOPHEN 500 MG TAB PO STA (14:06)
[2019-04-29] MEDS ORDERED: ACETAMINOPHEN 325 MG TAB PO PRN (14:35)
[2019-04-29] MEDS ORDERED: POLYETHYLENE (MIRALAX) 17 GM PACK PO PRN (14:35)
[2019-04-29] MEDS ORDERED: ONDANSETRON INJ 2 MG/ML 2 ML VIAL IV PRN (14:35)
[2019-04-29] MEDS ORDERED: PHARMACY GLYCEMIC MGMT CONSULT PRN (14:37)
--- NOTE | 2019-04-29 14:56 | Pharmacy Report ---
Glycemic Control Consultation - Date of Service April 29, 2019 - Scope Scope: Glycemic Pharmacist consulted for glycemic control and to write orders per [facility] inpatient glycemic control protocol. - Objective Weight: 100 kg Accuchecks BSG (last 24hrs): 04/29/19 10:15 Glucose 427 H* Laboratory Data (last 24hrs): 04/29/19 10:15 Potassium 4.1 Carbon Dioxide 27 Anion Gap 8.0 Creatinine 1.11 Est Cr Clr Drug Dosing 77.1 Beta-Hydroxybutyric Acd 15.48 H - Recent Pertinent Medications Outpatient Anti-diabetic Regimen: * Insulin pump: Sensitivity factor: 55, CR 26. Goal range: 118-130mg/dL. basal rate: 17u/D - Assessment & Plan Assessment & Plan: ASSESSMENT: * Pt is a 69yo M type I diabetic with unknown outpt glycemic control. PMHx consistent with renal tx, AF, among others. He pw fatigue/altered mentation. Per review of his chart, his pump has malfunctioned after a hospital stay at [facility]. BSG in the ED is 427mg/dL, accompanied by e-lyte abnormalities. Of note: there is no AG acidosis. Bicarbonate is WNL. Serum ketones are elevated. Given that his bicarbonate is WNL and absence of AG acidosis we can try to control his BSGs with basal/bolus insulin. * I would encourage a CDE consult PLAN FOR INPATIENT GLYCEMIC CONTROL: * Basal insulin * Lantus 14u X1 given in the ED, this is 80% of his daily requirement. Per review of his chart, his PO intake decreases while hospitalized * Bolus insulin * NovoLog per scale ACHS or Q6hrs while NPO * Goal Range: Low 120 mg/dL - High 160 mg/dL * Correction Factor: 25 mg/dL/unit * Nutritional / Prandial insulin per carb ratio of 1 unit per 8 grams CHO consumed * will add overnight checks * Please note that the plan above was derived based on current level of insulin resistance and hospital stress. These recommendations are appropriate for i npatient admission only. Plan of care upon discharge will need to be reassessed to avoid potential outpatient hypo/hyperglycemia. Thank you.
[2019-04-29] MEDS ORDERED: INSULIN ASPART 100 UNITS/ML 3 ML PEN SC STA (14:58)
[2019-04-29] MEDS ORDERED: POTASSIUM PHOSPHATE 15 MMOL in SODIUM CHLORIDE 0.9% 250 ML IV ONE (15:00)
[2019-04-29] MEDS ORDERED: LABETALOL HCL IV 5 MG/ML 20ML IV STA (15:19)
[2019-04-29] MEDS ORDERED: GLUCAGON FOR INJ 1 MG VIAL SQ PRN (15:23)
[2019-04-29] MEDS ORDERED: DEXTROSE 50% 50 ML SYRINGE IV PRN (15:23)
[2019-04-29] MEDS ORDERED: GLUCOSE 10 TABS/TUBE PO PRN (15:23)
[2019-04-29] MEDS ORDERED: CARBOHYDRATES FOR HYPOGLYCEMIA PO PRN (15:23)
[2019-04-29] MEDS ORDERED: GLUCOSE 40% GEL 15 GM TUBE PO PRN (15:23)
[2019-04-29] MEDS ORDERED: SENNA 8.6 MG TAB PO PRN (15:44)
[2019-04-29] MEDS ORDERED: SODIUM CHLORIDE 0.65% NA SOLN 45 ML (OCEAN) NAE PRN (15:44)
[2019-04-29] MEDS ORDERED: DOCUSATE SODIUM 100 MG CAP PO PRN (15:44)
[2019-04-29] MEDS ORDERED: INSULIN ASPART 100 UNITS/ML 3 ML PEN SC SCH (16:30)
[2019-04-29] MEDS ORDERED: WARFARIN SOD 2.5 MG TAB PO SCH (16:30)
[2019-04-29] MEDS ORDERED: OXYCODONE HCL IR 5 MG TAB (IMMEDIATE RELEASE) PO PRN (16:33)
[2019-04-29] MEDS ORDERED: CYCLOBENZAPRINE HCL 10 MG TAB PO PRN (16:35)
[2019-04-29] MEDS: INSULIN ASPART 100 UNITS/ML 3 ML PEN SC SCH ×2 (17:17→22:34)
[2019-04-29] MEDS: POLYETHYLENE (MIRALAX) 17 GM PACK PO SCH (17:17)
[2019-04-29] MEDS ORDERED: LABETALOL HCL IV 5 MG/ML 20ML IV ONE ×2 (17:37→17:41)
--- NOTE | 2019-04-29 17:47 | Emergency Department Note ---
Entered by Madonna Zapata acting as a scribe for History of Present Illness General Chief complaint: Hyperglycemia Stated complaint: hyperglycemia, lethergic Time Seen by Provider: 04/29/19 10:33 Source: patient and family () History of Present Illness Onset (ago): day(s) 4 Location: upper extremity and lower extremity Pain Consistency: + other (episode) Maximum Pain Intensity: 6 Quality: + other (hyperglycemia) Associated symptoms: + other (Positive lethargy, blood sugar of 500. ) The patient is a 69 year old male who presents to the ED with complaints of hyperglycemia. He has a hx of a kidney transplant and DM Type 1. 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 He is accompanied by his family who reports that the patient has been lethargic at home and his sugar was over 500. The patient states he has "not been receiving his basal insulin because his pump was not working." He reports his blood sugar is elevated because he is "aggravated being at the ED." He notes he does not normally wear oxygen. He is accompanied by his who reports since being discharged, the patient has been unable to walk due to his weakness. His reports she brought the patient's insulin pump to get checked by a doctor and it was working properly. His states the patient has been confused, so she took him off the insulin pump yesterday and has been administering insulin via syringes. She notes she h as not been using long acting insulin. Home Medications Home Medications Medication Instructions Recorded Confirmed Type aspirin [Aspir-81] 81 mg PO QAM 02/20/18 04/29/19 History atorvastatin 40 mg PO PM 02/20/18 04/29/19 History azelastine-fluticasone 2 spray INTRANASAL BID 02/20/18 04/29/19 History cyclobenzaprine 10 mg PO HS PRN 02/20/18 04/29/19 History cyclosporine modified 2 tab PO BID 02/20/18 04/29/19 History insulin aspart U-100 [Novolog 0 unit SUBCUT CONTINOUS 02/20/18 04/29/19 History U-100 Insulin aspart] isosorbide mononitrate 30 mg PO QAM 02/20/18 04/29/19 History metoprolol tartrate 50 mg PO QPM 02/20/18 04/29/19 History metoprolol tartrate 75 mg PO QAM 02/20/18 04/29/19 History multivitamin 1 tab PO QAM 02/20/18 04/29/19 History prednisone 5 mg PO QAM 02/20/18 04/29/19 History pregabalin [Lyrica] 100 mg PO TID 02/20/18 04/29/19 History warfarin [Coumadin] 2.5 mg PO SUTUTHSA 02/20/18 04/29/19 History warfarin [Coumadin] 5 mg PO MOWEFR 02/20/18 04/29/19 History Oscal 1 tab PO BID 08/01/18 04/29/19 History acetaminophen [Tylenol] 325 mg PO DIRECTED PRN 08/01/18 04/29/19 History ascorbic acid (vitamin C) [Vitamin 500 mg PO DAILY 08/01/18 04/29/19 History C] benzonatate 100 mg PO TID PRN 08/01/18 04/29/19 History docusate sodium [Stool Softener] 100 mg PO DAILY PRN 08/01/18 04/29/19 History sennosides [senna] 8.6 mg PO DIRECTED PRN 08/01/18 04/29/19 History silver sulfadiazine 1 applic TOPICAL DAILY 08/01/18 04/29/19 History sodium chloride [Saline Nasal] 1 spray INTRANASAL BID PRN 08/01/18 04/29/19 History oxycodone 5 mg PO Q8 PRN 04/29/19 04/29/19 History Allergies Allergy/AdvReac Type Severity Reaction Status Date / Time Uncoded Nonscreenable AdvReac Unknown MOST Uncoded 02/20/18 15:32 Allergen NARCOTICS CAUSE NAUSEA Past Med/Surg History Medical History Abscess of forearm, right (Resolved) Anticoagulated on Coumadin (Acute) Atrial fibrillation (Chronic) Cellulitis (Resolved 01/24/14) Coronary artery disease (Chronic) Diabetic neuropathy (Chronic) Diabetic retinopathy (Chronic) History of renal cell carcinoma (Chronic) on Natural R kidney, s/p nephrectomy in 2006 HLD (hyperlipidemia) (Chronic) HTN (hypertension) (Chronic) Osteoporosis (Chronic) Pneumonia (Resolved) Type 1 diabetes (Chronic) Surgical History H/O heart artery stent 03/09/01 RCA 2009 BMS x 2 to Cx 2011 UMM to mid-distal RCA History of arthrodesis to great toe History of cardioversion History of cataract extraction History of cervical spinal surgery x 3 History of lumbar surgery x 8 History of renal transplant (Chronic) "hx of ESRD due to diabetic nephropathy s/p living related donor from sister in 1992 in [place] [address] Dr. Menon. Developed rejection in the first month and required high dose immunosuppression. Performed biopsy of the kidney. No fu rther rejections since then. Currently on neoral 50mg po bid and 5mg of prednisone." per Dr. 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 and A total of 10 systems reviewed and were otherwise negative Physical Exam Vital Signs Vital Signs - 24 hr 04/29/19 10:15 04/29/19 11:33 04/29/19 11:52 Temperature 36.7 C Temperature Source Oral Pulse Rate 117 H Pulse Rate [Apical] 102 H Respiratory Rate 20 20 Respiratory Effort / Characteristics Blood Pressure 169/99 H Blood Pressure [Right Arm] 170/87 H Blood Pressure Mean 122 Blood Pressure Mean [Right Arm] 114 Blood Pressure Position [Right Arm] Pulse Oximetry 95 94 94 Oxygen Delivery Method Room Air Room Air Room Air Sepsis Recent Fever Within 48 Hours No Sepsis New/Unexplained Change in Mental Status No Sepsis Action Taken by Nursing No Action Required 04/29/19 12:22 Temperature Temperature Source Pulse Rate Pulse Rate [Apical] 83 Respiratory Rate 14 Respiratory Effort / Characteristics Non-Labored Spontaneous Blood Pressure Blood Pressure [Right Arm] 166/88 H Blood Pressure Mean Blood Pressure Mean [Right Arm] 114 Blood Pressure Position [Right Arm] Lying Pulse Oximetry 96 Oxygen Delivery Method Room Air Sepsis Recent Fever Within 48 Hours Sepsis New/Unexplained Change in Mental Status Sepsis Action Taken by Nursing GENERAL: Awake, alert, drowsy-appearing, in no distress HENT: Normocephalic, atraumatic. Oropharynx with dry mucous membranes and otherwise unremarkable. EYES: Normal conjunctiva. Sclera non-icteric. NECK: Supple. No nuchal rigidity. FROM. No JVD. RESPIRATORY: CTAB CARDIAC: Irregular rate, normal rhythm. Extremities warm and well perfused. Pulses equal. ABDOMEN: Soft, non-distended. No tenderness to palpation. No rebound or g uarding. No masses. RECTAL: Deferred. MUSCULOSKELETAL: Chest examination reveals no tenderness. The back is symmetrical on inspection without obvious abnormality. There is no CVA tenderness to palpation. No joint edema. LOWER EXTREMITIES: Calves are equal size bilaterally and non-tender. No edema. N o discoloration. NEURO: Normal sensorium. No sensory or motor deficits noted. 5/5 strength and SILT x4 extremities. SKIN: No rash or jaundice noted. Course Course 1058: Past medical records reviewed. The patient was evaluated in room B11. A complete history and physical exam was performed. 1242: Discussed the patient's case with Dr. Canales, [facility] Hospitalist. The patient will be evaluated for further management. Administered Medications Acetaminophen (Tylenol) 650 mg PO Q4H PRN PRN Reason: Pain or Fever Stop: 05/29/19 14:34 Last Admin: 04/29/19 20:16 Dose: 650 mg Documented by: [id number] Cyclobenzaprine HCl (Flexeril) 10 mg PO HS PRN PRN Reason: MUSCLE SPASM Stop: 05/29/19 16:34 Last Admin: 04/29/19 20:16 Dose: 10 mg Documented by: [id number] Cyclosporine (Neoral) 50 mg PO BID SARIAH Stop: 05/29/19 20:59 Last Admin: 04/29/19 20:17 Dose: 50 mg Documented by: [id number] Insulin Aspart (Novolog Flexpen) 0 units SC ACHS SARIAH Stop: 05/29/19 16:29 Last Admin: 04/29/19 17:17 Dose: 6 units Documented by: [id number] Cosigned by: [id number] Metoprolol Tartrate (Lopressor) 50 mg PO QPM SARIAH Stop: 05/29/19 20:59 Last Admin: 04/29/19 20:17 Dose: 50 mg Documented by: [id number] Oxycodone HCl (Roxicodone Immediate Rel) 5 mg PO Q8 PRN PRN Reason: Pain Stop: 05/13/19 16:32 Last Admin: 04/29/19 17:15 Dose: 5 mg Documented by: [id number] Polyethylene Glycol (Miralax Powder Packet) 17 gm PO [id number] SARIAH Stop: 05/29/19 16:59 Last Admin: 04/29/19 17:17 Dose: 17 gm Documented by: [id number] Pregabalin (Lyrica) 100 mg PO TID SARIAH Stop: 05/29/19 20:59 Last Admin: 04/29/19 20:18 Dose: 100 mg Documented by: [id number] Warfarin Sodium (Coumadin) 2.5 mg PO [id number] [facility] Stop: 05/29/19 16:29 Last Admin: 04/29/19 17:13 Dose: 2.5 mg Documented by: [id number] Discontinued Medications Acetaminophen (Tylenol) 1,000 mg PO NOW STA Stop: 04/29/19 14:07 Last Admin: 04/29/19 15:12 Dose: 1,000 mg Documented by: [id number] Sodium Chloride (Nss) 500 mls @ 999 mls/hr IV .Q31M SARIAH Stop: 04/29/19 11:30 Last Infusion: 04/29/19 12:13 Dose: 0 mls/hr Documented by: [id number] Admin: 04/29/19 11:35 Dose: 999 mls/hr Documented by: [id number] Magnesium Sulfate/Dextrose (Magnesium Sulfate / D5w) 1 gm in 100 mls @ 100 mls/hr IV ONE ONE Stop: 04/29/19 13:01 Last Infusion: 04/29/19 14:38 Dose: 0 mls/hr Documented by: [id number] Admin: 04/29/19 12:18 Dose: 100 mls/hr Documented by: [id number] Potassium Phosphate 9 mmol/ (Sodium Chloride) 253 mls @ 125 mls/hr IV 1230 ONE Stop: 04/29/19 14:31 Last Infusion: 04/29/19 14:38 Dose: 0 mls/hr Documented by: [id number] Admin: 04/29/19 12:29 Dose: 125 mls/hr Documented by: [id number] Potassium Phosphate 15 mmol/ (Sodium Chloride) 255 mls @ 88 mls/hr IV ONE ONE Stop: 04/29/19 17:53 Last Infusion: 04/29/19 18:35 Dose: 0 mls/hr Documented by: [id number] Admin: 04/29/19 15:09 Dose: 88 mls/hr Documented by: [id number] Insulin Aspart (Novolog Per Unit) 5 units SC NOW STA Stop: 04/29/19 12:27 Last Admin: 04/29/19 13:05 Dose: 5 units Documented by: [id number] Cosigned by: [id number] Insulin Aspart (Novolog Flexpen) 0 units SC NOW STA Stop: 04/29/19 14:59 Last Admin: 04/29/19 15:31 Dose: Not Given Documented by: [id number] Cosigned by: [id number] Insulin Glargine (Lantus Solostar Pen) 14 units SC NOW STA Stop: 04/29/19 12:26 Last Admin: 04/29/19 13:05 Dose: 14 units Documented by: [id number] Cosigned by: [id number] Labetalol HCl (Normodyne) 10 mg IV NOW STA Stop: 04/29/19 15:20 Last Admin: 04/29/19 17:48 Dose: 10 mg Documented by: [id number] Cosigned by: [id number] Lorazepam (Ativan) Confirm Administered Dose 2 mg .ROUTE .STK-MED ONE Stop: 04/29/19 18:31 Last Increment: 04/29/19 18:35 Dose: 0.5 mg Documented by: [id number] Potassium Phosphate (Potassium Phosphate Replace) 9 mmol IV NOW STA Stop: 04/29/19 12:03 Last Admin: 04/29/19 12:39 Dose: Not Given Documented by: [id number] Medical Decision Making Differential Diagnosis Differential diagnosis: Etiologies such as metabolic, infection, hypo/hyperglycemia, electrolyte abnormalities, cardiac sources, intracerebral event, toxicologic, neurologic, as well as others were entertained. Medical Records Attestation: I reviewed the patient's medical records. Home Medications Current Medication List: was personally reviewed by me Laboratory Data Attestation: I reviewed the patient's lab results. Result diagrams: 04/29/19 10:15 04/29/19 10:15 Lab Results 04/29/19 04/29/19 04/29/19 Range/Units 10:15 10:15 10:15 WBC 6.53 (4.8-10.8) K/uL RBC 3.40 L (4.7-6.1) M/uL Hgb 12.2 L (14.0-18.0) g/dL Hct 35.0 L (42-52) % MCV 102.9 H (80-100) fL MCH 35.9 H (25-34) pg MCHC 34.9 (32-36) g/dL RDW Std Deviation 55.1 H (36.4-46.3) fL RDW Coeff of Carlos 14.6 H (11.5-14.5) % Plt Count 257 (130-400) K/uL MPV 13.7 H (7.4-10.4) fL Immature Gran % (Auto) 0.6 % Neut % (Auto) 71.2 % Lymph % (Auto) 14.4 % [place] % (Auto) 11.8 % Eos % (Auto) 1.7 % Baso % (Auto) 0.3 % Immature Gran # (Auto) 0.04 H (0.00-0.02) K/uL Neut # (Auto) 4.65 (1.4-6.5) K/uL Lymph # (Auto) 0.94 L (1.2-3.4) K/uL [place] # (Auto) 0.77 H (0.11-0.59) K/uL Eos # (Auto) 0.11 (0-0.5) K/uL Baso # (Auto) 0.02 (0-0.2) K/uL PT 12.8 H (9.0-12.0) Seconds INR 1.2 H (0.9-1.1) APTT 29.4 (21.0-31.0) Seconds PTT Ratio 1.1 Sodium 130 L (136-145) mmol/L Potassium 4.1 (3.5-5.1) mmol/L Chloride 96 L (98-107) mmol/L Carbon Dioxide 27 (21-32) mmol/L Anion Gap 8.0 (3-11) BUN 21 H (7-18) mg/dl Creatinine 1.11 (0.6-1.4) mg/dl Est Cr Clr Drug Dosing 77.1 ml/min Est GFR ( Amer) 77.0 Est GFR (Non-Af Amer) 66.5 BUN/Creatinine Ratio 19.0 (10-20) Glucose 427 H* (70-99) mg/dl Calcium 8.6 (8.5-10.1) mg/dl Phosphorus 1.3 L* (2.5-4.9) mg/dl Magnesium 1.7 L (1.8-2.4) mg/dl Total Bilirubin 0.9 (0.2-1) mg/dl AST 53 H (15-37) U/L ALT 35 (12-78) U/L Alkaline Phosphatase 89 (45-117) U/L Troponin I 0.075 H* (0-0.045) ng/ml Total Protein 6.2 L (6.4-8.2) gm/dl Albumin 2.8 L (3.4-5.0) gm/dl Globulin 3.4 (2.5-4.0) gm/dl Albumin/Globulin Ratio 0.8 L (0.9-2) Lipase 78 (73-393) U/L Beta-Hydroxybutyric Acd 15.48 H (0.2-2.81) mg/dl TSH 1.230 (0.300-4.500) uIu/ml Imaging Data Radiologist's Impression: Radiology results as stated below per my review and the radiologist's interpretation: XR chest 1V portable CLINICAL HISTORY: 69 years-old Male presenting with Chest Pain. TECHNIQUE: Portable upright AP view of the chest was obtained. COMPARISON: 08/01/2018. FINDINGS: Atherosclerosis of the aortic arch. Cardiac silhouette enlarged. Bibasilar opacities greater on the right. Small bilateral pleural effusions. No pneumothorax. Degenerative changes of the thoracic spine. Posterior cervical f usion hardware noted. Degenerative changes of the right AC joint. IMPRESSION: 1. Small bilateral layering pleural effusions with suspected extensive bibasilar passive atelectasis. Underlying consolidation not excluded. 2. Cardiomegaly. No significant volume overload or advanced congestive change. ACT 112: Negative or not required by law. Electronically signed by: Jose Gee M.D. 04/29/2019 11:23 AM ECG Data Attestation: I personally reviewed and interpreted this ECG as follows: Indication: + other (hyprglycemia) Rate (beats per minute): 73 Rhythm: + atrial fibrillation ECG ST segments: no ST depression and no ST elevation ECG Findings: + PACs and + Other (QT-c 449, QRS 110) Comparison ECG Date: from (08/01/18) Change: no significant change Blood Pressure Blood Pressure Findings: Elevated blood pressure Blood Pressure Disposition: further management by hospitalist VERONICA Narrative The patient is a pleasant 69-year-old gentleman with a past medical history of A. fib on Coumadin, IDDM 1 on insulin pump, recent history of lumbar decompression at on Wednesday who presents emergency department coming by his family concern for waxing and waning confusion in setting of their concern over observing the patient being unable to manage his insulin pump with a subsequently stopped his pump and began subcutaneous insulin but without initiating long-acting insulin and now with elevated blood sugars and continued confusion per HPI. On arrival the patient is drowsy appearing but alert and oriented, no acute distress, afebrile stable vital signs. Patient has dry mucous membranes. He has no focal neuro deficits and has 5/5 strength and SILT x4 extremities. EKG demonstrates patient's known A. fib without overt acute ischemia. Chest x-ray with small bilateral pleural effusions and otherwise no clear focal infiltrates. WBC and platelets within normal limits. H/H 12.2/35.0 approximately prior range of values. Chemistry without acidosis or elevated anion gap. BUN slightly elevated at 21 consistent with the patient's clinically dry appearance. Glucose initially elevated at 427 but without metabolic acidosis albeit with BHB 15. Magnesium 1.7 and phosphorus 1.3 with repletion provided. AST slightly elevated at 53, nonspecific. LFTs otherwise unremarkable. Initial troponin elevated at 0.075 possibly related to the patient's intermittent A. fib with RVR. The extent of the patient's electrolyte abnormalities in the setting of" uncontrolled blood sugars in the setting of his delirium and being taken off of his Insulin pump by his family reasonable to proceed with admission for further medical optimization and likely PT/OT for placement. Case discussed with Dr. Canales, [facility] hospitalist, who evaluate the patient for admission. Cardiac monitoring: An order was placed for continuous cardiac monitoring. The monitor shows a rate of 73 with atrial fibrillation rhythm. Impression & Plan Hyperglycemia due to type 1 diabetes mellitus, Atrial fibrillation, Elevated troponin, Delirium Discharge Plan Visit Data *Final* Discharge Date/Time: 04/29/19 14:18 Chief Complaint: Hyperglycemia Stated Complaint: hyperglycemia, lethergic ED Provider: Jaron Wilkerson Discharge Problem: Hyperglycemia due to type 1 diabetes mellitus, Atrial fibrillation, Elevated troponin, Delirium Patient Disposition: Admitted As Inpatient Discharge Instructions Interventions: ED Discharge Assessment Last Done: 04/29/19 14:18 Discharge Problem: Atrial fibrillation Qualifiers: Atrial fibrillation type: unspecified Qualified Code(s): I48.91 - Unspecified atrial fibrillation The scribe's documentation has been prepared under my direction and personally reviewed by me in its entirety. I confirm that the note above accurately reflects all work, treatment, procedures, and medical decision making performed by me.
[2019-04-29] MEDS ORDERED: LORazepam 0.5 MG/1 ML VIAL IV STA ×2 (18:29→20:32)
[2019-04-29] MEDS ORDERED: LORazepam 2 MG/4 ML VIAL ONE (18:30)
[2019-04-29] MEDS: cycloSPORINE 25 MG CAP PO SCH (20:17)
[2019-04-29] MEDS: PREGABALIN 100 MG CAP PO SCH (20:18)
[2019-04-29] MEDS ORDERED: ATORVASTATIN 40 MG TAB PO SCH (21:00)
[2019-04-29] MEDS ORDERED: METOPROLOL TARTRATE 50 MG TAB PO SCH (21:00)
[2019-04-30] MEDS ORDERED: INSULIN ASPART 100 UNITS/ML 3 ML PEN SC SCH
[2019-04-30] MEDS: INSULIN ASPART 100 UNITS/ML 3 ML PEN SC SCH ×5 (00:04→16:49)
[2019-04-30] MEDS: LORazepam 0.5 MG/1 ML VIAL IV PRN ×4 (01:51→21:28)
[2019-04-30 05:59] LABS: Hemoglobin 12.6 g/dL (14.0-18.0); Mean Corpuscular Hemoglobin 35.6 pg (25-34); Mean Corpuscular Volume 101.7 fL (80-100); Mean Platelet Volume 13.4 fL (7.4-10.4); Platelet Count 276 K/uL (130-400); RDW Coefficient of Variation 14.3 % (11.5-14.5); RDW Standard Deviation 53.5 fL (36.4-46.3); Red Blood Count 3.54 M/uL (4.7-6.1); White Blood Count 8.03 K/uL (4.8-10.8)
[2019-04-30 06:08] LABS: INR 1.5 (0.9-1.1); Prothrombin Time 15.5 Seconds (9.0-12.0)
[2019-04-30 06:40] LABS: BUN Creatinine Ratio 13.9 (10-20); Calcium 8.7 mg/dl (8.5-10.1); Creatinine Clr Calc Pharmacy 94.9 ml/min; Est GFR (African American) 102.6; Est GFR (Non-African American) 88.5; Magnesium 1.6 mg/dl (1.8-2.4); Phosphorus 2.4 mg/dl (2.5-4.9); Potassium 3.7 mmol/L (3.5-5.1)
--- NOTE | 2019-04-30 08:06 | Pharmacy Report ---
Pharmacy Glycemic Short Note 2 - Date of Service April 30, 2019 - Glycemic Short BSG Results (Last 24 hours): 04/29/19 04/29/19 04/29/19 10:15 16:04 20:58 Glucose 427 H* POC Glucose 302 H* 179 H 04/30/19 04/30/19 04/30/19 00:02 04:10 05:32 Glucose 167 H POC Glucose 211 H 151 H 04/30/19 07:26 Glucose POC Glucose 172 H ASSESSMENT: * Mr. Henderson's BSGs look better today. Dw nursing this AM, PO intake has been nil due to his altered mentation. PLAN FOR INPATIENT GLYCEMIC CONTROL: * Basal insulin * Lantus 12u this AM due to pt ostensibly being NPO * Bolus insulin * NovoLog per scale ACHS or Q6hrs while NPO * Goal Range: Low 120 mg/dL - High 160 mg/dL * Correction Factor: 30 mg/dL/unit * Nutritional / Prandial insulin per carb ratio of 1 unit per 10 grams CHO consumed
[2019-04-30] MEDS ORDERED: predniSONE 5 MG TAB PO SCH (09:00)
[2019-04-30] MEDS ORDERED: METOPROLOL TARTRATE 25 MG TAB PO SCH (09:00)
[2019-04-30] MEDS ORDERED: ASPIRIN 81 MG ECTAB PO SCH (09:00)
[2019-04-30] MEDS ORDERED: ISOSORBIDE MONO EXTENDED REL 30 MG TABCR PO SCH (09:00)
[2019-04-30] MEDS ORDERED: INSULIN GLARGINE SOLOSTAR 100 UNITS/ML 3 ML PEN SC ONE ×2 (09:00)
[2019-04-30] MEDS ORDERED: MAGNESIUM SULFATE 50% 4 GM in SODIUM CHLORIDE 0.9% 500 ML IV SCH (09:30)
--- NOTE | 2019-04-30 09:53 | Hospitalist Progress Note ---
Date of Service April 30, 2019 Assessment & Plan (1) Metabolic encephalopathy: Likely a combination of hyperglycemia, and electrolyte abnormalities in postoperative state. Confusion is worse overnight and has now become full blown delirium. It is noted that he hasn't had a CT head since admission, however, his agitation right now prevents that from being an option. He also has intact speech, moving all limbs equally with strength intact, equal pupils, and grossly no evidence of focal neurologic deficit outside of the confusion. Blood sugar and electrolytes have improved. Uncontrolled pain was considered, however, the patient's reports that he wasn't using much of the narcotic only needing PRN Tylenol prior to arrival. Plan to add scheduled APAP at this time. NPO for now 2/2 high aspiration risk. Cont one to one and supportive care. Will consider further chemical restriction with antipsychotic if Ativan is ineffective. Discussed the plan with his and the nurse caring for him. (2) Hyperglycemia due to type 1 diabetes mellitus: Secondary to insulin noncompliance after pump malfunction. Back within the normal range. Appreciate pharmacy assistance with management. Cont basal bolus insulin as ordered. (3) Hyperosmolar hyponatremia: Pseudohyponatremia correcting. (4) Elevated troponin: Likely a demand ischemia, however, the patient does have cardiac disease and recently underwent a surgery. Echo when able to be performed (5) Acute urinary retention: Stack catheter placed after recent surgery for acute urinary retention. We will keep the Stack in place today and plan for a trial of void tomorrow. (6) Hypophosphatemia: resolved after replacement. (7) Hypomagnesemia: Although still low, he cannot tolerate IV or PO replacement at this time 2/2 delirium. Nurse to give if sedated with Ativan and hold if not. (8) Atrial fibrillation: Coumadin on hold as not able to take PO. Also with skin tears and aggressive behavior, cannot give IV heparin because he might pull out the IV and this may worsen the bleeding from wounds. Converted Lopressor to IV for now to help control heart rate. (9) H/O heart artery stent: Continue medical management of known CAD with metoprolol, Imdur, atorvastatin 40 mg daily, aspirin 81 mg daily. (10) History of renal transplant: Continue daily prednisone and cyclosporine per home regimen. Currently NPO, will consider giving hydrocortisone IV but currently do not want to add to the encephalopathy with additional IV steroids. Plan to hold both today and give tomorrow morning when able to swallow and follow instructions. (11) History of renal cell carcinoma: History of renal cell cancer status post nephrectomy after renal transplant. Currently in remission. Plan per outpatient oncology (12) DVT prophylaxis: Coumadin-TEDs Full code Disposition-cont PCU monitoring for now. Paula Canales DO [facility] Hospitalist Admission and Anticipated Discharge Date Admission Date: April 29, 2019 Anticipated date of discharge: 05/02/19 Subjective Type I diabetic s/p lumbar surgery one week ago who is hospitalized for intermittent confusion has been very confused overnight. He has been thrashing around so much he now has multiple skin tears. He ripped out an IV. He is hallucinating and unable to pay attention to instructions. He is a high aspiration risk so PO has been held. Stack still in place but he is not concerned with this for now. I spoke with his by phone and updated her on the situation and the plan. All her questions were answered and she verbalized understanding of the plan. Review of Systems Review of Systems: All systems reviewed & are unremarkable except as noted in Subjective Physical Exam Physical Exam: CONSTITUTIONAL: WNWD, vitals as above but may be skewed 2/2 delirium. Clearly delirious and thrashing around when I came in. Unable to comfort or reorient him. [employer]PER[employer]ENT at bedside as a one to one. EYES: pupils are equal bilaterally, didn't keep his eyes open very long but normal conjunctivae, no scleral icterus ENT: external ear and nose normal, lips are dry. RESPIRATORY: limited exam 2/2 delirium, clear to auscultation bilaterally, no crackles, rales or wheezes, normal respiratory effort CARDIOVASCULAR: very limited exam 2/2 agitation. Appears to have irregular rate and rhythm, S1 and 2 heard without murmurs, gallops or rubs, no JVD, no peripheral edema GASTROINTESTINAL: soft, nontender, nondistended-again limited. MUSCULOSKELETAL: moves all extremities well against resistance, head is normocephalic and atraumatic SKIN: warm and dry, L spine incision healing well. Now has multiple skin tears on limbs covered with Optifoam. NEUROLOGIC: Delirious, agitated, unable to orient or follow instructions. Results & Data ([facility]) Vital Signs (Past 12 Hours) Vital Signs Pulse Resp BP Pulse Ox 03/08/20 00:11 84 18 157/92 H 94 Laboratory Results Short CBC 04/29/19 04/30/19 Range/Units 10:15 05:32 WBC 6.53 8.03 (4.8-10.8) K/uL Hgb 12.2 L 12.6 L (14.0-18.0) g/dL Hct 35.0 L 36.0 L (42-52) % Plt Count 257 276 (130-400) K/uL BMP 04/29/19 04/30/19 10:15 05:32 Sodium 130 L 133 L Potassium 4.1 3.7 Chloride 96 L 97 L Carbon Dioxide 27 29 BUN 21 H 12 Creatinine 1.11 0.83 Glucose 427 H* 167 H Calcium 8.6 8.7 Cardiac Enzymes 04/29/19 04/29/19 Range/Units 10:15 16:02 Troponin I 0.075 H* 0.060 H* (0-0.045) ng/ml Liver Function 04/29/19 Range/Units 10:15 Total Bilirubin 0.9 (0.2-1) mg/dl AST 53 H (15-37) U/L ALT 35 (12-78) U/L Alkaline Phosphatase 89 (45-117) U/L Albumin 2.8 L (3.4-5.0) gm/dl Medications Administered Current Inpatient Medications Aspirin (Ecotrin Ectab) 81 mg PO QAM SARIAH Stop: 05/30/19 08:59 Last Admin: 04/30/19 10:04 Dose: Not Given Documented by: Atorvastatin Calcium (Lipitor) 40 mg PO PM SARIAH Stop: 05/29/19 20:59 Last Admin: 04/29/19 22:31 Dose: Not Given Documented by: Cyclobenzaprine HCl (Flexeril) 10 mg PO HS PRN PRN Reason: MUSCLE SPASM Stop: 05/29/19 16:34 Last Admin: 04/29/19 20:16 Dose: 10 mg Documented by: Cyclosporine (Neoral) 50 mg PO BID SARIAH Stop: 05/29/19 20:59 Last Admin: 04/30/19 10:04 Dose: Not Given Documented by: Dextrose (Dextrose 50%) 25 - 50 ml IV UD PRN; Protocol PRN Reason: Hypoglycemia Protocol Stop: 05/29/19 15:22 Docusate Sodium (Colace) 100 mg PO DAILY PRN PRN Reason: Constipation Stop: 05/29/19 15:43 Glucagon (Glucagen) 1 mg SQ UD PRN; Protocol PRN Reason: Hypoglycemia Protocol Stop: 05/29/19 15:22 Glucose (Dex4 Glucose) 4 - 8 tabs PO UD PRN; Protocol PRN Reason: Hypoglycemia Protocol Stop: 05/29/19 15:22 Glucose (Glucose 40%) 15 - 30 gm PO UD PRN; Protocol PRN Reason: Hypoglycemia Protocol Stop: 05/29/19 15:22 Lorazepam (Ativan) 0.5 mg in 1 mls @ 0.5 mls/min IV Q6 PRN PRN Reason: Agitation Stop: 05/29/19 18:30 Last Admin: 04/30/19 09:38 Dose: 0.5 mls/min Documented by: Magnesium Sulfate 4 gm/ Sodium (Chloride) 508 mls @ 125 mls/hr IV .Q4H4M [facility] Stop: 04/30/19 13:33 Acetaminophen (Ofirmev) 1,000 mg in 100 mls @ 400 mls/hr IV Q8H [facility]IA[facility] Stop: 05/03/19 09:59 Lorazepam (Ativan) 0.5 mg in 1 mls @ 1 mls/min IV NOW STA Stop: 04/30/19 10:04 Insulin Aspart (Novolog Flexpen) 0 units SC ACHS [facility] Stop: 05/29/19 16:29 Last Admin: 04/30/19 09:40 Dose: 1 units Documented by: Isosorbide Mononitrate (Imdur Extended Rel) [facility] [place] Stop: 05/30/19 08:59 Last Admin: 04/30/19 10:04 Dose: Not Given Documented by: Metoprolol Tartrate (Lopressor) 50 mg PO QPM [facility] Stop: 05/29/19 20:59 Last Admin: 04/29/19 20:17 Dose: 50 mg Documented by: Metoprolol Tartrate (Lopressor) 75 mg PO QAM [facility] Stop: 05/30/19 08:59 Last Admin: 04/30/19 10:04 Dose: Not Given Documented by: Metoprolol Tartrate (Lopressor) 5 mg IV Q6 [facility] Stop: 05/30/19 11:59 Miscellaneous (Carbohydrates For Hypoglycemia) 15 - 30 gm PO UD PRN PRN Reason: Hypoglycemia Protocol Stop: 05/29/19 15:22 Miscellaneous (Order Awaiting Action) 1 ea N/A QS [facility] Stop: 05/30/19 00:00 Last Admin: 04/30/19 09:42 Dose: Not Given Documented by: Miscellaneous Information (Consult Glycemic Management Pharmacy) 1 ea N/A UD PRN PRN Reason: Consult Stop: 05/29/19 14:36 Ondansetron HCl (Zofran) 4 mg IV Q6H PRN PRN Reason: Nausea Stop: 05/29/19 14:34 Oxycodone HCl (Roxicodone Immediate Rel) 5 mg PO Q8 PRN PRN Reason: Pain Stop: 05/13/19 16:32 Last Admin: 04/29/19 17:15 Dose: 5 mg Documented by: Polyethylene Glycol (Miralax Powder Packet) 17 gm PO DAILY PRN PRN Reason: Constipation Stop: 05/29/19 14:34 Polyethylene Glycol (Miralax Powder Packet) 17 gm PO BID17 [facility] Stop: 05/29/19 16:59 Last Admin: 04/30/19 10:04 Dose: Not Given Documented by: Prednisone (Prednisone) 5 mg PO QAM [facility] Stop: 05/30/19 08:59 Last Admin: 04/30/19 10:06 Dose: Not Given Documented by: Pregabalin (Lyrica) 100 mg PO TID [facility] Stop: 05/29/19 20:59 Last Admin: 04/30/19 10:04 Dose: Not Given Documented by: Sennosides (Senokot) 8.6 mg PO DAILY PRN PRN Reason: Constipation Stop: 05/29/19 15:43 Sodium Chloride (Trego Nasal) 1 sprays JOHN BID PRN PRN Reason: nasal dryness/congestion Stop: 05/29/19 15:43 Warfarin Sodium (Coumadin) 2.5 mg PO SuTuThSa@1600 [facility] Stop: 05/29/19 16:29 Last Admin: 04/29/19 17:13 Dose: 2.5 mg Documented by: Warfarin Sodium (Coumadin) 5 mg PO MoWeFr@1600 [facility] Stop: 05/31/19 15:59 (1) Atrial fibrillation Atrial fibrillation type: unspecified Qualified Code(s): I48.91 - Unspecified atrial fibrillation
[2019-04-30] MEDS ORDERED: LORazepam 0.5 MG/1 ML VIAL IV STA (10:03)
[2019-04-30] MEDS: POLYETHYLENE (MIRALAX) 17 GM PACK PO SCH (10:04)
[2019-04-30] MEDS: PREGABALIN 100 MG CAP PO SCH (10:04)
[2019-04-30] MEDS: cycloSPORINE 25 MG CAP PO SCH (10:04)
[2019-04-30] MEDS: ACETAMINOPHEN 1,000 MG/100 ML VIAL IV SCH ×3 (10:15→21:35)
[2019-04-30] MEDS ORDERED: HALOPERIDOL LACTATE 5 MG/ML 1 ML VIAL IV PRN (10:22)
[2019-04-30 10:38] LABS: Appearance Urine Clear (Clear); Bacteria Urine Automated Negative (Negative); Bilirubin Urine Negative (Negative); Blood Urine 2+ (Negative); Cast Urine Automated 0 /lpf (0-5); Color Urine Yellow; Epithelial Cell Urine Auto 0-5 /lpf (0-5); Glucose Urine UA 3+ (Negative); Ketones Urine 1+ (Negative); Leukocyte Esterase Urine Negative (Negative); Nitrite Urine Negative (Negative); Protein Urine Negative (Negative); RBC Urine Automated 0-4 /hpf (0-4); Specific Gravity Urine 1.013 (1.000-1.030); Urobilinogen Urine Negative (Negative); WBC Urine Automated 0 /hpf (0-5); pH Urine 8.5 (4.5-7.5)
[2019-04-30] MEDS: METOPROLOL TARTRATE 1 MG/ML VIAL IV SCH ×2 (12:45→16:52)
[2019-04-30] MEDS ORDERED: MoRPHine SULFATE 2 MG/ML CARP IV PRN (13:00)
[2019-04-30] MEDS ORDERED: SODIUM CHLORIDE 0.9% 1000ML 1,000 ML IV SCH (17:15)
[2019-04-30 19:05] VITALS: BP 157/93; TEMP 98.1; O2SAT 95
[2019-04-30] MEDS ORDERED: Nursing to Pharmacy Communication ONE (19:15)
--- NOTE | 2019-04-30 19:17 | CT Scan Report ---
CT SCAN OF THE BRAIN WITHOUT IV CONTRAST CLINICAL HISTORY: Delirium. COMPARISON STUDY: CT of the brain dated 08/01/2018. TECHNIQUE: Unenhanced axial CT scan of the brain is performed from the vertex to the skull base. A do se lowering technique was utilized adhering to the principles of ALARA. The patient was scanned 3 natan es due to motion artifact. Note that the examination is motion compromised. CT DOSE: 1842.80 mGy.cm FINDINGS: Brain parenchyma: There is marked edema identified in the right stizrsb-ydjoryd-iqpdjjsui cortex with effacement of overlying cortical sulci, as well as the posterior horn of the right lateral ventricle . There is the suggestion of an underlying mass lesion seen on image #23 measuring 3.1 cm. The overly ing cortex appears spared. Hyperdensity along the overlying right parietal occipital sulci persists o n all 3 series and likely represents subarachnoid hemorrhage. There are age-related involutional rivas ges noting mild subcortical and periventricular microangiopathic change. There is no parenchymal hem atoma or midline shift. No extra-axial fluid collection is seen. Ventricles, sulci, cisterns: Prominent secondary to involutional change. Intracranial vasculature: There is atherosclerotic calcification of the cavernous carotid and vertebr al arteries. Calvarium: Unremarkable. Sinuses and mastoids: The visualized paranasal sinuses are clear. The mastoid air cells are well pneu matized. Orbits: The bony orbits are grossly intact. There are bilateral ocular lens implants. IMPRESSION: 1. Motion compromised examination. 2. There is marked edema identified within the right fmvwkaj-wnpbnth-mxzjnqaki cortex with effacement of the overlying cortical sulci. The overlying cortex remains, and the appearance is highly concerni ng for underlying mass lesion. A large subacute infarct is considered less likely but remains a diffe rential consideration. Neurosurgical consultation is advised. 3. There is no midline shift. No additional foci of edema are identified. 4. Hyperdense material is identified along the overlying cortical sulci. This persists on all 3 exami nations and likely represents subarachnoid hemorrhage. ACT 112: Negative or not required by law. Electronically signed by: Minesh Taveras M.D. 04/30/2019 7:15 PM
--- NOTE | 2019-04-30 20:29 | Discharge Summary ---
Date of Service April 30, 2019 Admission HPI Per Admitting Provider The patient is a 69-year-old man who was recently admitted to [facility] for an elective lumbar spinal surgery. He was discharged on Wednesday, 04/24 to home. He is a type I diabetic who is on an insulin pump. During the transition of turning on his pump at time of discharge there was a malfunction in the pump settings. Therefore, the patient was using NovoLog bolus insulin to help his ever-increasing hyperglycemia, which was ineffective. He presented with a blood sugar in the 400s today and is considerably more weak, somnolent and per , there is some intermittent confusion. He is oriented and clear mentally during my interview today but is fatigued. The majority the interview was spent with his eyes closed. He is able to follow instructions. Work-up in the ER also revealed hypophosphatemia. The patient is a notable renal transplant patient. Magnesium was also found to be low. Some replacement for potassium, phosphorus, magnesium was given in the ER and basal and bolus insulin was also administered. The pharmacist is involved with management of insulin in the hospital. Review of systems was otherwise negative including no chest pain, shortness of breath, changes in bowels or other issues. The patient notably has a Stack catheter in place and he was discharged with this after acute urinary retention postoperatively. We discussed that for now we will leave this in place as he is somnolent and not moving around easily. However, tomorrow we will do a trial of void. Admission Exam Per Admitting Provider CONSTITUTIONAL: WNWD, vitals as above, generally well-appearing but somnolent EYES: EOMI bilaterally, PERRL, normal conjunctivae, no scleral icterus ENT: external ear and nose normal, oropharynx clear, MMM RESPIRATORY: clear to auscultation bilaterally, no crackles, rales or wheezes, normal respiratory effort CARDIOVASCULAR: regular rate and rhythm, S1 and 2 heard without murmurs, gallops or rubs, no JVD, no peripheral edema GASTROINTESTINAL: soft, nontender, nondistended MUSCULOSKELETAL: strength 5/5 throughout, head is normocephalic and atraumatic, lumbar spine incision is closed and appears to be healing well. No surrounding erythema is present. SKIN: warm and dry, wound as above. NEUROLOGIC: CN 2-12 grossly intact, no sensory deficit, somnolent, normal speech, finger to nose coordination testing is somewhat off today. PSYCHIATRIC: alert cooperative and oriented to person, place and time. Principal Diagnosis encephalopathy Subarachnoid hemorrhage Brain MAss Discharge Data Allergies Allergy/AdvReac Type Severity Reaction Status Date / Time Uncoded Nonscreenable AdvReac Unknown MOST Uncoded 02/20/18 15:32 Allergen NARCOTICS CAUSE NAUSEA Consultations 04/29/19 12:06 ED Decision to Admit Stat 04/29/19 14:35 Consult Case Management - Discharge Planning Routine 04/29/19 15:16 Consult Health Information Management Routine Ordered Studies 04/30/19 17:03 CT head/brain wo con Routine Hospital Course (1) Subarachnoid hemorrhage: 69 M who recently had back surgery at [facility] was admitted yesterday for confusion and hypeglcemia and electrolyte abnormalities.His insulin pump was malfunctioning. He required haldol and ativan for his delerium. CT head done today showed : 1. Motion compromised examination. 2. There is marked edema identified within the right hkihwrz-iiynhkq-xrfkjtbnb cortex with effacement of the overlying cortical sulci. The overlying cortex remains, and the appearance is highly concerning for underlying mass lesion. A large subacute infarct is considered less likely but remains a differential consideration. Neurosurgical consultation is advised. 3. There is no midline shift. No additional foci of edema are identified. 4. Hyperdense material is identified along the overlying cortical sulci. This persists on all 3 examinations and likely represents subarachnoid hemorrhage. Notified about the findings and as we don't have neurosurgery planned to transfer to [place] and was ok with the transfer. Called [place] and was accepted in transfer. Hospital course so far(Today's progress note documented by ): (1) Metabolic encephalopathy: Likely a combination of hyperglycemia, and electrolyte abnormalities in postoperative state. Confusion is worse overnight and has now become full blown delirium. It is noted that he hasn't had a CT head since admission, however, his agitation right now prevents that from being an option. He also has intact speech, moving all limbs equally with strength intact, equal pupils, and grossly no evidence of focal neurologic deficit outside of the confusion. Blood sugar and electrolytes have improved. Uncontrolled pain was considered, however, the patient's reports that he wasn't using much of the narcotic only needing PRN Tylenol prior to arrival. Plan to add scheduled APAP at this time. NPO for now 2/2 high aspiration risk. Cont one to one and supportive care. Will consider further chemical restriction with antipsychotic if Ativan is ineffective. Discussed the plan with his and the nurse caring for him. (2) Hyperglycemia due to type 1 diabetes mellitus: Secondary to insulin noncompliance after pump malfunction. Back within the normal range. Appreciate pharmacy assistance with management. Cont basal bolus insulin as ordered. (3) Hyperosmolar hyponatremia: Pseudohyponatremia correcting. (4) Elevated troponin: Likely a demand ischemia, however, the patient does have cardiac disease and recently underwent a surgery. Echo when able to be performed (5) Acute urinary retention: Stack catheter placed after recent surgery for acute urinary retention. We will keep the Stack in place today and plan for a trial of void tomorrow. (6) Hypophosphatemia: resolved after replacement. (7) Hypomagnesemia: Although still low, he cannot tolerate IV or PO replacement at this time 2/2 delirium. Nurse to give if sedated with Ativan and hold if not. (8) Atrial fibrillation: Coumadin on hold as not able to take PO. Also with skin tears and aggressive behavior, cannot give IV heparin because he might pull out the IV and this may worsen the bleeding from wounds. Converted Lopressor to IV for now to help control heart rate. (9) H/O heart artery stent: Continue medical management of known CAD with metoprolol, Imdur, atorvastatin 40 mg daily, aspirin 81 mg daily. (10) History of renal transplant: Continue daily prednisone and cyclosporine per home regimen. Currently NPO, will consider giving hydrocortisone IV but currently do not want to add to the encephalopathy with additional IV steroids. Plan to hold both today and give tomorrow morning when able to swallow and follow instructions. (11) History of renal cell carcinoma: History of renal cell cancer status post nephrectomy after renal transplant. Currently in remission. Plan per outpatient oncology (2) Brain mass: (3) Metabolic encephalopathy: (4) Acute urinary retention: (5) Hyperosmolar hyponatremia: (6) Hypophosphatemia: (7) Atrial fibrillation: (8) Elevated troponin: (9) Delirium: Total Time Total Time Spent Total Time Spent (In Minutes): 50minutes Discharge Plan Discharge Items Patient Disposition: Transfer Acute Care Hospital Reason For Visit: METABOLIC ENCEPHALOPATHY,HYPERGLYCEMIA Discharge Diagnosis: subarachnoid hemorrhage Right parietal brain mass Activity: As commented below Activity Comment: bedrest Lifting: None Non-emergency contact: Primary Care Provider Call non-emergency contact if: you have any medication questions Follow-up/Referrals: Tristan Bedolla DO [Primary Care Provider] - Diet: Nothing by Mouth Addtl Attending Provider Instructions: Transferring To [place] Pending Studies at Discharge: No Stand-Alone Forms: My [facility] Skilled Items Patient informed of condition?: No DNR: No Discharge Level of Care: Other Communicable Disease: No Discharge Prognosis: Other Lines: Peripheral IV Urinary Catheter: Yes Medications and DC Order Prescriptions: New isosorbide mononitrate 30 mg Tablet Extended Release 24 Hr 30 mg PO QAM Qty: 20 RF: 0 metoprolol tartrate 50 mg Tablet 50 mg PO QPM Qty: 20 RF: 0 metoprolol tartrate 25 mg Tablet 75 mg PO QAM Qty: 20 RF: 0 Continued multivitamin Tablet 1 tab PO QAM RF: 0 prednisone 5 mg Tablet 5 mg PO QAM RF: 0 insulin aspart U-100 [Novolog U-100 Insulin aspart] 100 unit/mL Solution 0 unit SUBCUT CONTINOUS RF: 0 pregabalin [Lyrica] 100 mg Capsule 100 mg PO TID RF: 0 azelastine-fluticasone 137-50 mcg/spray Hale,Non-Aerosol 2 spray INTRANASAL BID RF: 0 cyclosporine modified 25 mg capsule 2 tab PO BID RF: 0 silver sulfadiazine 1 % Cream 1 applic TOPICAL DAILY RF: 0 benzonatate 100 mg Capsule 100 mg PO TID PRN (Reason: Cough) RF: 0 sodium chloride [Saline Nasal] 0.65 % Aerosol,Hale 1 spray INTRANASAL BID PRN (Reason: nasal dryness/congestion) RF: 0 acetaminophen [Tylenol] 325 mg Tablet 325 mg PO DIRECTED PRN (Reason: pain/fever) RF: 0 ascorbic acid (vitamin C) [Vitamin C] 500 mg Tablet 500 mg PO DAILY RF: 0 Oscal 1 tab PO BID RF: 0 Discontinued cyclobenzaprine 10 mg Tablet 10 mg PO HS PRN (Reason: Muscle Spasm) RF: 0 atorvastatin 40 mg Tablet 40 mg PO PM RF: 0 isosorbide mononitrate 30 mg Tablet Extended Release 24 Hr 30 mg PO QAM RF: 0 aspirin [Aspir-81] 81 mg Tablet,Delayed Release (Dr/Ec) 81 mg PO QAM RF: 0 warfarin [Coumadin] 5 mg Tablet 2.5 mg PO SUTUTHSA RF: 0 warfarin [Coumadin] 5 mg Tablet 5 mg PO MOWEFR RF: 0 metoprolol tartrate 50 mg Tablet 50 mg PO QPM RF: 0 metoprolol tartrate 50 mg Tablet 75 mg PO QAM RF: 0 sennosides [senna] 8.6 mg Tablet 8.6 mg PO DIRECTED PRN (Reason: Constipation) RF: 0 docusate sodium [Stool Softener] 100 mg Capsule 100 mg PO DAILY PRN (Reason: Constipation) RF: 0 oxycodone 5 mg tablet 5 mg PO Q8 PRN (Reason: Pain) RF: 0 Discharge Orders: Discharge Order (Routine); Ordered 04/30/19 Ordered By: Jensen Wilson Admission Data Admit Date/Time: 04/29/19 13:11 Attending Provider: Paula Canales Admit Provider: Paula Canales Primary Care Provider: Tristan Bedolla Other Providers: Jose Espinosa
[2019-04-30] MEDS ORDERED: HYDROmorphone INJ 1 MG/ML SYRINGE IV STA ×2 (22:08→23:36)
[2019-04-30] MEDS ORDERED: HYDROmorphone INJ 1 MG/ML SYRINGE ONE (22:10)
[2019-04-30 22:54] VITALS: PULSE 80
[2019-05-01] MEDS ORDERED: INSULIN ASPART 100 UNITS/ML 3 ML PEN SC SCH
[2019-05-01] MEDS ORDERED: RAPID SEQUENCE INDUCTION BAG ONE (00:15)
[2019-05-01 06:04] LABS: Estimated Average Glucose 183 mg/dl
--- NOTE | 2019-05-01 12:36 | Electrocardiogram Report ---
Test Reason : Blood Pressure : / mmHG Vent. Rate : 073 BPM Atrial Rate : 394 BPM P-R Int : 000 ms QRS Dur : 110 ms QT Int : 408 ms P-R-T Axes : 000 -31 018 degrees QTc Int : 449 ms Atrial fibrillation with premature ventricular or aberrantly conducted complexes Left axis deviation Inferior infarct (cited on or before 31-MAY-2015) Anterior infarct (cited on or before 31-MAY-2015) Abnormal ECG When compared with ECG of 01-AUG-2018 20:42, HR has decreased Confirmed by Jerome Campo ([id number]) on 05/01/2019 12:36:01 PM Referred By: REFERRED SELF Confirmed By:Jerome Campo
[2019-05-01] MEDS ORDERED: WARFARIN SOD 5 MG TAB PO SCH (16:00)
== END 2019-04-30 23:45 | disposition short-term general hospital (02) | DRG 919 ==
LOC: ED 10:09 → 2S 13:11